=== PATIENT | female | born 1945 | race Caucasian/White ===

== ENCOUNTER 2020-06-29 10:06 | Outpatient (REF) | payer MEDICARE, SELFPAY ==
--- NOTE | 2020-06-29 | PFT_ITS ---
FLOWS: FEV1 25% of predicted at 0.53 L. FVC 46% of predicted at 1.28 L. FEV1 to FVC ratio of 0.49. No bronchodilator response. LUNG VOLUMES: Total lung capacity 90% of predicted at 4.55 L. Residual volume 128% of predicted at 2.96 L. Slow vital capacity 58% of predicted at 1.59 L. Expiratory reserve volume 21% of predicted at 0.13 L. Diffusion capacity is severely decreased, diffusion capacity adjusts to being moderately decreased after correction for alveolar ventilation. IMPRESSION: Very severe obstructive ventilatory defect with no bronchodilator response. Increased residual volume suggests air trapping. Decreased diffusion capacity suggests emphysema. MD AKOSUA Durbin/MODL / [id number] MTDD
== END 2020-06-29 10:07 | disposition home or self-care (01) ==
LOC: HO.RESP 10:06
PROVIDERS: Visit Provider Hospitalist
DX: J43.2 Centrilobular emphysema (principal)
CPT/HCPCS: 94060; 94727; 94729

== ENCOUNTER 2020-07-12 12:27 | Emergency (ER) | payer MEDICARE, SELFPAY ==
--- NOTE | 2020-07-12 12:59 | ED_ITS ---
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 but they recommended she get a COVID swab, increased sputum production on 10mg prednisone daily, on azithromycin MWF, no increased in O2 use MD elicited complaint: fever and cough Pertinent past history: COPD Onset (ago): day(s) (2) Consistency: constant Severity: moderate Description of mucous: clear Able to tolerate fluids by mouth: Yes Exacerbating factors: nothing Relieving factors: nothing Associated symptoms: fever, chills, rhinorrhea and cough Related Data Previous Rx's Medication Instructions Recorded albuterol sulfate 2.5 mg INHALATION Q6H 30 Days #360 06/30/20 ml doxycycline hyclate 100 mg PO BID 7 Days #14 cap 07/12/20 prednisone 20 mg PO DAILY 4 Days #4 tab 07/12/20 Allergies Allergy/AdvReac Type Severity Reaction Status Date / Time No Known Allergies Allergy Verified 07/12/20 13:00 Review of Systems Review of Systems: Constitutional : no Fever, positive Chills, positive fatigue, positive Malaise ENT/Mouth : no sore throat, positive runny nose Eyes: No Discharge Cardiovascular : No Chest Pain, No SOB Respiratory : pos Cough, pos Sputum Gastrointestinal : No Nausea, No Vomiting, No Diarrhea Genitourinary : No Dysuria, No Urinary Frequency Musculoskeletal : positive Myalgia Skin : No rash Neuro : No Headache PMFSH Past Medical History Medical History (Updated 07/12/20 @ 14:29 by Ana Pandey DO) Centrilobular emphysema Surgical History (Updated 07/12/20 @ 13:11 by Christoph Huddleston) H/O: hysterectomy History of cholecystectomy Social History Social History (Updated 07/12/20 @ 13:08 by Ana Pandey DO) Alcohol intake: unknown Smoking Status: Former smoker Use of substances other than those prescribed or required for medical reasons: No Advance Directives: No Advance Directives Information Provided: No Physical Exam Vital Signs: Vital Signs: Vital Signs Temp Pulse Resp BP Pulse Ox 07/12/20 14:24 98.9 F 78 20 114/36 L 97 07/12/20 13:57 75 16 99/50 L 100 07/12/20 13:07 98.7 F 82 16 106/36 L 98 Body Mass Index 24.0 Appearance: Alert. Oriented X3. No acute distress. Eyes: Pupils equal, round and reactive to light. ENT: Pharynx normal. Neck: Normal inspection. Neck supple. CVS: Normal heart rate and rhythm. Pulses normal. Respiratory: No respiratory distress. Breath sounds very decreased, no wheezes Abdomen: Soft and nontender. Skin: Skin warm and dry. Normal skin color. Normal skin turgor. Extremities: No lower extremity edema. No calf ttp Neuro: Oriented X 3. No motor deficit. No sensory deficit. Course Course Course Narrative: no increased O2 demand, CXR negative at this time given fevers will start on antibiotics, lactic acid negative, no change from chronic WBC count, doxy and increase steroids MDM - URI/Sore Throat MDM Narrative Medical decision making narrative: 75 yo female with emphysema O2/steroid/azithromycin chronic treatment here with fevers up to 102 at home, increased sputum, wants COVID test at this time will obtain labs, CXR, COVID swab, neb treatment, dispo per results and findings. Lab Data Result diagrams: 07/12/20 13:25 07/12/20 13:25 Labs: Lab Results 07/12/20 07/12/20 07/12/20 Range/Units 13:25 13:25 13:25 WBC 13.3 H (4.8-10.8) X10*3/uL RBC 3.29 L (4.20-5.50) X10*6/uL Hgb 10.2 L (12.0-16.0) g/dl Hct 32.5 L (37-47) % MCV 98.8 H (80-98) fL MCH 31.0 (27.0-33.0) pg MCHC 31.4 (31.0-35.0) g/dl RDW 13.1 (11.0-16.0) % Plt Count 164 (160-400) X10*3/uL MPV Not Reportable Immature Gran % (Auto) 0.5 H (0.0-0.4) % Neut % (Auto) 89.2 H (45-73) % Lymph % (Auto) 2.0 L (20-40) % [place] % (Auto) 8.1 (2-11) % Eos % (Auto) 0.0 (0-4) % Baso % (Auto) 0.2 (0-2) % Lymph # (Auto) 0.3 L (1.2-4.9) X10*3/uL [place] # (Auto) 1.1 (0.1-1.2) X10*3/uL Eos # (Auto) 0.0 (0.0-0.4) X10*3/uL Baso # (Auto) 0.0 (0.0-0.2) X10*3/uL Abs Immat Gran (auto) 0.06 H (0.00-0.03) X10*3/uL Absolute Neuts (auto) 11.9 H (2.0-8.3) X10*3/uL Absolute Nucleated RBC 0.000 (0.0-0.012) X10*3/uL Nucleated RBC % (auto) 0.0 (0.0-0.2) /100WBC Smear Tech's Comments VERIFIED Hold Blue Top SEE NOTE Sodium 136 (135-145) mmol/L Potassium 3.9 (3.3-5.1) mmol/l Chloride 100 (96-108) mmol/L Carbon Dioxide 27 (22-29) mmol/L Anion Gap 13 (12-20) BUN 16 (9-16) mg/dL Creatinine 0.84 (0.5-1.4) mg/dL Estim Creat Clear Calc 49.1 Estimated GFR > 60 Random Glucose 121 H (60-115) mg/dL Lactic Acid (0.5-2.0) mmol/L Calcium 8.5 (8.4-10.2) mg/dL Magnesium 2.1 (1.6-2.6) mg/dL Total Bilirubin 0.4 (0.0-1.0) mg/dL Direct Bilirubin < 0.2 (0.0-0.5) mg/dL AST 26 (5-31) U/L ALT 20 (0-31) U/L Alkaline Phosphatase 75 (39-117) U/L B-Natriuretic Peptide (<100) pg/mL Total Protein 6.2 L (6.5-8.0) g/dL Albumin 4.0 (3.5-5.0) g/dL 07/12/20 07/12/20 Range/Units 13:25 13:25 WBC (4.8-10.8) X10*3/uL RBC (4.20-5.50) X10*6/uL Hgb (12.0-16.0) g/dl Hct (37-47) % MCV (80-98) fL MCH (27.0-33.0) pg MCHC (31.0-35.0) g/dl RDW (11.0-16.0) % Plt Count (160-400) X10*3/uL MPV Immature Gran % (Auto) (0.0-0.4) % Neut % (Auto) (45-73) % Lymph % (Auto) (20-40) % [place] % (Auto) (2-11) % Eos % (Auto) (0-4) % Baso % (Auto) (0-2) % Lymph # (Auto) (1.2-4.9) X10*3/uL [place] # (Auto) (0.1-1.2) X10*3/uL Eos # (Auto) (0.0-0.4) X10*3/uL Baso # (Auto) (0.0-0.2) X10*3/uL Abs Immat Gran (auto) (0.00-0.03) X10*3/uL Absolute Neuts (auto) (2.0-8.3) X10*3/uL Absolute Nucleated RBC (0.0-0.012) X10*3/uL Nucleated RBC % (auto) (0.0-0.2) /100WBC Smear Tech's Comments Hold Blue Top Sodium (135-145) mmol/L Potassium (3.3-5.1) mmol/l Chloride (96-108) mmol/L Carbon Dioxide (22-29) mmol/L Anion Gap (12-20) BUN (9-16) mg/dL Creatinine (0.5-1.4) mg/dL Estim Creat Clear Calc Estimated GFR Random Glucose (60-115) mg/dL Lactic Acid 1.1 (0.5-2.0) mmol/L Calcium (8.4-10.2) mg/dL Magnesium (1.6-2.6) mg/dL Total Bilirubin (0.0-1.0) mg/dL Direct Bilirubin (0.0-0.5) mg/dL AST (5-31) U/L ALT (0-31) U/L Alkaline Phosphatase (39-117) U/L B-Natriuretic Peptide 18 (<100) pg/mL Total Protein (6.5-8.0) g/dL Albumin (3.5-5.0) g/dL Discharge Plan Discharge Clinical Impression: COPD (chronic obstructive pulmonary disease) Qualifiers: COPD type: emphysema Emphysema type: other Qualified Code(s): J43.8 - Other emphysema Fever Qualifiers: Fever type: unspecified Qualified Code(s): R50.9 - Fever, unspecified Patient Disposition: Home, Self-Care Instructions: Emphysema (ED), COVID-19 (Coronavirus Disease 2019) (ED) Additional Instructions: INCREASE PREDNISONE TO 20MG DAILY FOR THE NEXT 4 DAYS you were tested for COVID we will call you with results in 2 to 4 days, wear a mask, socially distance Prescriptions: New doxycycline hyclate 100 mg capsule 100 mg PO BID 7 Days Qty: 14 RF: 0 prednisone 20 mg tablet 20 mg PO DAILY 4 Days Qty: 4 RF: 0 No Action albuterol sulfate 2.5 mg /3 mL (0.083 %) solution for nebulization 2.5 mg inhalation Q6H 30 Days Qty: 360 RF: 3 Referrals: Radha Cortés MD [Primary Care Provider] - 2 days (if not better)
--- NOTE | 2020-07-12 13:00 | XR_ITS ---
EXAMINATION: XR CHEST CLINICAL INFORMATION: Cough, fever COMPARISON: Chest radiographs 09/19/2019, CTA chest 06/01/2020 TECHNIQUE: Portable upright AP view of the chest was obtained. FINDINGS: There is linear scarring inferior lingula are again seen similar to prior studies. The remainder of the lungs appear clear without airspace consolidation or definite groundglass opacity. The heart is normal in size. The vascularity is normal. The costophrenic sulci are clear. There are 2 clip markers overlying the right breast soft tissues. The hilar and mediastinal contours are normal. No visible acute bony abnormality. XR/XR chest 1V IMPRESSION: 1. No acute intrathoracic disease. 2. Linear scar inferior lingula similar to prior studies.
[2020-07-12 13:07] VITALS: BP 106/36; PULSE 82; RESP 16; TEMP 37.1; O2SAT 98; BMI 24.0
[2020-07-12 13:37] LABS: Basophils Percent Auto 0.2 % (0-2); Hematocrit 32.5 % (37-47); Hemoglobin 10.2 g/dl (12.0-16.0); Imm Gran Abs Auto 0.06 X10*3/uL (0.00-0.03); Imm Gran Pct Auto 0.5 % (0.0-0.4); Lymphocytes Absolute Auto 0.3 X10*3/uL (1.2-4.9); MANUAL DIFF FLAG SCAN; Mean Corpuscular HGB Conc 31.4 g/dl (31.0-35.0); Mean Corpuscular Volume 98.8 fL (80-98); Monocytes Absolute Auto 1.1 X10*3/uL (0.1-1.2); Monocytes Percent Auto 8.1 % (2-11); Neutrophils Absolute Auto 11.9 X10*3/uL (2.0-8.3); Neutrophils Percent Auto 89.2 % (45-73); PLT CLUMP 1; Red Blood Count 3.29 X10*6/uL (4.20-5.50); Red Cell Distribution Width 13.1 % (11.0-16.0); SCAN SMEAR FLAG 1
[2020-07-12 13:57] VITALS: BP 99/50; PULSE 75; RESP 16; O2SAT 100
[2020-07-12 14:05] LABS: Platelet Count 164 X10*3/uL (160-400); White Blood Count 13.3 X10*3/uL (4.8-10.8)
[2020-07-12 14:06] LABS: SLIDE REVIEW VERIFIED
[2020-07-12 14:14] LABS: Lactic Acid 1.1 mmol/L (0.5-2.0)
[2020-07-12 14:19] LABS: Alanine Aminotransferase 20 U/L (0-31); Alkaline Phosphatase 75 U/L (39-117); Anion Gap 13 (12-20); Aspartate Amino Transferase 26 U/L (5-31); Bilirubin Direct < 0.2 mg/dL (0.0-0.5); Bilirubin Total 0.4 mg/dL (0.0-1.0); Blood Urea Nitrogen 16 mg/dL (9-16); Calcium 8.5 mg/dL (8.4-10.2); Carbon Dioxide 27 mmol/L (22-29); Chloride 100 mmol/L (96-108); Creatinine Clr Calc Pharmacy 49.1; Estimated Glomerular Filt Rate > 60; Glucose Random 121 mg/dL (60-115); Magnesium 2.1 mg/dL (1.6-2.6); Potassium 3.9 mmol/l (3.3-5.1); Sodium 136 mmol/L (135-145); Total Protein 6.2 g/dL (6.5-8.0)
[2020-07-12 14:23] LABS: B Type Natriuretic Peptide 18 pg/mL (<100)
[2020-07-12 14:24] VITALS: BP 114/36; PULSE 78; RESP 20; TEMP 37.2; O2SAT 97
== END 2020-07-12 14:46 | disposition home or self-care (01) ==
PROVIDERS: Emergency Provider Emergency Medicine; PCP Internal Medicine
DX: J43.8 Other emphysema (principal); R50.9 Fever, unspecified; Z20.828 Contact with and (suspected) exposure to other viral communicable diseases; Z79.899 Other long term (current) drug therapy; Z87.891 Personal history of nicotine dependence
CPT/HCPCS: 36415; 71045; 80048; 80076; 83605; 83735; 83880; 85025; 87040; 87635; 99284

== ENCOUNTER 2020-07-15 15:01 | Inpatient (IN) | payer MEDICARE, SELFPAY ==
[2020-07-15 15:22] VITALS: BP 133/60; PULSE 87; RESP 22; TEMP 37.7; O2SAT 96; BMI 24.0
--- NOTE | 2020-07-15 16:33 | ED_ITS ---
HPI - SOB/Dyspnea General Chief Complaint: Dyspnea Stated Complaint: sob, weak, +covid Time Seen by Provider: 07/15/20 15:42 Source: patient Mode of arrival: ambulatory Limitations: no limitations History of Present Illness HPI Narrative: patient withhistory of severe COPD on home oxygen 3 LPM was seen here 2 days ago for increased shortness of breath at that time COVID testing was done which came positive for last 3 days patient has been feeling increased shortness of breath pulse ox dropping to 88 on mild exertion patient was sent by her business support for further evaluation and admission on arrival patient is saturating 95% on 3 L MD elicited complaint: shortness of breath Pertinent past history: COPD Onset (ago): day(s) (3) Context: recent illness Timing: intermittent Severity: moderate Exacerbating factors: exertion Relieving factors: oxygen Known history of: COPD Associated symptoms: cough Treatment prior to arrival: oxygen Related Data Home oxygen amount: 3 liters Home Medications Medication Instructions Recorded Confirmed Calcium 500 1 tab PO DAILY 07/15/20 07/15/20 albuterol sulfate [ProAir HFA] 2 puff PO Q6H PRN 07/15/20 07/15/20 aspirin 81 mg PO DAILY 07/15/20 07/15/20 famotidine 20 mg PO BID 07/15/20 07/15/20 ferrous sulfate 1 tab PO DAILY 07/15/20 07/15/20 [id number] 2 INHALATION PRN 07/15/20 [Trelegy Ellipta] levothyroxine 1 tab PO DAILY 07/15/20 07/15/20 multivitamin 1 tab PO DAILY 07/15/20 07/15/20 prednisone 10 mg PO DAILY 07/15/20 07/15/20 simvastatin 1 tab PO BEDTIME 07/15/20 07/15/20 Previous Rx's Medication Instructions Recorded albuterol sulfate 2.5 mg INHALATION Q6H 30 Days #360 06/30/20 ml Allergies Allergy/AdvReac Type Severity Reaction Status Date / Time No Known Allergies Allergy Verified 07/12/20 13:00 Review of Systems Review of Systems: REVIEW OF SYSTEMS: Pertinent positives and negatives are s tated above in the history. GEN: subjective fevers, chills, fatigue++ HEENT: no nasal congestion, sore throat, ear pain NEURO: no headache, dizziness, focal weakness PULM: per HPI CV: no chest pain, palpitations, LE edema ABD: no abdominal pain, nausea, vomiting, diarrhea : no dysuria, urgency, frequency SKIN: no rash ROS otherwise negative x 10 PMFSH Past Medical History Medical History (Updated 07/15/20 @ 20:43 by LEV Lombardo) Centrilobular emphysema Chronic respiratory failure Dyslipidemia Hypothyroidism Surgical History H/O: hysterectomy History of cholecystectomy Family History Family History (Updated 07/15/20 @ 21:02 by LEV Lombardo) Mother No problems noted. Daughter Diabetes Social History Social History (Updated 07/15/20 @ 20:44 by LEV Lombardo) Alcohol intake: unknown Smoking Status: Former smoker Tobacco Type: Cigarette Smoked in Last 30 Days: No Smoking Quit Date: 20 years ago Use of substances other than those prescribed or required for medical reasons: No Advance Directives: No Advance Directives Information Provided: Yes Physical Exam Vital Signs: Vital Signs: Vital Signs Temp Pulse Resp BP Pulse Ox 07/15/20 19:22 99.3 F 77 14 149/51 H 98 07/15/20 16:58 99.3 F 82 20 139/52 L 97 07/15/20 15:22 99.8 F 87 22 H 133/60 96 Body Mass Index 24.0 VITAL SIGNS: Reviewed. GENERAL: Well developed, well nourished, in no acute distress. HEAD: Normocephalic/atraumatic, EYES: PERRLA No pallor/icterus noted EARS: Ext canals without abnormality NOSE: Nares patent bilateral OROPHARYNX: Oral mucosa moist no oral lesions NECK: Supple, no adenopathy LUNGS: decreased air entry bilateral prolonged expiration wheezing present bilaterally no rales CARDIOVASCULAR: Regular rate and rhythm without noted murmurs, no JVD or lower extremity edema. ABDOMEN: Soft, non-tender, non-distended with bowel sounds. No rigidity. No guarding. No palpable masses or hernias noted MUSCULOSKELETAL: No tenderness, deformities, EXTREMITIES: No cyanosis or edema. SKIN: no rashes, ulcerations, jaundice, pallor, or petechiae NEUROLOGIC: Alert and oriented x 3. Strength and sensation to light touch were grossly intact Course Reevaluation(s) Reevaluation #1: patient with COPD exacerbation with COVID positive with subjective weakness and shortness of breath CTA negative for PE or any pneumonia will give her IV Rocephin and Zithromax for both COPD exacerbation COVID infection admit business support to follow MDM - SOB/Dyspnea MDM Narrative Medical decision making narrative: patient with COVID-19 infection with COPD with shortness of breath no infiltrate or PE will admit patient for symptomatic treatment per patient business support Differential Diagnosis Differential diagnosis: Likely acute exacerbation of chronic obstructive airways disease, congestive heart failure and pulmonary embolism Lab Data Result diagrams: 07/15/20 17:10 07/15/20 17:10 Labs: Lab Results 07/15/20 07/15/20 07/15/20 Range/Units 17:10 17:10 17:10 WBC 9.7 (4.8-10.8) X10*3/uL RBC 3.42 L (4.20-5.50) X10*6/uL Hgb 10.3 L (12.0-16.0) g/dl Hct 33.1 L (37-47) % MCV 96.8 (80-98) fL MCH 30.1 (27.0-33.0) pg MCHC 31.1 (31.0-35.0) g/dl RDW 12.5 (11.0-16.0) % Plt Count 216 D (160-400) X10*3/uL MPV 9.4 (9.4-12.3) fL Immature Gran % (Auto) 0.2 (0.0-0.4) % Neut % (Auto) 93.2 H (45-73) % Lymph % (Auto) 2.6 L (20-40) % [place] % (Auto) 3.9 (2-11) % Eos % (Auto) 0.0 (0-4) % Baso % (Auto) 0.1 (0-2) % Lymph # (Auto) 0.3 L (1.2-4.9) X10*3/uL [place] # (Auto) 0.4 (0.1-1.2) X10*3/uL Eos # (Auto) 0.0 (0.0-0.4) X10*3/uL Baso # (Auto) 0.0 (0.0-0.2) X10*3/uL Abs Immat Gran (auto) 0.02 (0.00-0.03) X10*3/uL Absolute Neuts (auto) 9.0 H (2.0-8.3) X10*3/uL Absolute Nucleated RBC 0.000 (0.0-0.012) X10*3/uL Nucleated RBC % (auto) 0.0 (0.0-0.2) /100WBC Smear Tech's Comments VERIFIED D-Dimer NG/ML Sodium 137 (135-145) mmol/L Potassium 4.5 (3.3-5.1) mmol/l Chloride 100 (96-108) mmol/L Carbon Dioxide 28 (22-29) mmol/L Anion Gap 14 (12-20) BUN 17 H (9-16) mg/dL Creatinine 0.71 (0.5-1.4) mg/dL Estim Creat Clear Calc 58.1 Estimated GFR > 60 Random Glucose 125 H (60-115) mg/dL Lactic Acid (0.5-2.0) mmol/L Calcium 8.4 (8.4-10.2) mg/dL Phosphorus (2.7-4.5) mg/dL Magnesium (1.6-2.6) mg/dL Lactate Dehydrogenase (122-220) U/L Total Creatine Kinase (26-140) U/L Troponin I High Sens 5.7 (<3.5-17.0) ng/L C-Reactive Protein (< or = 0.50) mg/dL B-Natriuretic Peptide 23 (<100) pg/mL Procalcitonin ng/mL 07/15/20 07/15/20 07/15/20 Range/Units 17:10 17:10 17:10 WBC (4.8-10.8) X10*3/uL RBC (4.20-5.50) X10*6/uL Hgb (12.0-16.0) g/dl Hct (37-47) % MCV (80-98) fL MCH (27.0-33.0) pg MCHC (31.0-35.0) g/dl RDW (11.0-16.0) % Plt Count (160-400) X10*3/uL MPV (9.4-12.3) fL Immature Gran % (Auto) (0.0-0.4) % Neut % (Auto) (45-73) % Lymph % (Auto) (20-40) % [place] % (Auto) (2-11) % Eos % (Auto) (0-4) % Baso % (Auto) (0-2) % Lymph # (Auto) (1.2-4.9) X10*3/uL [place] # (Auto) (0.1-1.2) X10*3/uL Eos # (Auto) (0.0-0.4) X10*3/uL Baso # (Auto) (0.0-0.2) X10*3/uL Abs Immat Gran (auto) (0.00-0.03) X10*3/uL Absolute Neuts (auto) (2.0-8.3) X10*3/uL Absolute Nucleated RBC (0.0-0.012) X10*3/uL Nucleated RBC % (auto) (0.0-0.2) /100WBC Smear Tech's Comments D-Dimer 243 NG/ML Sodium (135-145) mmol/L Potassium (3.3-5.1) mmol/l Chloride (96-108) mmol/L Carbon Dioxide (22-29) mmol/L Anion Gap (12-20) BUN (9-16) mg/dL Creatinine (0.5-1.4) mg/dL Estim Creat Clear Calc Estimated GFR Random Glucose (60-115) mg/dL Lactic Acid (0.5-2.0) mmol/L Calcium (8.4-10.2) mg/dL Phosphorus 3.6 (2.7-4.5) mg/dL Magnesium 2.0 (1.6-2.6) mg/dL Lactate Dehydrogenase 242 H (122-220) U/L Total Creatine Kinase 63 (26-140) U/L Troponin I High Sens (<3.5-17.0) ng/L C-Reactive Protein 7.37 H (< or = 0.50) mg/dL B-Natriuretic Peptide (<100) pg/mL Procalcitonin 0.05 ng/mL 07/15/20 Range/Units 17:22 WBC (4.8-10.8) X10*3/uL RBC (4.20-5.50) X10*6/uL Hgb (12.0-16.0) g/dl Hct (37-47) % MCV (80-98) fL MCH (27.0-33.0) pg MCHC (31.0-35.0) g/dl RDW (11.0-16.0) % Plt Count (160-400) X10*3/uL MPV (9.4-12.3) fL Immature Gran % (Auto) (0.0-0.4) % Neut % (Auto) (45-73) % Lymph % (Auto) (20-40) % [place] % (Auto) (2-11) % Eos % (Auto) (0-4) % Baso % (Auto) (0-2) % Lymph # (Auto) (1.2-4.9) X10*3/uL [place] # (Auto) (0.1-1.2) X10*3/uL Eos # (Auto) (0.0-0.4) X10*3/uL Baso # (Auto) (0.0-0.2) X10*3/uL Abs Immat Gran (auto) (0.00-0.03) X10*3/uL Absolute Neuts (auto) (2.0-8.3) X10*3/uL Absolute Nucleated RBC (0.0-0.012) X10*3/uL Nucleated RBC % (auto) (0.0-0.2) /100WBC Smear Tech's Comments D-Dimer NG/ML Sodium (135-145) mmol/L Potassium (3.3-5.1) mmol/l Chloride (96-108) mmol/L Carbon Dioxide (22-29) mmol/L Anion Gap (12-20) BUN (9-16) mg/dL Creatinine (0.5-1.4) mg/dL Estim Creat Clear Calc Estimated GFR Random Glucose (60-115) mg/dL Lactic Acid 0.8 (0.5-2.0) mmol/L Calcium (8.4-10.2) mg/dL Phosphorus (2.7-4.5) mg/dL Magnesium (1.6-2.6) mg/dL Lactate Dehydrogenase (122-220) U/L Total Creatine Kinase (26-140) U/L Troponin I High Sens (<3.5-17.0) ng/L C-Reactive Protein (< or = 0.50) mg/dL B-Natriuretic Peptide (<100) pg/mL Procalcitonin ng/mL Discharge Plan Discharge Clinical Impression: Acute exacerbation of chronic obstructive airways disease, COVID-19 Patient Disposition: Admitted As Inpatient
--- NOTE | 2020-07-15 16:33 | CT_ITS ---
EXAMINATION: CT ANGIOGRAM OF THE CHEST WITH AND WITHOUT CONTRAST (CT PULMONARY ANGIOGRAM FOR PE) CLINICAL INFORMATION: Reason for Exam sob covid positive COMPARISON: CTA chest for PE 06/01/2020 TECHNIQUE: Prior to contrast administration, noncontrast localization images were obtained. Subsequently, multidetector volumetric imaging was performed from the thoracic inlet to below the diaphragms following the administration of 80 mLOmnipaque 350 intravenous contrast. No contrast reaction reported Sagittal, coronal, and MIP oblique sagittal reformatted images were obtained on the CT workstation, uploaded to PACS, and reviewed. This CT examination was performed using dose optimization techniques as appropriate, variously including the following: *Automated exposure control *Adjustment of mA and/or kV according to patient size (this includes techniques or standardized protocols for targeted exams where dose is matched to indication/reason for exam; i.e. extremities or head) *Use of iterative reconstruction technique Total exam dose-length product 273 mGy-cm FINDINGS: QUALITY OF STUDY/CONTRAST BOLUS: Excellent PULMONARY ARTERIES: No central or segmental pulmonary emboli. THORACIC AORTA: Atherosclerotic changes are present with calcified plaque. No aneurysm or dissection. A 4 vessel arch is present with a separate origin to the left vertebral artery which has an extremely tight stenosis, if not occlusion, at its origin where calcified plaque fills nearly the entire lumen. LUNG: Emphysematous changes are present in the lungs. At the lung bases peripherally there is some reticulation and honeycombing present most prominent at the right lung base. PLEURA: No pleural effusion or pneumothorax. MEDIASTINUM: Normal heart size. No pericardial effusion. No hilar or mediastinal lymphadenopathy. No evidence of septal bowing or right heart strain. CHEST WALL/AXILLA: No axillary or internal mammary lymphadenopathy. OSSEOUS STRUCTURES: No acute or suspicious osseous abnormality. UPPER ABDOMEN: Status post cholecystectomy. No reflux of contrast into the hepatic veins to suggest elevated right heart pressures. CT/CT angio chest PE protocol IMPRESSION: 1. No evidence of pulmonary emboli 2. Emphysematous changes 3. 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 VTE: negative
[2020-07-15 16:58] VITALS: BP 139/52; PULSE 82; PULSE 90; RESP 20; TEMP 37.4; O2SAT 97
[2020-07-15 17:28] LABS: Basophils Percent Auto 0.1 % (0-2); Hematocrit 33.1 % (37-47); Hemoglobin 10.3 g/dl (12.0-16.0); Imm Gran Abs Auto 0.02 X10*3/uL (0.00-0.03); Imm Gran Pct Auto 0.2 % (0.0-0.4); Lymphocytes Absolute Auto 0.3 X10*3/uL (1.2-4.9); Lymphocytes Percent Auto 2.6 % (20-40); MANUAL DIFF FLAG SCAN; Mean Corpuscular HGB Conc 31.1 g/dl (31.0-35.0); Mean Corpuscular Hemoglobin 30.1 pg (27.0-33.0); Mean Corpuscular Volume 96.8 fL (80-98); Mean Platelet Volume 9.4 fL (9.4-12.3); Monocytes Absolute Auto 0.4 X10*3/uL (0.1-1.2); Monocytes Percent Auto 3.9 % (2-11); Neutrophils Percent Auto 93.2 % (45-73); Platelet Count 216 X10*3/uL (160-400); Red Blood Count 3.42 X10*6/uL (4.20-5.50); Red Cell Distribution Width 12.5 % (11.0-16.0); SCAN SMEAR FLAG 1; White Blood Count 9.7 X10*3/uL (4.8-10.8)
[2020-07-15 17:47] LABS: Lactic Acid 0.8 mmol/L (0.5-2.0)
[2020-07-15 17:50] LABS: Anion Gap 14 (12-20); Blood Urea Nitrogen 17 mg/dL (9-16); Calcium 8.4 mg/dL (8.4-10.2); Carbon Dioxide 28 mmol/L (22-29); Chloride 100 mmol/L (96-108); Creatinine Clr Calc Pharmacy 58.1; Estimated Glomerular Filt Rate > 60; Glucose Random 125 mg/dL (60-115); Potassium 4.5 mmol/l (3.3-5.1); Sodium 137 mmol/L (135-145)
[2020-07-15 17:53] LABS: D Dimer 243 NG/ML
[2020-07-15 18:00] LABS: B Type Natriuretic Peptide 23 pg/mL (<100); Troponin-I High Sensitivity 5.7 ng/L (<3.5-17.0)
[2020-07-15 18:03] LABS: SLIDE REVIEW VERIFIED
[2020-07-15] MEDS: iohexoL 350 MG/ML 100 ML INFUS..BTL IV (18:58)
--- NOTE | 2020-07-15 19:01 | PC.NURSE ---
REPORT TAKEN FROM BRADY RN, FIRST CONTACT WITH PT. SITTING UP IN BED SKIN PWD RESPIRATIONS EVEN UNLABORED. REPORTS INCREASED SOB WITH MOVEMENT. PLAN TO ADMIT COVID+. AWAITING RT FOR INHALER. AWARE OF PLAN OF CARE.
[2020-07-15 19:22] VITALS: BP 149/51; PULSE 77; RESP 14; TEMP 37.4; O2SAT 98
--- NOTE | 2020-07-15 19:25 | PC.NURSE ---
PT UP TO BEDSIDE COMMODE, INCREASED SOB WITH MOVMENT. PRODUCTIVE COUGH NOTED.
[2020-07-15 19:29] LABS: C Reactive Protein 7.37 mg/dL (< or = 0.50); Lactate Dehydrogenase 242 U/L (122-220); Phosphorus 3.6 mg/dL (2.7-4.5)
[2020-07-15 19:53] LABS: Procalcitonin 0.05 ng/mL
[2020-07-15] MEDS: Albuterol Sulfate 90 MCG 8 GM INHALER 4 PUFF INHALE (20:10)
[2020-07-15] MEDS: cefTRIAXone sodium 1 GM in 0.9 % Sodium Chloride 50 ML IV (20:31)
--- NOTE | 2020-07-15 20:31 | P.HPIM_ITS ---
History of Present Illness Date of Service: 07/15/20 Chief Complaint: shortness of breath this is a 75-year-old female with a history of chronic respiratory failure on daily prednisone who presents to the emergency department today with shortness of breath. On Wednesday 07/11 she began feeling short of breath. Her cough was associated with cough, fever and headache. she tried to make an appointment with her director of collections but given her fever they recommended she come to the emergency department for evaluation. She was evaluated on 07/12 and swabbed for coronavirus. She was also started on a course of steroids and doxycycline. She was called today and told her coronavirus test was positive. Her director of collections recommended that she return to the emergency department given her history of underlying lung disease and symptoms of shortness of breath. she has had low- grade temperature of 99.3 degrees. Lab work was unremarkable. she underwent a CTA which showed no evidence of PE. She did not require any additional oxygen above her baseline 3 L. however she did become dyspneic with even minimal movement including walking to commode. Review of Systems Review of Systems: Yes all other systems are reviewed and are negative Cardiovascular: Cardiovascular: Denies chest pain, Denies leg edema and Reports dyspnea Respiratory: Respiratory: Reports cough and Reports dyspnea Gastrointestinal: Gastrointestinal: Reports diarrhea, Denies nausea and Denies vomiting [facility] Medical History (Updated 07/15/20 @ 20:43 by LEV Lombardo) Centrilobular emphysema Chronic respiratory failure Dyslipidemia Hypothyroidism Functional capacity: independent ambulation Family History (Updated 07/15/20 @ 21:02 by LEV Lombardo) Mother No problems noted. Daughter Diabetes Surgical History H/O: hysterectomy History of cholecystectomy Social History (Updated 07/15/20 @ 20:44 by LEV Lombardo) Household Members: None Housing: House Do you presently have visiting nurse or other home services: No Alcohol intake: unknown Smoking Status: Former smoker Tobacco Type: Cigarette Smoked in Last 30 Days: No Smoking Quit Date: 20 years ago Patient Interested in Nicotine Replacement: No Use of substances other than those prescribed or required for medical reasons: No Have you been hit, kicked, punched, or otherwise hurt by someone within the past year? If so, by whom?: No Do you feel safe in your current relationship?: No Is there a partner from a previous relationship who is making you feel unsafe now?: No Are you made to feel afraid or neglected: No Advance Directives: No Advance Directives Information Provided: Yes Do you have thoughts of harming others: None Do you have a plan to hurt others: No Plan Recently lost weight without trying: No service: No Current occupational status: retired Meds Allergies Allergy/AdvReac Type Severity Reaction Status Date / Time No Known Allergies Allergy Verified 07/12/20 13:00 Home Medications Medication Instructions Recorded Confirmed Type Calcium 500 1 tab PO DAILY 07/15/20 07/15/20 History albuterol sulfate [ProAir HFA] 2 puff PO Q6H PRN 07/15/20 07/15/20 History famotidine 20 mg PO BID 07/15/20 07/15/20 History ferrous sulfate 1 tab PO DAILY 07/15/20 07/15/20 History levothyroxine 1 tab PO DAILY 07/15/20 07/15/20 History multivitamin 1 tab PO DAILY 07/15/20 07/15/20 History prednisone 10 mg PO DAILY 07/15/20 07/15/20 History simvastatin 1 tab PO BEDTIME 07/15/20 07/15/20 History aspirin 81 mg PO DAILY 07/16/20 07/16/20 History Physical Exam Vital Signs and Narrative: Vital Signs: Last Vital Signs Temp 99.3 F 07/15/20 19:22 Pulse 77 07/15/20 19:22 Resp 14 07/15/20 19:22 BP 149/51 H 07/15/20 19:22 Pulse Ox 98 07/15/20 19:22 Body Mass Index 24.0 Const: Nutritional Appearance: well nourished Orientation/consciousness: patient oriented x3 HENMT: Head: Yes normocephalic and Yes atraumatic Eyes: Sclerae: sclerae normal Chest: Chest palpation & inspection: normal inspection of the chest Resp: Effort & Inspection: labored and tachypneic Cardio: Rate: regular rate Rhythm: regular rhythm GI: Palpation (GI): Soft to palpation and nontender Skin: General skin exam: no rashes or lesions noted Neuro: General: patient oriented x3 Cranial nerves: Yes CN's II-XII intact bilaterally and Yes Bilaterally intact EOM present Extrem: General: Yes normal to inspection Results Labs Labs: Laboratory Tests 07/15/20 07/15/20 07/15/20 17:10 17:10 17:10 WBC 9.7 RBC 3.42 L Hgb 10.3 L Hct 33.1 L MCV 96.8 MCH 30.1 MCHC 31.1 RDW 12.5 Plt Count 216 D MPV 9.4 Immature Gran % (Auto) 0.2 Neut % (Auto) 93.2 H Lymph % (Auto) 2.6 L [place] % (Auto) 3.9 Eos % (Auto) 0.0 Baso % (Auto) 0.1 Lymph # (Auto) 0.3 L [place] # (Auto) 0.4 Eos # (Auto) 0.0 Baso # (Auto) 0.0 Abs Immat Gran (auto) 0.02 Absolute Neuts (auto) 9.0 H Absolute Nucleated RBC 0.000 Nucleated RBC % (auto) 0.0 Smear Tech's Comments VERIFIED D-Dimer Sodium 137 Potassium 4.5 Chloride 100 Carbon Dioxide 28 Anion Gap 14 BUN 17 H Creatinine 0.71 Estim Creat Clear Calc 58.1 Estimated GFR > 60 Random Glucose 125 H Lactic Acid Calcium 8.4 Phosphorus Magnesium Lactate Dehydrogenase Total Creatine Kinase Troponin I High Sens 5.7 C-Reactive Protein B-Natriuretic Peptide 23 Procalcitonin 07/15/20 07/15/20 07/15/20 17:10 17:10 17:10 WBC RBC Hgb Hct MCV MCH MCHC RDW Plt Count MPV Immature Gran % (Auto) Neut % (Auto) Lymph % (Auto) [place] % (Auto) Eos % (Auto) Baso % (Auto) Lymph # (Auto) [place] # (Auto) Eos # (Auto) Baso # (Auto) Abs Immat Gran (auto) Absolute Neuts (auto) Absolute Nucleated RBC Nucleated RBC % (auto) Smear Tech's Comments D-Dimer 243 Sodium Potassium Chloride Carbon Dioxide Anion Gap BUN Creatinine Estim Creat Clear Calc Estimated GFR Random Glucose Lactic Acid Calcium Phosphorus 3.6 Magnesium 2.0 Lactate Dehydrogenase 242 H Total Creatine Kinase 63 Troponin I High Sens C-Reactive Protein 7.37 H B-Natriuretic Peptide Procalcitonin 0.05 07/15/20 17:22 WBC RBC Hgb Hct MCV MCH MCHC RDW Plt Count MPV Immature Gran % (Auto) Neut % (Auto) Lymph % (Auto) [place] % (Auto) Eos % (Auto) Baso % (Auto) Lymph # (Auto) [place] # (Auto) Eos # (Auto) Baso # (Auto) Abs Immat Gran (auto) Absolute Neuts (auto) Absolute Nucleated RBC Nucleated RBC % (auto) Smear Tech's Comments D-Dimer Sodium Potassium Chloride Carbon Dioxide Anion Gap BUN Creatinine Estim Creat Clear Calc Estimated GFR Random Glucose Lactic Acid 0.8 Calcium Phosphorus Magnesium Lactate Dehydrogenase Total Creatine Kinase Troponin I High Sens C-Reactive Protein B-Natriuretic Peptide Procalcitonin Assessment and Plan (1) COVID-19: Status: Acute this is a 75-year-old female with a history of chronic respiratory failure on 3 L of home oxygen, COPD, recently diagnosed with the COVID-19 who presents with shortness of breath COVID-19 no viral sepsis currently at baseline oxygen requirement - Pulmonary consult - continue home dose of chronic steroids dyslipidemia - continue statin hypothyroidism - continue Synthroid anemia chronic. H/H at baseline - follow CBC incidental finding of left vertebral artery stenosis -consult vascular DVT prophylaxis- Lovenox code status- full code this case was discussed with Dr. Rey
--- NOTE | 2020-07-15 20:34 | PC.NURSE ---
IVF HUNG AND INFUSING WITHOUT DIFFICULTY, PT SEEN BY HOSPITALIST, MEDICATIONS RECONCILED. AWAITING BED ASSIGNMENT AND ADDITIONAL ANTIBIOTICS, AWARE OF PLAN OF CARE. NO CHANGE IN PHYSICAL ASSESSMENT AT THIS TIME, SAO2 98% ON 3L. HOME 02 DEPENDENT.
[2020-07-15] MEDS: Azithromycin 500 MG in 0.9 % Sodium Chloride 250 ML 125 MG IV (21:07)
[2020-07-15 21:20] VITALS: BP 144/55; PULSE 81; RESP 20; TEMP 37.3; O2SAT 96
[2020-07-15 23:24] VITALS: BP 126/76; PULSE 88; RESP 20; TEMP 37.2; O2SAT 97
[2020-07-16] VITALS (8 sets, daily range): BP systolic 91–143; BP diastolic 46–76; PULSE 78–90; RESP 16–20; TEMP 36.7–38.3; O2SAT 93–97
[2020-07-16] MEDS: 0.9 % Sodium Chloride Flush 3 ML SYRINGE IVFLUSH ×3 (00:17→14:36)
[2020-07-16] MEDS: Enoxaparin Sodium 40 MG/0.4 ML SYRINGE SUBCUT (00:17)
[2020-07-16] MEDS: Levothyroxine Sodium 25 MCG TABLET PO (06:13)
[2020-07-16 06:17] LABS: MANUAL DIFF FLAG NO
[2020-07-16 06:42] LABS: Basophils Percent Auto 0.1 % (0-2); Hematocrit 30.8 % (37-47); Hemoglobin 9.8 g/dl (12.0-16.0); Imm Gran Abs Auto 0.03 X10*3/uL (0.00-0.03); Imm Gran Pct Auto 0.4 % (0.0-0.4); Lymphocytes Absolute Auto 0.9 X10*3/uL (1.2-4.9); Lymphocytes Percent Auto 12.9 % (20-40); Mean Corpuscular HGB Conc 31.8 g/dl (31.0-35.0); Mean Corpuscular Hemoglobin 30.6 pg (27.0-33.0); Mean Corpuscular Volume 96.3 fL (80-98); Mean Platelet Volume 9.6 fL (9.4-12.3); Monocytes Absolute Auto 0.7 X10*3/uL (0.1-1.2); Monocytes Percent Auto 9.9 % (2-11); Neutrophils Absolute Auto 5.2 X10*3/uL (2.0-8.3); Neutrophils Percent Auto 76.7 % (45-73); Platelet Count 209 X10*3/uL (160-400); Red Cell Distribution Width 12.4 % (11.0-16.0); White Blood Count 6.8 X10*3/uL (4.8-10.8)
[2020-07-16 06:51] LABS: Anion Gap 13 (12-20); Blood Urea Nitrogen 12 mg/dL (9-16); Calcium 8.1 mg/dL (8.4-10.2); Carbon Dioxide 30 mmol/L (22-29); Chloride 100 mmol/L (96-108); Estimated Glomerular Filt Rate > 60; Glucose Random 85 mg/dL (60-115); Potassium 4.3 mmol/l (3.3-5.1); Sodium 139 mmol/L (135-145)
[2020-07-16] MEDS: Aspirin 81 MG TAB.CHEW PO (08:01)
[2020-07-16] MEDS: predniSONE 10 MG TABLET PO (08:01)
[2020-07-16] MEDS: Famotidine 20 MG TABLET PO ×2 (08:01→20:56)
[2020-07-16] MEDS: Acetaminophen 325 MG TABLET 650 MG PO (08:04)
--- NOTE | 2020-07-16 09:43 | MHC.CM.PN ---
pt is covid 19 + and on the isolation unit, hence pt's daughter was called and message left re: info for cm assessment . more information will have to be gathered prior to formulating a dc plan. cm to cont. to follow.
--- NOTE | 2020-07-16 11:36 | PM.EVENT ---
Event Note Event Note: Incidental finding of vertebral artery stenosis. No intervention indicated. Will see patient on an as-needed basis. No follow-up with be required as well.
[2020-07-16 11:57] LABS: Glucose, Whole Blood 89 mg/dL (60-115)
--- NOTE | 2020-07-16 12:17 | CONS_ITS ---
DATE OF SERVICE: 07/16/2020 This 75-year-old very pleasant female has had acute respiratory symptoms including increased cough, shortness of breath, low-grade fever, headache. She was initially evaluated in the emergency room on July 11 and sent home on prednisone with a course of doxycycline and to continue her regular medications. The patient continued to have increased symptoms, so yesterday she was advised to come back to the emergency room. She is checked too with COVID test, which turns out to be positive and because she has underlying chronic obstructive pulmonary disease, she is hospitalized for further management. PAST MEDICAL HISTORY: This patient is being followed by Dr. Barrientos in our Pulmonary Department and she has long-standing history of chronic obstructive pulmonary disease which has remained fairly stable. She is on Trelegy 1 inhalation daily, uses ProAir 2 puffs q.4 hours p.r.n. She is on home oxygen at 3 L/minute. The patient also has past history of hypothyroidism and dyslipidemia. She is a nonsmoker, quit many years ago. PHYSICAL EXAMINATION: GENERAL: 75-year-old female of a thin build, is relatively comfortable and afebrile at this time. She is not noted to be in distress. She is on her usual oxygen 3 L/minute and oxygenating well. EAR, NOSE, THROAT: Examination shows no acute infection at this time. NECK: No JVD. Trachea midline. No lymphadenopathy. CHEST: Percussion note is resonant. Breath sounds are distant with prolonged expiratory phase. No wheezes or rhonchi heard. CARDIAC: Sounds are normal. No murmurs. ABDOMEN: Flat, soft, and nontender. EXTREMITIES: No edema or varicosities. Peripheral pulses are normal. DIAGNOSTIC DATA: Chest x-ray of 07/12 shows linear scarring in the lingular area as seen before and no acute intrathoracic disease noted. The CTA of the chest is performed on 07/15 and it shows no evidence of pulmonary embolism, chronic emphysema. No infiltrates are noted. CLINICAL IMPRESSION: 1. Chronic obstructive pulmonary disease, relatively stable. 2. Acute COVID infection. 3. No evidence of any pneumonitis at this time. 4. Chronic hypoxemia is well controlled. RECOMMENDATIONS: 1. Trelegy Ellipta 1 inhalation daily and if it is not available in the hospital, she may be allowed to use her own or replace with Breo Ellipta 200 one inhalation daily. 2. Use albuterol inhaler 2 puffs q.4 hours p.r.n. 3. Oxygen 3 L/minute and adjust as needed. 4. I do not think she needs her Remdesivir at this time, but she should be on dexamethasone 6 mg daily. 5. Continue famotidine 20 mg b.i.d. 6. I will be glad to follow her along. MD DALILA Savage/ZABRINA / [id number]
--- NOTE | 2020-07-16 16:45 | W.PM.IDCN ---
History of Present Illness Data of Consult Service Date: 07/16/20 Primary Care Provider: Radha Cortés MD HPI Reason for consult: LUIS She has exposure to granddaughter 10 d ago from [place] She caught LUIS at a wedding She has cough and fatigue for 10 d Review of Systems Review of Systems: Yes all other systems are reviewed and are negative PMFSH Past Medical History Medical History Centrilobular emphysema Chronic respiratory failure Dyslipidemia Hypothyroidism Functional capacity: independent ambulation Family History Family History Mother No problems noted. Daughter Diabetes Surgical History Surgical History H/O: hysterectomy History of cholecystectomy Social History Social History (Updated 07/15/20 @ 20:44 by LEV Lombardo) Household Members: None Housing: House Do you presently have visiting nurse or other home services: No Alcohol intake: unknown Smoking Status: Former smoker Tobacco Type: Cigarette Smoked in Last 30 Days: No Smoking Quit Date: 20 years ago Patient Interested in Nicotine Replacement: No Use of substances other than those prescribed or required for medical reasons: No Currently Displaying Signs/Symptoms of Drug Intoxication Withdrawal: No Have you been hit, kicked, punched, or otherwise hurt by someone within the past year? If so, by whom?: No Do you feel safe in your current relationship?: No Is there a partner from a previous relationship who is making you feel unsafe now?: No Are you made to feel afraid or neglected: No Advance Directives: No Advance Directives Information Provided: Yes Do you have thoughts of harming others: None Do you have a plan to hurt others: No Plan Recently lost weight without trying: No service: No Current occupational status: retired Meds Allergies Allergy/AdvReac Type Severity Reaction Status Date / Time No Known Allergies Allergy Verified 07/12/20 13:00 Home Medications Medication Instructions Recorded Confirmed Type Calcium 500 1 tab PO DAILY 07/15/20 07/15/20 History albuterol sulfate [ProAir HFA] 2 puff PO Q6H PRN 07/15/20 07/15/20 History famotidine 20 mg PO BID 07/15/20 07/15/20 History ferrous sulfate 1 tab PO DAILY 07/15/20 07/15/20 History levothyroxine 1 tab PO DAILY 07/15/20 07/15/20 History multivitamin 1 tab PO DAILY 07/15/20 07/15/20 History prednisone 10 mg PO DAILY 07/15/20 07/15/20 History simvastatin 1 tab PO BEDTIME 07/15/20 07/15/20 History aspirin 81 mg PO DAILY 07/16/20 07/16/20 History Physical Exam Vital Signs: Vital Signs: Vital Signs Temp Pulse Resp BP Pulse Ox 07/16/20 16:00 98.0 F 78 18 91/46 L 96 07/16/20 12:00 99.2 F 81 20 115/54 L 94 07/16/20 10:02 99.5 F 07/16/20 08:00 101.0 F H 90 20 143/55 H 93 07/16/20 03:36 99.8 F 90 20 140/53 H 97 07/16/20 00:00 98.9 F 88 126/76 97 07/15/20 23:24 98.9 F 88 20 126/76 97 07/15/20 21:20 99.2 F 81 20 144/55 H 96 07/15/20 19:22 99.3 F 77 14 149/51 H 98 07/15/20 16:58 99.3 F 82 20 139/52 L 97 Body Mass Index 24.0 Const: General: cooperative and comfortable HENMT: Head: Yes normal to inspection Resp: Effort & Inspection: able to speak in complete sentences Cardio: Rate: regular rate Rhythm: regular rhythm GI: Inspection: Yes normal to inspection Skin: General skin exam: no rashes or lesions noted Assessment and Plan (1) COVID-19: Problem details: CONT. DEXAMETHASONE 6 MG PO DAILY. NO NEED OF REDEVIR , FAMOTIDINE 20 MG POBID . Status: Acute Continue Dexamethasone Convalescent plasma if worsens and Remdesivir (2) Acute exacerbation of chronic obstructive airways disease: Status: Acute (3) Centrilobular emphysema: Status: Acute Results Labs CBC & Chem 7: 07/16/20 05:47 07/16/20 05:47 Labs: Short CBC 07/15/20 07/16/20 Range/Units 17:10 05:47 WBC 9.7 6.8 (4.8-10.8) X10*3/uL Hgb 10.3 L 9.8 L (12.0-16.0) g/dl Hct 33.1 L 30.8 L (37-47) % Plt Count 216 D 209 (160-400) X10*3/uL BMP 07/15/20 07/16/20 17:10 05:47 Sodium 137 139 Potassium 4.5 4.3 Chloride 100 100 Carbon Dioxide 28 30 H BUN 17 H 12 Creatinine 0.71 0.70 Calcium 8.4 8.1 L Cardiac Enzymes 07/15/20 Range/Units 17:10 Total Creatine Kinase 63 (26-140) U/L
[2020-07-16] MEDS: Atorvastatin Calcium 10 MG TABLET PO (20:56)
[2020-07-17] VITALS (7 sets, daily range): BP systolic 101–153; BP diastolic 46–65; PULSE 55–82; RESP 18; TEMP 36.6–36.8; O2SAT 92–96
[2020-07-17] MEDS: 0.9 % Sodium Chloride Flush 3 ML SYRINGE IVFLUSH ×3 (00:07→15:52)
[2020-07-17] MEDS: Enoxaparin Sodium 40 MG/0.4 ML SYRINGE SUBCUT (00:07)
[2020-07-17] MEDS: Levothyroxine Sodium 25 MCG TABLET PO (05:44)
[2020-07-17] MEDS: Famotidine 20 MG TABLET PO ×2 (08:05→20:34)
[2020-07-17] MEDS: dexAMETHasone 6 MG TABLET PO (08:05)
[2020-07-17] MEDS: Aspirin 81 MG TAB.CHEW PO (08:05)
[2020-07-17] MEDS: Acetaminophen 325 MG TABLET 650 MG PO (09:21)
--- NOTE | 2020-07-17 11:03 | PM.PNPUL ---
Subjective Subjective Principal diagnosis: COVID INFECTION.COPD. Interval history: PATIENT IS SHORT OF BREATH USUAL BUT OVERALL STAYING STABLE. SHE IS AFEBRILE, HAS NO EXPECTORATION, NO CHEST PAIN OR WHEEZING. SHE IS WEAK AND TIRED EXPECTED. COMPLAINS OF GETTING SHORT OF BREATH AND WEAK ON WALKING. Objective Data Labs CBC & Chem 7: 07/16/20 05:47 07/16/20 05:47 Labs: Laboratory Results - last 24 hr 07/16/20 11:51 POC Glucose 89 Microbiology Microbiology Results: Microbiology 07/15/20 17:22 Blood - Venous Blood Culture - Preliminary No growth after 24 hours. 07/15/20 17:10 Blood - Venous Blood Culture - Preliminary No growth after 24 hours. Review of Systems Constitutional: Reports body ache(s), Denies chills, Reports fatigue, Denies fever(s) and Denies headache(s) Eyes: Denies blurry vision, Denies irritation, Denies itchy eyes and Denies loss of vision Denies dysphagia, Denies vertigo, Denies headache(s), Denies epistaxis, Denies nasal congestion, Denies nasal discharge, Denies nasal obstruction and Denies sinus pain Cardiovascular: Denies chest pain, Denies rapid heart rate, Denies irregular heart rhythm, Reports dyspnea on exertion and Denies slow heart rate Respiratory: Reports as per HPI and Reports dyspnea on exertion Gastrointestinal: Denies bloating, Denies change in bowel habits, Denies change in stool character, Denies dysphagia, Denies heartburn, Denies nausea, Denies vomiting and Reports other (POOR APETITE) Genitourinary: Reports difficulty voiding and Reports urinary incontinence Musculoskeletal: Denies abnormal gait, Denies back pain, Denies myalgias, Denies arthralgias, Denies muscle weakness and Denies stiffness Denies Abnormal speech present, Denies abnormal gait, Denies vertigo, Denies headache(s), Denies focal weakness, Denies loss of vision, Denies memory loss, Denies restless legs and Denies tremor(s) Psychiatric: Denies anxiety, Denies depression, Denies difficulty concentrating, Denies irritability, Denies memory loss and Denies mood swings Endocrine: Reports no additional endocrine complaints and Reports fatigue Hematologic/Lymphatic: Reports no additional hematologic/lymphatic complaints Allergic/Immunologic: Reports no additional allergic/immunologic complaints and Denies itchy eyes Physical Exam Vital Signs: Vital Signs: Vital Signs Temp Pulse Resp BP Pulse Ox 07/17/20 08:00 98.1 F 74 18 110/55 L 94 07/17/20 03:38 98.1 F 73 18 116/53 L 94 07/17/20 00:00 97.8 F 55 18 101/48 L 92 07/16/20 20:02 98.8 F 82 16 137/61 94 07/16/20 17:09 115/55 L 07/16/20 16:00 98.0 F 78 18 91/46 L 96 07/16/20 12:00 99.2 F 81 20 115/54 L 94 Body Mass Index 24.0 Const: General: comfortable, no acute distress (BUT SOB USUAL .), alert and awake Orientation/consciousness: patient oriented x3 HENMT: Head: Yes normal to inspection General nose exam: No nasal polyps present and No nasal discharge present Face and sinus: Yes sinuses nontender Mouth: oropharynx normal Throat: Yes posterior oropharynx normal Eyes: General: appearance normal, both eyes and all related structures Neck: Neck: Yes normal visual inspection, Yes no lymphadenopathy, Yes trachea midline and Yes no JVD Thyroid: Thyroid normal Chest: Chest palpation & inspection: normal inspection of the chest Resp: Other: PERCUSSION NOTE RESONANT,BREATH SOUNDS ARE DISTANT ON BOTH SIDES, ONLY A FEW EXPIRATORY WHEEZES IN THE UPPER CHEST. Cardio: Palpation: normal PMI Rate: regular rate Rhythm: regular rhythm Heart sounds: Gallop heart sound present and Murmur heart sound present Peripheral pulses: Peripheral pulses 2+ throughout GI: Palpation (GI): Soft to palpation, nontender, No hepatosplenomegaly present and no masses Auscultation: normal bowel sounds Back/Spine/Pelvis: Thoracic/Lumbar Spine: thoracic and lumbar spine normal to inspection Skin: General skin exam: no rashes or lesions noted Neuro: General: patient oriented x3 and no focal motor deficits Cranial nerves: Yes CN's II-XII intact bilaterally Speech: No Abnormal speech present Extrem: General: Yes normal to inspection, Yes no clubbing, cyanosis or edema, Yes no calf tenderness and Yes venous stasis dermatitis Psych: Speech and movement: Normal speech and movement present Assessment and Plan Assessment and plan (1) COVID-19: Problem details: CONT. DEXAMETHASONE 6 MG PO DAILY. NO NEED OF REDEVIR , FAMOTIDINE 20 MG POBID . Status: Acute (2) Acute exacerbation of chronic obstructive airways disease: Status: Acute Assessment and Plan: CONT. O2 3L/MT . BREO-200 MG DAILY , MAY USE COMBIVENT RESP. ONE INH Q 6 HRS PRN Time Spent With Patient Time: Total time spent is greater than 50% in coordination of care (as documented) at patient's floor/unit and/or counseling patient: Time with patient: 15 - 24 minutes
--- NOTE | 2020-07-17 13:46 | P.PNIM_ITS ---
Subjective Subjective Date of Service: 07/17/20 Interval History: covid inf Review of Systems Patient still feels short of breath seems similar yesterday Physical Exam Vital Signs: Vital Signs: Vital Signs Temp Pulse Resp BP Pulse Ox 07/17/20 11:24 97.9 F 69 18 112/46 L 96 07/17/20 08:00 98.1 F 74 18 110/55 L 94 07/17/20 03:38 98.1 F 73 18 116/53 L 94 07/17/20 00:00 97.8 F 55 18 101/48 L 92 07/16/20 20:02 98.8 F 82 16 137/61 94 07/16/20 17:09 115/55 L 07/16/20 16:00 98.0 F 78 18 91/46 L 96 Body Mass Index 24.0 Physical exam: Cvs: rrr, [id number] , no murmur res: Breath sounds are diminished, still has wheezing. abd: no rebound or guarding ,nt, bs present. ext pulses present , no cyanosis neuro: axo3 , nonfocal. Objective Data Current Medications Generic Name Dose Route Start Last Admin Trade Name Freq PRN Reason Stop Dose Admin Acetaminophen 650 mg 07/15/20 23:53 07/17/20 09:21 Acetaminophen 325 Mg Tablet PO 650 mg Q6H PRN Administration Pain, Mild (Pain Scale 1-3) Albuterol Sulfate 2 puff 07/15/20 23:53 Albuterol Sulfate 90 Mcg 8 Gm Inhaler INHALE Q4H PRN Shortness of Breath/Wheezing Albuterol Sulfate 2 puff 07/17/20 10:32 Albuterol Sulfate 90 Mcg 8 Gm Inhaler INHALE RQ4H PRN copd Aspirin 81 mg 07/16/20 09:00 07/17/20 08:05 Aspirin 81 Mg Tab.Chew PO 81 mg DAILY SYLVIA Administration Atorvastatin Calcium 10 mg 07/16/20 21:00 07/16/20 20:56 Atorvastatin Calcium 10 Mg Tablet PO 10 mg BEDTIME SYLVIA Administration Dexamethasone 6 mg 07/17/20 09:00 07/17/20 08:05 Dexamethasone 6 Mg Tablet PO 6 mg DAILY SYLVIA Administration Enoxaparin Sodium 40 mg 07/16/20 00:00 07/17/20 00:07 Enoxaparin Sodium 40 Mg/0.4 Ml Syringe SUBCUT 40 mg Q24H SYLVIA Administration Famotidine 20 mg 07/15/20 23:53 07/17/20 08:05 Famotidine 20 Mg Tablet PO 20 mg BID SYLVIA Administration Fluticasone/Vilanterol 1 puff 07/18/20 08:00 Fluticasone/Vilanterol 200/25 Blst.W.Dev INHALE RDAILY [facility] Levothyroxine Sodium 25 mcg 07/16/20 06:30 07/17/20 05:44 Levothyroxine Sodium 25 Mcg Tablet PO 25 mcg 0630 SYLVIA Administration Ondansetron HCl 4 mg 07/15/20 23:53 Ondansetron Hcl 4 Mg/2 Ml Vial IVPUSH Q8H PRN Nausea and Vomiting Sodium Chloride 3 ml 07/16/20 00:00 07/17/20 08:06 0.9 % Sodium Chloride Flush 3 Ml Syringe IVFLUSH 3 ml QSHIFT SYLVIA Administration Labs CBC & Chem 7: 07/16/20 05:47 07/16/20 05:47 Microbiology Microbiology Results: Microbiology 07/15/20 17:22 Blood - Venous Blood Culture - Preliminary No growth after 24 hours. 07/15/20 17:10 Blood - Venous Blood Culture - Preliminary No growth after 24 hours. Assessment and Plan (1) Acute exacerbation of chronic obstructive airways disease: Status: Acute (2) COVID-19: Problem details: CONT. DEXAMETHASONE 6 MG PO DAILY. NO NEED OF REDEVIR , FAMOTIDINE 20 MG POBID . Status: Acute Assessment and Plan: 75-year-old female with a history of chronic respiratory failure on 3 L of home oxygen, COPD, recently diagnosed with the COVID-19 who presents with shortness of breath 1. COVID-19 no viral sepsis currently at baseline oxygen requirement Pulmonary consult noted -will continue dexamethasone, albuterol, Breo and supportive oxygen for now 2. dyslipidemia continue statin 3.hypothyroidism continue Synthroid 4.anemia chronic. H/H at baseline incidental finding of left vertebral artery stenosis vascular- no new recommendation for now, outpatient follow-up.
[2020-07-17] MEDS: Atorvastatin Calcium 10 MG TABLET PO (20:34)
[2020-07-18] MEDS: Enoxaparin Sodium 40 MG/0.4 ML SYRINGE SUBCUT ×2 (00:10→20:55)
[2020-07-18] MEDS: 0.9 % Sodium Chloride Flush 3 ML SYRINGE IVFLUSH ×4 (00:10→20:39)
[2020-07-18 04:00] VITALS: BP 136/63; PULSE 68; RESP 17; TEMP 35.9; O2SAT 96
[2020-07-18] MEDS: Levothyroxine Sodium 25 MCG TABLET PO (06:00)
[2020-07-18 08:00] VITALS: BP 131/61; PULSE 90; TEMP 36.8; O2SAT 93
[2020-07-18] MEDS: Aspirin 81 MG TAB.CHEW PO (08:53)
[2020-07-18] MEDS: dexAMETHasone 6 MG TABLET PO (08:53)
[2020-07-18] MEDS: Famotidine 20 MG TABLET PO ×2 (08:53→20:39)
[2020-07-18] MEDS: Fluticasone/Vilanterol 200/25 BLST.W.DEV 1 PUFF INHALE (10:07)
[2020-07-18 11:39] VITALS: BP 146/67; PULSE 73; RESP 18; TEMP 36.6; O2SAT 94
--- NOTE | 2020-07-18 13:00 | HO.PM.IMPN ---
Subjective Subjective Date of Service: 07/18/20 Interval History: copd , covif inf Review of Systems still feels sob and tired. Physical Exam Vital Signs: Vital Signs: Vital Signs Temp Pulse Resp BP Pulse Ox 07/18/20 11:39 97.8 F 73 18 146/67 H 94 07/18/20 08:00 98.2 F 90 131/61 93 07/18/20 04:00 96.6 F L 68 17 136/63 96 07/17/20 23:43 98.2 F 82 18 126/62 96 07/17/20 19:33 98.1 F 80 18 153/65 H 93 07/17/20 15:30 98.1 F 72 18 127/51 L 95 Body Mass Index 24.0 Physical exam: Constitutional, sitting at the edge of the bed seems short of breath. Cvs: [id number], [id number] , no murmur res: Diminished breath sounds at bases, has wheezing abd: no rebound or guarding ,nt, bs present. ext pulses present , no cyanosis neuro: axo3 , nonfocal. Objective Data Current Medications Generic Name Dose Route Start Last Admin Trade Name Freq PRN Reason Stop Dose Admin Acetaminophen 650 mg 07/15/20 23:53 07/17/20 09:21 Acetaminophen 325 Mg Tablet PO 650 mg Q6H PRN Administration Pain, Mild (Pain Scale 1-3) Albuterol Sulfate 2 puff 07/15/20 23:53 Albuterol Sulfate 90 Mcg 8 Gm Inhaler INHALE Q4H PRN Shortness of Breath/Wheezing Albuterol Sulfate 2 puff 07/17/20 10:32 Albuterol Sulfate 90 Mcg 8 Gm Inhaler INHALE RQ4H PRN copd Aspirin 81 mg 07/16/20 09:00 07/18/20 08:53 Aspirin 81 Mg Tab.Chew PO 81 mg DAILY SYLVIA Administration Atorvastatin Calcium 10 mg 07/16/20 21:00 07/17/20 20:34 Atorvastatin Calcium 10 Mg Tablet PO 10 mg BEDTIME SYLVIA Administration Dexamethasone 6 mg 07/17/20 09:00 07/18/20 08:53 Dexamethasone 6 Mg Tablet PO 6 mg DAILY SYLVIA Administration Enoxaparin Sodium 40 mg 07/16/20 00:00 07/18/20 00:10 Enoxaparin Sodium 40 Mg/0.4 Ml Syringe SUBCUT 40 mg Q24H SYLVIA Administration Famotidine 20 mg 07/15/20 23:53 07/18/20 08:53 Famotidine 20 Mg Tablet PO 20 mg BID SYLVIA Administration Fluticasone/Vilanterol 1 puff 07/18/20 08:00 07/18/20 10:07 Fluticasone/Vilanterol 200/25 Blst.W.Dev INHALE 1 puff RDAILY SYLVIA Administration Levothyroxine Sodium 25 mcg 07/16/20 06:30 07/18/20 06:00 Levothyroxine Sodium 25 Mcg Tablet PO 25 mcg 0630 SYLVIA Administration Ondansetron HCl 4 mg 07/15/20 23:53 Ondansetron Hcl 4 Mg/2 Ml Vial IVPUSH Q8H PRN Nausea and Vomiting Sodium Chloride 3 ml 07/16/20 00:00 07/18/20 08:53 0.9 % Sodium Chloride Flush 3 Ml Syringe IVFLUSH 3 ml QSHIFT SYLVIA Administration Labs CBC & Chem 7: 07/16/20 05:47 07/16/20 05:47 Microbiology Microbiology Results: Microbiology 07/15/20 17:22 Blood - Venous Blood Culture - Preliminary No growth after 48 hours. 07/15/20 17:10 Blood - Venous Blood Culture - Preliminary No growth after 48 hours. Assessment and Plan (1) Acute exacerbation of chronic obstructive airways disease: Status: Acute (2) COVID-19: Problem details: CONT. DEXAMETHASONE 6 MG PO DAILY. NO NEED OF REDEVIR , FAMOTIDINE 20 MG POBID . Status: Acute Assessment and Plan: 75-year-old female with a history of chronic respiratory failure on 3 L of home oxygen, COPD, recently diagnosed with the COVID-19 who presents with shortness of breath 1. COVID-19 no viral sepsis currently at baseline oxygen requirement Pulmonary consult noted -will continue dexamethasone, albuterol, Breo and supportive oxygen for now 2. dyslipidemia continue statin 3.hypothyroidism continue Synthroid 4.anemia chronic. H/H at baseline incidental finding of left vertebral artery stenosis vascular- no new recommendation for now, outpatient follow-up. (3) Centrilobular emphysema: Status: Acute
[2020-07-18 15:51] VITALS: BP 132/61; PULSE 81; RESP 18; TEMP 36.4; O2SAT 94
[2020-07-18 19:35] VITALS: BP 153/67; PULSE 80; RESP 18; TEMP 37; O2SAT 93
[2020-07-18] MEDS: Atorvastatin Calcium 10 MG TABLET PO (20:39)
[2020-07-18 23:40] VITALS: BP 145/64; PULSE 73; RESP 20; TEMP 37; O2SAT 94
[2020-07-19 03:30] VITALS: BP 114/62; PULSE 73; RESP 18; TEMP 37.1; O2SAT 94
[2020-07-19] MEDS: Levothyroxine Sodium 25 MCG TABLET PO (05:17)
[2020-07-19] MEDS: Fluticasone/Vilanterol 200/25 BLST.W.DEV 1 PUFF INHALE (07:37)
[2020-07-19 08:00] VITALS: BP 136/61; PULSE 83; RESP 19; TEMP 36.9; O2SAT 90
[2020-07-19] MEDS: Famotidine 20 MG TABLET PO (08:14)
[2020-07-19] MEDS: dexAMETHasone 6 MG TABLET PO (08:14)
[2020-07-19] MEDS: Aspirin 81 MG TAB.CHEW PO (08:14)
[2020-07-19] MEDS: 0.9 % Sodium Chloride Flush 3 ML SYRINGE IVFLUSH (08:14)
--- NOTE | 2020-07-19 09:07 | MHC.CM.PN ---
i have spoken c pt's aneudy purcellna, via phone. pt lives alone but her daughter provide most of her support. pt also has a son who is a nurse at [employer] – [place], [place] on [employer]. pt does not use any AD c ambulation, however she does have home o2 via concentrator at home and portable tank in the community, she has a portable tank here at the hospital. considerations for dc include the fact that patient daughter and her are also covid positive and symptomatic trying to recover in their home. pt's son cannot risk getting the virus. that said, pt's daughter said she supports patient going home alone if patient is comfortable c it. pt's daughter will provide transport home and would like a ref. made to [facility]na - which has been done. dc plan is home c [facility]. cm to cont to follow.
--- NOTE | 2020-07-19 09:58 | PM.DS ---
DS: Providers Provider Date of admission: 07/16/20 12:06 Primary care physician: Radha Cortés MD Consults: 07/15/20 23:53 Consult to Pulmonology Routine Consulting Provider: Mateo Barrientos Reason for consultation: covid+ shortness of breath Has provider been notified: No 07/16/20 09:58 Consult to Vascular Surgery Routine Consulting Provider: John Stauffer Reason for consultation: vertebral artery stenosis Has provider been notified: No 07/16/20 13:46 Consult to Infectious Diseases Routine Consulting Provider: Bailey Smart Reason for consultation: ? COVID INFECTION Has provider been notified: No DS: Diagnosis Discharge Diagnosis (1) Acute exacerbation of chronic obstructive airways disease: Status: Acute (2) COVID-19: Status: Acute Problem details: CONT. DEXAMETHASONE 6 MG PO DAILY. NO NEED OF REDEVIR , FAMOTIDINE 20 MG POBID . (3) Centrilobular emphysema: DS: Summary Hospital Course Hospital Course: 75-year-old female with a history of chronic respiratory failure on daily prednisone who presents to the emergency department today with shortness of breath. On Wednesday 07/11 she began feeling short of breath. Her cough was associated with cough, fever and headache. she tried to make an appointment with her power regulator but given her fever they recommended she come to the emergency department for evaluation. She was evaluated on 07/12 and swabbed for coronavirus. She was also started on a course of steroids and doxycycline. She was called today and told her coronavirus test was positive. Her power regulator recommended that she return to the emergency department given her history of underlying lung disease and symptoms of shortness of breath. she has had low-grade temperature of 99.3 degrees. Lab work was unremarkable. she underwent a CTA which showed no evidence of PE. She did not require any additional oxygen above her baseline 3 L. however she did become dyspneic with even minimal movement including walking to commode. Hospital Course problem akers section: 75-year-old female with a history of chronic respiratory failure on 3 L of home oxygen, COPD, recently diagnosed with the COVID-19 who presents with shortness of breath 1. COVID-19: Patient initially was sent for the Pulmonary Clinic short of breath. ED workup akers she was COVID but yet is not show any pneumonia. Patient was started on supportive care including dexamethasone,albuterol, Breo and supportive oxygen . Patient was seen by Pulmonary: Patient seems to be improved shortness of breath akers and now at baseline oxygen, going home with p.o. dexamethasone and her baseline COPD medications. Patient was advised to be self isolation. Follow-up with pulmonary clinic out patiently. Time Spent with Patient Time attestation: Total time spent providing and/or coordinating discharge services: Physical Exam Vital Signs: Vital Signs: Vital Signs Temp Pulse Resp BP Pulse Ox 07/19/20 08:00 98.5 F 83 19 136/61 90 L 07/19/20 03:30 98.7 F 73 18 114/62 94 07/18/20 23:40 98.6 F 73 20 145/64 H 94 07/18/20 19:35 98.6 F 80 18 153/67 H 93 07/18/20 15:51 97.6 F 81 18 132/61 94 07/18/20 11:39 97.8 F 73 18 146/67 H 94 Body Mass Index 24.0 Physical exam: Cvs: rrr, [id number] , no murmur res: clear to auscultation ,no rhonchii or wheezing abd: no rebound or guarding ,nt, bs present. ext pulses present , no cyanosis neuro: axo3 , nonfocal. DS: Data Data Completed and Pending Labs on day of discharge: Preliminary micro results at discharge 07/15/20 17:22 Blood Culture - Preliminary Blood - Venous No growth after 48 hours. 07/15/20 17:10 Blood Culture - Preliminary Blood - Venous No growth after 48 hours. Discharge Plan Discharge Patient Disposition: Home Health Service Referrals: Iraida Phelps [Outside] Radha Cortés MD [Primary Care Provider] - Discharge Medications: New dexamethasone 6 mg tablet 6 mg PO DAILY Qty: 7 RF: 0 Continued albuterol sulfate 2.5 mg /3 mL (0.083 %) solution for nebulization 2.5 mg inhalation Q6H 30 Days Qty: 360 RF: 3 ferrous sulfate 325 mg (65 mg iron) tablet,delayed release (DR/EC) 1 tab PO DAILY RF: 0 levothyroxine 25 mcg tablet 1 tab PO DAILY RF: 0 famotidine 20 mg Tablet 20 mg PO BID RF: 0 simvastatin 20 mg tablet 1 tab PO BEDTIME RF: 0 albuterol sulfate [ProAir HFA] 90 mcg/actuation HFA aerosol inhaler 2 puff PO Q6H PRN (Reason: wheezing) RF: 0 Calcium 500 1 tab PO DAILY RF: 0 multivitamin 1 tab PO DAILY RF: 0 aspirin 81 mg Tablet,Chewable 81 mg PO DAILY RF: 0 Held prednisone 20 mg tablet 10 mg PO DAILY RF: 0 Hold Instructions: Resume on 07/27/20. No Action [id number] [Trelegy Ellipta] 100-62.5-25 mcg blister with device 1 ea inhalation DAILY Qty: 60 RF: 3 Discharge Orders: Discharge Order (Routine); Ordered 07/19/20 Ordered By: Noah Mata Diet: advance to usual diet Activity on Discharge: As tolerated Discharge Date/Time: 07/19/20 14:22 Visit Report Forms: Patient Portal Discharge page Care Plan Goals: Patient probably had mild COPD exacerbation, COVID test positive, patient was started on dexamethasone: Patient shortness of breath improved significantly with Breo, albuterol, dexamethasone seems to be improving and going home, patient was advised to self isolation. Hold her prednisone until she is taking dexamethasone and then start prednisone once dexamethasone course completed. Mild anemia H&H is around 10 range: Patient is to repeat CBC in 1 week with PCP and further management outpatient as per PCP. Health Concerns: As above. Plan of Treatment: As above.
--- NOTE | 2020-07-19 11:09 | W.MHC.F2F ---
Service Date Service Date: 07/19/20 Encounter Date of encounter: 07/19/20 Encounter: copd excerebation, covid positive Reasons for Services overseeing care: Noah Mata MD Homebound: Leaving the home is medically contraindicated at this time without the asist of a device and/or another person due th the listed conditions above and below. Homebound supporting statement: Patient is generalized weak , and is help to go to appointments. Certification: Based on the above findings, I certify that this patient is confined to the home and needs intermittent care home care, physical therapy and/or speech therapy, or continues to need occupational therapy. The patient is under my care, and I have initiated the establishment of the plan of care. The patient will be followed by a physician who will periodically review the plan of care.
--- NOTE | 2020-07-19 11:13 | P.F2F_ITS ---
Service Date Service Date: 07/19/20 Encounter Date of encounter: 07/19/20 Encounter: COPD exacerbation, COVID positive. Reasons for Services Signs and symptoms assessed: Seems generally tired and weak. overseeing care: Noah Mata MD Homebound: Leaving the home is medically contraindicated at this time without the asist of a device and/or another person due th the listed conditions above and below. Homebound supporting statement: Patient is generalized weak and need help to go to appointments. Certification: Based on the above findings, I certify that this patient is confined to the home and needs intermittent [facility] care, physical therapy and/or speech therapy, or continues to need occupational therapy. The patient is under my care, and I have initiated the establishment of the plan of care. The patient will be followed by a physician who will periodically review the plan of care.
[2020-07-19 11:40] VITALS: BP 134/61; PULSE 76; RESP 18; O2SAT 93
== END 2020-07-19 14:22 | disposition home health service (06) | DRG 179 ==
LOC: HO.ED 19:41 → HO.IMC 21:20
PROVIDERS: Physician Assistant Medical; Admitting Provider Internal Medicine; Emergency Provider Internal Medicine; PCP Internal Medicine; Visit Provider Internal Medicine
DX: U07.1 COVID-19 (principal); I65.02 Occlusion and stenosis of left vertebral artery; J43.2 Centrilobular emphysema; E03.9 Hypothyroidism, unspecified; D64.9 Anemia, unspecified; E78.5 Hyperlipidemia, unspecified; Z99.81 Dependence on supplemental oxygen; Z87.891 Personal history of nicotine dependence; Z79.82 Long term (current) use of aspirin; Z79.51 Long term (current) use of inhaled steroids; Z79.52 Long term (current) use of systemic steroids; Z79.890 Hormone replacement therapy; Z79.899 Other long term (current) drug therapy
CPT/HCPCS: 11104; 36415; 71275; 80048; 82550; 82947; 83605; 83615; 83735; 83880; 84100; 84145; 84484; 85025; 85379; 86140; 87040; 96365; 96366; 96367; 99219; 99225; 99285; J0456; J0696; J1650; J8540; Q9967

== ENCOUNTER 2020-09-28 13:37 | Outpatient (REF) | payer MEDICARE, SELFPAY ==
[2020-09-28 15:43] LABS: MANUAL DIFF FLAG NO
[2020-09-28 15:46] LABS: Basophils Absolute Auto 0.1 X10*3/uL (0.0-0.2); Basophils Percent Auto 0.6 % (0-2); Eosinophils Absolute Auto 0.4 X10*3/uL (0.0-0.4); Eosinophils Percent Auto 4.7 % (0-4); Hematocrit 33.2 % (37-47); Hemoglobin 10.2 g/dl (12.0-16.0); Imm Gran Abs Auto 0.03 X10*3/uL (0.00-0.03); Imm Gran Pct Auto 0.3 % (0.0-0.4); Lymphocytes Absolute Auto 1.9 X10*3/uL (1.2-4.9); Lymphocytes Percent Auto 20.2 % (20-40); Mean Corpuscular HGB Conc 30.7 g/dl (31.0-35.0); Mean Corpuscular Hemoglobin 30.3 pg (27.0-33.0); Mean Corpuscular Volume 98.5 fL (80-98); Monocytes Percent Auto 10.9 % (2-11); Neutrophils Absolute Auto 5.9 X10*3/uL (2.0-8.3); Neutrophils Percent Auto 63.3 % (45-73); Platelet Count 284 X10*3/uL (160-400); Red Blood Count 3.37 X10*6/uL (4.20-5.50); Red Cell Distribution Width 12.9 % (11.0-16.0); White Blood Count 9.3 X10*3/uL (4.8-10.8)
[2020-09-28 16:06] LABS: D Dimer < 200 NG/ML
[2020-09-28 16:08] LABS: Alanine Aminotransferase 15 U/L (0-31); Albumin Level 4.3 g/dL (3.5-5.0); Alkaline Phosphatase 81 U/L (39-117); Anion Gap 10 (12-20); Aspartate Amino Transferase 22 U/L (5-31); Bilirubin Direct < 0.2 mg/dL (0.0-0.5); Bilirubin Total 0.2 mg/dL (0.0-1.0); Blood Urea Nitrogen 16 mg/dL (9-16); Calcium 9.7 mg/dL (8.4-10.2); Carbon Dioxide 36 mmol/L (22-29); Chloride 104 mmol/L (96-108); Estimated Glomerular Filt Rate > 60; Glucose Random 98 mg/dL (60-115); Potassium 4.4 mmol/l (3.3-5.1); Sodium 146 mmol/L (135-145); Total Protein 6.7 g/dL (6.5-8.0)
[2020-09-28 16:36] LABS: Erythrocyte Sedimentation Rate 25 MM/HR (0-20)
[2020-09-29 07:31] LABS: SARS COV2 IgG Positive (Negative)
== END 2020-09-28 13:38 | disposition home or self-care (01) ==
LOC: HO.LAB 13:37
PROVIDERS: PCP Internal Medicine; Visit Provider Hospitalist
DX: Z13.89 Encounter for screening for other disorder (principal)
CPT/HCPCS: 36415; 80048; 80076; 85025; 85379; 85652; 86769

== ENCOUNTER 2020-09-28 13:50 | Outpatient (REF) | payer MEDICARE, SELFPAY | END 2020-09-28 13:51 | disposition home or self-care (01) | LOC: HO.LNP 13:50 | PROVIDERS: Visit Provider Hospitalist | DX: J43.2 Centrilobular emphysema (principal); J96.10 Chronic respiratory failure, unspecified whether with hypoxia or hypercapnia; Z86.19 Personal history of other infectious and parasitic diseases; Z79.52 Long term (current) use of systemic steroids; Z99.81 Dependence on supplemental oxygen; Z01.84 Encounter for antibody response examination | CPT/HCPCS: 36415; 80048; 80076; 85025; 85379; 85652; 86769; 87070; 87205; 99212 ==

== ENCOUNTER → 2020-11-09 11:08 | Outpatient (BNVA) | payer MEDICARE, SELFPAY | PROVIDERS: PCP Internal Medicine; Visit Provider Hospitalist | DX: J43.2 Centrilobular emphysema (principal); J44.1 Chronic obstructive pulmonary disease with (acute) exacerbation | CPT/HCPCS: 99212 ==

== ENCOUNTER → 2021-03-08 11:10 | Outpatient (BNVA) | payer MEDICARE, SELFPAY | PROVIDERS: PCP Internal Medicine; Visit Provider Hospitalist | DX: J43.2 Centrilobular emphysema (principal); J96.11 Chronic respiratory failure with hypoxia | CPT/HCPCS: 99212 ==

== ENCOUNTER → 2021-05-24 14:35 | Outpatient (BNVA) | payer MEDICARE, SELFPAY | PROVIDERS: PCP Internal Medicine; Visit Provider Hospitalist | DX: Z01.811 Encounter for preprocedural respiratory examination (principal); R06.00 Dyspnea, unspecified; J43.2 Centrilobular emphysema; J96.11 Chronic respiratory failure with hypoxia | CPT/HCPCS: 99212 ==

== ENCOUNTER → 2021-08-24 10:08 | Outpatient (BNVA) | payer MEDICARE, SELFPAY | PROVIDERS: PCP Internal Medicine; Visit Provider Hospitalist | DX: Z01.811 Encounter for preprocedural respiratory examination (principal); J96.11 Chronic respiratory failure with hypoxia; J43.2 Centrilobular emphysema; D64.9 Anemia, unspecified | CPT/HCPCS: 99212 ==

== ENCOUNTER → 2021-11-22 10:39 | Outpatient (BNVA) | payer MEDICARE, SELFPAY | PROVIDERS: PCP Internal Medicine; Visit Provider Hospitalist | DX: J43.2 Centrilobular emphysema (principal); J96.11 Chronic respiratory failure with hypoxia; D64.9 Anemia, unspecified; Z95.2 Presence of prosthetic heart valve; Z79.02 Long term (current) use of antithrombotics/antiplatelets; Z79.52 Long term (current) use of systemic steroids; Z79.899 Other long term (current) drug therapy; Z99.81 Dependence on supplemental oxygen | CPT/HCPCS: 99212 ==

== ENCOUNTER → 2022-03-02 14:24 | Outpatient (BNVA) | payer MEDICARE, SELFPAY | PROVIDERS: PCP Internal Medicine; Visit Provider Hospitalist | DX: J43.2 Centrilobular emphysema (principal); J96.11 Chronic respiratory failure with hypoxia; D64.9 Anemia, unspecified; Z79.52 Long term (current) use of systemic steroids; Z79.899 Other long term (current) drug therapy; Z87.891 Personal history of nicotine dependence; Z99.81 Dependence on supplemental oxygen | CPT/HCPCS: 99212 ==

== ENCOUNTER → 2022-05-30 10:20 | Outpatient (BNVA) | payer MEDICARE, SELFPAY | PROVIDERS: PCP Internal Medicine; Visit Provider Hospitalist | DX: J43.2 Centrilobular emphysema (principal); J96.11 Chronic respiratory failure with hypoxia; D64.9 Anemia, unspecified; Z79.52 Long term (current) use of systemic steroids; Z79.899 Other long term (current) drug therapy; Z99.81 Dependence on supplemental oxygen | CPT/HCPCS: 99212 ==

== ENCOUNTER 2022-08-29 11:11 | Outpatient (REF) | payer MEDICARE, SELFPAY ==
[2022-08-29 11:24] LABS: MANUAL DIFF FLAG NO
[2022-08-29 11:26] LABS: Venous Blood Gas Refer to POC result
[2022-08-29 11:46] LABS: VBG Base Excess 9.9 mmol/L; VBG HCO3 36 mmol/L (22-26); VBG pCO2 55 mmHg; VBG pH 7.41 (7.32-7.43); VBG pO2 37 mmHg
[2022-08-29 12:17] LABS: Basophils Absolute Auto 0.1 X10*3/uL (0.0-0.2); Basophils Percent Auto 0.5 % (0-2); Eosinophils Absolute Auto 0.2 X10*3/uL (0.0-0.4); Eosinophils Percent Auto 1.9 % (0-4); Hematocrit 31.5 % (37.0-47.0); Hemoglobin 9.7 g/dl (12.0-16.0); Imm Gran Abs Auto 0.04 X10*3/uL (0.00-0.03); Imm Gran Pct Auto 0.4 % (0.0-0.4); Lymphocytes Absolute Auto 1.5 X10*3/uL (1.2-4.9); Lymphocytes Percent Auto 13.2 % (20-40); Mean Corpuscular HGB Conc 30.8 g/dl (31.0-35.0); Mean Corpuscular Hemoglobin 28.6 pg (27.0-33.0); Mean Corpuscular Volume 92.9 fL (80.0-98.0); Mean Platelet Volume 9.6 fL (9.4-12.3); Monocytes Absolute Auto 1.3 X10*3/uL (0.1-1.2); Monocytes Percent Auto 11.7 % (2-11); Neutrophils Absolute Auto 8.1 x10*3/uL (2.0-8.3); Neutrophils Percent Auto 72.3 % (45-73); Platelet Count 278 X10*3/uL (160-400); Red Blood Count 3.39 X10*6/uL (4.20-5.50); Red Cell Distribution Width 12.8 % (11.0-16.0); White Blood Count 11.1 X10*3/uL (4.8-10.8)
[2022-08-29 13:09] LABS: Anion Gap 12 (12-20); Blood Urea Nitrogen 18 mg/dL (9-16); Carbon Dioxide 33 mmol/L (22-29); Chloride 105 mmol/L (96-108); Estimated Glomerular Filt Rate > 60; Glucose Random 99 mg/dL (60-115); Potassium 4.5 mmol/L (3.3-5.1); Sodium 145 mmol/L (135-145)
[2022-08-29 13:17] LABS: Erythrocyte Sedimentation Rate 23 MM/HR (0-20)
[2022-08-29 13:30] LABS: Folate 19.5 ng/mL (> or = 4.0); Vitamin B12 899 pg/mL (200-900)
== END 2022-08-29 11:12 | disposition home or self-care (01) ==
LOC: HO.LAB 11:11
PROVIDERS: PCP Internal Medicine; Visit Provider Hospitalist
DX: J43.2 Centrilobular emphysema (principal); J96.11 Chronic respiratory failure with hypoxia; J96.12 Chronic respiratory failure with hypercapnia; D64.9 Anemia, unspecified; R00.0 Tachycardia, unspecified
CPT/HCPCS: 36415; 80048; 82607; 82746; 82803; 85025; 85652; 94618; 99212

== ENCOUNTER 2022-10-18 09:08 | Outpatient (REF) | payer MEDICARE, SELFPAY ==
[2022-10-18 10:06] LABS: MANUAL DIFF FLAG NO
[2022-10-18 10:14] LABS: Venous Blood Gas Refer to POC result
[2022-10-18 10:15] LABS: VBG HCO3 36 mmol/L (22-26); VBG pCO2 65 mmHg; VBG pH 7.34 (7.32-7.43); VBG pO2 32 mmHg
[2022-10-18 10:42] LABS: Basophils Absolute Auto 0.1 X10*3/uL (0.0-0.2); Basophils Percent Auto 0.8 % (0-2); Eosinophils Absolute Auto 0.2 X10*3/uL (0.0-0.4); Eosinophils Percent Auto 2.5 % (0-4); Hematocrit 28.7 % (37.0-47.0); Hemoglobin 8.7 g/dl (12.0-16.0); Imm Gran Abs Auto 0.04 X10*3/uL (0.00-0.03); Imm Gran Pct Auto 0.4 % (0.0-0.4); Lymphocytes Absolute Auto 1.3 X10*3/uL (1.2-4.9); Lymphocytes Percent Auto 13.3 % (20-40); Mean Corpuscular HGB Conc 30.3 g/dl (31.0-35.0); Mean Corpuscular Hemoglobin 28.2 pg (27.0-33.0); Mean Corpuscular Volume 92.9 fL (80.0-98.0); Mean Platelet Volume 9.4 fL (9.4-12.3); Monocytes Absolute Auto 1.1 X10*3/uL (0.1-1.2); Monocytes Percent Auto 11.7 % (2-11); Neutrophils Absolute Auto 6.7 x10*3/uL (2.0-8.3); Neutrophils Percent Auto 71.3 % (45-73); Platelet Count 308 X10*3/uL (160-400); Red Blood Count 3.09 X10*6/uL (4.20-5.50); Red Cell Distribution Width 13.8 % (11.0-16.0); White Blood Count 9.4 X10*3/uL (4.8-10.8)
[2022-10-18 10:47] LABS: D Dimer High Sensitivity 193 NG/ML
[2022-10-18 11:13] LABS: Alanine Aminotransferase 12 U/L (0-31); Albumin Level 4.1 g/dL (3.5-5.0); Alkaline Phosphatase 98 U/L (39-117); Anion Gap 12 (12-20); Aspartate Amino Transferase 22 U/L (5-31); Bilirubin Direct < 0.2 mg/dL (0.0-0.5); Bilirubin Total 0.2 mg/dL (0.0-1.0); Blood Urea Nitrogen 16 mg/dL (9-16); Calcium 9.2 mg/dL (8.4-10.2); Carbon Dioxide 29 mmol/L (22-29); Chloride 105 mmol/L (96-108); Estimated Glomerular Filt Rate > 60; Glucose Random 97 mg/dL (60-115); Iron 31 mcg/dL (30-160); Percent Iron Saturation 9 % (15-50); Potassium 4.4 mmol/L (3.3-5.1); Sodium 142 mmol/L (135-145); Total Iron Binding Capacity 347 mcg/dL (228-428); Total Protein 6.3 g/dL (6.5-8.0); Unsaturated Iron Binding 316 ug/dL
[2022-10-18 11:22] LABS: Ferritin 8 ng/mL (10-250)
[2022-10-18 11:29] LABS: Erythrocyte Sedimentation Rate 25 MM/HR (0-20)
== END 2022-10-18 09:09 | disposition home or self-care (01) ==
LOC: HO.LAB 09:08
PROVIDERS: PCP Internal Medicine; Visit Provider Hospitalist
DX: J43.2 Centrilobular emphysema (principal); J96.11 Chronic respiratory failure with hypoxia; J96.12 Chronic respiratory failure with hypercapnia; D64.9 Anemia, unspecified; R00.0 Tachycardia, unspecified; Z99.81 Dependence on supplemental oxygen; Z79.52 Long term (current) use of systemic steroids
CPT/HCPCS: 36415; 80048; 80076; 82728; 82803; 83540; 85025; 85379; 85652; 99212

== ENCOUNTER → 2022-11-14 09:55 | Outpatient (BNVA) | payer MEDICARE, SELFPAY | PROVIDERS: PCP Internal Medicine; Visit Provider Hospitalist | DX: R06.00 Dyspnea, unspecified (principal); R00.0 Tachycardia, unspecified; D64.9 Anemia, unspecified; J43.2 Centrilobular emphysema; J96.11 Chronic respiratory failure with hypoxia; J96.12 Chronic respiratory failure with hypercapnia | CPT/HCPCS: 99212 ==

== ENCOUNTER → 2023-01-23 13:02 | Outpatient (BNVA) | payer MEDICARE, SELFPAY | PROVIDERS: PCP Internal Medicine; Visit Provider Hospitalist | DX: J96.11 Chronic respiratory failure with hypoxia (principal); J96.12 Chronic respiratory failure with hypercapnia; J43.2 Centrilobular emphysema; R00.0 Tachycardia, unspecified; R06.00 Dyspnea, unspecified; D64.9 Anemia, unspecified; Z79.52 Long term (current) use of systemic steroids | CPT/HCPCS: 99212 ==

== ENCOUNTER 2023-02-21 10:52 | Outpatient (REF) | payer MEDICARE, SELFPAY ==
--- NOTE | 2023-02-21 12:06 | PFT_ITS ---
FLOWS: 1. FEV1 26% of predicted at 0.50 L. 2. FVC 56% of predicted at 1.45 L. 3. FEV1 to FVC ratio of 0.35. 4. No bronchodilator response. LUNG VOLUMES: 1. Total lung capacity 89% of predicated at 4.3 L. 2. Residual volume 125% of predicted at 2.91 L. 3. Diffusion capacity is severely decreased, diffusion capacity adjusted, being moderately decreased after correction for alveolar ventilation. In comparison to pulmonary function test, June of 2020, there have been no significant changes in flows, volumes, or diffusion capacity. IMPRESSION: Very severe obstructive ventilatory defect with no bronchodilator response. Increased residual volume suggests airtrapping. Decreased diffusion capacity suggests emphysema. MD AKOSUA Durbin/MODL / [id number] MTDD
== END 2023-02-21 10:53 | disposition home or self-care (01) ==
LOC: HO.RESP 10:52
PROVIDERS: PCP Internal Medicine; Visit Provider Hospitalist
DX: J43.2 Centrilobular emphysema (principal)
CPT/HCPCS: 94060; 94727; 94729

== ENCOUNTER → 2023-03-08 10:04 | Outpatient (BNVA) | payer MEDICARE, SELFPAY | PROVIDERS: PCP Internal Medicine; Visit Provider Hospitalist | DX: J43.2 Centrilobular emphysema (principal); J96.11 Chronic respiratory failure with hypoxia; J96.12 Chronic respiratory failure with hypercapnia; D64.9 Anemia, unspecified; Z79.52 Long term (current) use of systemic steroids; Z99.81 Dependence on supplemental oxygen | CPT/HCPCS: 99212 ==

== ENCOUNTER 2023-06-11 13:07 | Outpatient (REF) | payer MEDICARE, SELFPAY ==
--- NOTE | ~2023-06-11 | XR_ITS ---
EXAMINATION: XR CHEST CLINICAL INFORMATION: COPD. COMPARISON: 07/12/2020. TECHNIQUE: 2 views of the chest were obtained. FINDINGS: The cardiac mediastinal silhouette is stable. An apparent aortic stent is noted. The lungs are hyperinflated with flattening of the diaphragms. There is no focal lung consolidation or evidence for significant pleural effusion. The bony structures and soft tissues are unremarkable XR/XR chest 2V IMPRESSION: Hyperinflation suggests COPD. No focal lung consolidation or pleural effusion.
[2023-06-11 14:01] LABS: MANUAL DIFF FLAG NO
[2023-06-11 14:08] LABS: Venous Blood Gas Refer to POC result
[2023-06-11 14:08] LABS: VBG pCO2 58 mmHg; VBG pH 7.39 (7.32-7.43)
[2023-06-11 14:09] LABS: VBG Base Excess 9.1 mmol/L; VBG HCO3 35 mmol/L (22-26); VBG pO2 38 mmHg
[2023-06-11 14:17] LABS: Basophils Absolute Auto 0.1 X10*3/uL (0.0-0.2); Basophils Percent Auto 0.6 % (0-2); Eosinophils Absolute Auto 0.1 X10*3/uL (0.0-0.4); Hematocrit 30.6 % (37.0-47.0); Hemoglobin 9.2 g/dl (12.0-16.0); Imm Gran Abs Auto 0.06 X10*3/uL (0.00-0.03); Imm Gran Pct Auto 0.5 % (0.0-0.4); Lymphocytes Absolute Auto 0.9 X10*3/uL (1.2-4.9); Lymphocytes Percent Auto 7.5 % (20-40); Mean Corpuscular HGB Conc 30.1 g/dl (31.0-35.0); Mean Corpuscular Hemoglobin 28.9 pg (27.0-33.0); Mean Corpuscular Volume 96.2 fL (80.0-98.0); Mean Platelet Volume 9.3 fL (9.4-12.3); Monocytes Percent Auto 8.2 % (2-11); Neutrophils Absolute Auto 9.9 x10*3/uL (2.0-8.3); Neutrophils Percent Auto 82.2 % (45-73); Platelet Count 294 X10*3/uL (160-400); Red Blood Count 3.18 X10*6/uL (4.20-5.50); Red Cell Distribution Width 13.4 % (11.0-16.0); White Blood Count 12.1 X10*3/uL (4.8-10.8)
[2023-06-11 15:06] LABS: Alanine Aminotransferase 17 U/L (0-31); Albumin Level 4.2 g/dL (3.5-5.0); Alkaline Phosphatase 79 U/L (39-117); Anion Gap 11 (12-20); Aspartate Amino Transferase 24 U/L (5-31); Bilirubin Direct < 0.2 mg/dL (0.0-0.5); Bilirubin Total 0.2 mg/dL (0.0-1.0); Blood Urea Nitrogen 12 mg/dL (9-16); Carbon Dioxide 30 mmol/L (22-29); Chloride 103 mmol/L (96-108); Estimated Glomerular Filt Rate > 60; Glucose Random 112 mg/dL (60-115); Iron 134 mcg/dL (30-160); Percent Iron Saturation 41 % (15-50); Potassium 3.8 mmol/L (3.3-5.1); Sodium 140 mmol/L (135-145); Total Iron Binding Capacity 326 mcg/dL (228-428); Total Protein 6.8 g/dL (6.5-8.0); Unsaturated Iron Binding 192 ug/dL
[2023-06-11 15:09] LABS: Ferritin 15 ng/mL (10-250)
[2023-06-11 15:39] LABS: Erythrocyte Sedimentation Rate 16 MM/HR (0-20)
== END 2023-06-11 13:08 | disposition home or self-care (01) ==
LOC: HO.LAB 13:07
PROVIDERS: PCP Internal Medicine; Visit Provider Hospitalist
DX: R06.00 Dyspnea, unspecified (principal); J43.2 Centrilobular emphysema; D64.9 Anemia, unspecified
CPT/HCPCS: 36415; 71046; 80048; 80076; 82728; 82803; 83540; 85025; 85652; 99212

== ENCOUNTER 2023-06-11 13:07 | Outpatient (AMB) | payer MEDICARE, SELFPAY ==
[2023-06-11 13:15] VITALS: PULSE 70; O2SAT 94; BMI 23.9
--- NOTE | 2023-06-11 13:15 | MHC.OFFVIS ---
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 She also has pulmonary nodules over following. She is scheduled for CT scan in a month at [facility]. Therefore, will follow up after that. She has times and dyspnea on exertion. She does need her oxygen. She is looking to getting a portable oxygen concentrator. However she is questioning if she can use the POC at nighttime. I am concerned that if she does not activate the pulse while sleeping and it would not be helpful for her. However if she does decide to buy it we can always retest to see if is effective for her while she is sleeping. She continues to pulmonary rehabilitation. That is going well. She continues uses trelegy. She is using the azithromycin. She has been around people that have been sick and she has been able to stay healthy. Will continue the for next 3-4 months and will see about weaning it off to give her a break from medications. This antibiotic but will use it more for the anti-inflammatory properties. Did review her last CT scan of the chest that she had recently demonstrating small pulmonary nodules are stable in size. She has a RADS 2 and therefore needs a repeat CT scan in a year's time. We did do a chest x-ray today which appears to have resolution of the left-sided process. No evidence of any acute lower respiratory infection. Therefore, she is responding well to the current respiratory regimen and antibiotics. She will complete the antibiotic course and then taper down the prednisone to 10 mg daily. She has been now multiple courses of antibiotics and prednisone is still having hard time with her breathing. She has been having hard time expectorating. She is getting very frustrated upset. She also complains of increasing shortness of breath and increasing heart rate. She denies any chest pains. On examination she does have some rhonchi on exam which appeared to be right worse than left. Her pneumonia was on her left and side initially. That ultimately cleared up on the x-ray. The patient has a hard time expectorating. Therefore, we'll try the stronger antibiotics along with another course of prednisone. At this point will plan to this pulmonary function study with ABG. The patient should stay on a small dose of prednisone of 10 mg every other day and should also restart the azithromycin Sunday and Sunday. Will monitor closely her IgG levels at this time, no need for augmentation therapy. She did have a 6 minutes walk test and during that study her oxygen quickly decreased after 50 ft on room air to 86%. After that heart rate did increase to the 130s. The patient rested he then was placed on 3 L pulse and ambulating her she was able to maintain a pulse ox above 90%. However, heart rate still was elevated than 130s. The patient states that she did have an echocardiogram at [facility] and I do not have the results right now. She does not have a lock expert. It is reasonable to have her follow up with Cardiology as we wait for the results or pulmonary function studies and arterial blood gas. While we wait for those results the patient is to hold off on pulmonary rehabilitationSh. e did have worsening respiratory symptoms and malaise and she was taken to [facility] which she was found to have a hemoglobin of 5.9. Here in the office we checked back in September she was up to 10 which is significant drop. In the meantime she was given 2 units of blood and she did undergo an upper and lower endoscopy without any significant findings. She is given iron which is taking with multivitamins. While she was there she did have a blood gas demonstrating a pH does 7.36 with a pCO2 of 39 mm of mercury which is within normal limits suggesting that she has no evidence of chronic hypercarbic respiratory failure. 11/22/2021 the patient is here for a pulmonary follow-up visit. The patient is status post aortic valve replacement a month ago at [facility]. She did well although she became anemic again. The patient still continues to have shortness of breath and weakness. She still working on recovering from her surgery. She continues on the current respiratory regimen in addition to her baseline prednisone dose. Recently started on Plavix. At this point will continue with current plan. Will have her return in 3 months will repeat her pulmonary function studies and 6 minute walk test to see if there is any improvement after her surgery. 03/02/2022 the patient is here for a pulmonary follow-up visit. Since we last spoke the patient has been to [facility] no about 3 times with recurrent anemia. She has required multiple transfusions. She has had a GI workup including capsule endoscopy colonoscopy in the last year so and also an upper endoscopy. No evidence of active bleeding although her stool was positive for occult blood. She was also given IV iron. she was discharged from [facility] on 02/24/2022 in hemoglobin was around 9. She did have blood work just this morning and hemoglobin already was down to 8.6. Therefore I am concerned that she is going to continue dropping in require readmission. Therefore I did call and spoke to her site reliability engineer taking over the case to see if there is a chance that she can be seen at an earlier time case she needs additional blood products and also for further evaluation. She does have significant respiratory failure in the anemia only resulting worsening symptoms. In addition to that she has been on prednisone 7.5 mg every other day. Will plan to decrease her prednisone down to 5 mg daily with hopes that we can continue weaning her down and then stopping altogether if possible. 05/30/2022 the patient is here for a pulmonary follow-up visit. She is doing a lot better. Her anemia seems to be better controlled. She is also reassured that her bone marrow test was reassuring. Although is still not clear 100% when she was bleeding from. She had been on Plavix at the time and likely that was contributing to her bleeding. Now she is off the Plavix and seems to be holding her hemoglobin better. She is also going to go off her iron and she is going to be monitoring for any blood in her stools. In meantime she is down to 5 mg of prednisone every other day which is a minimal dose. She is concerned about dropping it altogether. She is also using the azithromycin 3 times a week. The patient now is feeling a little stronger. She is however on a wheelchair today. She needs to regain strength and exercise. I did give her information about online pulmonary rehabilitation that she should start. Once the patient becomes stronger we can reassess her medications. I am hopeful that she can come off the prednisone. Subsequently after that we can try to get her off the azithromycin if we can safely. She continues use respiratory medicine with good effect. 08/29/2022 the patient is here for a pulmonary follow-up visit. She continues to feel unwell with significant shortness of breath. Hemoglobin states that he around 9.7. She continues to have significant tachycardia with minimal activity. She does follow closely with cardiology specially after her valve surgery. She continues use the oxygen at 3 L with activity. Sometimes she goes up to 4 L pulse. Even with that she continues of being winded and tired. She does continue with all her respiratory therapy with good compliance. During the office visit we did take her off the oxygen did a 6 minute walk test. It was adamant that the patient was very tachycardic up to 122 beats per minute with minimal activity and resulting significant dyspnea while she only required 2 L pulse to maintain a pulse ox above 92%. therefore, there may be a cardiac component or cor pulmonale. I do not have her recent echo readily available. In the meantime the patient did have a blood gas done and her pCO2 was elevated at 56 mmHg. Therefore, the patient does have chronic hypercarbic respiratory failure secondary to the COPD. Indeed the patient does carry a poor prognosis and high risk for rehospitalization is. Therefore, a noninvasive ventilator will provide a improvement in the prognosis improvement in gas exchange and decrease hospitalizations. I did offer her a noninvasive ventilator. 10/18/2022 the patient is here for a pulmonary follow-up visit. She still complaining of worsening dyspnea on exertion. She is having hard time getting around. She does use the oxygen at 3-4 L pulse to try to give her some relief. Although we repeated her walking oximetry in the patient really only needs 3 L pulse with activity and does already keeping her pulse ox around 96%. She really does not even need the oxygen at rest although she feels very short of breath. The patient does have significant emphysema in addition to that has the issue with the anemia that is likely contributing to a great degree with her symptoms of dyspnea. Because even though hemoglobin is only slightly decreased in view of her respiratory failure and no pulmonary reserve this is resulting in significant symptoms. Patient also has a valvular disease. She did get the noninvasive ventilator. Her CO2 had been elevated. Her bicarb was initially elevated in the last time she checked the with primary care was better. Will go ahead and repeat the blood work at this time. The patient did have some issues tolerating the noninvasive ventilator but she is doing better with it now. She is I did have a repeat the blood work. Hemoglobin 8.7. My concerns are ferritin is only 8 suggesting no iron storage. I did call the patient told her that she needs talk to her site reliability engineer regarding this issue and may be potentially considering IV are infusions. In addition to that I did check a D-dimer which was negative ruling out the possibility of any thromboembolic disease. She continues with respiratory therapy her lungs actually sound good so I do not believe that her symptoms are related to an exacerbation. She had been on prednisone taking 7.5 mg every other day. This point will go ahead and increase her to 10 mg daily just to make sure that she is getting adequate therapy specially if she has any evidence of any adrenal insufficiency. 11/14/2022 the patient is here for a pulmonary follow-up visit. Since we last spoke she did follow-up with Hematology and she received 5 infusions of iron. Hemoglobin is better up to 10. Clinically she is feeling better. In the meantime she did get the noninvasive ventilator. Is very difficult for her to tolerated. The mask seems to leak the air. She also has a hard time tolerating the amount of pressure. Therefore, I did review her settings. Will go ahead and decrease her tidal volume down to 350 mL. In addition to this will go ahead and decrease her respiratory rate. Seems like the CO2 already came down based on the bicarb went from 30/6 now 30. So clinically she is responding to the therapy. In the meantime the patient continues with respiratory therapy as prescribed. She has been on the 10 mg daily of prednisone. Will go ahead and drop that down to every other day in view of her improvement. There is still question of adrenal insufficiency so will continue to monitor that closely. Also, the patient is now found to have a pancreatic lesion. Now needs an MRI 01/23/2023 the patient is here for pulmonary follow-up visit. She feels like her energy levels have decreased. She has no PAP. This causes her to have worsening breathing symptoms. She had been doing well when her prednisone was higher 10 mg daily. Then she titrated down to 7.5 mg every other day and she started having worsening symptoms. Is likely at this point that she has secondary adrenal insufficiency and therefore taking a small dose of prednisone daily may be important for her. She does have some chest congestion. She continues on the azithromycin 3 times a week. At this point if she phlegm is not changing color or consistency. Initial monitor at this point. I do not believe she needs a change in antibiotic. She continues use respiratory therapy. In addition to that she is using her noninvasive ventilator. She is having hard time tolerating it. I will request a download and also will adjust her noninvasive ventilator accordingly for her to be able to tolerated better. She understands her CO2 has been steadily climbing. Will also plan to do pulmonary function studies with the hope of her perform any pulmonary rehabilitation. She is going to start online pulmonary rehab at this time.. 03/08/2023 the patient here for a pulmonary follow-up visit. The patient overall has been doing a lot better. She feels that the higher dose prednisone is working well for her. She may have a component of adrenal insufficiency it may be important for her to be on a small dose. Although will try to find the lowest effective dose. She did undergo a density test and she is noted to have osteopenia. So therefore she understands we trying decrease the risk of her developing osteoporosis. She will be following up with Endocrine as well. In the meantime respiratory status is stable. She did have pulmonary function studies which were compared to her PFTs from 2019. In the last 2 years there is no significant change in her lung capacity which is reassuring although her baseline PFTs are significantly abnormal with very severe obstruction in very severe diffusion impairment. She is doing well with her oxygen. She is also using the noninvasive ventilator at nighttime. This is also obstructing beneficial. She can use continue using it every night. 06/11/2023 the patient is here for a pulmonary follow-up visit. The patient does not feel any better. She feels tired and short of breath. She feels like she has more gasping for air. She has been using the noninvasive ventilator but she has not seen any significant improvement. The patient does feel like she is gets restful sleep when she does use it though. The last ABG or venous gas that she had her pCO2 was up to 65 mmHg. Will have her have a repeat be nice gas today. In addition to that she has had anemia issues throughout. The last time she hemoglobin was checked 2 months ago was okay closer to her baseline. Will go ahead and repeat her blood work looking for other etiologies for just her chronic fatigue symptoms and shortness of breath. The patient also may have a component of adrenal insufficiency secondary to chronic prednisone. Woman trying to cut down the prednisone due to her new diagnosis of osteoporosis. Although has been difficult for her. When she went down to 5 mg she had much worsening breathing and she had to increase it to 12.5 mg for appeared time. Now she is alternating 7.5 in 5 mg. I did recommend the other option is to decrease the tapering down to 1 mg at a time. Will reassess after her blood work. The patient also has been having some weight loss. Denies any night sweats. Will go ahead and request a chest x-ray at this time. Her respiratory exam is reassuring. She is moving good air diminished but without any significant wheezing or prolonged expiratory phase. She is responding well to the Trelegy and will continue for now. [facility] Medical History (Updated 06/11/23 @ 21:13 by Mateo Barrientos MD) Dyspnea Tachycardia Anemia Anemia Pre-op chest exam Vertebral artery stenosis Dyspnea Chronic respiratory failure Dyslipidemia Hypothyroidism Centrilobular emphysema Surgical History History of cholecystectomy H/O: hysterectomy Family History Mother No problems noted. Daughter Diabetes Social History (Updated 03/08/21 @ 11:20 by Makenzie Leroy Tomy) Household Members: None Housing: House Do you presently have visiting nurse or other home services: No Alcohol intake: unknown Patient Tobacco Use Status: Former Tobacco user Tobacco use type: Cigarette Years Smoked: 40+ years service: No Current occupational status: retired Review of Systems Const Reports fatigue, Denies night sweats and Reports weight loss ENT Denies change in voice, Denies lip swelling, Denies mouth pain, Reports nasal congestion, Reports nasal discharge and Denies tongue swelling Card Denies chest pain, Reports dyspnea and Reports dyspnea on exertion Resp Reports cough, Reports dyspnea and Reports dyspnea on exertion GI Denies abdominal pain, Denies melena and Denies hematochezia Musc Denies no additional complaints Neuro Denies Neuro-related abnormal movements Psych Reports depression Endo Reports fatigue Fredi/Lymph Denies easy bleeding and Denies lymphadenopathy Aller/Immun Denies lip swelling and Denies tongue swelling Physical Exam Vital Signs: Last Vital Signs Pulse 70 06/11/23 13:15 Pulse Ox 94 06/11/23 13:15 Oxygen Delivery Method Room Air 06/11/23 13:15 BMI result Body Mass Index 23.9 Const General: alert and tired appearing Eyes Conjunctivae: conjunctival abnormal bilateral pallor Pupils: Equal, round and reactive pupils present Neck Neck: Yes normal visual inspection, Yes full ROM and Yes no lymphadenopathy Chest Chest palpation & inspection: normal inspection of the chest Resp Auscultation: no rhonchi, no wheezes and diminished lung sounds Cardio Rate: regular rate Rhythm: regular rhythm Heart sounds: S1 normal heart sound present and S2 normal heart sound present GI Palpation (GI): Soft to palpation and nontender Auscultation: normal bowel sounds Skin General skin exam: rashes and/or lesions noted Neuro Cranial nerves: Yes Equal, round and reactive pupils present Assessment & Plan Assessment & Plan (1) Dyspnea: Code(s): R06.00 - Dyspnea, unspecified Qualifiers: Dyspnea type: dyspnea on exertion Qualified Code(s): R06.00 - Dyspnea, unspecified (2) Centrilobular emphysema: Code(s): J43.2 - Centrilobular emphysema (3) Chronic respiratory failure: Comment: With evidence of chronic hypercarbic respiratory failure Code(s): J96.10 - Chronic respiratory failure, unspecified whether with hypoxia or hypercapnia Qualifiers: Respiratory failure complication: hypoxia and hypercapnia Qualified Code(s): J96.11 - Chronic respiratory failure with hypoxia; J96.12 - Chronic respiratory failure with hypercapnia; J96.12 - Chronic respiratory failure with hypercapnia (4) Anemia: Code(s): D64.9 - Anemia, unspecified Qualifiers: Anemia type: iron deficiency Iron deficiency anemia type: unspecified iron deficiency Qualified Code(s): D50.9 - Iron deficiency anemia, unspecified (5) Tachycardia: Comment: Likely multifactorial. She continues to be anemic. May also have a component of cor pulmonale. Should also F/U with cardiology to address Code(s): R00.0 - Tachycardia, unspecified (6) COPD (chronic obstructive pulmonary disease): Code(s): J44.9 - Chronic obstructive pulmonary disease, unspecified Qualifiers: COPD type: emphysema Emphysema type: centrilobular Qualified Code(s): J43.2 - Centrilobular emphysema Plan Prednisone 7.5mg daily and slow decrease to 5mg daily due to osteopenia(Likely has secondary addrenal insufficiency and may not be able to completely stop) continue Azithromycin MWF continue Trelegy 200 CXR Continue oxygen supplementation 3 L pulse with activity and also should also uses to sleep. she no longer requires the oxygen at rest which is reassuring continue NIV, AVAPS, PCO2 better at 65->58mmHg on venous blood gas, volume 350 ml and rate 12. follow-up in 8-12 weeks Orders: Orders Venous Blood Gas Today J43.2 - Centrilobular emphysema, R06.00 - Dyspnea, unspecified Basic Metabolic Panel Today J43.2 - Centrilobular emphysema, R06.00 - Dyspnea, unspecified Liver Panel Today J43.2 - Centrilobular emphysema, R06.00 - Dyspnea, unspecified XR chest 2V Today J44.9 - Chronic obstructive pulmonary disease, unspecified Complete Blood Count Auto Diff Today J43.2 - Centrilobular emphysema, R06.00 - Dyspnea, unspecified Ferritin Today J43.2 - Centrilobular emphysema, R06.00 - Dyspnea, unspecified IRON PROFILE Today J43.2 - Centrilobular emphysema, R06.00 - Dyspnea, unspecified Erythrocyte Sedimentation Rate Today J43.2 - Centrilobular emphysema, R06.00 - Dyspnea, unspecified Coding Level of Care Code Est Pt Level 4 (08279) Diagnoses Dyspnea on exertion R06.00 Dyspnea type: dyspnea on exertion Centrilobular emphysema J43.2 Chronic respiratory failure with hypoxia and hypercapnia J96.11; J96.12; J96.12 Respiratory failure complication: hypoxia and hypercapnia Iron deficiency anemia, unspecified iron deficiency anemia type D50.9 Anemia type: iron deficiency Iron deficiency anemia type: unspecified iron deficiency Tachycardia R00.0 Centrilobular emphysema J43.2 COPD type: emphysema Emphysema type: centrilobular Time Spent (min) 18
== END 2023-06-11 13:42 | disposition home or self-care (01) ==
PROVIDERS: PCP Internal Medicine; Visit Provider Hospitalist
DX: J43.2 Centrilobular emphysema (principal); J96.11 Chronic respiratory failure with hypoxia; J96.12 Chronic respiratory failure with hypercapnia; R00.0 Tachycardia, unspecified; D50.9 Iron deficiency anemia, unspecified
CPT/HCPCS: 99214

== ENCOUNTER 2023-08-14 13:54 | Outpatient (AMB) | payer MEDICARE, SELFPAY ==
--- NOTE | 2023-08-14 13:55 | MHC.OFFVIS ---
Intake Vital Signs 08/14/23 13:56 Height 5 ft 3 in Weight 138 lb 14.259 oz BMI 24.6 BP 112/64 Blood Pressure Location Lt brachial Position Sitting Respiration 12 Pulse 88 Pulse Source Pulse Oximeter Pulse Oximetry (%) 92 Oxygen Delivery Method Nasal Cannula Oxygen Flow Rate 3 Intake Visit Reasons: COPD Allergies No Known Allergies Allergy (Verified 08/14/23 13:57) HPI HPI Comments History of Present Illness Details The patient is a 78 y/o woman with a history of COPD also with the O2 dependence on chronic Prednisone. She also has pulmonary nodules over following. She is scheduled for CT scan in a month at [facility]. Therefore, will follow up after that. She has times and dyspnea on exertion. She does need her oxygen. She is looking to getting a portable oxygen concentrator. However she is questioning if she can use the POC at nighttime. I am concerned that if she does not activate the pulse while sleeping and it would not be helpful for her. However if she does decide to buy it we can always retest to see if is effective for her while she is sleeping. She continues to pulmonary rehabilitation. That is going well. She continues uses trelegy. She is using the azithromycin. She has been around people that have been sick and she has been able to stay healthy. Will continue the for next 3-4 months and will see about weaning it off to give her a break from medications. This antibiotic but will use it more for the anti-inflammatory properties. Did review her last CT scan of the chest that she had recently demonstrating small pulmonary nodules are stable in size. She has a RADS 2 and therefore needs a repeat CT scan in a year's time. We did do a chest x-ray today which appears to have resolution of the left-sided process. No evidence of any acute lower respiratory infection. Therefore, she is responding well to the current respiratory regimen and antibiotics. She will complete the antibiotic course and then taper down the prednisone to 10 mg daily. She has been now multiple courses of antibiotics and prednisone is still having hard time with her breathing. She has been having hard time expectorating. She is getting very frustrated upset. She also complains of increasing shortness of breath and increasing heart rate. She denies any chest pains. On examination she does have some rhonchi on exam which appeared to be right worse than left. Her pneumonia was on her left and side initially. That ultimately cleared up on the x-ray. The patient has a hard time expectorating. Therefore, we'll try the stronger antibiotics along with another course of prednisone. At this point will plan to this pulmonary function study with ABG. The patient should stay on a small dose of prednisone of 10 mg every other day and should also restart the azithromycin Sunday and Sunday. Will monitor closely her IgG levels at this time, no need for augmentation therapy. She did have a 6 minutes walk test and during that study her oxygen quickly decreased after 50 ft on room air to 86%. After that heart rate did increase to the 130s. The patient rested he then was placed on 3 L pulse and ambulating her she was able to maintain a pulse ox above 90%. However, heart rate still was elevated than 130s. The patient states that she did have an echocardiogram at [facility] and I do not have the results right now. 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 It is reasonable to have her follow up with Cardiology as we wait for the results or pulmonary function studies and arterial blood gas. While we wait for those results the patient is to hold off on pulmonary rehabilitation. e did have worsening respiratory symptoms and malaise and she was taken to [facility] which she was found to have a hemoglobin of 5.9. Here in the office we checked back in September she was up to 10 which is significant drop. In the meantime she was given 2 units of blood and she did undergo an upper and lower endoscopy without any significant findings. She is given iron which is taking with multivitamins. While she was there she did have a blood gas demonstrating a pH does 7.36 with a pCO2 of 39 mm of mercury which is within normal limits suggesting that she has no evidence of chronic hypercarbic respiratory failure. 05/30/2022 the patient is here for a pulmonary follow-up visit. She is doing a lot better. Her anemia seems to be better controlled. She is also reassured that her bone marrow test was reassuring. Although is still not clear 100% when she was bleeding from. She had been on Plavix at the time and likely that was contributing to her bleeding. Now she is off the Plavix and seems to be holding her hemoglobin better. She is also going to go off her iron and she is going to be monitoring for any blood in her stools. In meantime she is down to 5 mg of prednisone every other day which is a minimal dose. She is concerned about dropping it altogether. She is also using the azithromycin 3 times a week. The patient now is feeling a little stronger. She is however on a wheelchair today. She needs to regain strength and exercise. I did give her information about online pulmonary rehabilitation that she should start. Once the patient becomes stronger we can reassess her medications. I am hopeful that she can come off the prednisone. Subsequently after that we can try to get her off the azithromycin if we can safely. She continues use respiratory medicine with good effect. 08/29/2022 the patient is here for a pulmonary follow-up visit. She continues to feel unwell with significant shortness of breath. Hemoglobin states that he around 9.7. She continues to have significant tachycardia with minimal activity. She does follow closely with cardiology specially after her valve surgery. She continues use the oxygen at 3 L with activity. Sometimes she goes up to 4 L pulse. Even with that she continues of being winded and tired. She does continue with all her respiratory therapy with good compliance. During the office visit we did take her off the oxygen did a 6 minute walk test. It was adamant that the patient was very tachycardic up to 122 beats per minute with minimal activity and resulting significant dyspnea while she only required 2 L pulse to maintain a pulse ox above 92%. therefore, there may be a cardiac component or cor pulmonale. I do not have her recent echo readily available. In the meantime the patient did have a blood gas done and her pCO2 was elevated at 56 mmHg. Therefore, the patient does have chronic hypercarbic respiratory failure secondary to the COPD. Indeed the patient does carry a poor prognosis and high risk for rehospitalization is. Therefore, a noninvasive ventilator will provide a improvement in the prognosis improvement in gas exchange and decrease hospitalizations. I did offer her a noninvasive ventilator. 10/18/2022 the patient is here for a pulmonary follow-up visit. She still complaining of worsening dyspnea on exertion. She is having hard time getting around. She does use the oxygen at 3-4 L pulse to try to give her some relief. Although we repeated her walking oximetry in the patient really only needs 3 L pulse with activity and does already keeping her pulse ox around 96%. She really does not even need the oxygen at rest although she feels very short of breath. The patient does have significant emphysema in addition to that has the issue with the anemia that is likely contributing to a great degree with her symptoms of dyspnea. Because even though hemoglobin is only slightly decreased in view of her respiratory failure and no pulmonary reserve this is resulting in significant symptoms. Patient also has a valvular disease. She did get the noninvasive ventilator. Her CO2 had been elevated. Her bicarb was initially elevated in the last time she checked the with primary care was better. Will go ahead and repeat the blood work at this time. The patient did have some issues tolerating the noninvasive ventilator but she is doing better with it now. She is I did have a repeat the blood work. Hemoglobin 8.7. My concerns are ferritin is only 8 suggesting no iron storage. I did call the patient told her that she needs talk to her group activities aide regarding this issue and may be potentially considering IV are infusions. In addition to that I did check a D-dimer which was negative ruling out the possibility of any thromboembolic disease. She continues with respiratory therapy her lungs actually sound good so I do not believe that her symptoms are related to an exacerbation. She had been on prednisone taking 7.5 mg every other day. This point will go ahead and increase her to 10 mg daily just to make sure that she is getting adequate therapy specially if she has any evidence of any adrenal insufficiency. 11/14/2022 the patient is here for a pulmonary follow-up visit. Since we last spoke she did follow-up with Hematology and she received 5 infusions of iron. Hemoglobin is better up to 10. Clinically she is feeling better. In the meantime she did get the noninvasive ventilator. Is very difficult for her to tolerated. The mask seems to leak the air. She also has a hard time tolerating the amount of pressure. Therefore, I did review her settings. Will go ahead and decrease her tidal volume down to 350 mL. In addition to this will go ahead and decrease her respiratory rate. Seems like the CO2 already came down based on the bicarb went from 30/6 now 30. So clinically she is responding to the therapy. In the meantime the patient continues with respiratory therapy as prescribed. She has been on the 10 mg daily of prednisone. Will go ahead and drop that down to every other day in view of her improvement. There is still question of adrenal insufficiency so will continue to monitor that closely. Also, the patient is now found to have a pancreatic lesion. Now needs an MRI 01/23/2023 the patient is here for pulmonary follow-up visit. She feels like her energy levels have decreased. She has no PAP. This causes her to have worsening breathing symptoms. She had been doing well when her prednisone was higher 10 mg daily. Then she titrated down to 7.5 mg every other day and she started having worsening symptoms. Is likely at this point that she has secondary adrenal insufficiency and therefore taking a small dose of prednisone daily may be important for her. She does have some chest congestion. She continues on the azithromycin 3 times a week. At this point if she phlegm is not changing color or consistency. Initial monitor at this point. I do not believe she needs a change in antibiotic. She continues use respiratory therapy. In addition to that she is using her noninvasive ventilator. She is having hard time tolerating it. I will request a download and also will adjust her noninvasive ventilator accordingly for her to be able to tolerated better. She understands her CO2 has been steadily climbing. Will also plan to do pulmonary function studies with the hope of her perform any pulmonary rehabilitation. She is going to start online pulmonary rehab at this time.. 03/08/2023 the patient here for a pulmonary follow-up visit. The patient overall has been doing a lot better. She feels that the higher dose prednisone is working well for her. She may have a component of adrenal insufficiency it may be important for her to be on a small dose. Although will try to find the lowest effective dose. She did undergo a density test and she is noted to have osteopenia. So therefore she understands we trying decrease the risk of her developing osteoporosis. She will be following up with Endocrine as well. In the meantime respiratory status is stable. She did have pulmonary function studies which were compared to her PFTs from 2019. In the last 2 years there is no significant change in her lung capacity which is reassuring although her baseline PFTs are significantly abnormal with very severe obstruction in very severe diffusion impairment. She is doing well with her oxygen. She is also using the noninvasive ventilator at nighttime. This is also obstructing beneficial. She can use continue using it every night. 06/11/2023 the patient is here for a pulmonary follow-up visit. The patient does not feel any better. She feels tired and short of breath. She feels like she has more gasping for air. She has been using the noninvasive ventilator but she has not seen any significant improvement. The patient does feel like she is gets restful sleep when she does use it though. The last ABG or venous gas that she had her pCO2 was up to 65 mmHg. Will have her have a repeat be nice gas today. In addition to that she has had anemia issues throughout. The last time she hemoglobin was checked 2 months ago was okay closer to her baseline. Will go ahead and repeat her blood work looking for other etiologies for just her chronic fatigue symptoms and shortness of breath. The patient also may have a component of adrenal insufficiency secondary to chronic prednisone. Woman trying to cut down the prednisone due to her new diagnosis of osteoporosis. Although has been difficult for her. When she went down to 5 mg she had much worsening breathing and she had to increase it to 12.5 mg for appeared time. Now she is alternating 7.5 in 5 mg. I did recommend the other option is to decrease the tapering down to 1 mg at a time. Will reassess after her blood work. The patient also has been having some weight loss. Denies any night sweats. Will go ahead and request a chest x-ray at this time. Her respiratory exam is reassuring. She is moving good air diminished but without any significant wheezing or prolonged expiratory phase. She is responding well to the Trelegy and will continue for now. 08/14/2023 the patient is here for pulmonary follow-up visit. She continues to feel weak and very short of breath. She has been using her oxygen with good effect. She was evaluated by hematology hemoglobin dropped to 8.4 and also her ferritin and iron levels dropped significantly as well. Therefore she is starting IV infusions of iron. He is going to do total 5. Explained to her that in view of her severe COPD emphysema the fact that she is anemic even mildly causes worsening dramatic dyspnea symptoms. In addition the patient had been on the Trelegy inhaler which is a very good inhaler but is been difficult for her to inhale it because she has gotten weaker as well. Therefore, will switch over to nebulized therapy to see if this is more effective in opening up her airways and provided better ventilation. Once the patient gets additional iron infusions hopefully she can start some degree of pulmonary rehabilitation even if he can be done sitting down as she is getting more deconditioning we can and ultimately resulting worsening respiratory symptoms. The patient also has been on the prednisone. She can cut down to 5 mg so therefore she continues on 7.5 mg daily which she will stay for now. [facility] Medical History (Updated 08/14/23 @ 21:16 by Mateo Barrientos MD) Dyspnea (~08/14/23) Tachycardia Anemia Anemia Pre-op chest exam Vertebral artery stenosis Dyspnea Chronic respiratory failure Dyslipidemia Hypothyroidism Centrilobular emphysema Surgical History History of cholecystectomy H/O: hysterectomy Family History Mother No problems noted. Daughter Diabetes Social History (Updated 03/08/21 @ 11:20 by Makenzie Leroy Tomy) Household Members: None Housing: House Do you presently have visiting nurse or other home services: No Alcohol intake: unknown Patient Tobacco Use Status: Former Tobacco user Tobacco use type: Cigarette Years Smoked: 40+ years service: No Current occupational status: retired Review of Systems Const Reports fatigue, Denies night sweats and Reports weight loss ENT Denies change in voice, Denies lip swelling, Denies mouth pain, Reports nasal congestion, Reports nasal discharge and Denies tongue swelling Card Denies chest pain, Reports dyspnea and Reports dyspnea on exertion Resp Reports cough, Reports dyspnea and Reports dyspnea on exertion GI Denies abdominal pain, Denies melena and Denies hematochezia Musc Denies no additional complaints Neuro Denies Neuro-related abnormal movements Psych Reports depression Endo Reports fatigue Fredi/Lymph Denies easy bleeding and Denies lymphadenopathy Aller/Immun Denies lip swelling and Denies tongue swelling Physical Exam Vital Signs: Last Vital Signs Pulse 88 08/14/23 13:56 Resp 12 08/14/23 13:56 BP 112/64 08/14/23 13:56 Pulse Ox 92 08/14/23 13:56 Oxygen Delivery Method Nasal Cannula 08/14/23 13:56 Oxygen Flow Rate 3 08/14/23 13:56 BMI result Body Mass Index 24.6 Const General: alert and tired appearing Eyes Conjunctivae: conjunctival abnormal bilateral pallor Pupils: Equal, round and reactive pupils present Neck Neck: Yes normal visual inspection, Yes full ROM and Yes no lymphadenopathy Chest Chest palpation & inspection: normal inspection of the chest Resp Effort & Inspection: prolonged expiratory phase Auscultation: no rhonchi, no wheezes and diminished lung sounds Cardio Rate: regular rate Rhythm: regular rhythm Heart sounds: S1 normal heart sound present and S2 normal heart sound present GI Palpation (GI): Soft to palpation and nontender Auscultation: normal bowel sounds Skin Trauma: abrasion (RLE) Neuro Cranial nerves: Yes Equal, round and reactive pupils present Assessment & Plan Assessment & Plan (1) Dyspnea: Code(s): R06.00 - Dyspnea, unspecified Qualifiers: Dyspnea type: dyspnea on exertion Qualified Code(s): R06.00 - Dyspnea, unspecified (2) Centrilobular emphysema: Comment: Very severe COPD with FEV1 26% predicted Code(s): J43.2 - Centrilobular emphysema (3) Chronic respiratory failure: Comment: With evidence of chronic hypercarbic respiratory failure, DLCO very severe Code(s): J96.10 - Chronic respiratory failure, unspecified whether with hypoxia or hypercapnia Qualifiers: Respiratory failure complication: hypoxia and hypercapnia Qualified Code(s): J96.11 - Chronic respiratory failure with hypoxia; J96.12 - Chronic respiratory failure with hypercapnia; J96.12 - Chronic respiratory failure with hypercapnia (4) Anemia: Code(s): D64.9 - Anemia, unspecified Qualifiers: Anemia type: iron deficiency Iron deficiency anemia type: unspecified iron deficiency Qualified Code(s): D50.9 - Iron deficiency anemia, unspecified (5) Tachycardia: Comment: Likely multifactorial. She continues to be anemic. May also have a component of cor pulmonale. Code(s): R00.0 - Tachycardia, unspecified (6) COPD (chronic obstructive pulmonary disease): Comment: very severe, end stage Code(s): J44.9 - Chronic obstructive pulmonary disease, unspecified Qualifiers: COPD type: emphysema Emphysema type: centrilobular Qualified Code(s): J43.2 - Centrilobular emphysema Plan Prednisone 7.5mg daily continue Azithromycin MWF Holding Trelegy start Duoneb start Budesonide Continue oxygen supplementation 3 L pulse with activity and also should also uses to sleep. she no longer requires the oxygen at rest which is reassuring continue NIV, AVAPS, PCO2 better at 65->58mmHg on venous blood gas, volume 350 ml and rate 12. wound care eval for a non healing injury follow-up in 3-4 months Orders: Referrals Wound Care Referral [id number] - Unspecified injury of right lower leg, initial encounter Medications: New budesonide 0.5 mg (2 mL) inhalation BID 30 days 120 mL 11RF J44.9 - Chronic obstructive pulmonary disease, unspecified ipratropium-albuterol 0.5 mg-3 mg(2.5 mg base)/3 mL 3 mL inhalation BID 30 days 180 mL 11RF J44.9 - Chronic obstructive pulmonary disease, unspecified Coding Level of Care Code Est Pt Level 4 (19874) Diagnoses Dyspnea on exertion R06.00 Dyspnea type: dyspnea on exertion Centrilobular emphysema J43.2 Chronic respiratory failure with hypoxia and hypercapnia J96.11; J96.12; J96.12 Respiratory failure complication: hypoxia and hypercapnia Iron deficiency anemia, unspecified iron deficiency anemia type D50.9 Anemia type: iron deficiency Iron deficiency anemia type: unspecified iron deficiency Tachycardia R00.0 Centrilobular emphysema J43.2 COPD type: emphysema Emphysema type: centrilobular Time Spent (min) 18
[2023-08-14 13:56] VITALS: BP 112/64; PULSE 88; RESP 12; O2SAT 92; BMI 24.6
== END 2023-08-14 14:23 | disposition home or self-care (01) ==
PROVIDERS: PCP Internal Medicine; Visit Provider Hospitalist
DX: J96.11 Chronic respiratory failure with hypoxia (principal); J43.2 Centrilobular emphysema; J96.12 Chronic respiratory failure with hypercapnia; D50.9 Iron deficiency anemia, unspecified; R00.0 Tachycardia, unspecified
CPT/HCPCS: 99214

== ENCOUNTER → 2023-08-14 13:54 | Outpatient (BNVA) | payer MEDICARE, SELFPAY | PROVIDERS: PCP Internal Medicine; Visit Provider Hospitalist | DX: R06.00 Dyspnea, unspecified (principal); J43.2 Centrilobular emphysema; J96.11 Chronic respiratory failure with hypoxia; J96.12 Chronic respiratory failure with hypercapnia; D50.9 Iron deficiency anemia, unspecified; R00.0 Tachycardia, unspecified | CPT/HCPCS: 99212 ==

== ENCOUNTER 2023-09-03 14:01 | Outpatient (RCR) | payer MEDICARE, SELFPAY | END 2023-09-03 17:00 | disposition home or self-care (01) | LOC: HO.WCC 14:01 | PROVIDERS: PCP Internal Medicine; Visit Provider Physician Assistant | DX: Z09 Encounter for follow-up examination after completed treatment for conditions other than malignant neoplasm (principal); J96.11 Chronic respiratory failure with hypoxia; D50.9 Iron deficiency anemia, unspecified; J44.9 Chronic obstructive pulmonary disease, unspecified; G62.9 Polyneuropathy, unspecified; Z95.2 Presence of prosthetic heart valve; Z99.81 Dependence on supplemental oxygen; Z79.52 Long term (current) use of systemic steroids; Z87.891 Personal history of nicotine dependence; Z87.2 Personal history of diseases of the skin and subcutaneous tissue | CPT/HCPCS: 99213 ==

== ENCOUNTER 2023-11-15 14:23 | Outpatient (AMB) | payer MEDICARE, SELFPAY ==
[2023-11-15 14:33] VITALS: PULSE 75; O2SAT 92; BMI 24.6
--- NOTE | 2023-11-15 14:33 | MHC.OFFVIS ---
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 She also has pulmonary nodules over following. She is scheduled for CT scan in a month at [facility]. Therefore, will follow up after that. She has times and dyspnea on exertion. She does need her oxygen. She is looking to getting a portable oxygen concentrator. However she is questioning if she can use the POC at nighttime. I am concerned that if she does not activate the pulse while sleeping and it would not be helpful for her. However if she does decide to buy it we can always retest to see if is effective for her while she is sleeping. She continues to pulmonary rehabilitation. That is going well. She continues uses trelegy. She is using the azithromycin. She has been around people that have been sick and she has been able to stay healthy. Will continue the for next 3-4 months and will see about weaning it off to give her a break from medications. This antibiotic but will use it more for the anti-inflammatory properties. Did review her last CT scan of the chest that she had recently demonstrating small pulmonary nodules are stable in size. She has a RADS 2 and therefore needs a repeat CT scan in a year's time. We did do a chest x-ray today which appears to have resolution of the left-sided process. No evidence of any acute lower respiratory infection. Therefore, she is responding well to the current respiratory regimen and antibiotics. She will complete the antibiotic course and then taper down the prednisone to 10 mg daily. She has been now multiple courses of antibiotics and prednisone is still having hard time with her breathing. She has been having hard time expectorating. She is getting very frustrated upset. She also complains of increasing shortness of breath and increasing heart rate. She denies any chest pains. On examination she does have some rhonchi on exam which appeared to be right worse than left. Her pneumonia was on her left and side initially. That ultimately cleared up on the x-ray. The patient has a hard time expectorating. Therefore, we'll try the stronger antibiotics along with another course of prednisone. At this point will plan to this pulmonary function study with ABG. The patient should stay on a small dose of prednisone of 10 mg every other day and should also restart the azithromycin Sunday and Sunday. Will monitor closely her IgG levels at this time, no need for augmentation therapy. She did have a 6 minutes walk test and during that study her oxygen quickly decreased after 50 ft on room air to 86%. After that heart rate did increase to the 130s. The patient rested he then was placed on 3 L pulse and ambulating her she was able to maintain a pulse ox above 90%. However, heart rate still was elevated than 130s. The patient states that she did have an echocardiogram at [facility] and I do not have the results right now. 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 It is reasonable to have her follow up with Cardiology as we wait for the results or pulmonary function studies and arterial blood gas. While we wait for those results the patient is to hold off on pulmonary rehabilitation. e did have worsening respiratory symptoms and malaise and she was taken to [facility] which she was found to have a hemoglobin of 5.9. Here in the office we checked back in September she was up to 10 which is significant drop. In the meantime she was given 2 units of blood and she did undergo an upper and lower endoscopy without any significant findings. She is given iron which is taking with multivitamins. While she was there she did have a blood gas demonstrating a pH does 7.36 with a pCO2 of 39 mm of mercury which is within normal limits suggesting that she has no evidence of chronic hypercarbic respiratory failure. 05/30/2022 the patient is here for a pulmonary follow-up visit. She is doing a lot better. Her anemia seems to be better controlled. She is also reassured that her bone marrow test was reassuring. Although is still not clear 100% when she was bleeding from. She had been on Plavix at the time and likely that was contributing to her bleeding. Now she is off the Plavix and seems to be holding her hemoglobin better. She is also going to go off her iron and she is going to be monitoring for any blood in her stools. In meantime she is down to 5 mg of prednisone every other day which is a minimal dose. She is concerned about dropping it altogether. She is also using the azithromycin 3 times a week. The patient now is feeling a little stronger. She is however on a wheelchair today. She needs to regain strength and exercise. I did give her information about online pulmonary rehabilitation that she should start. Once the patient becomes stronger we can reassess her medications. I am hopeful that she can come off the prednisone. Subsequently after that we can try to get her off the azithromycin if we can safely. She continues use respiratory medicine with good effect. 08/29/2022 the patient is here for a pulmonary follow-up visit. She continues to feel unwell with significant shortness of breath. Hemoglobin states that he around 9.7. She continues to have significant tachycardia with minimal activity. She does follow closely with cardiology specially after her valve surgery. She continues use the oxygen at 3 L with activity. Sometimes she goes up to 4 L pulse. Even with that she continues of being winded and tired. She does continue with all her respiratory therapy with good compliance. During the office visit we did take her off the oxygen did a 6 minute walk test. It was adamant that the patient was very tachycardic up to 122 beats per minute with minimal activity and resulting significant dyspnea while she only required 2 L pulse to maintain a pulse ox above 92%. therefore, there may be a cardiac component or cor pulmonale. I do not have her recent echo readily available. In the meantime the patient did have a blood gas done and her pCO2 was elevated at 56 mmHg. Therefore, the patient does have chronic hypercarbic respiratory failure secondary to the COPD. Indeed the patient does carry a poor prognosis and high risk for rehospitalization is. Therefore, a noninvasive ventilator will provide a improvement in the prognosis improvement in gas exchange and decrease hospitalizations. I did offer her a noninvasive ventilator. 10/18/2022 the patient is here for a pulmonary follow-up visit. She still complaining of worsening dyspnea on exertion. She is having hard time getting around. She does use the oxygen at 3-4 L pulse to try to give her some relief. Although we repeated her walking oximetry in the patient really only needs 3 L pulse with activity and does already keeping her pulse ox around 96%. She really does not even need the oxygen at rest although she feels very short of breath. The patient does have significant emphysema in addition to that has the issue with the anemia that is likely contributing to a great degree with her symptoms of dyspnea. Because even though hemoglobin is only slightly decreased in view of her respiratory failure and no pulmonary reserve this is resulting in significant symptoms. Patient also has a valvular disease. She did get the noninvasive ventilator. Her CO2 had been elevated. Her bicarb was initially elevated in the last time she checked the with primary care was better. Will go ahead and repeat the blood work at this time. The patient did have some issues tolerating the noninvasive ventilator but she is doing better with it now. She is I did have a repeat the blood work. Hemoglobin 8.7. My concerns are ferritin is only 8 suggesting no iron storage. I did call the patient told her that she needs talk to her career consultant regarding this issue and may be potentially considering IV are infusions. In addition to that I did check a D-dimer which was negative ruling out the possibility of any thromboembolic disease. She continues with respiratory therapy her lungs actually sound good so I do not believe that her symptoms are related to an exacerbation. She had been on prednisone taking 7.5 mg every other day. This point will go ahead and increase her to 10 mg daily just to make sure that she is getting adequate therapy specially if she has any evidence of any adrenal insufficiency. 11/14/2022 the patient is here for a pulmonary follow-up visit. Since we last spoke she did follow-up with Hematology and she received 5 infusions of iron. Hemoglobin is better up to 10. Clinically she is feeling better. In the meantime she did get the noninvasive ventilator. Is very difficult for her to tolerated. The mask seems to leak the air. She also has a hard time tolerating the amount of pressure. Therefore, I did review her settings. Will go ahead and decrease her tidal volume down to 350 mL. In addition to this will go ahead and decrease her respiratory rate. Seems like the CO2 already came down based on the bicarb went from 30/6 now 30. So clinically she is responding to the therapy. In the meantime the patient continues with respiratory therapy as prescribed. She has been on the 10 mg daily of prednisone. Will go ahead and drop that down to every other day in view of her improvement. There is still question of adrenal insufficiency so will continue to monitor that closely. Also, the patient is now found to have a pancreatic lesion. Now needs an MRI 01/23/2023 the patient is here for pulmonary follow-up visit. She feels like her energy levels have decreased. She has no PAP. This causes her to have worsening breathing symptoms. She had been doing well when her prednisone was higher 10 mg daily. Then she titrated down to 7.5 mg every other day and she started having worsening symptoms. Is likely at this point that she has secondary adrenal insufficiency and therefore taking a small dose of prednisone daily may be important for her. She does have some chest congestion. She continues on the azithromycin 3 times a week. At this point if she phlegm is not changing color or consistency. Initial monitor at this point. I do not believe she needs a change in antibiotic. She continues use respiratory therapy. In addition to that she is using her noninvasive ventilator. She is having hard time tolerating it. I will request a download and also will adjust her noninvasive ventilator accordingly for her to be able to tolerated better. She understands her CO2 has been steadily climbing. Will also plan to do pulmonary function studies with the hope of her perform any pulmonary rehabilitation. She is going to start online pulmonary rehab at this time.. 03/08/2023 the patient here for a pulmonary follow-up visit. The patient overall has been doing a lot better. She feels that the higher dose prednisone is working well for her. She may have a component of adrenal insufficiency it may be important for her to be on a small dose. Although will try to find the lowest effective dose. She did undergo a density test and she is noted to have osteopenia. So therefore she understands we trying decrease the risk of her developing osteoporosis. She will be following up with Endocrine as well. In the meantime respiratory status is stable. She did have pulmonary function studies which were compared to her PFTs from 2019. In the last 2 years there is no significant change in her lung capacity which is reassuring although her baseline PFTs are significantly abnormal with very severe obstruction in very severe diffusion impairment. She is doing well with her oxygen. She is also using the noninvasive ventilator at nighttime. This is also obstructing beneficial. She can use continue using it every night. 06/11/2023 the patient is here for a pulmonary follow-up visit. The patient does not feel any better. She feels tired and short of breath. She feels like she has more gasping for air. She has been using the noninvasive ventilator but she has not seen any significant improvement. The patient does feel like she is gets restful sleep when she does use it though. The last ABG or venous gas that she had her pCO2 was up to 65 mmHg. Will have her have a repeat be nice gas today. In addition to that she has had anemia issues throughout. The last time she hemoglobin was checked 2 months ago was okay closer to her baseline. Will go ahead and repeat her blood work looking for other etiologies for just her chronic fatigue symptoms and shortness of breath. The patient also may have a component of adrenal insufficiency secondary to chronic prednisone. Woman trying to cut down the prednisone due to her new diagnosis of osteoporosis. Although has been difficult for her. When she went down to 5 mg she had much worsening breathing and she had to increase it to 12.5 mg for appeared time. Now she is alternating 7.5 in 5 mg. I did recommend the other option is to decrease the tapering down to 1 mg at a time. Will reassess after her blood work. The patient also has been having some weight loss. Denies any night sweats. Will go ahead and request a chest x-ray at this time. Her respiratory exam is reassuring. She is moving good air diminished but without any significant wheezing or prolonged expiratory phase. She is responding well to the Trelegy and will continue for now. 08/14/2023 the patient is here for pulmonary follow-up visit. She continues to feel weak and very short of breath. She has been using her oxygen with good effect. She was evaluated by hematology hemoglobin dropped to 8.4 and also her ferritin and iron levels dropped significantly as well. Therefore she is starting IV infusions of iron. He is going to do total 5. Explained to her that in view of her severe COPD emphysema the fact that she is anemic even mildly causes worsening dramatic dyspnea symptoms. In addition the patient had been on the Trelegy inhaler which is a very good inhaler but is been difficult for her to inhale it because she has gotten weaker as well. Therefore, will switch over to nebulized therapy to see if this is more effective in opening up her airways and provided better ventilation. Once the patient gets additional iron infusions hopefully she can start some degree of pulmonary rehabilitation even if he can be done sitting down as she is getting more deconditioning we can and ultimately resulting worsening respiratory symptoms. The patient also has been on the prednisone. She can cut down to 5 mg so therefore she continues on 7.5 mg daily which she will stay for now. 11/15/2023 the patient is here for a pulmonary follow-up visit. She continues to have dyspnea on exertion with minimal activity. She understands that she has very severe COPD. She is also oxygen dependent has significant anemia. She is status post iron infusions. She will be following closely we hematology. In the meantime she has not been very active. We did talk about the importance of conditioning and pulmonary rehabilitation. She had been doing the online pulmonary rehab but did not find it very helpful. We did talk about considering going back to in-person pulmonary rehab. She also also using her noninvasive ventilator. Sometimes difficult for her to tolerate. Already has been demonstrating improvement in the CO2. The therapy has been affecting beneficial. At this point we talked about ways to improve her energy level during daytime. She is going to try increasing the prednisone from 7.5-10 mg. the other options to consider stimulant such as modafinil. [facility] Medical History (Updated 08/14/23 @ 21:16 by Mateo Barrientos MD) Dyspnea (~08/14/23) Tachycardia Anemia Anemia Pre-op chest exam Vertebral artery stenosis Dyspnea Chronic respiratory failure Dyslipidemia Hypothyroidism Centrilobular emphysema Surgical History History of cholecystectomy H/O: hysterectomy Family History Mother No problems noted. Daughter Diabetes Social History (Updated 03/08/21 @ 11:20 by Makenzie Leroy Tomy) Household Members: None Housing: House Do you presently have visiting nurse or other home services: No Alcohol intake: unknown Patient Tobacco Use Status: Former Tobacco user Tobacco use type: Cigarette Years Smoked: 40+ years service: No Current occupational status: retired Review of Systems Const Reports fatigue, Denies night sweats and Reports weight loss ENT Denies change in voice, Denies lip swelling, Denies mouth pain, Reports nasal congestion, Reports nasal discharge and Denies tongue swelling Card Denies chest pain, Reports dyspnea and Reports dyspnea on exertion Resp Reports cough, Reports dyspnea and Reports dyspnea on exertion GI Denies abdominal pain, Denies melena and Denies hematochezia Musc Denies no additional complaints Neuro Denies Neuro-related abnormal movements Psych Reports depression Endo Reports fatigue Fredi/Lymph Denies easy bleeding and Denies lymphadenopathy Aller/Immun Denies lip swelling and Denies tongue swelling Physical Exam Vital Signs: Last Vital Signs Pulse 75 11/15/23 14:33 Pulse Ox 92 11/15/23 14:33 Oxygen Delivery Method Room Air 11/15/23 14:33 BMI result Body Mass Index 24.6 Const General: alert and tired appearing Eyes Conjunctivae: conjunctival abnormal bilateral pallor Pupils: Equal, round and reactive pupils present Neck Neck: Yes normal visual inspection, Yes full ROM and Yes no lymphadenopathy Chest Chest palpation & inspection: normal inspection of the chest Resp Effort & Inspection: prolonged expiratory phase Auscultation: no rhonchi, no wheezes and diminished lung sounds Cardio Rate: regular rate Rhythm: regular rhythm Heart sounds: S1 normal heart sound present and S2 normal heart sound present GI Palpation (GI): Soft to palpation and nontender Auscultation: normal bowel sounds Skin Trauma: abrasion (RLE) Neuro Cranial nerves: Yes Equal, round and reactive pupils present Assessment & Plan Assessment & Plan (1) Dyspnea: Code(s): R06.00 - Dyspnea, unspecified Qualifiers: Dyspnea type: dyspnea on exertion Qualified Code(s): R06.00 - Dyspnea, unspecified (2) Centrilobular emphysema: Comment: Very severe COPD with FEV1 26% predicted Code(s): J43.2 - Centrilobular emphysema (3) Chronic respiratory failure: Comment: With evidence of chronic hypercarbic respiratory failure, DLCO very severe Code(s): J96.10 - Chronic respiratory failure, unspecified whether with hypoxia or hypercapnia Qualifiers: Respiratory failure complication: hypoxia and hypercapnia Qualified Code(s): J96.11 - Chronic respiratory failure with hypoxia; J96.12 - Chronic respiratory failure with hypercapnia; J96.12 - Chronic respiratory failure with hypercapnia (4) Anemia: Code(s): D64.9 - Anemia, unspecified Qualifiers: Anemia type: iron deficiency Iron deficiency anemia type: unspecified iron deficiency Qualified Code(s): D50.9 - Iron deficiency anemia, unspecified (5) Tachycardia: Comment: Likely multifactorial. She continues to be anemic. May also have a component of cor pulmonale. Code(s): R00.0 - Tachycardia, unspecified (6) COPD (chronic obstructive pulmonary disease): Comment: very severe, end stage Code(s): J44.9 - Chronic obstructive pulmonary disease, unspecified Qualifiers: COPD type: emphysema Emphysema type: centrilobular Qualified Code(s): J43.2 - Centrilobular emphysema Plan Increase Prednisone 7.5mg daily to 10mg daily consider Modafinil continue Azithromycin MWF continued Trelegy continue Duoneb stopped Budesonide Continue oxygen supplementation 3 L pulse with activity and also should also uses to sleep. she no longer requires the oxygen at rest which is reassuring continue NIV, AVAPS, PCO2 better at 65->58mmHg on venous blood gas, volume 350 ml and rate 12. CXR follow-up in 3-4 months Orders: Orders XR chest 2V Today R00.0 - Tachycardia, unspecified, R06.00 - Dyspnea, unspecified Medications: New prednisone 10 mg PO DAILY 30 days 30 tabs 7RF Coding Level of Care Code Est Pt Level 4 (45557) Diagnoses Dyspnea on exertion R06.00 Dyspnea type: dyspnea on exertion Centrilobular emphysema J43.2 Chronic respiratory failure with hypoxia and hypercapnia J96.11; J96.12; J96.12 Respiratory failure complication: hypoxia and hypercapnia Iron deficiency anemia, unspecified iron deficiency anemia type D50.9 Anemia type: iron deficiency Iron deficiency anemia type: unspecified iron deficiency Tachycardia R00.0 Centrilobular emphysema J43.2 COPD type: emphysema Emphysema type: centrilobular Time Spent (min) 18
== END 2023-11-15 15:03 | disposition home or self-care (01) ==
PROVIDERS: PCP Internal Medicine; Visit Provider Hospitalist
DX: J43.2 Centrilobular emphysema (principal); J96.11 Chronic respiratory failure with hypoxia; J96.12 Chronic respiratory failure with hypercapnia; D50.9 Iron deficiency anemia, unspecified; R00.0 Tachycardia, unspecified
CPT/HCPCS: 99214

== ENCOUNTER 2023-11-15 14:23 | Outpatient (REF) | payer MEDICARE, SELFPAY ==
--- NOTE | ~2023-11-15 | XR_ITS ---
EXAMINATION: XR CHEST CLINICAL INFORMATION: Tachypnea, unspecified. COMPARISON: 06/11/2023 and 07/12/2020 chest radiographs. TECHNIQUE: 3 views of the chest were obtained. FINDINGS: The lungs are well inflated. There is no gross pneumothorax. Heart size within normal limits. Redemonstration of a vascular stent in the region of the aorta. Lungs remain hyperinflated with flattening of the diaphragm. Redemonstration of 2 radiopaque clip markers overlying the soft tissues of the right breast. Degenerative changes in the thoracic spine. Atherosclerotic aortic calcifications. No gross pleural effusion. No new focal consolidation to suggest pneumonia. XR/XR chest 2V IMPRESSION: Hyperinflated lungs. No new focal consolidation to suggest pneumonia.
== END 2023-11-15 14:24 | disposition home or self-care (01) ==
LOC: HO.XRAY 14:23
PROVIDERS: PCP Internal Medicine; Visit Provider Hospitalist
DX: R06.00 Dyspnea, unspecified (principal); J43.2 Centrilobular emphysema; J44.9 Chronic obstructive pulmonary disease, unspecified; R00.0 Tachycardia, unspecified
CPT/HCPCS: 71046; 99212

== ENCOUNTER 2024-02-01 11:41 | Outpatient (REF) | payer MEDICARE, SELFPAY ==
--- NOTE | ~2024-02-01 | XR_ITS ---
EXAMINATION: XR CHEST 2 VIEW CLINICAL INFORMATION: Dyspnea COMPARISON: 11/15/2023 TECHNIQUE: PA and lateral views of the chest obtained. FINDINGS: The lungs are hyperinflated with lucency in the upper lung zones and flattened diaphragms indicative of COPD. There are no pleural effusions. The cardiomediastinal silhouette is stable. Changes of TAVR are noted as are clips in the right breast. XR/XR chest 2V IMPRESSION: COPD. No acute disease or significant interval change.
[2024-02-01 12:08] LABS: MANUAL DIFF FLAG NO
[2024-02-01 12:13] LABS: Venous Blood Gas Refer to POC result
[2024-02-01 12:14] LABS: VBG Base Excess 9.6 mmol/L; VBG HCO3 35 mmol/L (22-26); VBG pCO2 56 mmHg; VBG pH 7.41 (7.32-7.43); VBG pO2 26 mmHg
[2024-02-01 12:54] LABS: Basophils Percent Auto 0.3 % (0-2); Eosinophils Absolute Auto 0.1 X10*3/uL (0.0-0.4); Eosinophils Percent Auto 0.8 % (0-4); Hemoglobin 9.4 g/dl (12.0-16.0); Imm Gran Abs Auto 0.13 X10*3/uL (0.00-0.03); Lymphocytes Absolute Auto 0.7 X10*3/uL (1.2-4.9); Lymphocytes Percent Auto 5.4 % (20-40); Mean Corpuscular HGB Conc 31.3 g/dl (31.0-35.0); Mean Corpuscular Hemoglobin 30.6 pg (27.0-33.0); Mean Corpuscular Volume 97.7 fL (80.0-98.0); Mean Platelet Volume 9.5 fL (9.4-12.3); Monocytes Absolute Auto 0.8 X10*3/uL (0.1-1.2); Monocytes Percent Auto 6.3 % (2-11); Neutrophils Absolute Auto 11.5 x10*3/uL (2.0-8.3); Neutrophils Percent Auto 86.2 % (45-73); Platelet Count 271 X10*3/uL (160-400); Red Blood Count 3.07 X10*6/uL (4.20-5.50); Red Cell Distribution Width 14.3 % (11.0-16.0); White Blood Count 13.3 X10*3/uL (4.8-10.8)
[2024-02-01 13:24] LABS: Anion Gap 12 (12-20); Blood Urea Nitrogen 16 mg/dL (9-16); Calcium 9.9 mg/dL (8.4-10.2); Carbon Dioxide 32 mmol/L (22-29); Chloride 102 mmol/L (96-108); Estimated Glomerular Filt Rate > 60; Glucose Random 104 mg/dL (60-115); Sodium 142 mmol/L (135-145)
[2024-02-01 13:33] LABS: Erythrocyte Sedimentation Rate 14 MM/HR (0-20)
== END 2024-02-01 11:42 | disposition home or self-care (01) ==
LOC: HO.XRAY 11:41
PROVIDERS: PCP Internal Medicine; Visit Provider Hospitalist
DX: R06.00 Dyspnea, unspecified (principal); D64.9 Anemia, unspecified
CPT/HCPCS: 36415; 71046; 80048; 82803; 85025; 85652

== ENCOUNTER 2024-02-06 09:57 | Outpatient (AMB) | payer MEDICARE, SELFPAY ==
--- NOTE | 2024-02-06 10:08 | MHC.OFFVIS ---
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 She also has pulmonary nodules over following. She is scheduled for CT scan in a month at [facility]. Therefore, will follow up after that. She has times and dyspnea on exertion. She does need her oxygen. She is looking to getting a portable oxygen concentrator. However she is questioning if she can use the POC at nighttime. I am concerned that if she does not activate the pulse while sleeping and it would not be helpful for her. However if she does decide to buy it we can always retest to see if is effective for her while she is sleeping. She continues to pulmonary rehabilitation. That is going well. She continues uses trelegy. She is using the azithromycin. She has been around people that have been sick and she has been able to stay healthy. Will continue the for next 3-4 months and will see about weaning it off to give her a break from medications. This antibiotic but will use it more for the anti-inflammatory properties. Did review her last CT scan of the chest that she had recently demonstrating small pulmonary nodules are stable in size. She has a RADS 2 and therefore needs a repeat CT scan in a year's time. We did do a chest x-ray today which appears to have resolution of the left-sided process. No evidence of any acute lower respiratory infection. Therefore, she is responding well to the current respiratory regimen and antibiotics. She will complete the antibiotic course and then taper down the prednisone to 10 mg daily. She has been now multiple courses of antibiotics and prednisone is still having hard time with her breathing. She has been having hard time expectorating. She is getting very frustrated upset. She also complains of increasing shortness of breath and increasing heart rate. She denies any chest pains. On examination she does have some rhonchi on exam which appeared to be right worse than left. Her pneumonia was on her left and side initially. That ultimately cleared up on the x-ray. The patient has a hard time expectorating. Therefore, we'll try the stronger antibiotics along with another course of prednisone. At this point will plan to this pulmonary function study with ABG. The patient should stay on a small dose of prednisone of 10 mg every other day and should also restart the azithromycin Sunday and Sunday. Will monitor closely her IgG levels at this time, no need for augmentation therapy. She did have a 6 minutes walk test and during that study her oxygen quickly decreased after 50 ft on room air to 86%. After that heart rate did increase to the 130s. The patient rested he then was placed on 3 L pulse and ambulating her she was able to maintain a pulse ox above 90%. However, heart rate still was elevated than 130s. The patient states that she did have an echocardiogram at [facility] and I do not have the results right now. She does not have a upper doubler. It is reasonable to have her follow up with Cardiology as we wait for the results or pulmonary function studies and arterial blood gas. While we wait for those results the patient is to hold off on pulmonary rehabilitation. e did have worsening respiratory symptoms and malaise and she was taken to [facility] which she was found to have a hemoglobin of 5.9. Here in the office we checked back in September she was up to 10 which is significant drop. In the meantime she was given 2 units of blood and she did undergo an upper and lower endoscopy without any significant findings. She is given iron which is taking with multivitamins. While she was there she did have a blood gas demonstrating a pH does 7.36 with a pCO2 of 39 mm of mercury which is within normal limits suggesting that she has no evidence of chronic hypercarbic respiratory failure. 05/30/2022 the patient is here for a pulmonary follow-up visit. She is doing a lot better. Her anemia seems to be better controlled. She is also reassured that her bone marrow test was reassuring. Although is still not clear 100% when she was bleeding from. She had been on Plavix at the time and likely that was contributing to her bleeding. Now she is off the Plavix and seems to be holding her hemoglobin better. She is also going to go off her iron and she is going to be monitoring for any blood in her stools. In meantime she is down to 5 mg of prednisone every other day which is a minimal dose. She is concerned about dropping it altogether. She is also using the azithromycin 3 times a week. The patient now is feeling a little stronger. She is however on a wheelchair today. She needs to regain strength and exercise. I did give her information about online pulmonary rehabilitation that she should start. Once the patient becomes stronger we can reassess her medications. I am hopeful that she can come off the prednisone. Subsequently after that we can try to get her off the azithromycin if we can safely. She continues use respiratory medicine with good effect. 08/29/2022 the patient is here for a pulmonary follow-up visit. She continues to feel unwell with significant shortness of breath. Hemoglobin states that he around 9.7. She continues to have significant tachycardia with minimal activity. She does follow closely with cardiology specially after her valve surgery. She continues use the oxygen at 3 L with activity. Sometimes she goes up to 4 L pulse. Even with that she continues of being winded and tired. She does continue with all her respiratory therapy with good compliance. During the office visit we did take her off the oxygen did a 6 minute walk test. It was adamant that the patient was very tachycardic up to 122 beats per minute with minimal activity and resulting significant dyspnea while she only required 2 L pulse to maintain a pulse ox above 92%. therefore, there may be a cardiac component or cor pulmonale. I do not have her recent echo readily available. In the meantime the patient did have a blood gas done and her pCO2 was elevated at 56 mmHg. Therefore, the patient does have chronic hypercarbic respiratory failure secondary to the COPD. Indeed the patient does carry a poor prognosis and high risk for rehospitalization is. Therefore, a noninvasive ventilator will provide a improvement in the prognosis improvement in gas exchange and decrease hospitalizations. I did offer her a noninvasive ventilator. 10/18/2022 the patient is here for a pulmonary follow-up visit. She still complaining of worsening dyspnea on exertion. She is having hard time getting around. She does use the oxygen at 3-4 L pulse to try to give her some relief. Although we repeated her walking oximetry in the patient really only needs 3 L pulse with activity and does already keeping her pulse ox around 96%. She really does not even need the oxygen at rest although she feels very short of breath. The patient does have significant emphysema in addition to that has the issue with the anemia that is likely contributing to a great degree with her symptoms of dyspnea. Because even though hemoglobin is only slightly decreased in view of her respiratory failure and no pulmonary reserve this is resulting in significant symptoms. Patient also has a valvular disease. She did get the noninvasive ventilator. Her CO2 had been elevated. Her bicarb was initially elevated in the last time she checked the with primary care was better. Will go ahead and repeat the blood work at this time. The patient did have some issues tolerating the noninvasive ventilator but she is doing better with it now. She is I did have a repeat the blood work. Hemoglobin 8.7. My concerns are ferritin is only 8 suggesting no iron storage. I did call the patient told her that she needs talk to her skein straightener regarding this issue and may be potentially considering IV are infusions. In addition to that I did check a D-dimer which was negative ruling out the possibility of any thromboembolic disease. She continues with respiratory therapy her lungs actually sound good so I do not believe that her symptoms are related to an exacerbation. She had been on prednisone taking 7.5 mg every other day. This point will go ahead and increase her to 10 mg daily just to make sure that she is getting adequate therapy specially if she has any evidence of any adrenal insufficiency. 11/14/2022 the patient is here for a pulmonary follow-up visit. Since we last spoke she did follow-up with Hematology and she received 5 infusions of iron. Hemoglobin is better up to 10. Clinically she is feeling better. In the meantime she did get the noninvasive ventilator. Is very difficult for her to tolerated. The mask seems to leak the air. She also has a hard time tolerating the amount of pressure. Therefore, I did review her settings. Will go ahead and decrease her tidal volume down to 350 mL. In addition to this will go ahead and decrease her respiratory rate. Seems like the CO2 already came down based on the bicarb went from 30/6 now 30. So clinically she is responding to the therapy. In the meantime the patient continues with respiratory therapy as prescribed. She has been on the 10 mg daily of prednisone. Will go ahead and drop that down to every other day in view of her improvement. There is still question of adrenal insufficiency so will continue to monitor that closely. Also, the patient is now found to have a pancreatic lesion. Now needs an MRI 01/23/2023 the patient is here for pulmonary follow-up visit. She feels like her energy levels have decreased. She has no PAP. This causes her to have worsening breathing symptoms. She had been doing well when her prednisone was higher 10 mg daily. Then she titrated down to 7.5 mg every other day and she started having worsening symptoms. Is likely at this point that she has secondary adrenal insufficiency and therefore taking a small dose of prednisone daily may be important for her. She does have some chest congestion. She continues on the azithromycin 3 times a week. At this point if she phlegm is not changing color or consistency. Initial monitor at this point. I do not believe she needs a change in antibiotic. She continues use respiratory therapy. In addition to that she is using her noninvasive ventilator. She is having hard time tolerating it. I will request a download and also will adjust her noninvasive ventilator accordingly for her to be able to tolerated better. She understands her CO2 has been steadily climbing. Will also plan to do pulmonary function studies with the hope of her perform any pulmonary rehabilitation. She is going to start online pulmonary rehab at this time.. 03/08/2023 the patient here for a pulmonary follow-up visit. The patient overall has been doing a lot better. She feels that the higher dose prednisone is working well for her. She may have a component of adrenal insufficiency it may be important for her to be on a small dose. Although will try to find the lowest effective dose. She did undergo a density test and she is noted to have osteopenia. So therefore she understands we trying decrease the risk of her developing osteoporosis. She will be following up with Endocrine as well. In the meantime respiratory status is stable. She did have pulmonary function studies which were compared to her PFTs from 2019. In the last 2 years there is no significant change in her lung capacity which is reassuring although her baseline PFTs are significantly abnormal with very severe obstruction in very severe diffusion impairment. She is doing well with her oxygen. She is also using the noninvasive ventilator at nighttime. This is also obstructing beneficial. She can use continue using it every night. 06/11/2023 the patient is here for a pulmonary follow-up visit. The patient does not feel any better. She feels tired and short of breath. She feels like she has more gasping for air. She has been using the noninvasive ventilator but she has not seen any significant improvement. The patient does feel like she is gets restful sleep when she does use it though. The last ABG or venous gas that she had her pCO2 was up to 65 mmHg. Will have her have a repeat be nice gas today. In addition to that she has had anemia issues throughout. The last time she hemoglobin was checked 2 months ago was okay closer to her baseline. Will go ahead and repeat her blood work looking for other etiologies for just her chronic fatigue symptoms and shortness of breath. The patient also may have a component of adrenal insufficiency secondary to chronic prednisone. Woman trying to cut down the prednisone due to her new diagnosis of osteoporosis. Although has been difficult for her. When she went down to 5 mg she had much worsening breathing and she had to increase it to 12.5 mg for appeared time. Now she is alternating 7.5 in 5 mg. I did recommend the other option is to decrease the tapering down to 1 mg at a time. Will reassess after her blood work. The patient also has been having some weight loss. Denies any night sweats. Will go ahead and request a chest x-ray at this time. Her respiratory exam is reassuring. She is moving good air diminished but without any significant wheezing or prolonged expiratory phase. She is responding well to the Trelegy and will continue for now. 08/14/2023 the patient is here for pulmonary follow-up visit. She continues to feel weak and very short of breath. She has been using her oxygen with good effect. She was evaluated by hematology hemoglobin dropped to 8.4 and also her ferritin and iron levels dropped significantly as well. Therefore she is starting IV infusions of iron. He is going to do total 5. Explained to her that in view of her severe COPD emphysema the fact that she is anemic even mildly causes worsening dramatic dyspnea symptoms. In addition the patient had been on the Trelegy inhaler which is a very good inhaler but is been difficult for her to inhale it because she has gotten weaker as well. Therefore, will switch over to nebulized therapy to see if this is more effective in opening up her airways and provided better ventilation. Once the patient gets additional iron infusions hopefully she can start some degree of pulmonary rehabilitation even if he can be done sitting down as she is getting more deconditioning we can and ultimately resulting worsening respiratory symptoms. The patient also has been on the prednisone. She can cut down to 5 mg so therefore she continues on 7.5 mg daily which she will stay for now. 11/15/2023 the patient is here for a pulmonary follow-up visit. She continues to have dyspnea on exertion with minimal activity. She understands that she has very severe COPD. She is also oxygen dependent has significant anemia. She is status post iron infusions. She will be following closely we hematology. In the meantime she has not been very active. We did talk about the importance of conditioning and pulmonary rehabilitation. She had been doing the online pulmonary rehab but did not find it very helpful. We did talk about considering going back to in-person pulmonary rehab. She also also using her noninvasive ventilator. Sometimes difficult for her to tolerate. Already has been demonstrating improvement in the CO2. The therapy has been affecting beneficial. At this point we talked about ways to improve her energy level during daytime. She is going to try increasing the prednisone from 7.5-10 mg. the other options to consider stimulant such as modafinil. 02/06/2024 the patient is here for a pulmonary follow-up visit. She is still struggling with breathing. Develops significant dyspnea with minimal activity. Moderate to severe. She does use the oxygen all the time. The patient did get 2 units of blood transfusion and she was hoping to feel better but she did not. The patient also underwent blood work including a blood gas demonstrating chronic stable hypercarbic respiratory failure and also had her hemoglobin checked which was 9.7 which is still significantly low but better for her. Kidney function was also stable. She did have a chest x-ray demonstrating hyperinflated lungs consistent with her advanced COPD. We talked about her underlying condition as far as her medications she is currently medically optimize with the noninvasive ventilator in the inhaler therapy. She should be increasing the oxygen with activity to avoid the desaturations. In addition to that will try some diuretics to see if we can help with volume status. Explained to her that she may have a component of cor pulmonale. If her symptoms persist we can also request an echocardiogram. At this point the patient understands that she has very severe COPD and at this point she is maximized on her respiratory therapy. Will continue to provide as much support as possible understand the limitations. [facility] Medical History (Updated 02/06/24 @ 10:48 by Mateo Barrientos MD) Dyspnea (~08/14/23) Tachycardia Anemia Anemia Pre-op chest exam Vertebral artery stenosis Dyspnea Chronic respiratory failure Dyslipidemia Hypothyroidism Centrilobular emphysema Surgical History History of cholecystectomy H/O: hysterectomy Family History Mother No problems noted. Daughter Diabetes Social History (Updated 03/08/21 @ 11:20 by Makenzie Leroy Tomy) Household Members: None Housing: House Do you presently have visiting nurse or other home services: No Alcohol intake: unknown Patient Tobacco Use Status: Former Tobacco user Tobacco use type: Cigarette Years Smoked: 40+ years service: No Current occupational status: retired Review of Systems Const Reports fatigue, Denies night sweats and Reports weight loss ENT Denies change in voice, Denies lip swelling, Denies mouth pain, Reports nasal congestion, Reports nasal discharge and Denies tongue swelling Card Denies chest pain, Reports dyspnea and Reports dyspnea on exertion Resp Reports cough, Reports dyspnea and Reports dyspnea on exertion GI Denies abdominal pain, Denies melena and Denies hematochezia Musc Denies no additional complaints Neuro Denies Neuro-related abnormal movements Psych Reports depression Endo Reports fatigue Fredi/Lymph Denies easy bleeding and Denies lymphadenopathy Aller/Immun Denies lip swelling and Denies tongue swelling Physical Exam Vital Signs: Last Vital Signs Pulse 82 02/06/24 10:10 Pulse Ox 93 02/06/24 10:10 Oxygen Delivery Method Room Air 02/06/24 10:10 BMI result Body Mass Index 24.6 Const General: alert and tired appearing Eyes Conjunctivae: conjunctival abnormal bilateral pallor Pupils: Equal, round and reactive pupils present Neck Neck: Yes normal visual inspection, Yes full ROM and Yes no lymphadenopathy Chest Chest palpation & inspection: normal inspection of the chest Resp Effort & Inspection: normal respiratory effort and prolonged expiratory phase Auscultation: no rhonchi, no wheezes and diminished lung sounds Cardio Rate: regular rate Rhythm: regular rhythm Heart sounds: S1 normal heart sound present and S2 normal heart sound present GI Palpation (GI): Soft to palpation and nontender Auscultation: normal bowel sounds Skin Trauma: abrasion (RLE) Neuro Cranial nerves: Yes Equal, round and reactive pupils present Office Procedures 6 Minute Walk Time:: 10:30 SPO2 % at rest: 92 Pulse at rest: 79 SPO2 % during excercise: 84 Pulse during excercise: 101 SPO2 % after excercise: 93 Pulse after excercise: 99 Distance in yards walked: 120 Inna Score: 4 Performance Observations:: Marlee walked on level ground with the assistance of a walker. She walked on room air for 25 yards before her SPO2 decreased to 84%, O2 started at 3 pulsed then raised to 4 pulsed, She did not recover her O2 on pulsed O2 and was started on 2 lpm continuous O2 her SPO2 recovered to 91% then dropped to 88%, O2 increased to 3 lpm, SPO2 stable at 93%. 23231 - 6 Minute Walk Results Reviewed Results Reviewed: personally reviewed CXR with hyperinflation Assessment & Plan Assessment & Plan (1) Dyspnea: Code(s): R06.00 - Dyspnea, unspecified Category: Medical Qualifiers: Dyspnea type: dyspnea on exertion Qualified Code(s): R06.00 - Dyspnea, unspecified (2) Centrilobular emphysema: Comment: Very severe COPD with FEV1 26% predicted Code(s): J43.2 - Centrilobular emphysema Category: Medical (3) Chronic respiratory failure: Comment: With evidence of chronic hypercarbic respiratory failure, DLCO very severe Code(s): J96.10 - Chronic respiratory failure, unspecified whether with hypoxia or hypercapnia Category: Medical Qualifiers: Respiratory failure complication: hypoxia and hypercapnia Qualified Code(s): J96.11 - Chronic respiratory failure with hypoxia; J96.12 - Chronic respiratory failure with hypercapnia; J96.12 - Chronic respiratory failure with hypercapnia (4) Anemia: Code(s): D64.9 - Anemia, unspecified Category: Medical Qualifiers: Anemia type: iron deficiency Iron deficiency anemia type: unspecified iron deficiency Qualified Code(s): D50.9 - Iron deficiency anemia, unspecified (5) Tachycardia: Comment: Likely multifactorial. She continues to be anemic. May also have a component of cor pulmonale. Code(s): R00.0 - Tachycardia, unspecified Category: Medical (6) COPD (chronic obstructive pulmonary disease): Comment: very severe, end stage Code(s): J44.9 - Chronic obstructive pulmonary disease, unspecified Category: Medical Qualifiers: COPD type: emphysema Emphysema type: centrilobular Qualified Code(s): J43.2 - Centrilobular emphysema Plan continue Prednisone 10mg daily Start lasix x 5 days, then daily weight with PRN Lasix continue Azithromycin MWF continued Trelegy continue Duoneb stopped Budesonide Increase oxygen supplementation 4 L pulse with activity and also should also uses to sleep. continue NIV, AVAPS, PCO2 better at 65->58mmHg on venous blood gas, volume 350 ml and rate 12. follow-up in 3-4 weeks Orders: Orders AMB 6 minute walk Today J43.2 - Centrilobular emphysema Medications: New furosemide (Lasix) 20 mg PO DAILY 14 tabs 0RF 14 days Coding Level of Care Code Est Pt Level 5 (95261) Diagnoses Dyspnea on exertion R06.00 Dyspnea type: dyspnea on exertion Centrilobular emphysema J43.2 Chronic respiratory failure with hypoxia and hypercapnia J96.11; J96.12; J96.12 Respiratory failure complication: hypoxia and hypercapnia Iron deficiency anemia, unspecified iron deficiency anemia type D50.9 Anemia type: iron deficiency Iron deficiency anemia type: unspecified iron deficiency Tachycardia R00.0 Centrilobular emphysema J43.2 COPD type: emphysema Emphysema type: centrilobular CPT Codes Coding ([id number]) Time Spent (min) 40
[2024-02-06 10:10] VITALS: PULSE 82; O2SAT 93; BMI 24.6
[2024-02-06 13:25] VITALS: PULSE 79; O2SAT 92
== END 2024-02-06 10:57 | disposition home or self-care (01) ==
PROVIDERS: PCP Internal Medicine; Visit Provider Hospitalist
DX: J43.2 Centrilobular emphysema (principal); J96.11 Chronic respiratory failure with hypoxia; J96.12 Chronic respiratory failure with hypercapnia
CPT/HCPCS: 94618; 99215

== ENCOUNTER → 2024-02-06 09:57 | Outpatient (BNVA) | payer MEDICARE, SELFPAY | PROVIDERS: PCP Internal Medicine; Visit Provider Hospitalist | DX: J43.2 Centrilobular emphysema (principal); J96.11 Chronic respiratory failure with hypoxia; J96.12 Chronic respiratory failure with hypercapnia; J96.92 Respiratory failure, unspecified with hypercapnia; R00.0 Tachycardia, unspecified; D50.9 Iron deficiency anemia, unspecified; Z87.891 Personal history of nicotine dependence; Z79.52 Long term (current) use of systemic steroids; Z99.81 Dependence on supplemental oxygen | CPT/HCPCS: 94618; 99212 ==

== ENCOUNTER 2024-03-06 09:20 | Outpatient (AMB) | payer MEDICARE, SELFPAY ==
--- NOTE | 2024-03-06 09:27 | MHC.OFFVIS ---
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 She also has pulmonary nodules over following. She is scheduled for CT scan in a month at [facility]. Therefore, will follow up after that. She has times and dyspnea on exertion. She does need her oxygen. She is looking to getting a portable oxygen concentrator. However she is questioning if she can use the POC at nighttime. I am concerned that if she does not activate the pulse while sleeping and it would not be helpful for her. However if she does decide to buy it we can always retest to see if is effective for her while she is sleeping. She continues to pulmonary rehabilitation. That is going well. She continues uses trelegy. She is using the azithromycin. She has been around people that have been sick and she has been able to stay healthy. Will continue the for next 3-4 months and will see about weaning it off to give her a break from medications. This antibiotic but will use it more for the anti-inflammatory properties. Did review her last CT scan of the chest that she had recently demonstrating small pulmonary nodules are stable in size. She has a RADS 2 and therefore needs a repeat CT scan in a year's time. We did do a chest x-ray today which appears to have resolution of the left-sided process. No evidence of any acute lower respiratory infection. Therefore, she is responding well to the current respiratory regimen and antibiotics. She will complete the antibiotic course and then taper down the prednisone to 10 mg daily. She has been now multiple courses of antibiotics and prednisone is still having hard time with her breathing. She has been having hard time expectorating. She is getting very frustrated upset. She also complains of increasing shortness of breath and increasing heart rate. She denies any chest pains. On examination she does have some rhonchi on exam which appeared to be right worse than left. Her pneumonia was on her left and side initially. That ultimately cleared up on the x-ray. The patient has a hard time expectorating. Therefore, we'll try the stronger antibiotics along with another course of prednisone. At this point will plan to this pulmonary function study with ABG. The patient should stay on a small dose of prednisone of 10 mg every other day and should also restart the azithromycin Sunday and Sunday. Will monitor closely her IgG levels at this time, no need for augmentation therapy. She did have a 6 minutes walk test and during that study her oxygen quickly decreased after 50 ft on room air to 86%. After that heart rate did increase to the 130s. The patient rested he then was placed on 3 L pulse and ambulating her she was able to maintain a pulse ox above 90%. However, heart rate still was elevated than 130s. The patient states that she did have an echocardiogram at [facility] and I do not have the results right now. She does not have a dynamo tender. It is reasonable to have her follow up with Cardiology as we wait for the results or pulmonary function studies and arterial blood gas. While we wait for those results the patient is to hold off on pulmonary rehabilitation. e did have worsening respiratory symptoms and malaise and she was taken to [facility] which she was found to have a hemoglobin of 5.9. Here in the office we checked back in September she was up to 10 which is significant drop. In the meantime she was given 2 units of blood and she did undergo an upper and lower endoscopy without any significant findings. She is given iron which is taking with multivitamins. While she was there she did have a blood gas demonstrating a pH does 7.36 with a pCO2 of 39 mm of mercury which is within normal limits suggesting that she has no evidence of chronic hypercarbic respiratory failure. 05/30/2022 the patient is here for a pulmonary follow-up visit. She is doing a lot better. Her anemia seems to be better controlled. She is also reassured that her bone marrow test was reassuring. Although is still not clear 100% when she was bleeding from. She had been on Plavix at the time and likely that was contributing to her bleeding. Now she is off the Plavix and seems to be holding her hemoglobin better. She is also going to go off her iron and she is going to be monitoring for any blood in her stools. In meantime she is down to 5 mg of prednisone every other day which is a minimal dose. She is concerned about dropping it altogether. She is also using the azithromycin 3 times a week. The patient now is feeling a little stronger. She is however on a wheelchair today. She needs to regain strength and exercise. I did give her information about online pulmonary rehabilitation that she should start. Once the patient becomes stronger we can reassess her medications. I am hopeful that she can come off the prednisone. Subsequently after that we can try to get her off the azithromycin if we can safely. She continues use respiratory medicine with good effect. 08/29/2022 the patient is here for a pulmonary follow-up visit. She continues to feel unwell with significant shortness of breath. Hemoglobin states that he around 9.7. She continues to have significant tachycardia with minimal activity. She does follow closely with cardiology specially after her valve surgery. She continues use the oxygen at 3 L with activity. Sometimes she goes up to 4 L pulse. Even with that she continues of being winded and tired. She does continue with all her respiratory therapy with good compliance. During the office visit we did take her off the oxygen did a 6 minute walk test. It was adamant that the patient was very tachycardic up to 122 beats per minute with minimal activity and resulting significant dyspnea while she only required 2 L pulse to maintain a pulse ox above 92%. therefore, there may be a cardiac component or cor pulmonale. I do not have her recent echo readily available. In the meantime the patient did have a blood gas done and her pCO2 was elevated at 56 mmHg. Therefore, the patient does have chronic hypercarbic respiratory failure secondary to the COPD. Indeed the patient does carry a poor prognosis and high risk for rehospitalization is. Therefore, a noninvasive ventilator will provide a improvement in the prognosis improvement in gas exchange and decrease hospitalizations. I did offer her a noninvasive ventilator. 10/18/2022 the patient is here for a pulmonary follow-up visit. She still complaining of worsening dyspnea on exertion. She is having hard time getting around. She does use the oxygen at 3-4 L pulse to try to give her some relief. Although we repeated her walking oximetry in the patient really only needs 3 L pulse with activity and does already keeping her pulse ox around 96%. She really does not even need the oxygen at rest although she feels very short of breath. The patient does have significant emphysema in addition to that has the issue with the anemia that is likely contributing to a great degree with her symptoms of dyspnea. Because even though hemoglobin is only slightly decreased in view of her respiratory failure and no pulmonary reserve this is resulting in significant symptoms. Patient also has a valvular disease. She did get the noninvasive ventilator. Her CO2 had been elevated. Her bicarb was initially elevated in the last time she checked the with primary care was better. Will go ahead and repeat the blood work at this time. The patient did have some issues tolerating the noninvasive ventilator but she is doing better with it now. She is I did have a repeat the blood work. Hemoglobin 8.7. My concerns are ferritin is only 8 suggesting no iron storage. I did call the patient told her that she needs talk to her plugman regarding this issue and may be potentially considering IV are infusions. In addition to that I did check a D-dimer which was negative ruling out the possibility of any thromboembolic disease. She continues with respiratory therapy her lungs actually sound good so I do not believe that her symptoms are related to an exacerbation. She had been on prednisone taking 7.5 mg every other day. This point will go ahead and increase her to 10 mg daily just to make sure that she is getting adequate therapy specially if she has any evidence of any adrenal insufficiency. 11/14/2022 the patient is here for a pulmonary follow-up visit. Since we last spoke she did follow-up with Hematology and she received 5 infusions of iron. Hemoglobin is better up to 10. Clinically she is feeling better. In the meantime she did get the noninvasive ventilator. Is very difficult for her to tolerated. The mask seems to leak the air. She also has a hard time tolerating the amount of pressure. Therefore, I did review her settings. Will go ahead and decrease her tidal volume down to 350 mL. In addition to this will go ahead and decrease her respiratory rate. Seems like the CO2 already came down based on the bicarb went from 30/6 now 30. So clinically she is responding to the therapy. In the meantime the patient continues with respiratory therapy as prescribed. She has been on the 10 mg daily of prednisone. Will go ahead and drop that down to every other day in view of her improvement. There is still question of adrenal insufficiency so will continue to monitor that closely. Also, the patient is now found to have a pancreatic lesion. Now needs an MRI 01/23/2023 the patient is here for pulmonary follow-up visit. She feels like her energy levels have decreased. She has no PAP. This causes her to have worsening breathing symptoms. She had been doing well when her prednisone was higher 10 mg daily. Then she titrated down to 7.5 mg every other day and she started having worsening symptoms. Is likely at this point that she has secondary adrenal insufficiency and therefore taking a small dose of prednisone daily may be important for her. She does have some chest congestion. She continues on the azithromycin 3 times a week. At this point if she phlegm is not changing color or consistency. Initial monitor at this point. I do not believe she needs a change in antibiotic. She continues use respiratory therapy. In addition to that she is using her noninvasive ventilator. She is having hard time tolerating it. I will request a download and also will adjust her noninvasive ventilator accordingly for her to be able to tolerated better. She understands her CO2 has been steadily climbing. Will also plan to do pulmonary function studies with the hope of her perform any pulmonary rehabilitation. She is going to start online pulmonary rehab at this time.. 03/08/2023 the patient here for a pulmonary follow-up visit. The patient overall has been doing a lot better. She feels that the higher dose prednisone is working well for her. She may have a component of adrenal insufficiency it may be important for her to be on a small dose. Although will try to find the lowest effective dose. She did undergo a density test and she is noted to have osteopenia. So therefore she understands we trying decrease the risk of her developing osteoporosis. She will be following up with Endocrine as well. In the meantime respiratory status is stable. She did have pulmonary function studies which were compared to her PFTs from 2019. In the last 2 years there is no significant change in her lung capacity which is reassuring although her baseline PFTs are significantly abnormal with very severe obstruction in very severe diffusion impairment. She is doing well with her oxygen. She is also using the noninvasive ventilator at nighttime. This is also obstructing beneficial. She can use continue using it every night. 06/11/2023 the patient is here for a pulmonary follow-up visit. The patient does not feel any better. She feels tired and short of breath. She feels like she has more gasping for air. She has been using the noninvasive ventilator but she has not seen any significant improvement. The patient does feel like she is gets restful sleep when she does use it though. The last ABG or venous gas that she had her pCO2 was up to 65 mmHg. Will have her have a repeat be nice gas today. In addition to that she has had anemia issues throughout. The last time she hemoglobin was checked 2 months ago was okay closer to her baseline. Will go ahead and repeat her blood work looking for other etiologies for just her chronic fatigue symptoms and shortness of breath. The patient also may have a component of adrenal insufficiency secondary to chronic prednisone. Woman trying to cut down the prednisone due to her new diagnosis of osteoporosis. Although has been difficult for her. When she went down to 5 mg she had much worsening breathing and she had to increase it to 12.5 mg for appeared time. Now she is alternating 7.5 in 5 mg. I did recommend the other option is to decrease the tapering down to 1 mg at a time. Will reassess after her blood work. The patient also has been having some weight loss. Denies any night sweats. Will go ahead and request a chest x-ray at this time. Her respiratory exam is reassuring. She is moving good air diminished but without any significant wheezing or prolonged expiratory phase. She is responding well to the Trelegy and will continue for now. 08/14/2023 the patient is here for pulmonary follow-up visit. She continues to feel weak and very short of breath. She has been using her oxygen with good effect. She was evaluated by hematology hemoglobin dropped to 8.4 and also her ferritin and iron levels dropped significantly as well. Therefore she is starting IV infusions of iron. He is going to do total 5. Explained to her that in view of her severe COPD emphysema the fact that she is anemic even mildly causes worsening dramatic dyspnea symptoms. In addition the patient had been on the Trelegy inhaler which is a very good inhaler but is been difficult for her to inhale it because she has gotten weaker as well. Therefore, will switch over to nebulized therapy to see if this is more effective in opening up her airways and provided better ventilation. Once the patient gets additional iron infusions hopefully she can start some degree of pulmonary rehabilitation even if he can be done sitting down as she is getting more deconditioning we can and ultimately resulting worsening respiratory symptoms. The patient also has been on the prednisone. She can cut down to 5 mg so therefore she continues on 7.5 mg daily which she will stay for now. 11/15/2023 the patient is here for a pulmonary follow-up visit. She continues to have dyspnea on exertion with minimal activity. She understands that she has very severe COPD. She is also oxygen dependent has significant anemia. She is status post iron infusions. She will be following closely we hematology. In the meantime she has not been very active. We did talk about the importance of conditioning and pulmonary rehabilitation. She had been doing the online pulmonary rehab but did not find it very helpful. We did talk about considering going back to in-person pulmonary rehab. She also also using her noninvasive ventilator. Sometimes difficult for her to tolerate. Already has been demonstrating improvement in the CO2. The therapy has been affecting beneficial. At this point we talked about ways to improve her energy level during daytime. She is going to try increasing the prednisone from 7.5-10 mg. the other options to consider stimulant such as modafinil. 02/06/2024 the patient is here for a pulmonary follow-up visit. She is still struggling with breathing. Develops significant dyspnea with minimal activity. Moderate to severe. She does use the oxygen all the time. The patient did get 2 units of blood transfusion and she was hoping to feel better but she did not. The patient also underwent blood work including a blood gas demonstrating chronic stable hypercarbic respiratory failure and also had her hemoglobin checked which was 9.7 which is still significantly low but better for her. Kidney function was also stable. She did have a chest x-ray demonstrating hyperinflated lungs consistent with her advanced COPD. We talked about her underlying condition as far as her medications she is currently medically optimize with the noninvasive ventilator in the inhaler therapy. She should be increasing the oxygen with activity to avoid the desaturations. In addition to that will try some diuretics to see if we can help with volume status. Explained to her that she may have a component of cor pulmonale. If her symptoms persist we can also request an echocardiogram. At this point the patient understands that she has very severe COPD and at this point she is maximized on her respiratory therapy. Will continue to provide as much support as possible understand the limitations. 03/06/2024 the patient is here for sick visit. She has been struggling. She has had increased respiratory complaints. Hard time breathing. She went to her primary care doctor felt to have a bout of bronchitis she was given doxycycline. Ultimately she has not been getting better so she went to Oncology to see if she needed blood. However, the busy and could not accommodate so she ended up going to the ER. There she did receive 1 unit of blood. She did have a CT of the chest demonstrating significant emphysema but no blood clots. No airspace disease. No clear explanation for the patient's symptoms. She was discharged and she currently is completing a prednisone taper. The patient was able to do a breathing treatment in the office and we were able to help her expectorate some phlegm. It is very tenacious greenish in color. Maybe some tension blood in it very hard for her to expectorate. I did talk to her daughter some concerned that she looks weaker. The patient already has evidence of hypercarbic respiratory failure and now with the mucus burden unable to her secretions is concerned that she could potentially get worse. We did talk about the importance of using the noninvasive ventilator to give her assistance with breathing. And she will use that. We were able to get a sputum culture and send to the lab. It looks like Pseudomonas. Therefore send Levaquin. She already has diarrhea. 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 She knows to stop the medication if she develops any tendonitis. She also be off the azithromycin by while she PFSH Medical History (Updated 03/09/24 @ 20:01 by Mateo Barrientos MD) Dyspnea (~08/14/23) Tachycardia Anemia Anemia Pre-op chest exam Vertebral artery stenosis Dyspnea Chronic respiratory failure Dyslipidemia Hypothyroidism Centrilobular emphysema Surgical History History of cholecystectomy H/O: hysterectomy Family History Mother No problems noted. Daughter Diabetes Social History (Updated 03/08/21 @ 11:20 by NAN Larson) Household Members: None Housing: House Do you presently have visiting nurse or other home services: No Alcohol intake: unknown Patient Tobacco Use Status: Former Tobacco user Tobacco use type: Cigarette Years Smoked: 40+ years service: No Current occupational status: retired Review of Systems Const Reports fatigue, Denies night sweats and Reports weight loss ENT Denies change in voice, Denies lip swelling, Denies mouth pain, Reports nasal congestion, Reports nasal discharge and Denies tongue swelling Card Denies chest pain, Reports dyspnea and Reports dyspnea on exertion Resp Reports change in phlegm color, Reports chest congestion, Reports cough, Reports dyspnea and Reports dyspnea on exertion GI Denies abdominal pain, Denies melena and Denies hematochezia Musc Denies no additional complaints Neuro Denies Neuro-related abnormal movements Psych Reports depression Endo Reports fatigue Fredi/Lymph Denies easy bleeding and Denies lymphadenopathy Aller/Immun Denies lip swelling and Denies tongue swelling Physical Exam Vital Signs: Last Vital Signs Pulse 89 03/06/24 09:28 Pulse Ox 96 03/06/24 09:28 Oxygen Delivery Method Room Air 03/06/24 09:28 BMI result Body Mass Index 24.6 Const General: alert and tired appearing Eyes Conjunctivae: conjunctival abnormal bilateral pallor Pupils: Equal, round and reactive pupils present Neck Neck: Yes normal visual inspection, Yes full ROM and Yes no lymphadenopathy Chest Chest palpation & inspection: normal inspection of the chest Resp Effort & Inspection: normal respiratory effort and prolonged expiratory phase Auscultation: no rhonchi, wheezes and diminished lung sounds Cardio Rate: regular rate Rhythm: regular rhythm Heart sounds: S1 normal heart sound present and S2 normal heart sound present GI Palpation (GI): Soft to palpation and nontender Auscultation: normal bowel sounds Skin Trauma: abrasion (RLE) Neuro Cranial nerves: Yes Equal, round and reactive pupils present Office Procedures Nebulizer Treatment Nebulizer Treatment [id number] RX initial, or Nebulizer Subsequent Treatment Office Meds albuterol sulfate 2.5 mg/3 mL (0.083 %) solution for nebulization Performing Provider: Mateo Barrientos MD Performing Location[place] [facility] Administered by: Nikki Lyman LPN on 03/06/24 10:09 Dose Route Admin Location Dispensed Lot Number Expiration Date NDC Supervisor Lead Burning 2.5 mg inhalation 3 mL [id number] 12/15/24 [id number] MYLAN Assessment & Plan Assessment & Plan (1) Dyspnea: Code(s): R06.00 - Dyspnea, unspecified Category: Medical Qualifiers: Dyspnea type: dyspnea on exertion Qualified Code(s): R06.00 - Dyspnea, unspecified (2) Centrilobular emphysema: Comment: Very severe COPD with FEV1 26% predicted Code(s): J43.2 - Centrilobular emphysema Category: Medical (3) Chronic respiratory failure: Comment: With evidence of chronic hypercarbic respiratory failure, DLCO very severe Code(s): J96.10 - Chronic respiratory failure, unspecified whether with hypoxia or hypercapnia Category: Medical Qualifiers: Respiratory failure complication: hypoxia and hypercapnia Qualified Code(s): J96.11 - Chronic respiratory failure with hypoxia; J96.12 - Chronic respiratory failure with hypercapnia; J96.12 - Chronic respiratory failure with hypercapnia (4) Anemia: Code(s): D64.9 - Anemia, unspecified Category: Medical Qualifiers: Anemia type: iron deficiency Iron deficiency anemia type: unspecified iron deficiency Qualified Code(s): D50.9 - Iron deficiency anemia, unspecified (5) Tachycardia: Comment: Likely multifactorial. She continues to be anemic. May also have a component of cor pulmonale. Code(s): R00.0 - Tachycardia, unspecified Category: Medical (6) COPD (chronic obstructive pulmonary disease): Comment: very severe, end stage Code(s): J44.9 - Chronic obstructive pulmonary disease, unspecified Category: Medical Qualifiers: COPD type: COPD with acute lower respiratory infection Qualified Code(s): J44.0 - Chronic obstructive pulmonary disease with (acute) lower respiratory infection Plan continue Prednisone 10mg daily stop Azithromycin MWF start Levaquin, monitor for tendonitis sputum culture continued Trelegy continue Duoneb stopped Budesonide oxygen supplementation 4 L pulse with activity and also should also uses to sleep. continue NIV, AVAPS, PCO2 better at 65->58mmHg on venous blood gas, volume 350 ml and rate 12. The patient is weaker and I did talk to her daughter about my concerns of her worsening condition. The family did speak to the patient about goals of care and she does at least wants to be full code. follow-up in 3-4 weeks Orders: Orders AMB Nebulizer Treatment 03/06/24 J43.2 - Centrilobular emphysema Sputum Cult + Gram stain 03/06/24 J43.2 - Centrilobular emphysema Medications: New ipratropium bromide administer into each nostril 2 sprays intranasal TID PRN 15 mL 6RF allergy symptoms levofloxacin 500 mg PO DAILY 14 tabs 0RF 14 days Coding Level of Care Code Est Pt Level 5 (30454) Diagnoses Dyspnea on exertion R06.00 Dyspnea type: dyspnea on exertion Centrilobular emphysema J43.2 Chronic respiratory failure with hypoxia and hypercapnia J96.11; J96.12; J96.12 Respiratory failure complication: hypoxia and hypercapnia Iron deficiency anemia, unspecified iron deficiency anemia type D50.9 Anemia type: iron deficiency Iron deficiency anemia type: unspecified iron deficiency Tachycardia R00.0 Chronic obstructive pulmonary disease with acute lower respiratory infection J44.0 COPD type: COPD with acute lower respiratory infection CPT Codes Nebulizer Treatment - Nebulizer Treatment, initial or subsequent: [id number]/MDI RX initial, or Nebulizer Subsequent Treatment ([id number]) Time Spent (min) 50
[2024-03-06 09:28] VITALS: PULSE 89; O2SAT 96; BMI 24.6
== END 2024-03-06 10:17 | disposition home or self-care (01) ==
PROVIDERS: PCP Internal Medicine; Visit Provider Hospitalist
DX: J43.2 Centrilobular emphysema (principal); J96.11 Chronic respiratory failure with hypoxia; J96.12 Chronic respiratory failure with hypercapnia; D50.9 Iron deficiency anemia, unspecified; R00.0 Tachycardia, unspecified
CPT/HCPCS: 99215

== ENCOUNTER 2024-03-06 10:26 | Outpatient (REF) | payer MEDICARE, SELFPAY | END 2024-03-06 10:27 | disposition home or self-care (01) | LOC: HO.LNP 10:26 | PROVIDERS: Visit Provider Hospitalist | DX: J43.2 Centrilobular emphysema (principal); J44.0 Chronic obstructive pulmonary disease with (acute) lower respiratory infection; J96.11 Chronic respiratory failure with hypoxia; J96.12 Chronic respiratory failure with hypercapnia; Z99.81 Dependence on supplemental oxygen | CPT/HCPCS: 87070; 87205; 94640; 99212 ==

== ENCOUNTER 2024-03-24 14:57 | Outpatient (AMB) | payer MEDICARE, SELFPAY ==
--- NOTE | 2024-03-24 15:02 | A.OFFVIS_ITS ---
Vital Signs 03/24/24 15:03 Height 5 ft 3 in Weight 138 lb 14.259 oz BMI 24.6 Pulse 92 Pulse Source Pulse Oximeter Pulse Oximetry (%) 94 Oxygen Delivery Method Room Air Comment 2.5 Liters Oxygen([facility]) Intake Visit Reasons: COPD follow-up Soap Maker Required: No Allergies No Known Allergies Allergy (Verified 03/24/24 15:04) HPI Comments Details: The patient is a 78 y/o woman with a history of COPD also with the O2 dependence on chronic Prednisone. She also has pulmonary nodules over following. She is scheduled for CT scan in a month at [facility]. Therefore, will follow up after that. She has times and dyspnea on exertion. She does need her oxygen. She is looking to getting a portable oxygen concentrator. However she is questioning if she can use the POC at nighttime. I am concerned that if she does not activate the pulse while sleeping and it would not be helpful for her. However if she does decide to buy it we can always retest to see if is effective for her while she is sleeping. She continues to pulmonary rehabilitation. That is going well. She continues uses trelegy. She is using the azithromycin. She has been around people that have been sick and she has been able to stay healthy. Will continue the for next 3-4 months and will see about weaning it off to give her a break from medications. This antibiotic but will use it more for the anti-inflammatory properties. Did review her last CT scan of the chest that she had recently demonstrating small pulmonary nodules are stable in size. She has a RADS 2 and therefore needs a repeat CT scan in a year's time. We did do a chest x-ray today which appears to have resolution of the left-sided process. No evidence of any acute lower respiratory infection. Therefore, she is responding well to the current respiratory regimen and antibiotics. She will complete the antibiotic course and then taper down the prednisone to 10 mg daily. She has been now multiple courses of antibiotics and prednisone is still having hard time with her breathing. She has been having hard time expectorating. She is getting very frustrated upset. She also complains of increasing shortness of breath and increasing heart rate. She denies any chest pains. On examination she does have some rhonchi on exam which appeared to be right worse than left. Her pneumonia was on her left and side initially. That ultimately cleared up on the x-ray. The patient has a hard time expectorating. Therefore, we'll try the stronger antibiotics along with another course of prednisone. At this point will plan to this pulmonary function study with ABG. The patient should stay on a small dose of prednisone of 10 mg every other day and should also restart the azithromycin Sunday and Sunday. Will monitor closely her IgG levels at this time, no need for augmentation therapy. She did have a 6 minutes walk test and during that study her oxygen quickly decreased after 50 ft on room air to 86%. After that heart rate did increase to the 130s. The patient rested he then was placed on 3 L pulse and ambulating her she was able to maintain a pulse ox above 90%. However, heart rate still was elevated than 130s. The patient states that she did have an echocardiogram at [facility] and I do not have the results right now. She does not have a data report analyst. It is reasonable to have her follow up with Cardiology as we wait for the results or pulmonary function studies and arterial blood gas. While we wait for those results the patient is to hold off on pulmonary rehabilitation. e did have worsening respiratory symptoms and malaise and she was taken to [facility] which she was found to have a hemoglobin of 5.9. Here in the office we checked back in September she was up to 10 which is significant drop. In the meantime she was given 2 units of blood and she did undergo an upper and lower endoscopy without any significant findings. She is given iron which is taking with mu ltivitamins. While she was there she did have a blood gas demonstrating a pH does 7.36 with a pCO2 of 39 mm of mercury which is within normal limits suggesting that she has no evidence of chronic hypercarbic respiratory failure. 05/30/2022 the patient is here for a pulmonary follow-up visit. She is doing a lot better. Her anemia seems to be better controlled. She is also reassured that her bone marrow test was reassuring. Although is still not clear 100% when she was bleeding from. She had been on Plavix at the time and likely that was contributing to her bleeding. Now she is off the Plavix and seems to be holding her hemoglobin better. She is also going to go off her iron and she is going to be monitoring for any blood in her stools. In meantime she is down to 5 mg of prednisone every other day which is a minimal dose. She is concerned about dropping it altogether. She is also using the azithromycin 3 times a week. The patient now is feeling a little stronger. She is however on a wheelchair today. She needs to regain strength and exercise. I did give her information about online pulmonary rehabilitation that she should start. Once the patient becomes stronger we can reassess her medications. I am hopeful that she can come off the prednisone. Subsequently after that we can try to get her off the azithromycin if we can safely. She continues use respiratory medicine with good effect. 08/29/2022 the patient is here for a pulmonary follow-up visit. She continues to feel unwell with significant shortness of breath. Hemoglobin states that he around 9.7. She continues to have significant tachycardia with minimal activity. She does follow closely with cardiology specially after her valve surgery. She continues use the oxygen at 3 L with activity. Sometimes she goes up to 4 L pulse. Even with that she continues of being winded and tired. She does continue with all her respiratory therapy with good compliance. During the office visit we did take her off the oxygen did a 6 minute walk test. It was adamant that the patient was very tachycardic up to 122 beats per minute with minimal activity and resulting significant dyspnea while she only required 2 L pulse to maintain a pulse ox above 92%. therefore, there may be a cardiac component or cor pulmonale. I do not have her recent echo readily available. In the meantime the patient did have a blood gas done and her pCO2 was elevated at 56 mmHg. Therefore, the patient does have chronic hypercarbic respiratory failure secondary to the COPD. Indeed the patient does carry a poor prognosis and high risk for rehospitalization is. Therefore, a noninvasive ventilator will provide a improvement in the prognosis improvement in gas exchange and decrease hospitalizations. I did offer her a noninvasive ventilator. 10/18/2022 the patient is here for a pulmonary follow-up visit. She still complaining of worsening dyspnea on exertion. She is having hard time getting around. She does use the oxygen at 3-4 L pulse to try to give her some relief. Although we repeated her walking oximetry in the patient really only needs 3 L pulse with activity and does already keeping her pulse ox around 96%. She really does not even need the oxygen at rest although she feels very short of breath. The patient does have significant emphysema in addition to that has the issue with the anemia that is likely contributing to a great degree with her symptoms of dyspnea. Because even though hemoglobin is only slightly decreased in view of her respiratory failure and no pulmonary reserve this is resulting in significant symptoms. Patient also has a valvular disease. She did get the noninvasive ventilator. Her CO2 had been elevated. Her bicarb was initially elevated in the last time she checked the with primary care was better. Will go ahead and repeat the blood work at this time. The patient did have some issues tolerating the noninvasive ventilator but she is doing better with it now. She is I did have a repeat the blood work. Hemoglobin 8.7. My concerns are ferritin is only 8 suggesting no iron storage. I did call the patient told her that she needs talk to her paid search marketing strategist regarding this issue and may be potentially considering IV are infusions. In addition to that I did check a D- dimer which was negative ruling out the possibility of any thromboembolic disease. She continues with respiratory therapy her lungs actually sound good so I do not believe that her symptoms are related to an exacerbation. She had been on prednisone taking 7.5 mg every other day. This point will go ahead and increase her to 10 mg daily just to make sure that she is getting adequate therapy specially if she has any evidence of any adrenal insufficiency. 11/14/2022 the patient is here for a pulmonary follow-up visit. Since we last spoke she did follow-up with Hematology and she received 5 infusions of iron. Hemoglobin is better up to 10. Clinically she is feeling better. In the meantime she did get the noninvasive ventilator. Is very difficult for her to tolerated. The mask seems to leak the air. She also has a hard time tolerating the amount of pressure. Therefore, I did review her settings. Will go ahead and decrease her tidal volume down to 350 mL. In addition to this will go ahead and decrease her respiratory rate. Seems like the CO2 already came down based on the bicarb went from 30/6 now 30. So clinically she is responding to the therapy. In the meantime the patient continues with respiratory therapy as prescribed. She has been on the 10 mg daily of prednisone. Will go ahead and drop that down to every other day in view of her improvement. There is still question of adrenal insufficiency so will continue to monitor that closely. Also, the patient is now found to have a pancreatic lesion. Now needs an MRI 01/23/2023 the patient is here for pulmonary follow-up visit. She feels like her energy levels have decreased. She has no PAP. This causes her to have worsening breathing symptoms. She had been doing well when her prednisone was higher 10 mg daily. Then she titrated down to 7.5 mg every other day and she started having worsening symptoms. Is likely at this point that she has secondary adrenal insufficiency and therefore taking a small dose of prednisone daily may be important for her. She does have some chest congestion. She continues on the azithromycin 3 times a week. At this point if she phlegm is not changing color or consistency. Initial monitor at this point. I do not believe she needs a change in antibiotic. She continues use respiratory therapy. In addition to that she is using her noninvasive ventilator. She is having hard time tolerating it. I will request a download and also will adjust her noninvasive ventilator accordingly for her to be able to tolerated better. She understands her CO2 has been steadily climbing. Will also plan to do pulmonary function studies with the hope of her perform any pulmonary rehabilitation. She is going to start online pulmonary rehab at this time.. 03/08/2023 the patient here for a pulmonary follow-up visit. The patient rand pemberton has been doing a lot better. She feels that the higher dose prednisone is working well for her. She may have a component of adrenal insufficiency it may be important for her to be on a small dose. Although will try to find the lowest effective dose. She did undergo a density test and she is noted to have osteopenia. So therefore she understands we trying decrease the risk of her developing osteoporosis. She will be following up with Endocrine as well. In the meantime respiratory status is stable. She did have pulmonary function studies which were compared to her PFTs from 2019. In the last 2 years there is no significant change in her lung capacity which is reassuring although her baseline PFTs are significantly abnormal with very severe obstruction in very severe diffusion impairment. She is doing well with her oxygen. She is also using the noninvasive ventilator at nighttime. This is also obstructing beneficial. She can use continue using it every night. 06/11/2023 the patient is here for a pulmonary follow-up visit. The patient does not feel any better. She feels tired and short of breath. She feels like she has more gasping for air. She has been using the noninvasive ventilator but she has not seen any significant improvement. The patient does feel like she is gets restful sleep when she does use it though. The last ABG or venous gas that she had her pCO2 was up to 65 mmHg. Will have her have a repeat be nice gas today. In addition to that she has had anemia issues throughout. The last time she hemoglobin was checked 2 months ago was okay closer to her baseline. Will go ahead and repeat her blood work looking for other etiologies for just her chronic fatigue symptoms and shortness of breath. The patient also may have a component of adrenal insufficiency secondary to chronic prednisone. Woman trying to cut down the prednisone due to her new diagnosis of osteoporosis. Although has been difficult for her. When she went down to 5 mg she had much worsening breathing and she had to increase it to 12.5 mg for appeared time. Now she is alternating 7.5 in 5 mg. I did recommend the other option is to decrease the tapering down to 1 mg at a time. Will reassess after her blood work. The patient also has been having some weight loss. Denies any night sweats. Will go ahead and request a chest x-ray at this time. Her respiratory exam is reassuring. She is moving good air diminished but without any significant wheezing or prolonged expiratory phase. She is responding well to the Trelegy and will continue for now. 08/14/2023 the patient is here for pulmonary follow-up visit. She continues to feel weak and very short of breath. She has been using her oxygen with good effect. She was evaluated by hematology hemoglobin dropped to 8.4 and also her ferritin and iron levels dropped significantly as well. Therefore she is starting IV infusions of iron. He is going to do total 5. Explained to her that in view of her severe COPD emphysema the fact that she is anemic even mildly causes worsening dramatic dyspnea symptoms. In addition the patient had been on the Trelegy inhaler which is a very good inhaler but is been difficult for her to inhale it because she has gotten weaker as well. Therefore, will switch over to nebulized therapy to see if this is more effective in opening up her airways and provided better ventilation. Once the patient gets additional iron infusions hopefully she can start some degree of pulmonary rehabilitation even if he can be done sitting down as she is getting more deconditioning we can and ultimately resulting worsening respiratory symptoms. The patient also has been on the prednisone. She can cut down to 5 mg so therefore she continues on 7.5 mg daily which she will stay for now. 11/15/2023 the patient is here for a pulmonary follow-up visit. She continues to have dyspnea on exertion with minimal activity. She understands that she has very severe COPD. She is also oxygen dependent has significant anemia. She is status post iron infusions. She will be following closely we hematology. In the meantime she has not been very active. We did talk about the importance of conditioning and pulmonary rehabilitation. She had been doing the online pulmonary rehab but did not find it very helpful. We did talk about considering going back to in-person pulmonary rehab. She also also using her noninvasive ventilator. Sometimes difficult for her to tolerate. Already has been demonstrating improvement in the CO2. The therapy has been affecting b eneficial. At this point we talked about ways to improve her energy level during daytime. She is going to try increasing the prednisone from 7.5-10 mg. the other options to consider stimulant such as modafinil. 02/06/2024 the patient is here for a pulmonary follow-up visit. She is still struggling with breathing. Develops significant dyspnea with minimal activity. Moderate to severe. She does use the oxygen all the time. The patient did get 2 units of blood transfusion and she was hoping to feel better but she did not. The patient also underwent blood work including a blood gas d emonstrating chronic stable hypercarbic respiratory failure and also had her hemoglobin checked which was 9.7 which is still significantly low but better for her. Kidney function was also stable. She did have a chest x-ray demonstrating hyperinflated lungs consistent with her advanced COPD. We talked about her underlying condition as far as her medications she is currently medically optimize with the noninvasive ventilator in the inhaler therapy. She should be increasing the oxygen with activity to avoid the desaturations. In addition to that will try some diuretics to see if we can help with volume status. Explained to her that she may have a component of cor pulmonale. If her symptoms persist we can also request an echocardiogram. At this point the patient understands that she has very severe COPD and at this point she is maximized on her respiratory therapy. Will continue to provide as much support as possible understand the limitations. 03/06/2024 the patient is here for sick visit. She has been struggling. She has had increased respiratory complaints. Hard time breathing. She went to her primary care doctor felt to have a bout of bronchitis she was given doxyc ycline. Ultimately she has not been getting better so she went to Oncology to see if she needed blood. However, the busy and could not accommodate so she ended up going to the ER. There she did receive 1 unit of blood. She did have a CT of the chest demonstrating significant emphysema but no blood clots. No airspace disease. No clear explanation for the patient's symptoms. She was discharged and she currently is completing a prednisone taper. The patient was able to do a breathing treatment in the office and we were able to help her expectorate some phlegm. It is very tenacious greenish in color. Maybe some tension blood in it very hard for her to expectorate. I did talk to her daughter some concerned that she looks weaker. The patient already has evidence of hypercarbic respiratory failure and now with the mucus burden unable to her secretions is concerned that she could potentially get worse. We did talk about the importance of using the noninvasive ventilator to give her assistance with breathing. And she will use that. We were able to get a sputum culture and send to the lab. It looks like Pseudomonas. Therefore send Levaquin. She already has diarrhea. She needs to cone picker probiotics. She knows to stop the medication if she develops any tendonitis. She also be off the azithromycin by while she 03/24/2024 the patient is here for a pulmonary sick visit. She is still struggling with breathing. Initially she responded very well to the Levaquin. She did not complain of any tendinitis or any diarrhea. She did take some probiotics at some periods. She is now back in azithromycin. Her breathing became significantly better apparently. Now much worse again. Starting to get congestion. Difficult to expectorate. Her sputum culture was not helpful as it was only positive for respiratory naty. I do believe that bronchoscopy will be helpful for therapeutic cleaning in addition to lower respiratory cultures to assess any enteric organisms that will require therapy. Will see about scheduling a bronchoscopy. We can do it under moderate sedation and provide her with a lidocaine nebulizer treatment to minimize on the anesthesia effects in vi ew of her respiratory failure. Patient also will undergo blood work specially because he is more tachycardic today. Wonder if she is potentially more anemic is also likely contributing to her symptoms. [facility] Medical History (Updated 03/09/24 @ 20:01 by Mateo Barrientos MD) Dyspnea (~08/14/23) Tachycardia Anemia Anemia Pre-op chest exam Vertebral artery stenosis Dyspnea Chronic respiratory failure Dyslipidemia Hypothyroidism Centrilobular emphysema Surgical History History of cholecystectomy H/O: hysterectomy Family History Mother No problems noted. Daughter Diabetes Social History (Updated 03/08/21 @ 11:20 by Makenzie Leroy Tomy) Household Members: None Housing: House Do you presently have visiting nurse or other home services: No Alcohol intake: unknown Patient Tobacco Use Status: Former Tobacco user Tobacco use type: Cigarette Years Smoked: 40+ years service: No Current occupational status: retired Review of Systems Const Reports fatigue, Denies night sweats and Reports weight loss ENT Denies change in voice, Denies lip swelling, Denies mouth pain, Reports nasal congestion, Reports nasal discharge and Denies tongue swelling Card Denies chest pain, Reports dyspnea and Reports dyspnea on exertion Resp Reports change in phlegm color, Reports chest congestion, Reports cough, Reports dyspnea and Reports dyspnea on exertion GI Denies abdominal pain, Denies melena and Denies hematochezia Musc Denies no additional complaints Neuro Denies Neuro-related abnormal movements Psych Reports depression Endo Reports fatigue Fredi/Lymph Denies easy bleeding and Denies lymphadenopathy Aller/Immun Denies lip swelling and Denies tongue swelling Physical Exam Vital Signs: Last Vital Signs Pulse 92 03/24/24 15:03 Pulse Ox 94 03/24/24 15:03 Oxygen Delivery Method Room Air 03/24/24 15:03 BMI result Body Mass Index 24.6 Const General: alert and tired appearing Eyes Conjunctivae: conjunctival abnormal bilateral pallor Pupils: Equal, round and reactive pupils present Neck Neck: Yes normal visual inspection, Yes full ROM and Yes no lymphadenopathy Chest Chest palpation & inspection: normal inspection of the chest Resp Effort & Inspection: normal respiratory effort and prolonged expiratory phase Auscultation: rhonchi, no wheezes and diminished lung sounds Cardio Rate: tachycardic Rhythm: regular rhythm Heart sounds: S1 normal heart sound present and S2 normal heart sound present GI Palpation (GI): Soft to palpation and nontender Auscultation: normal bowel sounds Skin Trauma: abrasion (RLE) Neuro Cranial nerves: Yes Equal, round and reactive pupils present Results Reviewed Results Reviewed: CT chest PE protocol 03/04/2024 with exensive emphysema and atelactasis/scarring Assessment & Plan Assessment & Plan (1) Dyspnea: Code(s): R06.00 - Dyspnea, unspecified Category: Medical Qualifiers: Dyspnea type: dyspnea on exertion Qualified Code(s): R06.00 - Dyspnea, unspecified (2) Centrilobular emphysema: Comment: Very severe COPD with FEV1 26% predicted Code(s): J43.2 - Centrilobular emphysema Category: Medical (3) Chronic respiratory failure: Comment: With evidence of chronic hypercarbic respiratory failure, DLCO very severe Code(s): J96.10 - Chronic respiratory failure, unspecified whether with hypoxia or hypercapnia Category: Medical Qualifiers: Respiratory failure complication: hypoxia and hypercapnia Qualified Code(s): J96.11 - Chronic respiratory failure with hypoxia; J96.12 - Chronic respiratory failure with hypercapnia; J96.12 - Chronic respiratory failure with hypercapnia (4) Anemia: Code(s): D64.9 - Anemia, unspecified Category: Medical Qualifiers: Anemia type: iron deficiency Iron deficiency anemia type: unspecified iron deficiency Qualified Code(s): D50.9 - Iron deficiency anemia, unspecified (5) Tachycardia: Comment: Likely multifactorial. She continues to be anemic. May also have a component of cor pulmonale. Code(s): R00.0 - Tachycardia, unspecified Category: Medical (6) COPD (chronic obstructive pulmonary disease): Comment: very severe, end stage Code(s): J44.9 - Chronic obstructive pulmonary disease, unspecified Category: Medical Qualifiers: COPD type: COPD with acute lower respiratory infection Qualified Code(s): J44.0 - Chronic obstructive pulmonary disease with (acute) lower respiratory infection Plan continue Prednisone 10mg daily Azithromycin MWF completed Levaquin, monitor for tendonitis plan for bronchoscopy for thrapeutic cleaning, deep cultures continued Trelegy continue Duoneb oxygen supplementation 4 L pulse with activity and also should also uses to sleep. bloodwork today continue NIV, AVAPS, PCO2 better at 65->58mmHg on venous blood gas, volume 350 ml and rate 12. The patient is weaker and I did talk to her daughter about my concerns of her worsening condition. The family did speak to the patient about goals of care and she does at least wants to be full code. follow-up in 3-4 weeks Orders: Orders Ferritin Today D64.9 - Anemia, unspecified Complete Blood Count Auto Diff Today D64.9 - Anemia, unspecified Basic Metabolic Panel Today D64.9 - Anemia, unspecified Coding Level of Care Code Est Pt Level 5 (08610) Diagnoses Dyspnea on exertion R06.00 Dyspnea type: dyspnea on exertion Centrilobular emphysema J43.2 Chronic respiratory failure with hypoxia and hypercapnia J96.11; J96.12; J96.12 Respiratory failure complication: hypoxia and hypercapnia Iron deficiency anemia, unspecified iron deficiency anemia type D50.9 Anemia type: iron deficiency Iron deficiency anemia type: unspecified iron deficiency Tachycardia R00.0 Chronic obstructive pulmonary disease with acute lower respiratory infection J44.0 COPD type: COPD with acute lower respiratory infection Time Spent (min) 40
[2024-03-24 15:03] VITALS: PULSE 92; O2SAT 94; BMI 24.6
== END 2024-03-24 15:41 | disposition home or self-care (01) ==
PROVIDERS: PCP Internal Medicine; Visit Provider Hospitalist
DX: J43.2 Centrilobular emphysema (principal); J96.11 Chronic respiratory failure with hypoxia; J96.12 Chronic respiratory failure with hypercapnia; D50.9 Iron deficiency anemia, unspecified; R00.0 Tachycardia, unspecified
CPT/HCPCS: 99215

== ENCOUNTER 2024-03-24 14:57 | Outpatient (REF) | payer MEDICARE, SELFPAY ==
[2024-03-24 17:31] LABS: Basophils Percent Auto 0.2 % (0-2); Eosinophils Percent Auto 0.1 % (0-4); Hematocrit 23.3 % (37.0-47.0); Hemoglobin 7.1 g/dl (12.0-16.0); Imm Gran Abs Auto 0.11 X10*3/uL (0.00-0.03); Imm Gran Pct Auto 0.8 % (0.0-0.4); Lymphocytes Absolute Auto 0.3 X10*3/uL (1.2-4.9); Lymphocytes Percent Auto 1.8 % (20-40); MANUAL DIFF FLAG SCAN; Mean Corpuscular HGB Conc 30.5 g/dl (31.0-35.0); Mean Corpuscular Volume 98.3 fL (80.0-98.0); Monocytes Absolute Auto 0.4 X10*3/uL (0.1-1.2); Monocytes Percent Auto 2.4 % (2-11); Neutrophils Absolute Auto 13.8 x10*3/uL (2.0-8.3); Neutrophils Percent Auto 94.7 % (45-73); Platelet Count 372 X10*3/uL (160-400); Red Blood Count 2.37 X10*6/uL (4.20-5.50); SCAN SMEAR FLAG 1; White Blood Count 14.6 X10*3/uL (4.8-10.8)
[2024-03-24 18:05] LABS: Anion Gap 14 (12-20); Blood Urea Nitrogen 17 mg/dL (9-16); Calcium 9.3 mg/dL (8.4-10.2); Carbon Dioxide 30 mmol/L (22-29); Chloride 100 mmol/L (96-108); Estimated Glomerular Filt Rate > 60; Glucose Random 174 mg/dL (60-115); Potassium 4.4 mmol/L (3.3-5.1); Sodium 140 mmol/L (135-145)
[2024-03-24 18:11] LABS: Ferritin 12 ng/mL (10-250)
[2024-03-24 18:12] LABS: SLIDE REVIEW VERIFIED
== END 2024-03-24 14:58 | disposition home or self-care (01) ==
LOC: HO.LAB 14:57
PROVIDERS: PCP Internal Medicine; Visit Provider Hospitalist
DX: J44.0 Chronic obstructive pulmonary disease with (acute) lower respiratory infection (principal); J43.2 Centrilobular emphysema; J96.11 Chronic respiratory failure with hypoxia; J96.12 Chronic respiratory failure with hypercapnia; D64.9 Anemia, unspecified; R00.0 Tachycardia, unspecified; Z99.81 Dependence on supplemental oxygen; Z79.52 Long term (current) use of systemic steroids
CPT/HCPCS: 36415; 80048; 82728; 85025; 99212

== ENCOUNTER 2024-04-08 08:58 | Outpatient (AMB) | payer MEDICARE, SELFPAY ==
[2024-04-08 09:02] VITALS: PULSE 98; O2SAT 92; BMI 24.6
--- NOTE | 2024-04-08 09:02 | A.OFFVIS_ITS ---
Vital Signs 04/08/24 09:02 Height 5 ft 3 in Weight 138 lb 14.259 oz BMI 24.6 Pulse 98 Pulse Source Pulse Oximeter Pulse Oximetry (%) 92 Oxygen Delivery Method Room Air Comment 4 Liters Oxygen([facility]) Intake Visit Reasons: Discuss Diagnosis Allergies No Known Allergies Allergy (Verified 03/24/24 15:04) HPI Comments Details: The patient is a 78 y/o woman with a history of COPD also with the O2 dependence on chronic Prednisone. She also has pulmonary nodules over following. She is scheduled for CT scan in a month at [facility]. Therefore, will follow up after that. She has times and dyspnea on exertion. She does need her oxygen. She is looking to getting a portable oxygen concentrator. However she is questioning if she can use the POC at nighttime. I am concerned that if she does not activate the pulse while sleeping and it would not be helpful for her. However if she does decide to buy it we can always retest to see if is effective for her while she is sleeping. She continues to pulmonary rehabilitation. That is going well. She continues uses trelegy. She is using the azithromycin. She has been around people that have been sick and she has been able to stay healthy. Will continue the for next 3-4 months and will see about weaning it off to give her a break from medications. This antibiotic but will use it more for the anti-inflammatory properties. Did review her last CT scan of the chest that she had recently demonstrating small pulmonary nodules are stable in size. She has a RADS 2 and therefore needs a repeat CT scan in a year's time. We did do a chest x-ray today which appears to have resolution of the left-sided process. No evidence of any acute lower respiratory infection. Therefore, she is responding well to the current respiratory regimen and antibiotics. She will complete the antibiotic course and then taper down the prednisone to 10 mg daily. She has been now multiple courses of antibiotics and prednisone is still having hard time with her breathing. She has been having hard time expectorating. She is getting very frustrated upset. She also complains of increasing shortness of breath and increasing heart rate. She denies any chest pains. On examination she does have some rhonchi on exam which appeared to be right worse than left. Her pneumonia was on her left and side initially. That ultimately cleared up on the x-ray. The patient has a hard time expectorating. Therefore, we'll try the stronger antibiotics along with another course of prednisone. At this point will plan to this pulmonary function study with ABG. The patient should stay on a small dose of prednisone of 10 mg every other day and should also restart the azithromycin Sunday and Sunday. Will monitor closely her IgG levels at this time, no need for augmentation therapy. She did have a 6 minutes walk test and during that study her oxygen quickly decreased after 50 ft on room air to 86%. After that heart rate did increase to the 130s. The patient rested he then was placed on 3 L pulse and ambulating her she was able to maintain a pulse ox above 90%. However, heart rate still was elevated than 130s. The patient states that she did have an echocardiogram at [facility] and I do not have the results right now. She does not have a cornetist. It is reasonable to have her follow up with Cardiology as we wait for the results or pulmonary function studies and arterial blood gas. While we wait for those results the patient is to hold off on pulmonary rehabilitation. e did have worsening respiratory symptoms and malaise and she was taken to [facility] which she was found to have a hemoglobin of 5.9. Here in the office we checked back in September she was up to 10 which is significant drop. In the meantime she was given 2 units of blood and she did undergo an upper and lower endoscopy without any significant findings. She is given iron which is taking with multivitamins. While she was there she did have a blood gas demonstrating a pH does 7.36 with a pCO2 of 39 mm of mercury which is within normal limits suggesting that she has no evidence of chronic hypercarbic respiratory failure. 05/30/2022 the patient is here for a pulmonary follow-up visit. She is doing a lot better. Her anemia seems to be better controlled. She is also reassured that her bone marrow test was reassuring. Although is still not clear 100% when she was bleeding from. She had been on Plavix at the time and likely that was contributing to her bleeding. Now she is off the Plavix and seems to be holding her hemoglobin better. She is also going to go off her iron and she is going to be monitoring for any blood in her stools. In meantime she is down to 5 mg of prednisone every other day which is a minimal dose. She is concerned about dropping it altogether. She is also using the azithromycin 3 times a week. The patient now is feeling a little stronger. She is however on a wheelchair today. She needs to regain strength and exercise. I did give her information about online pulmonary rehabilitation that she should start. Once the patient becomes stronger we can reassess her medications. I am hopeful that she can come off the prednisone. Subsequently after that we can try to get her off the azithromycin if we can safely. She continues use respiratory medicine with good effect. 08/29/2022 the patient is here for a pulmonary follow-up visit. She continues to feel unwell with significant shortness of breath. Hemoglobin states that he around 9.7. She continues to have significant tachycardia with minimal activity. She does follow closely with cardiology specially after her valve surgery. She continues use the oxygen at 3 L with activity. Sometimes she goes up to 4 L pulse. Even with that she continues of being winded and tired. She does continue with all her respiratory therapy with good compliance. During the office visit we did take her off the oxygen did a 6 minute walk test. It was adamant that the patient was very tachycardic up to 122 beats per minute with minimal activity and resulting significant dyspnea while she only required 2 L pulse to maintain a pulse ox above 92%. therefore, there may be a cardiac component or cor pulmonale. I do not have her recent echo readily available. In the meantime the patient did have a blood gas done and her pCO2 was elevated at 56 mmHg. Therefore, the patient does have chronic hypercarbic respiratory failure secondary to the COPD. Indeed the patient does carry a poor prognosis and high risk for rehospitalization is. Therefore, a noninvasive ventilator will provide a improvement in the prognosis improvement in gas exchange and decrease hospitalizations. I did offer her a noninvasive ventilator. 10/18/2022 the patient is here for a pulmonary follow-up visit. She still complaining of worsening dyspnea on exertion. She is having hard time getting around. She does use the oxygen at 3-4 L pulse to try to give her some relief. Although we repeated her walking oximetry in the patient really only needs 3 L pulse with activity and does already keeping her pulse ox around 96%. She really does not even need the oxygen at rest although she feels very short of breath. The patient does have significant emphysema in addition to that has the issue with the anemia that is likely contributing to a great degree with her symptoms of dyspnea. Because even though hemoglobin is only slightly decreased in view of her respiratory failure and no pulmonary reserve this is resulting in significant symptoms. Patient also has a valvular disease. She did get the noninvasive ventilator. Her CO2 had been elevated. Her bicarb was initially elevated in the last time she checked the with primary care was better. Will go ahead and repeat the blood work at this time. The patient did have some issues tolerating the noninvasive ventilator but she is doing better with it now. She is I did have a repeat the blood work. Hemoglobin 8.7. My concerns are ferritin is only 8 suggesting no iron storage. I did call the patient told her that she needs talk to her breakdown man regarding this issue and may be potentially considering IV are infusions. In addition to that I did check a D- dimer which was negative ruling out the possibility of any thromboembolic disease. She continues with respiratory therapy her lungs actually sound good so I do not believe that her symptoms are related to an exacerbation. She had been on prednisone taking 7.5 mg every other day. This point will go ahead and increase her to 10 mg daily just to make sure that she is getting adequate therapy specially if she has any evidence of any adrenal insufficiency. 11/14/2022 the patient is here for a pulmonary follow-up visit. Since we last spoke she did follow-up with Hematology and she received 5 infusions of iron. Hemoglobin is better up to 10. Clinically she is feeling better. In the meantime she did get the noninvasive ventilator. Is very difficult for her to tolerated. The mask seems to leak the air. She also has a hard time tolerating the amount of pressure. Therefore, I did review her settings. Will go ahead and decrease her tidal volume down to 350 mL. In addition to this will go ahead and decrease her respiratory rate. Seems like the CO2 already came down based on the bicarb went from 30/6 now 30. So clinically she is responding to the therapy. In the meantime the patient continues with respiratory therapy as prescribed. She has been on the 10 mg daily of prednisone. Will go ahead and drop that down to every other day in view of her improvement. There is still question of adrenal insufficiency so will continue to monitor that closely. Also, the patient is now found to have a pancreatic lesion. Now needs an MRI 01/23/2023 the patient is here for pulmonary follow-up visit. She feels like her energy levels have decreased. She has no PAP. This causes her to have worsening breathing symptoms. She had been doing well when her prednisone was higher 10 mg daily. Then she titrated down to 7.5 mg every other day and she started having worsening symptoms. Is likely at this point that she has secondary adrenal insufficiency and therefore taking a small dose of prednisone daily may be important for her. She does have some chest congestion. She continues on the azithromycin 3 times a week. At this point if she phlegm is not changing color or consistency. Initial monitor at this point. I do not believe she needs a change in antibiotic. She continues use respiratory therapy. In addition to that she is using her noninvasive ventilator. She is having hard time tolerating it. I will request a download and also will adjust her noninvasive ventilator accordingly for her to be able to tolerated better. She understands her CO2 has been steadily climbing. Will also plan to do pulmonary function studies with the hope of her perform any pulmonary rehab ilitation. She is going to start online pulmonary rehab at this time.. 03/08/2023 the patient here for a pulmonary follow-up visit. The patient overall has been doing a lot better. She feels that the higher dose prednisone is working well for her. She may have a component of adrenal insufficiency it may be important for her to be on a small dose. Although will try to find the lowest effective dose. She did undergo a density test and she is noted to have osteopenia. So therefore she understands we trying decrease the risk of her developing osteoporosis. She will be following up with Endocrine as well. In the meantime respiratory status is stable. She did have pulmonary function studies which were compared to her PFTs from 2019. In the last 2 years there is no significant change in her lung capacity which is reassuring although her baseline PFTs are significantly abnormal with very severe obstruction in very severe diffusion impairment. She is doing well with her oxygen. She is also using the noninvasive ventilator at nighttime. This is also obstructing beneficial. She can use continue using it every night. 06/11/2023 the patient is here for a pulmonary follow-up visit. The patient does not feel any better. She feels tired and short of breath. She feels like she has more gasping for air. She has been using the noninvasive ventilator but she has not seen any significant improvement. The patient does feel like she is gets restful sleep when she does use it though. The last ABG or venous gas that she had her pCO2 was up to 65 mmHg. Will have her have a repeat be nice gas today. In addition to that she has had anemia issues throughout. The last time she hemoglobin was checked 2 months ago was okay closer to her baseline. Will go ahead and repeat her blood work looking for other etiologies for just her chronic fatigue symptoms and shortness of breath. The patient also may have a component of adrenal insufficiency secondary to chronic prednisone. Woman trying to cut down the prednisone due to her new diagnosis of osteoporosis. Although has been difficult for her. When she went down to 5 mg she had much worsening breathing and she had to increase it to 12.5 mg for appeared time. Now she is alternating 7.5 in 5 mg. I did recommend the other option is to decrease the tapering down to 1 mg at a time. Will reassess after her blood work. The patient also has been having some weight loss. Denies any night sweats. Will go ahead and request a chest x-ray at this time. Her respiratory exam is reassuring. She is moving good air diminished but without any significant wheezing or prolonged expiratory phase. She is responding well to the Trelegy and will continue for now. 08/14/2023 the patient is here for pulmonary follow-up visit. She continues to feel weak and very short of breath. She has been using her oxygen with good effect. She was evaluated by hematology hemoglobin dropped to 8.4 and also her ferritin and iron levels dropped significantly as well. Therefore she is starting IV infusions of iron. He is going to do total 5. Explained to her that in view of her severe COPD emphysema the fact that she is anemic even mildly causes worsening dramatic dyspnea symptoms. In addition the patient had been on the Trelegy inhaler which is a very good inhaler but is been difficult for her to inhale it because she has gotten weaker as well. Therefore, will switch over to nebulized therapy to see if this is more effective in opening up her airways and provided better ventilation. Once the patient gets additional iron infusions hopefully she can start some degree of pulmonary rehabilitation even if he can be done sitting down as she is getting more deconditioning we can and ultimately resulting worsening respiratory symptoms. The patient also has been on the prednisone. She can cut down to 5 mg so therefore she continues on 7.5 mg daily which she will stay for now. 11/15/2023 the patient is here for a pulmonary follow-up visit. She continues to have dyspnea on exertion with minimal activity. She understands that she has very severe COPD. She is also oxygen dependent has significant anemia. She is status post iron infusions. She will be following closely we hematology. In the meantime she has not been very active. We did talk about the importance of conditioning and pulmonary rehabilitation. She had been doing the online pulmonary rehab but did not find it very helpful. We did talk about considering going back to in-person pulmonary rehab. She also also using her noninvasive ventilator. Sometimes difficult for her to tolerate. Already has been demonstrating improvement in the CO2. The therapy has been affecting beneficial. At this point we talked about ways to improve her energy level during daytime. She is going to try increasing the prednisone from 7.5-10 mg. the other options to consider stimulant such as modafinil. 02/06/2024 the patient is here for a pulmonary follow-up visit. She is still struggling with breathing. Develops significant dyspnea with minimal activity. Moderate to severe. She does use the oxygen all the time. The patient did get 2 units of blood transfusion and she was hoping to feel better but she did not. The patient also underwent blood work including a blood gas demonstrating chronic stable hypercarbic respiratory failure and also had her hemoglobin checked which was 9.7 which is still significantly low but better for her. Kidney function was also stable. She did have a chest x-ray demonstrating hyperinflated lungs consistent with her advanced COPD. We talked about her underlying condition as far as her medications she is currently medically optimize with the noninvasive ventilator in the inhaler therapy. She should be increasing the oxygen with activity to avoid the desaturations. In addition to that will try some diuretics to see if we can help with volume status. Explained to her that she may have a component of cor pulmonale. If her symptoms persist we can also request an echocardiogram. At this point the patient understands that she has very severe COPD and at this point she is maxi mized on her respiratory therapy. Will continue to provide as much support as possible understand the limitations. 03/06/2024 the patient is here for sick visit. She has been struggling. She has had increased respiratory complaints. Hard time breathing. She went to her primary care doctor felt to have a bout of bronchitis she was given doxycycline. Ultimately she has not been getting better so she went to Oncology to see if she needed blood. However, the busy and could not accommodate so she ended up going to the ER. There she did receive 1 unit of blood. She did have a CT of the chest demonstrating significant emphysema but no blood clots. No airspace disease. No clear explanation for the patient's symptoms. She was discharged and she currently is completing a prednisone taper. The patient was able to do a breathing treatment in the office and we were able to help her expectorate some phlegm. It is very tenacious greenish in color. Maybe some tension blood in it very hard for her to expectorate. I did talk to her daughter some concerned that she looks weaker. The patient already has evidence of hypercarbic respiratory failure and now with the mucus burden unable to her secretions is concerned that she could potentially get worse. We did talk about the importance of using the noninvasive ventilator to give her assistance with breathing. And she will use that. We were able to get a sputum culture and send to the lab. It looks like Pseudomonas. Therefore send Levaquin. She already has diarrhea. She needs to black pickler probiotics. She knows to stop the medication if she develops any tendonitis. She also be off the azithromycin by while she 03/24/2024 the patient is here for a pulmonary sick visit. She is still struggling with breathing. Initially she responded very well to the Levaquin. She did not complain of any tendinitis or any diarrhea. She did take some probiotics at some periods. She is now back in azithromycin. Her breathing b ecame significantly better apparently. Now much worse again. Starting to get congestion. Difficult to expectorate. Her sputum culture was not helpful as it was only positive for respiratory naty. I do believe that bronchoscopy will be helpful for therapeutic cleaning in addition to lower respiratory cultures to assess any enteric organisms that will require therapy. Will see about scheduling a bronchoscopy. We can do it under moderate sedation and provide her with a lidocaine nebulizer treatment to minimize on the anesthesia effects in view of her respiratory failure. Patient also will undergo blood work specially because he is more tachycardic today. Wonder if she is potentially more anemic is also likely contributing to her symptoms. 04/08/2024 the patient is here for a follow-up visit after hospitalization. She had been admitted to [facility] with worsening respiratory symptoms. At that point she was already on Levaquin for the persistent chest congestion. She required a couple units of blood. It was found that she had blood in her stools. She does have an evaluation from a GI standpoint. Although they do not want to do any procedures because she had some serious complications handling anesthesia in the past. The details are not available though. The patient has been using noninvasive ventilator. She is maxed that with her medications. She still has a significant cough difficult to clear secretions. The family is with her. We did talk about her severity of disease having very severe COPD on top of that significant anemia. I did provide her a letter in order for her to get a transfusion when her hemoglobin is 8 and not wait till the 7 due to her very severe COPD and minimal gas exchange. Hopefully that can provide her some support. In the meantime her condition is unlikely to improve unfortunately. She does have chronic severe progressive disease. Will continue supporting her as much as possible I did recommend that it looking for any other alternatives to treatments she can always going to [facility] for 2nd opinion although I do not believe they have much to offer her with her age in severe comorbidities. Will plan to do a bronchoscopy to try to provide airway clearance and deep cultures if there is anything else we can treat to allow her respiratory status to improve. Right now hemoglobin stable since she has got a blood transfusion and IV infusions of iron and will be a good opportunity to do so. [facility] Medical History (Updated 03/09/24 @ 20:01 by Mateo Barrientos MD) Dyspnea (~08/14/23) Tachycardia Anemia Anemia Pre-op chest exam Vertebral artery stenosis Dyspnea Chronic respiratory failure Dyslipidemia Hypothyroidism Centrilobular emphysema Surgical History History of cholecystectomy H/O: hysterectomy Family History Mother No problems noted. Daughter Diabetes Social History (Updated 03/08/21 @ 11:20 by Makenzie Leroy Tomy) Household Members: None Housing: House Do you presently have visiting nurse or other home services: No Alcohol intake: unknown Patient Tobacco Use Status: Former Tobacco user Tobacco use type: Cigarette Years Smoked: 40+ years service: No Current occupational status: retired Review of Systems Const Reports fatigue, Denies night sweats and Reports weight loss ENT Denies change in voice, Denies lip swelling, Denies mouth pain, Reports nasal congestion, Reports nasal discharge and Denies tongue swelling Card Denies chest pain, Reports dyspnea and Reports dyspnea on exertion Resp Reports change in phlegm color, Reports chest congestion, Reports cough, Denies hemoptysis, Reports dyspnea and Reports dyspnea on exertion GI Denies abdominal pain, Denies melena and Denies hematochezia Musc Denies no additional complaints Neuro Denies Neuro-related abnormal movements Psych Reports depression Endo Reports fatigue Fredi/Lymph Denies easy bleeding and Denies lymphadenopathy Aller/Immun Denies lip swelling and Denies tongue swelling Physical Exam Vital Signs: Last Vital Signs Pulse 98 04/08/24 09:02 Pulse Ox 92 04/08/24 09:02 Oxygen Delivery Method Room Air 04/08/24 09:02 BMI result Body Mass Index 24.6 Const General: alert and tired appearing Eyes Conjunctivae: conjunctival abnormal bilateral pallor Pupils: Equal, round and reactive pupils present Neck Neck: Yes normal visual inspection, Yes full ROM and Yes no lymphadenopathy Chest Chest palpation & inspection: normal inspection of the chest Resp Effort & Inspection: normal respiratory effort and prolonged expiratory phase Auscultation: rhonchi, no wheezes and diminished lung sounds Cardio Rate: tachycardic Rhythm: regular rhythm Heart sounds: S1 normal heart sound present and S2 normal heart sound present GI Palpation (GI): Soft to palpation and nontender Auscultation: normal bowel sounds Skin Trauma: abrasion (RLE) Neuro Cranial nerves: Yes Equal, round and reactive pupils present Assessment & Plan Assessment & Plan (1) Dyspnea: Code(s): R06.00 - Dyspnea, unspecified Category: Medical Qualifiers: Dyspnea type: dyspnea on exertion Qualified Code(s): R06.00 - Dyspnea, unspecified (2) Centrilobular emphysema: Comment: Very severe COPD with FEV1 26% predicted Code(s): J43.2 - Centrilobular emphysema Category: Medical (3) Chronic respiratory failure: Comment: With evidence of chronic hypercarbic respiratory failure, DLCO very severe Code(s): J96.10 - Chronic respiratory failure, unspecified whether with hypoxia or hypercapnia Category: Medical Qualifiers: Respiratory failure complication: hypoxia and hypercapnia Qualified Code(s): J96.11 - Chronic respiratory failure with hypoxia; J96.12 - Chronic respiratory failure with hypercapnia; J96.12 - Chronic respiratory failure with hypercapnia (4) Anemia: Code(s): D64.9 - Anemia, unspecified Category: Medical Qualifiers: Anemia type: iron deficiency Iron deficiency anemia type: unspecified iron deficiency Qualified Code(s): D50.9 - Iron deficiency anemia, unspecified (5) Tachycardia: Comment: Likely multifactorial. She continues to be anemic. May also have a component of cor pulmonale. Code(s): R00.0 - Tachycardia, unspecified Category: Medical (6) COPD (chronic obstructive pulmonary disease): Comment: very severe, end stage Code(s): J44.9 - Chronic obstructive pulmonary disease, unspecified Category: Medical Qualifiers: COPD type: COPD with acute lower respiratory infection Qualified Code(s): J44.0 - Chronic obstructive pulmonary disease with (acute) lower respiratory infection Plan continue Prednisone 10mg daily completed Levaquin, monitor for tendonitis plan for bronchoscopy for thrapeutic cleaning, deep cultures. Will talk to anethesia about using MAC or ketamine. Also provide a lidocaine nebulizer prior to the p bronchoscopy. continued Trelegy continue Duoneb oxygen supplementation 4 L pulse with activity and also should also uses to sleep. continue NIV, AVAPS, PCO2 better at 65->58mmHg on venous blood gas, volume 350 ml and rate 12. Full Code follow-up in 3-4 weeks Coding Level of Care Code Est Pt Level 5 (57290) Complex EM visit Add On G2211 Diagnoses Dyspnea on exertion R06.00 Dyspnea type: dyspnea on exertion Centrilobular emphysema J43.2 Chronic respiratory failure with hypoxia and hypercapnia J96.11; J96.12; J96.12 Respiratory failure complication: hypoxia and hypercapnia Iron deficiency anemia, unspecified iron deficiency anemia type D50.9 Anemia type: iron deficiency Iron deficiency anemia type: unspecified iron deficiency Tachycardia R00.0 Chronic obstructive pulmonary disease with acute lower respiratory infection J44.0 COPD type: COPD with acute lower respiratory infection Time Spent (min) 45
== END 2024-04-08 09:43 | disposition home or self-care (01) ==
PROVIDERS: PCP Internal Medicine; Visit Provider Hospitalist
DX: J43.2 Centrilobular emphysema (principal); J96.11 Chronic respiratory failure with hypoxia; J96.12 Chronic respiratory failure with hypercapnia; D50.9 Iron deficiency anemia, unspecified; R00.0 Tachycardia, unspecified
CPT/HCPCS: 99215; G2211

== ENCOUNTER → 2024-04-08 08:58 | Outpatient (BNVA) | payer MEDICARE, SELFPAY | PROVIDERS: PCP Internal Medicine; Visit Provider Hospitalist | DX: J44.0 Chronic obstructive pulmonary disease with (acute) lower respiratory infection (principal); J43.2 Centrilobular emphysema; J96.11 Chronic respiratory failure with hypoxia; J96.12 Chronic respiratory failure with hypercapnia; D50.9 Iron deficiency anemia, unspecified; R00.0 Tachycardia, unspecified; Z79.52 Long term (current) use of systemic steroids | CPT/HCPCS: 99212 ==

== ENCOUNTER 2024-04-10 11:32 | Day surgery (SDC) | payer MEDICARE, SELFPAY ==
[2024-04-10] VITALS (11 sets, daily range): BP systolic 95–129; BP diastolic 18–52; PULSE 86–120; RESP 18–24; TEMP 36.3–36.8; O2SAT 96–99; BMI 21.8
[2024-04-10] MEDS: Albuterol Sulfate (0.083%) 2.5 MG/3 ML VIAL.NEB INHALE (12:48)
[2024-04-10] MEDS: Lidocaine HCl 4 % MPF 5 ML AMPUL 3 ML INHALE (12:58)
[2024-04-10 13:00] LABS: Hematocrit 28.8 % (37.0-47.0); Hemoglobin 8.9 g/dl (12.0-16.0); Mean Corpuscular HGB Conc 30.9 g/dl (31.0-35.0); Mean Corpuscular Hemoglobin 30.2 pg (27.0-33.0); Mean Corpuscular Volume 97.6 fL (80.0-98.0); Mean Platelet Volume 9.3 fL (9.4-12.3); Platelet Count 257 X10*3/uL (160-400); Red Blood Count 2.95 X10*6/uL (4.20-5.50); Red Cell Distribution Width 14.8 % (11.0-16.0); White Blood Count 13.9 X10*3/uL (4.8-10.8)
--- NOTE | 2024-04-10 13:10 | MHC.SHP ---
Pre-Procedural Eval Section A - 24 Hr Update-Section A only Date of Service: 04/10/24 The patient is an INPATIENT: No Changes since office visit: No Cold of Flu in the past 2 weeks, No New Medical Problems, No Changes in Medication and No Patient answered all questions The patient has been examined within 24 hours of the surgical procedure. The History & Physical has been completed within 30 days and I have reviewed it.: Yes Section B - Complete if H&P > 30 days Chief Complaint: Pneumonia, unspecified organism Allergies: Allergies Allergy/AdvReac Type Severity Reaction Status Date / Time No Known Allergies Allergy Verified 04/10/24 12:53 Plan I have reviewed the history and physical and performed a pertinent physical examination on my patient. No changes have occurred unless specified. Time Spent With Patient Time: Total time managing care of this patient today ____ minutes.
--- NOTE | 2024-04-10 13:20 | P.CONAN_ITS ---
Documented by User: Yue Hurley NP 04/09/24 09:20 HPI - Anesthesia Eval Consult details Narrative: 78yo F for Bronchoscopy Fiberoptic [facility] 02/2024 with COPD exac, symptomatic anemia. IV steroids and 1 unit PRBC with d/c home PMFSH Active Problems Active Problems: All Active Problems Right leg injury (Acute) Dyspnea (Acute ~08/14/23) Tachycardia (Acute) Anemia (Acute) COPD (chronic obstructive pulmonary disease) (Acute) Anemia (Acute) Pre-op chest exam (Acute) Vertebral artery stenosis (Acute) Dyspnea (Acute) Chronic respiratory failure (Acute) Centrilobular emphysema (Acute) Acute exacerbation of chronic obstructive airways disease (Acute) COVID-19 (Acute) Past Medical History Medical History (Updated 03/09/24 @ 20:01 by Mateo Barrientos MD) Dyspnea (~08/14/23) Tachycardia Anemia Anemia Pre-op chest exam Vertebral artery stenosis Dyspnea Chronic respiratory failure Dyslipidemia Hypothyroidism Centrilobular emphysema Family History Family History Mother No problems noted. Daughter Diabetes Surgical History Surgical History (Updated 04/10/24 @ 12:47 by Barbara Armando RN) Hx of colonoscopy History of cholecystectomy H/O: hysterectomy Social History Social History (Updated 03/08/21 @ 11:20 by NAN Larson) Household Members: None Housing: House Do you presently have visiting nurse or other home services: No Alcohol intake: unknown Patient Tobacco Use Status: Former Tobacco user Tobacco use type: Cigarette Years Smoked: 40+ years Use of substances other than those prescribed or required for medical reasons: No Are you DNR?: No Advance Directives: No Advance Directives Information Provided: Yes service: No Current occupational status: retired Meds Allergies Allergy/AdvReac Type Severity Reaction Status Date / Time No Known Allergies Allergy Verified 04/10/24 12:53 Home Medications ?Medication ?Instructions ?Recorded ?Confirmed ?Last Taken ?Type Calcium 500 1 tab PO DAILY 07/15/20 04/10/24 07/15/20 History levothyroxine 25 mcg tablet 1 tab PO DAILY 07/15/20 04/10/24 04/10/24 History multivitamin 1 tab PO DAILY 07/15/20 04/10/24 07/15/20 History aspirin 81 mg chewable tablet 81 mg PO DAILY 07/16/20 04/10/24 07/15/20 History simvastatin 40 mg tablet 40 mg PO BID 08/24/21 04/10/24 Unknown History Oxygen Home Use 10/18/22 Unknown History nebulizers 10/18/22 Unknown History pantoprazole 40 mg tablet,delayed 40 mg PO DAILY 04/08/24 04/10/24 04/10/24 History release Exam Pertinent Lab Results Pertinent Lab Results: Laboratory Tests 03/24/24 15:43 Sodium 140 Potassium 4.4 Chloride 100 Carbon Dioxide 30 H BUN 17 H Creatinine 0.82 Narrative Narrative: Per [facility] ER note 02/2024 NSR @ 96 Assessment and Plan Assessment Anesthesia Assessment: Chart Reviewed Documented by User: Caroline Killian DO 04/10/24 13:27 HPI - Anesthesia Eval Consult details Narrative: 78yo F for Bronchoscopy Fiberoptic O2 dependent at home - [facility] ER 02/2024 with COPD exac, symptomatic anemia. IV steroids and 1 unit PRBC with d/c home. [facility] Past Medical History Medical History (Updated 03/09/24 @ 20:01 by Mateo Barrientos MD) Dyspnea (~08/14/23) Tachycardia Anemia Anemia Pre-op chest exam Vertebral artery stenosis Dyspnea Chronic respiratory failure Dyslipidemia Hypothyroidism Centrilobular emphysema Family History Family History Mother No problems noted. Daughter Diabetes Family history of problems with anesthesia: No Surgical History Surgical History (Updated 04/10/24 @ 12:47 by Barbara Armando RN) Hx of colonoscopy History of cholecystectomy H/O: hysterectomy History of Problems with Anesthesia: No Social History Social History (Updated 03/08/21 @ 11:20 by NAN Larson) Household Members: None Housing: House Do you presently have visiting nurse or other home services: No Alcohol intake: unknown Patient Tobacco Use Status: Former Tobacco user Tobacco use type: Cigarette Years Smoked: 40+ years Use of substances other than those prescribed or required for medical reasons: No Are you DNR?: No Advance Directives: No Advance Directives Information Provided: Yes service: No Current occupational status: retired [employer] Allergies Allergy/AdvReac Type Severity Reaction Status Date / Time No Known Allergies Allergy Verified 04/10/24 12:53 Home Medications ?Medication ?Instructions ?Recorded ?Confirmed ?Last Taken ?Type Calcium 500 1 tab PO DAILY 07/15/20 04/10/24 07/15/20 History levothyroxine 25 mcg tablet 1 tab PO DAILY 07/15/20 04/10/24 04/10/24 History multivitamin 1 tab PO DAILY 07/15/20 04/10/24 07/15/20 History aspirin 81 mg chewable tablet 81 mg PO DAILY 07/16/20 04/10/24 07/15/20 History simvastatin 40 mg tablet 40 mg PO BID 08/24/21 04/10/24 Unknown History Oxygen Home Use 10/18/22 Unknown History nebulizers 10/18/22 Unknown History pantoprazole 40 mg tablet,delayed 40 mg PO DAILY 04/08/24 04/10/24 04/10/24 History release Exam Exam Date and Time: April 10, 2025 1316 Height,Weight and Vital Signs: Height 5 ft 4 in Weight 57.606 kg Vital Signs Pulse Rate 86 04/10/24 12:39 Respiratory Rate 18 04/10/24 12:39 Temperature 98.3 F 04/10/24 13:00 Pulse Rate 101 H 04/10/24 13:00 Respiratory Rate 18 04/10/24 13:00 Blood Pressure 129/18 L 04/10/24 13:00 Pulse Oximetry 96 04/10/24 13:00 Oxygen Delivery Method Nasal Cannula 04/10/24 13:00 Airway Mallampati Class: I TM Dist: >3cm Neck ROM: Limited Denture: Upper and Lower Heart: S1S2 Lungs: Diminished bilaterally Assessment and Plan Assessment Anesthesia Assessment: Anesthesia Plan Discussed and Chart Reviewed Final Anesthetic Review Family History of Problems with Anesthesia: No History of Problems with Anesthesia: No NPO: Yes ASA Class: III Final Preanesthetic Review: No Changes in Pt Med Stat, Meds/Allgs Chart Reviewed, Consent Obtained/Reviewed and Anes Risks/Benef Reviewed Patient Risk: Intermediate Procedure Risk: Intermediate Anesthetic Plan Anesthetic Plan: MAC: and Agree w/ Assess. and Plan Disposition: Standard PACU
--- NOTE | 2024-04-14 08:27 | PM.OP ---
Brief Operative Note Date of Service: 04/10/24 Pre-op diagnosis: pneumonia Post-op diagnosis: other (severe tracheobronchomalecia, bronchitis) Procedure: Bronchoscopy with washings Implants: Surgeon: Mateo Barrientos MD Anesthesia: MAC Was an First Beater used for this Procedure?: No Estimated blood loss (mL): 0 Condition: stable Disposition: same day
--- NOTE | 2024-04-14 10:55 | OP_ITS ---
DATE OF SERVICE: 04/10/2024 SURGEON: Mateo Barrientos MD PREOPERATIVE DIAGNOSIS: Pneumonia. POSTOPERATIVE DIAGNOSIS: PROCEDURE PERFORMED: Bronchoscopy. ESTIMATED BLOOD LOSS: None. sent for microbiology and cytology. COMPLICATIONS: None. ANESTHESIA: MAC. ASSISTANTS: None. Consent was obtained from the patient. SPECIMENS: POSTOPERATIVE DIAGNOSES: Severe tracheobronchomalacia and bronchitis. ASA CLASSIFICATION: IV. DESCRIPTION OF PROCEDURE: After the patient was adequately sedated, the flexible digital bronchoscope was intended to be inserted via the right nostril after was prepped with lidocaine. Although could not fit at the posterior turbinate, it was too tight. Therefore, we placed in oral airway and the bronchoscope was inserted via the oral airway to the level of the larynx and vocal cords more symmetric into the midline without any lesions. The larynx appeared to be totally normal. After receiving lidocaine, the bronchoscope was navigated vocal cords to the level of the trachea. The patient did have some difficulty with breathing as she developed some stridor. the trachea consistent with near 100% obstruction with trachea in the proximal and also the mid area. The patient also had evidence of bronchomalacia. She did have some secretions primarily in the central airways, which appeared to be mucoid, but thick. Bronchial washings were collected. The patient was having hard time with the procedure, although her vital signs were stable. Her respiratory rate was elevated and therefore we opted on completing the procedure. The bronchoscope was then removed after collecting the bronchial washings. No endobronchial lesions appreciated at least at the central airway level. No bleeding noted. The bronchoscope was then removed. The total endoscopic time approximately 5 minutes. The patient tolerated procedure. MD OSCAR Cobb/ZABRINA / [id number]
== END 2024-04-10 16:00 | disposition home or self-care (01) ==
PROVIDERS: Nurse Practitioner; PCP Internal Medicine; Visit Provider Hospitalist
PROC: 0BJ08ZZ Inspection of Tracheobronchial Tree, Via Natural or Artificial Opening Endoscopic (ICD-10-PCS; CPT 31622; principal; 2024-04-10 13:20)
DX: J18.9 Pneumonia, unspecified organism (principal); J44.9 Chronic obstructive pulmonary disease, unspecified; J96.11 Chronic respiratory failure with hypoxia; J96.12 Chronic respiratory failure with hypercapnia; J43.2 Centrilobular emphysema; J98.09 Other diseases of bronchus, not elsewhere classified; R91.8 Other nonspecific abnormal finding of lung field; R00.0 Tachycardia, unspecified; D50.9 Iron deficiency anemia, unspecified; Z99.81 Dependence on supplemental oxygen; Z79.52 Long term (current) use of systemic steroids; Z79.51 Long term (current) use of inhaled steroids; Z79.2 Long term (current) use of antibiotics; Z87.891 Personal history of nicotine dependence; E78.5 Hyperlipidemia, unspecified; E03.9 Hypothyroidism, unspecified
CPT/HCPCS: 31622; 36415; 85027; 87070; 87077; 87205; 94640; J0171; J1596; J2250; J2371

== ENCOUNTER → 2024-04-10 11:32 | Outpatient (BNV) | payer MEDICARE, SELFPAY | PROVIDERS: PCP Internal Medicine; Visit Provider Hospitalist | DX: J18.9 Pneumonia, unspecified organism (principal); J39.8 Other specified diseases of upper respiratory tract; J20.9 Acute bronchitis, unspecified | CPT/HCPCS: 31622 ==

== ENCOUNTER 2024-05-08 10:00 | Outpatient (AMB) | payer MEDICARE, SELFPAY ==
--- NOTE | 2024-05-08 10:03 | MHC.OFFVIS ---
Vital Signs 05/08/24 10:04 Height 5 ft 4 in Weight 125 lb BMI 21.5 BP 122/60 Blood Pressure Location Lt brachial Position Sitting Pulse 85 Pulse Source Pulse Oximeter Pulse Oximetry (%) 94 Oxygen Delivery Method Room Air Comment 3 Liters Oxygen([facility]) Intake Visit Reasons: COPD Sulphate Tester Required: No Allergies No Known Allergies Allergy (Verified 05/08/24 10:04) HPI Comments Details: The patient is a 78 y/o woman with a history of COPD also with the O2 dependence on chronic Prednisone. She also has pulmonary nodules over following. She is scheduled for CT scan in a month at [facility]. Therefore, will follow up after that. She has times and dyspnea on exertion. She does need her oxygen. She is looking to getting a portable oxygen concentrator. However she is questioning if she can use the POC at nighttime. I am concerned that if she does not activate the pulse while sleeping and it would not be helpful for her. However if she does decide to buy it we can always retest to see if is effective for her while she is sleeping. She continues to pulmonary rehabilitation. That is going well. She continues uses trelegy. She is using the azithromycin. She has been around people that have been sick and she has been able to stay healthy. Will continue the for next 3-4 months and will see about weaning it off to give her a break from medications. This antibiotic but will use it more for the anti-inflammatory properties. Did review her last CT scan of the chest that she had recently demonstrating small pulmonary nodules are stable in size. She has a RADS 2 and therefore needs a repeat CT scan in a year's time. We did do a chest x-ray today which appears to have resolution of the left-sided process. No evidence of any acute lower respiratory infection. Therefore, she is responding well to the current respiratory regimen and antibiotics. She will complete the antibiotic course and then taper down the prednisone to 10 mg daily. She has been now multiple courses of antibiotics and prednisone is still having hard time with her breathing. She has been having hard time expectorating. She is getting very frustrated upset. She also complains of increasing shortness of breath and increasing heart rate. She denies any chest pains. On examination she does have some rhonchi on exam which appeared to be right worse than left. Her pneumonia was on her left and side initially. That ultimately cleared up on the x-ray. The patient has a hard time expectorating. Therefore, we'll try the stronger antibiotics along with another course of prednisone. At this point will plan to this pulmonary function study with ABG. The patient should stay on a small dose of prednisone of 10 mg every other day and should also restart the azithromycin Sunday and Sunday. Will monitor closely her IgG levels at this time, no need for augmentation therapy. She did have a 6 minutes walk test and during that study her oxygen quickly decreased after 50 ft on room air to 86%. After that heart rate did increase to the 130s. The patient rested he then was placed on 3 L pulse and ambulating her she was able to maintain a pulse ox above 90%. However, heart rate still was elevated than 130s. The patient states that she did have an echocardiogram at [facility] and I do not have the results right now. 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 It is reasonable to have her follow up with Cardiology as we wait for the results or pulmonary function studies and arterial blood gas. While we wait for those results the patient is to hold off on pulmonary rehabilitation. e did have worsening respiratory symptoms and malaise and she was taken to [facility] which she was found to have a hemoglobin of 5.9. Here in the office we checked back in September she was up to 10 which is significant drop. In the meantime she was given 2 units of blood and she did undergo an upper and lower endoscopy without any significant findings. She is given iron which is taking with multivitamins. While she was there she did have a blood gas demonstrating a pH does 7.36 with a pCO2 of 39 mm of mercury which is within normal limits suggesting that she has no evidence of chronic hypercarbic respiratory failure. 11/15/2023 the patient is here for a pulmonary follow-up visit. She continues to have dyspnea on exertion with minimal activity. She understands that she has very severe COPD. She is also oxygen dependent has significant anemia. She is status post iron infusions. She will be following closely we hematology. In the meantime she has not been very active. We did talk about the importance of conditioning and pulmonary rehabilitation. She had been doing the online pulmonary rehab but did not find it very helpful. We did talk about considering going back to in-person pulmonary rehab. She also also using her noninvasive ventilator. Sometimes difficult for her to tolerate. Already has been demonstrating improvement in the CO2. The therapy has been affecting beneficial. At this point we talked about ways to improve her energy level during daytime. She is going to try increasing the prednisone from 7.5-10 mg. the other options to consider stimulant such as modafinil. 02/06/2024 the patient is here for a pulmonary follow-up visit. She is still struggling with breathing. Develops significant dyspnea with minimal activity. Moderate to severe. She does use the oxygen all the time. The patient did get 2 units of blood transfusion and she was hoping to feel better but she did not. The patient also underwent blood work including a blood gas demonstrating chronic stable hypercarbic respiratory failure and also had her hemoglobin checked which was 9.7 which is still significantly low but better for her. Kidney function was also stable. She did have a chest x-ray demonstrating hyperinflated lungs consistent with her advanced COPD. We talked about her underlying condition as far as her medications she is currently medically optimize with the noninvasive ventilator in the inhaler therapy. She should be increasing the oxygen with activity to avoid the desaturations. In addition to that will try some diuretics to see if we can help with volume status. Explained to her that she may have a component of cor pulmonale. If her symptoms persist we can also request an echocardiogram. At this point the patient understands that she has very severe COPD and at this point she is maximized on her respiratory therapy. Will continue to provide as much support as possible understand the limitations. 03/06/2024 the patient is here for sick visit. She has been struggling. She has had increased respiratory complaints. Hard time breathing. She went to her primary care doctor felt to have a bout of bronchitis she was given doxycycline. Ultimately she has not been getting better so she went to Oncology to see if she needed blood. However, the busy and could not accommodate so she ended up going to the ER. There she did receive 1 unit of blood. She did have a CT of the chest demonstrating significant emphysema but no blood clots. No airspace disease. No clear explanation for the patient's symptoms. She was discharged and she currently is completing a prednisone taper. The patient was able to do a breathing treatment in the office and we were able to help her expectorate some phlegm. It is very tenacious greenish in color. Maybe some tension blood in it very hard for her to expectorate. I did talk to her daughter some concerned that she looks weaker. The patient already has evidence of hypercarbic respiratory failure and now with the mucus burden unable to her secretions is concerned that she could potentially get worse. We did talk about the importance of using the noninvasive ventilator to give her assistance with breathing. And she will use that. We were able to get a sputum culture and send to the lab. It looks like Pseudomonas. Therefore send Levaquin. She already has diarrhea. 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 She knows to stop the medication if she develops any tendonitis. She also be off the azithromycin by while she 03/24/2024 the patient is here for a pulmonary sick visit. She is still struggling with breathing. Initially she responded very well to the Levaquin. She did not complain of any tendinitis or any diarrhea. She did take some probiotics at some periods. She is now back in azithromycin. Her breathing became significantly better apparently. Now much worse again. Starting to get congestion. Difficult to expectorate. Her sputum culture was not helpful as it was only positive for respiratory naty. I do believe that bronchoscopy will be helpful for therapeutic cleaning in addition to lower respiratory cultures to assess any enteric organisms that will require therapy. Will see about scheduling a bronchoscopy. We can do it under moderate sedation and provide her with a lidocaine nebulizer treatment to minimize on the anesthesia effects in view of her respiratory failure. Patient also will undergo blood work specially because he is more tachycardic today. Wonder if she is potentially more anemic is also likely contributing to her symptoms. 04/08/2024 the patient is here for a follow-up visit after hospitalization. She had been admitted to [facility] with worsening respiratory symptoms. At that point she was already on Levaquin for the persistent chest congestion. She required a couple units of blood. It was found that she had blood in her stools. She does have an evaluation from a GI standpoint. Although they do not want to do any procedures because she had some serious complications handling anesthesia in the past. The details are not available though. The patient has been using noninvasive ventilator. She is maxed that with her medications. She still has a significant cough difficult to clear secretions. The family is with her. We did talk about her severity of disease having very severe COPD on top of that significant anemia. I did provide her a letter in order for her to get a transfusion when her hemoglobin is 8 and not wait till the 7 due to her very severe COPD and minimal gas exchange. Hopefully that can provide her some support. In the meantime her condition is unlikely to improve unfortunately. She does have chronic severe progressive disease. Will continue supporting her as much as possible I did recommend that it looking for any other alternatives to treatments she can always going to [place] for 2nd opinion although I do not believe they have much to offer her with her age in severe comorbidities. Will plan to do a bronchoscopy to try to provide airway clearance and deep cultures if there is anything else we can treat to allow her respiratory status to improve. Right now hemoglobin stable since she has got a blood transfusion and IV infusions of iron and will be a good opportunity to do so. 05/08/2024 the patient is here for a pulmonary follow-up visit. She is status post bronchoscopy. 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 She was initially treated with Levaquin and then with doxycycline. Her chest congestion is improved dramatically. Although she could not tolerate the doxycycline after more than 3 weeks because of nausea. Therefore the patient will stop the doxycycline. Would still waiting for sensitivities but we can also try Bactrim for now tried putting a prophylactic dose. She could stop the azithromycin. The patient also had a blood transfusion since we last spoke and hemoglobin has been better than has been a long time. She did move in with her daughter which is reassuring. She also signed papers for DNR. The patient will continue her current respiratory therapy. We did talk about different exercises she can do at home. She needs to continue with her pulmonary rehabilitation. She will continue using to use her oxygen and will follow-up in 6-8 weeks. She will continue the Bactrim until we talk then. Will have to make sure to treat the stenotrophomonas effectively so will have to wait for the sensitivities come back. [facility] Medical History (Updated 03/09/24 @ 20:01 by Mateo Barrientos MD) Dyspnea (~08/14/23) Tachycardia Anemia Anemia Pre-op chest exam Vertebral artery stenosis Dyspnea Chronic respiratory failure Dyslipidemia Hypothyroidism Centrilobular emphysema Surgical History (Updated 04/10/24 @ 12:47 by Barbara Armando RN) Hx of colonoscopy History of cholecystectomy H/O: hysterectomy Family History Mother No problems noted. Daughter Diabetes Social History (Updated 03/08/21 @ 11:20 by NAN Larson) Household Members: None Housing: House Do you presently have visiting nurse or other home services: No Alcohol intake: unknown Patient Tobacco Use Status: Former Tobacco user Tobacco use type: Cigarette Years Smoked: 40+ years service: No Current occupational status: retired Review of Systems Const Reports fatigue, Denies night sweats and Reports weight loss ENT Denies change in voice, Denies lip swelling, Denies mouth pain, Reports nasal congestion, Reports nasal discharge and Denies tongue swelling Card Denies chest pain, Reports dyspnea and Reports dyspnea on exertion Resp Reports change in phlegm color, Reports chest congestion, Reports cough, Denies hemoptysis, Reports dyspnea and Reports dyspnea on exertion GI Denies abdominal pain, Denies melena and Denies hematochezia Musc Denies no additional complaints Neuro Denies Neuro-related abnormal movements Psych Reports depression Endo Reports fatigue Fredi/Lymph Denies easy bleeding and Denies lymphadenopathy Aller/Immun Denies lip swelling and Denies tongue swelling Physical Exam Vital Signs: Last Vital Signs Pulse 85 05/08/24 10:04 BP 122/60 05/08/24 10:04 Pulse Ox 94 05/08/24 10:04 Oxygen Delivery Method Room Air 05/08/24 10:04 BMI result Body Mass Index 21.5 Const General: alert and tired appearing Eyes Conjunctivae: conjunctival abnormal bilateral pallor Pupils: Equal, round and reactive pupils present Neck Neck: Yes normal visual inspection, Yes full ROM and Yes no lymphadenopathy Chest Chest palpation & inspection: normal inspection of the chest Resp Effort & Inspection: normal respiratory effort and prolonged expiratory phase Auscultation: no rhonchi, no wheezes and diminished lung sounds Cardio Rate: tachycardic Rhythm: regular rhythm Heart sounds: S1 normal heart sound present and S2 normal heart sound present GI Palpation (GI): Soft to palpation and nontender Auscultation: normal bowel sounds Skin Trauma: abrasion (RLE) Neuro Cranial nerves: Yes Equal, round and reactive pupils present Assessment & Plan Assessment & Plan (1) Dyspnea: Code(s): R06.00 - Dyspnea, unspecified Category: Medical Qualifiers: Dyspnea type: dyspnea on exertion Qualified Code(s): R06.00 - Dyspnea, unspecified (2) Centrilobular emphysema: Comment: Very severe COPD with FEV1 26% predicted Code(s): J43.2 - Centrilobular emphysema Category: Medical (3) Chronic respiratory failure: Comment: With evidence of chronic hypercarbic respiratory failure, DLCO very severe Code(s): J96.10 - Chronic respiratory failure, unspecified whether with hypoxia or hypercapnia Category: Medical Qualifiers: Respiratory failure complication: hypoxia and hypercapnia Qualified Code(s): J96.11 - Chronic respiratory failure with hypoxia; J96.12 - Chronic respiratory failure with hypercapnia; J96.12 - Chronic respiratory failure with hypercapnia (4) Anemia: Code(s): D64.9 - Anemia, unspecified Category: Medical Qualifiers: Anemia type: iron deficiency Iron deficiency anemia type: unspecified iron deficiency Qualified Code(s): D50.9 - Iron deficiency anemia, unspecified (5) COPD (chronic obstructive pulmonary disease): Comment: very severe, end stage Code(s): J44.9 - Chronic obstructive pulmonary disease, unspecified Category: Medical Qualifiers: COPD type: COPD with acute lower respiratory infection Qualified Code(s): J44.0 - Chronic obstructive pulmonary disease with (acute) lower respiratory infection Plan continue Prednisone 10mg daily continued Trelegy continue Duoneb oxygen supplementation 4 L pulse with activity and also should also uses to sleep. continue NIV, AVAPS, PCO2 better at 65->58mmHg on venous blood gas, volume 350 ml and rate 12. DNR Stop Doxycycline start Bactrim, awaitnig the stenotrophomonas sensitivities stop azithromycin follow-up in 3-4 weeks Medications: New sulfamethoxazole-trimethoprim 800-160 mg (Bactrim DS) 1 tab PO BID 30 days 60 tabs 3RF sulfamethoxazole-trimethoprim 800-160 mg (Bactrim DS) 1 tab PO BID 30 days 60 tabs 3RF Discontinued azithromycin Discontinued Reason: Doctor's Order 250 mg PO 3XW 39 tabs 3RF Coding Level of Care Code Est Pt Level 5 (73826) Complex EM visit Add On G2211 Diagnoses Dyspnea on exertion R06.00 Dyspnea type: dyspnea on exertion Centrilobular emphysema J43.2 Chronic respiratory failure with hypoxia and hypercapnia J96.11; J96.12; J96.12 Respiratory failure complication: hypoxia and hypercapnia Iron deficiency anemia, unspecified iron deficiency anemia type D50.9 Anemia type: iron deficiency Iron deficiency anemia type: unspecified iron deficiency Chronic obstructive pulmonary disease with acute lower respiratory infection J44.0 COPD type: COPD with acute lower respiratory infection Time Spent (min) 35
[2024-05-08 10:04] VITALS: BP 122/60; PULSE 85; O2SAT 94; BMI 21.5
== END 2024-05-08 10:32 | disposition home or self-care (01) ==
PROVIDERS: PCP Internal Medicine; Visit Provider Hospitalist
DX: J43.2 Centrilobular emphysema (principal); J96.11 Chronic respiratory failure with hypoxia; J96.12 Chronic respiratory failure with hypercapnia; D50.9 Iron deficiency anemia, unspecified
CPT/HCPCS: 99215; G2211

== ENCOUNTER → 2024-05-08 10:00 | Outpatient (BNVA) | payer MEDICARE, SELFPAY | PROVIDERS: PCP Internal Medicine; Visit Provider Hospitalist | DX: Z13.89 Encounter for screening for other disorder (principal) | CPT/HCPCS: 99212 ==

== ENCOUNTER 2024-05-08 10:43 | Outpatient (REF) | payer MEDICARE, SELFPAY ==
[2024-05-08 12:42] LABS: Anion Gap 13 (12-20); Blood Urea Nitrogen 12 mg/dL (9-16); Carbon Dioxide 33 mmol/L (22-29); Chloride 103 mmol/L (96-108); Estimated Glomerular Filt Rate > 60; Glucose Fasting 104 mg/dL (60-99); Potassium 3.9 mmol/L (3.3-5.1); Sodium 145 mmol/L (135-145)
[2024-05-08 13:12] LABS: Folate 13.3 ng/mL (> or = 4.0); Vitamin B12 860 pg/mL (200-900)
[2024-05-12 21:28] LABS: Lyme Abs Screen <0.90 index
[2024-05-14 14:43] LABS: IgA 83 mg/dL (70-320); IgG 619 mg/dL (600-1540); IgM 77 mg/dL (50-300)
== END 2024-05-08 10:44 | disposition home or self-care (01) ==
LOC: HO.LAB 10:43
PROVIDERS: PCP Internal Medicine; Visit Provider Psychiatry & Neurology Neurology
DX: G62.9 Polyneuropathy, unspecified (principal); J43.2 Centrilobular emphysema; J96.11 Chronic respiratory failure with hypoxia; J96.12 Chronic respiratory failure with hypercapnia; D50.9 Iron deficiency anemia, unspecified
CPT/HCPCS: 36415; 80048; 82607; 82746; 82784; 86334; 86617; 86618; 99212

== ENCOUNTER 2024-07-10 15:31 | Outpatient (AMB) | payer MEDICARE, SELFPAY ==
--- NOTE | 2024-07-10 15:37 | A.OFFVIS_ITS ---
Vital Signs 07/10/24 15:41 Height 5 ft 4 in Weight 123 lb BMI 21.1 BP 128/60 Blood Pressure Location Rt brachial Position Sitting Pulse 89 Pulse Source Pulse Oximeter Pulse Oximetry (%) 93 Oxygen Delivery Method Room Air Intake Visit Reasons: COPD Account Clerk Required: No Allergies No Known Allergies Allergy (Verified 07/10/24 15:37) HPI Comments Details: The patient is a 79 y/o woman with a history of COPD also with the O2 dependence on chronic Prednisone. She also has pulmonary nodules over following. She is scheduled for CT scan in a month at [facility]. Therefore, will follow up after that. She has times and dyspnea on exertion. She does need her oxygen. She is looking to getting a portable oxygen concentrator. However she is questioning if she can use the POC at nighttime. I am concerned that if she does not activate the pulse while sleeping and it would not be helpful for her. However if she does decide to buy it we can always retest to see if is effective for her while she is sleeping. She continues to pulmonary rehabilitation. That is going well. She continues uses trelegy. She is using the azithromycin. She has been around people that have been sick and she has been able to stay healthy. Will continue the for next 3-4 months and will see about weaning it off to give her a break from medications. This antibiotic but will use it more for the anti-inflammatory properties. Did review her last CT scan of the chest that she had recently demonstrating small pulmonary nodules are stable in size. She has a RADS 2 and therefore needs a repeat CT scan in a year's time. We did do a chest x-ray today which appears to have resolution of the left-sided process. No evidence of any acute lower respiratory infection. Therefore, she is responding well to the current respiratory regimen and antibiotics. She will complete the antibiotic course and then taper down the prednisone to 10 mg daily. She has been now multiple courses of antibiotics and prednisone is still having hard time with her breathing. She has been having hard time expectorating. She is getting very frustrated upset. She also complains of increasing shortness of breath and increasing heart rate. She denies any chest pains. On examination she does have some rhonchi on exam which appeared to be right worse than left. Her pneumonia was on her left and side initially. That ultimately cleared up on the x-ray. The patient has a hard time expectorating. Therefore, we'll try the stronger antibiotics along with another course of prednisone. At this point will plan to this pulmonary function study with ABG. The patient should stay on a small dose of prednisone of 10 mg every other day and should also restart the azithromycin Sunday and Sunday. Will monitor closely her IgG levels at this time, no need for augmentation therapy. She did have a 6 minutes walk test and during that study her oxygen quickly decreased after 50 ft on room air to 86%. After that heart rate did increase to the 130s. The patient rested he then was placed on 3 L pulse and ambulating her she was able to maintain a pulse ox above 90%. However, heart rate still was elevated than 130s. The patient states that she did have an echocardiogram at [facility] and I do not have the results right now. 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 It is reasonable to have her follow up with Cardiology as we wait for the results or pulmonary function studies and arterial blood gas. While we wait for those results the patient is to hold off on pulmonary rehabilitation. e did have worsening respiratory symptoms and malaise and she was taken to [facility] which she was found to have a hemoglobin of 5.9. Here in the office we checked back in September she was up to 10 which is significant drop. In the meantime she was given 2 units of blood and she did undergo an upper and lower endoscopy without any significant findings. She is given iron which is taking with multivitamins. While she was there she did have a blood gas demonstrating a pH does 7.36 with a pCO2 of 39 mm of mercury which is within normal limits suggesting that she has no evidence of chronic hypercarbic respiratory failure. 11/15/2023 the patient is here for a pulmonary follow-up visit. She continues to have dyspnea on exertion with minimal activity. She understands that she has very severe COPD. She is also oxygen dependent has significant anemia. She is status post iron infusions. She will be following closely we hematology. In the meantime she has not been very active. We did talk about the importance of conditioning and pulmonary rehabilitation. She had been doing the online pulmonary rehab but did not find it very helpful. We did talk about considering going back to in-person pulmonary rehab. She also also using her noninvasive ventilator. Sometimes difficult for her to tolerate. Already has been demonstrating improvement in the CO2. The therapy has been affecting beneficial. At this point we talked about ways to improve her energy level during daytime. She is going to try increasing the prednisone from 7.5-10 mg. the other options to consider stimulant such as modafinil. 02/06/2024 the patient is here for a pulmonary follow-up visit. She is still struggling with breathing. Develops significant dyspnea with minimal activity. Moderate to severe. She does use the oxygen all the time. The patient did get 2 units of blood transfusion and she was hoping to feel better but she did not. The patient also underwent blood work including a blood gas demonstrating chronic stable hypercarbic respiratory failure and also had her hemoglobin checked which was 9.7 which is still significantly low but better for her. Kidney function was also stable. She did have a chest x-ray demonstrating hyperinflated lungs consistent with her advanced COPD. We talked about her underlying condition as far as her medications she is currently medically optimize with the noninvasive ventilator in the inhaler therapy. She should be increasing the oxygen with activity to avoid the desaturations. In addition to that will try some diuretics to see if we can help with volume status. Explained to her that she may have a component of cor pulmonale. If her symptoms persist we can also request an echocardiogram. At this point the patient understands that she has very severe COPD and at this point she is maximized on her respiratory therapy. Will continue to provide as much support as possible understand the limitations. 03/06/2024 the patient is here for sick visit. She has been struggling. She has had increased respiratory complaints. Hard time breathing. She went to her primary care doctor felt to have a bout of bronchitis she was given doxycycline. Ultimately she has not been getting better so she went to Oncology to see if she needed blood. However, the busy and could not accommodate so she ended up going to the ER. There she did receive 1 unit of blood. She did have a CT of the chest demonstrating significant emphysema but no blood clots. No airspace disease. No clear explanation for the patient's symptoms. She was discharged and she currently is completing a prednisone taper. The patient was able to do a breathing treatment in the office and we were able to help her expectorate some phlegm. It is very tenacious greenish in color. Maybe some tension blood in it very hard for her to expectorate. I did talk to her daughter some concerned that she looks weaker. The patient already has evidence of hypercarbic respiratory failure and now with the mucus burden unable to her secretions is concerned that she could potentially get worse. We did talk about the importance of using the noninvasive ventilator to give her assistance with breathing. And she will use that. We were able to get a sputum culture and send to the lab. It looks like Pseudomonas. Therefore send Levaquin. She already has diarrhea. 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 She knows to stop the medication if she develops any tendonitis. She also be off the azithromycin by while she 03/24/2024 the patient is here for a pulmonary sick visit. She is still struggling with breathing. Initially she responded very well to the Levaquin. She did not complain of any tendinitis or any diarrhea. She did take some probiotics at some periods. She is now back in azithromycin. Her breathing became significantly better apparently. Now much worse again. Starting to get congestion. Difficult to expectorate. Her sputum culture was not helpful as it was only positive for respiratory naty. I do believe that bronchoscopy will be helpful for therapeutic cleaning in addition to lower respiratory cultures to assess any enteric organisms that will require therapy. Will see about scheduling a bronchoscopy. We can do it under moderate sedation and provide her with a lidocaine nebulizer treatment to minimize on the anesthesia effects in view of her respiratory failure. Patient also will undergo blood work specially because he is more tachycardic today. Wonder if she is potentially more anemic is also likely contributing to her symptoms. 04/08/2024 the patient is here for a follow-up visit after hospitalization. She had been admitted to [facility] with worsening respiratory symptoms. At that point she was already on Levaquin for the persistent chest congestion. She required a couple units of blood. It was found that she had blood in her stools. She does have an evaluation from a GI standpoint. Although they do not want to do any procedures because she had some serious complications handling anesthesia in the past. The details are not available though. The patient has been using noninvasive ventilator. She is maxed that with her medications. She still has a significant cough difficult to clear secretions. The family is with her. We did talk about her severity of disease having very severe COPD on top of that significant anemia. I did provide her a letter in order for her to get a transfusion when her hemoglobin is 8 and not wait till the 7 due to her very severe COPD and minimal gas exchange. Hopefully that can provide her some support. In the meantime her condition is unlikely to improve unfortunately. S he does have chronic severe progressive disease. Will continue supporting her as much as possible I did recommend that it looking for any other alternatives to treatments she can always going to [facility] for 2nd opinion although I do not believe they have much to offer her with her age in severe comorbidities. Will plan to do a bronchoscopy to try to provide airway clearance and deep cultures if there is anything else we can treat to allow her respiratory status to improve. Right now hemoglobin stable since she has got a blood transfusion and IV infusions of iron and will be a good opportunity to do so. 05/08/2024 the patient is here for a pulmonary follow-up visit. She is status post bronchoscopy. 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 She was initially treated with Levaquin and then with doxycycline. Her chest congestion is improved dramatically. Although she could not tolerate the doxycycline after more than 3 weeks because of nausea. Therefore the patient will stop the doxycycline. Would still waiting for sensitivities but we can also try Bactrim for now tried putting a prophylactic dose. She could stop the azithromycin. The patient also had a blood transfusion since we last spoke and hemoglobin has been better than has been a long time. She did move in with her daughter which is reassuring. She also signed papers for DNR. The patient will continue her current respiratory therapy. We did talk about different exercises she can do at home. She needs to continue with her pulmonary rehabilitation. She will continue using to use her oxygen and will follow-up in 6-8 weeks. She will continue the Bactrim until we talk then. Will have to make sure to treat the stenotrophomonas effectively so will have to wait for the sensitivities come back. 07/10/2024 the patient is here for a pulmonary follow-up visit. The patient overall is doing well. She has been doing better from the hemoglobin standpoint. She is getting blood transfusions more regularly. She is avoiding the hemoglobin dropping to the 70s when she becomes very symptomatic. Her cough is overall better. She did grow stenotrophomonas and she was treated with multiple antibiotics. Which she was supposed to stay on Bactrim but she stopped. She is currently on azithromycin 3 times a week. Overall seems to be helping. But feel more comfortable she went back to the Bactrim at least to finish a longer course to minimize the return of the stenotrophomonas. She is using her oxygen good effect. She is also using her respiratory medicines with good effect. No recent imaging to review at this time. Will plan to follow-up the current therapy. She is going to go back on the Bactrim and monitor closely for any adverse symptoms. The patient will return 2 months. I which time at that point we can talk about going back on the azithromycin. She is having issu e also with a skin cancer close to her right eye. She can not use the noninvasive ventilator with a regular mask because it bother her right were that she has a surgical intervention. She did have an F30 mask that she is trying although she is still finds it uncomfortable. She is going to start trying to adjusted a little bit better. I did recommend that if she needs to have further surgical intervention for the skin cancer if she is going to have any anesthesia she should do it hospital setting. [facility] Medical History (Updated 03/09/24 @ 20:01 by Mateo Barrientos MD) Dyspnea (~08/14/23) Tachycardia Anemia Anemia Pre-op chest exam Vertebral artery stenosis Dyspnea Chronic respiratory failure Dyslipidemia Hypothyroidism Centrilobular emphysema Surgical History (Updated 04/10/24 @ 12:47 by Barbara Armando RN) Hx of colonoscopy History of cholecystectomy H/O: hysterectomy Family History Mother No problems noted. Daughter Diabetes Social History (Updated 03/08/21 @ 11:20 by NAN Larson) Household Members: None Housing: House Do you presently have visiting nurse or other home services: No Alcohol intake: unknown Patient Tobacco Use Status: Former Tobacco user Tobacco use type: Cigarette Years Smoked: 40+ years service: No Current occupational status: retired Review of Systems Const Reports fatigue, Denies night sweats and Reports weight loss ENT Denies change in voice, Denies lip swelling, Denies mouth pain, Reports nasal congestion, Reports nasal discharge and Denies tongue swelling Card Denies chest pain, Reports dyspnea and Reports dyspnea on exertion Resp Reports chest congestion, Reports cough, Denies hemoptysis, Reports dyspnea and Reports dyspnea on exertion GI Denies abdominal pain, Denies melena and Denies hematochezia Musc Denies no additional complaints Neuro Denies Neuro-related abnormal movements Psych Reports depression Endo Reports fatigue Fredi/Lymph Denies easy bleeding and Denies lymphadenopathy Aller/Immun Denies lip swelling and Denies tongue swelling Physical Exam Vital Signs: Last Vital Signs Pulse 89 07/10/24 15:41 BP 128/60 07/10/24 15:41 Pulse Ox 93 07/10/24 15:41 Oxygen Delivery Method Room Air 07/10/24 15:41 BMI result Body Mass Index 21.1 Const General: alert and tired appearing Eyes Conjunctivae: conjunctival abnormal bilateral pallor Pupils: Equal, round and reactive pupils present Neck Neck: Yes normal visual inspection, Yes full ROM and Yes no lymphadenopathy Chest Chest palpation & inspection: normal inspection of the chest Resp Effort & Inspection: normal respiratory effort and prolonged expiratory phase Auscultation: no rhonchi, no wheezes and diminished lung sounds Cardio Rate: tachycardic Rhythm: regular rhythm Heart sounds: S1 normal heart sound present and S2 normal heart sound present GI Palpation (GI): Soft to palpation and nontender Auscultation: normal bowel sounds Skin Trauma: abrasion (RLE) Neuro Cranial nerves: Yes Equal, round and reactive pupils present Assessment & Plan Assessment & Plan (1) Dyspnea: Code(s): R06.00 - Dyspnea, unspecified Category: Medical Qualifiers: Dyspnea type: dyspnea on exertion Qualified Code(s): R06.00 - Dyspnea, unspecified (2) Centrilobular emphysema: Comment: Very severe COPD with FEV1 26% predicted Code(s): J43.2 - Centrilobular emphysema Category: Medical (3) Chronic respiratory failure: Comment: With evidence of chronic hypercarbic respiratory failure, DLCO very severe Code(s): J96.10 - Chronic respiratory failure, unspecified whether with hypoxia or hypercapnia Category: Medical Qualifiers: Respiratory failure complication: hypoxia and hypercapnia Qualified Code(s): J96.11 - Chronic respiratory failure with hypoxia; J96.12 - Chronic respiratory failure with hypercapnia; J96.12 - Chronic respiratory failure with hypercapnia (4) Anemia: Code(s): D64.9 - Anemia, unspecified Category: Medical Qualifiers: Anemia type: iron deficiency Iron deficiency anemia type: unspecified iron deficiency Qualified Code(s): D50.9 - Iron deficiency anemia, unspecified (5) COPD (chronic obstructive pulmonary disease): Comment: very severe, end stage Code(s): J44.9 - Chronic obstructive pulmonary disease, unspecified Category: Medical Qualifiers: COPD type: COPD with acute lower respiratory infection Qualified Code(s): J44.0 - Chronic obstructive pulmonary disease with (acute) lower respiratory infection Plan continue Prednisone 10mg daily continued Trelegy continue Duoneb oxygen supplementation 4 L pulse with activity and also should also uses to sleep. continue NIV, AVAPS, PCO2 better at 65->58mmHg on venous blood gas, volume 350 ml and rate 12., use F30 mask start Bactrim daily stop azithromycin follow-up in 3-4 weeks Medications: New ondansetron 4 mg PO Q8H PRN 30 tabs 1RF nausea and vomiting 10 days Coding Level of Care Code Est Pt Level 4 (11872) Complex EM visit Add On G2211 Diagnoses Dyspnea on exertion R06.00 Dyspnea type: dyspnea on exertion Centrilobular emphysema J43.2 Chronic respiratory failure with hypoxia and hypercapnia J96.11; J96.12; J96.12 Respiratory failure complication: hypoxia and hypercapnia Iron deficiency anemia, unspecified iron deficiency anemia type D50.9 Anemia type: iron deficiency Iron deficiency anemia type: unspecified iron deficiency Chronic obstructive pulmonary disease with acute lower respiratory infection J44.0 COPD type: COPD with acute lower respiratory infection Time Spent (min) 20
[2024-07-10 15:41] VITALS: BP 128/60; PULSE 89; O2SAT 93; BMI 21.1
== END 2024-07-10 16:10 | disposition home or self-care (01) ==
PROVIDERS: PCP Internal Medicine; Visit Provider Hospitalist
DX: J43.2 Centrilobular emphysema (principal); J96.11 Chronic respiratory failure with hypoxia; J96.12 Chronic respiratory failure with hypercapnia; D50.9 Iron deficiency anemia, unspecified
CPT/HCPCS: 99214; G2211

== ENCOUNTER → 2024-07-10 15:31 | Outpatient (BNVA) | payer MEDICARE, SELFPAY | PROVIDERS: PCP Internal Medicine; Visit Provider Hospitalist | DX: J44.0 Chronic obstructive pulmonary disease with (acute) lower respiratory infection (principal); J43.2 Centrilobular emphysema; J96.11 Chronic respiratory failure with hypoxia; J96.12 Chronic respiratory failure with hypercapnia; D50.9 Iron deficiency anemia, unspecified; Z99.81 Dependence on supplemental oxygen; Z79.52 Long term (current) use of systemic steroids; Z87.891 Personal history of nicotine dependence | CPT/HCPCS: 99212 ==

== ENCOUNTER 2024-09-04 11:10 | Outpatient (AMB) | payer MEDICARE, SELFPAY ==
[2024-09-04 11:18] VITALS: BP 122/54; PULSE 69; O2SAT 94; BMI 22.7
--- NOTE | 2024-09-04 11:18 | MHC.OFFVIS ---
Vital Signs 09/04/24 11:18 Height 5 ft 4 in Weight 132 lb 4.438 oz BMI 22.7 BP 122/54 L Blood Pressure Location Lt brachial Position Sitting Pulse 69 Pulse Source Pulse Oximeter Pulse Oximetry (%) 94 Oxygen Delivery Method Nasal Cannula Oxygen Flow Rate 3 Intake Visit Reasons: COPD Allergies No Known Allergies Allergy (Verified 09/04/24 11:22) HPI Comments Details: The patient is a 79 y/o woman with a history of COPD also with the O2 dependence on chronic Prednisone. She also has pulmonary nodules over following. She is scheduled for CT scan in a month at [facility]. Therefore, will follow up after that. She has times and dyspnea on exertion. She does need her oxygen. She is looking to getting a portable oxygen concentrator. However she is questioning if she can use the POC at nighttime. I am concerned that if she does not activate the pulse while sleeping and it would not be helpful for her. However if she does decide to buy it we can always retest to see if is effective for her while she is sleeping. She continues to pulmonary rehabilitation. That is going well. She continues uses trelegy. She is using the azithromycin. She has been around people that have been sick and she has been able to stay healthy. Will continue the for next 3-4 months and will see about weaning it off to give her a break from medications. This antibiotic but will use it more for the anti-inflammatory properties. Did review her last CT scan of the chest that she had recently demonstrating small pulmonary nodules are stable in size. She has a RADS 2 and therefore needs a repeat CT scan in a year's time. We did do a chest x-ray today which appears to have resolution of the left-sided process. No evidence of any acute lower respiratory infection. Therefore, she is responding well to the current respiratory regimen and antibiotics. She will complete the antibiotic course and then taper down the prednisone to 10 mg daily. She has been now multiple courses of antibiotics and prednisone is still having hard time with her breathing. She has been having hard time expectorating. She is getting very frustrated upset. She also complains of increasing shortness of breath and increasing heart rate. She denies any chest pains. On examination she does have some rhonchi on exam which appeared to be right worse than left. Her pneumonia was on her left and side initially. That ultimately cleared up on the x-ray. The patient has a hard time expectorating. Therefore, we'll try the stronger antibiotics along with another course of prednisone. At this point will plan to this pulmonary function study with ABG. The patient should stay on a small dose of prednisone of 10 mg every other day and should also restart the azithromycin Sunday and Sunday. Will monitor closely her IgG levels at this time, no need for augmentation therapy. She did have a 6 minutes walk test and during that study her oxygen quickly decreased after 50 ft on room air to 86%. After that heart rate did increase to the 130s. The patient rested he then was placed on 3 L pulse and ambulating her she was able to maintain a pulse ox above 90%. However, heart rate still was elevated than 130s. The patient states that she did have an echocardiogram at [facility] and I do not have the results right now. 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 It is reasonable to have her follow up with Cardiology as we wait for the results or pulmonary function studies and arterial blood gas. While we wait for those results the patient is to hold off on pulmonary rehabilitation. e did have worsening respiratory symptoms and malaise and she was taken to [facility] which she was found to have a hemoglobin of 5.9. Here in the office we checked back in September she was up to 10 which is significant drop. In the meantime she was given 2 units of blood and she did undergo an upper and lower endoscopy without any significant findings. She is given iron which is taking with multivitamins. While she was there she did have a blood gas demonstrating a pH does 7.36 with a pCO2 of 39 mm of mercury which is within normal limits suggesting that she has no evidence of chronic hypercarbic respiratory failure. 11/15/2023 the patient is here for a pulmonary follow-up visit. She continues to have dyspnea on exertion with minimal activity. She understands that she has very severe COPD. She is also oxygen dependent has significant anemia. She is status post iron infusions. She will be following closely we hematology. In the meantime she has not been very active. We did talk about the importance of conditioning and pulmonary rehabilitation. She had been doing the online pulmonary rehab but did not find it very helpful. We did talk about considering going back to in-person pulmonary rehab. She also also using her noninvasive ventilator. Sometimes difficult for her to tolerate. Already has been demonstrating improvement in the CO2. The therapy has been affecting beneficial. At this point we talked about ways to improve her energy level during daytime. She is going to try increasing the prednisone from 7.5-10 mg. the other options to consider stimulant such as modafinil. 02/06/2024 the patient is here for a pulmonary follow-up visit. She is still struggling with breathing. Develops significant dyspnea with minimal activity. Moderate to severe. She does use the oxygen all the time. The patient did get 2 units of blood transfusion and she was hoping to feel better but she did not. The patient also underwent blood work including a blood gas demonstrating chronic stable hypercarbic respiratory failure and also had her hemoglobin checked which was 9.7 which is still significantly low but better for her. Kidney function was also stable. She did have a chest x-ray demonstrating hyperinflated lungs consistent with her advanced COPD. We talked about her underlying condition as far as her medications she is currently medically optimize with the noninvasive ventilator in the inhaler therapy. She should be increasing the oxygen with activity to avoid the desaturations. In addition to that will try some diuretics to see if we can help with volume status. Explained to her that she may have a component of cor pulmonale. If her symptoms persist we can also request an echocardiogram. At this point the patient understands that she has very severe COPD and at this point she is maximized on her respiratory therapy. Will continue to provide as much support as possible understand the limitations. 03/06/2024 the patient is here for sick visit. She has been struggling. She has had increased respiratory complaints. Hard time breathing. She went to her primary care doctor felt to have a bout of bronchitis she was given doxycycline. Ultimately she has not been getting better so she went to Oncology to see if she needed blood. However, the busy and could not accommodate so she ended up going to the ER. There she did receive 1 unit of blood. She did have a CT of the chest demonstrating significant emphysema but no blood clots. No airspace disease. No clear explanation for the patient's symptoms. She was discharged and she currently is completing a prednisone taper. The patient was able to do a breathing treatment in the office and we were able to help her expectorate some phlegm. It is very tenacious greenish in color. Maybe some tension blood in it very hard for her to expectorate. I did talk to her daughter some concerned that she looks weaker. The patient already has evidence of hypercarbic respiratory failure and now with the mucus burden unable to her secretions is concerned that she could potentially get worse. We did talk about the importance of using the noninvasive ventilator to give her assistance with breathing. And she will use that. We were able to get a sputum culture and send to the lab. It looks like Pseudomonas. Therefore send Levaquin. She already has diarrhea. 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 She knows to stop the medication if she develops any tendonitis. She also be off the azithromycin by while she 03/24/2024 the patient is here for a pulmonary sick visit. She is still struggling with breathing. Initially she responded very well to the Levaquin. She did not complain of any tendinitis or any diarrhea. She did take some probiotics at some periods. She is now back in azithromycin. Her breathing became significantly better apparently. Now much worse again. Starting to get congestion. Difficult to expectorate. Her sputum culture was not helpful as it was only positive for respiratory naty. I do believe that bronchoscopy will be helpful for therapeutic cleaning in addition to lower respiratory cultures to assess any enteric organisms that will require therapy. Will see about scheduling a bronchoscopy. We can do it under moderate sedation and provide her with a lidocaine nebulizer treatment to minimize on the anesthesia effects in view of her respiratory failure. Patient also will undergo blood work specially because he is more tachycardic today. Wonder if she is potentially more anemic is also likely contributing to her symptoms. 04/08/2024 the patient is here for a follow-up visit after hospitalization. She had been admitted to [facility] with worsening respiratory symptoms. At that point she was already on Levaquin for the persistent chest congestion. She required a couple units of blood. It was found that she had blood in her stools. She does have an evaluation from a GI standpoint. Although they do not want to do any procedures because she had some serious complications handling anesthesia in the past. The details are not available though. The patient has been using noninvasive ventilator. She is maxed that with her medications. She still has a significant cough difficult to clear secretions. The family is with her. We did talk about her severity of disease having very severe COPD on top of that significant anemia. I did provide her a letter in order for her to get a transfusion when her hemoglobin is 8 and not wait till the 7 due to her very severe COPD and minimal gas exchange. Hopefully that can provide her some support. In the meantime her condition is unlikely to improve unfortunately. She does have chronic severe progressive disease. Will continue supporting her as much as possible I did recommend that it looking for any other alternatives to treatments she can always going to [facility] for 2nd opinion although I do not believe they have much to offer her with her age in severe comorbidities. Will plan to do a bronchoscopy to try to provide airway clearance and deep cultures if there is anything else we can treat to allow her respiratory status to improve. Right now hemoglobin stable since she has got a blood transfusion and IV infusions of iron and will be a good opportunity to do so. 05/08/2024 the patient is here for a pulmonary follow-up visit. She is status post bronchoscopy. 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 She was initially treated with Levaquin and then with doxycycline. Her chest congestion is improved dramatically. Although she could not tolerate the doxycycline after more than 3 weeks because of nausea. Therefore the patient will stop the doxycycline. Would still waiting for sensitivities but we can also try Bactrim for now tried putting a prophylactic dose. She could stop the azithromycin. The patient also had a blood transfusion since we last spoke and hemoglobin has been better than has been a long time. She did move in with her daughter which is reassuring. She also signed papers for DNR. The patient will continue her current respiratory therapy. We did talk about different exercises she can do at home. She needs to continue with her pulmonary rehabilitation. She will continue using to use her oxygen and will follow-up in 6-8 weeks. She will continue the Bactrim until we talk then. Will have to make sure to treat the stenotrophomonas effectively so will have to wait for the sensitivities come back. 07/10/2024 the patient is here for a pulmonary follow-up visit. The patient overall is doing well. She has been doing better from the hemoglobin standpoint. She is getting blood transfusions more regularly. She is avoiding the hemoglobin dropping to the 70s when she becomes very symptomatic. Her cough is overall better. She did grow stenotrophomonas and she was treated with multiple antibiotics. Which she was supposed to stay on Bactrim but she stopped. She is currently on azithromycin 3 times a week. Overall seems to be helping. But feel more comfortable she went back to the Bactrim at least to finish a longer course to minimize the return of the stenotrophomonas. She is using her oxygen good effect. She is also using her respiratory medicines with good effect. No recent imaging to review at this time. Will plan to follow-up the current therapy. She is going to go back on the Bactrim and monitor closely for any adverse symptoms. The patient will return 2 months. I which time at that point we can talk about going back on the azithromycin. She is having issue also with a skin cancer close to her right eye. She can not use the noninvasive ventilator with a regular mask because it bother her right were that she has a surgical intervention. She did have an F30 mask that she is trying although she is still finds it uncomfortable. She is going to start trying to adjusted a little bit better. I did recommend that if she needs to have further surgical intervention for the skin cancer if she is going to have any anesthesia she should do it hospital setting. 09/04/2024 the patient is here for pulmonary follow-up visit. Overall the patient is doing about the same. She has been dealing with her anemia. No clear source of her anemia or any blood loss. She still requiring blood transfusions on a monthly basis. I did mention to her to talk to her doctors about a bleeding scan to consider checking her Epogen levels. In the meantime the patient also had skin cancer and had surgery. The patient is not able to use her noninvasive ventilator at this time since she had the surgery close to which the mask fits. Therefore she has to hold off on the noninvasive ventilator for now. Once she feels better she can go back on it. She continues with respiratory therapy with good effect. No need to make any changes at this time. She continues on the prednisone 10 mg daily which will continue. She has also been on the doxycycline daily for the stenotrophomonas. This has been now for several months so therefore will try to decrease it to every other day to see if she tolerates it and keeps her secretions are under control. [facility] Medical History (Updated 03/09/24 @ 20:01 by Mateo Barrientos MD) Dyspnea (~08/14/23) Tachycardia Anemia Anemia Pre-op chest exam Vertebral artery stenosis Dyspnea Chronic respiratory failure Dyslipidemia Hypothyroidism Centrilobular emphysema Surgical History (Updated 04/10/24 @ 12:47 by Barbara Armando RN) Hx of colonoscopy History of cholecystectomy H/O: hysterectomy Family History Mother No problems noted. Daughter Diabetes Social History Household Members: None Housing: House Do you presently have visiting nurse or other home services: No Alcohol intake: unknown Patient Tobacco Use Status: Former Tobacco user Tobacco use type: Cigarette Years Smoked: 40+ years service: No Current occupational status: retired Review of Systems Const Reports fatigue, Denies night sweats and Reports weight loss ENT Denies change in voice, Denies lip swelling, Denies mouth pain, Reports nasal congestion, Reports nasal discharge and Denies tongue swelling Card Denies chest pain, Reports dyspnea and Reports dyspnea on exertion Resp Reports chest congestion, Reports cough, Denies hemoptysis, Reports dyspnea and Reports dyspnea on exertion GI Denies abdominal pain, Denies melena and Denies hematochezia Musc Denies no additional complaints Skin/Breast Reports as per HPI Neuro Denies Neuro-related abnormal movements Psych Reports depression Endo Reports fatigue Fredi/Lymph Denies easy bleeding and Denies lymphadenopathy Aller/Immun Denies lip swelling and Denies tongue swelling Physical Exam Vital Signs: Last Vital Signs Pulse 69 09/04/24 11:18 BP 122/54 L 09/04/24 11:18 Pulse Ox 94 09/04/24 11:18 Oxygen Delivery Method Nasal Cannula 09/04/24 11:18 Oxygen Flow Rate 3 09/04/24 11:18 BMI result Body Mass Index 22.7 Const General: alert and tired appearing Eyes Conjunctivae: conjunctival abnormal bilateral pallor Pupils: Equal, round and reactive pupils present Neck Neck: Yes normal visual inspection, Yes full ROM and Yes no lymphadenopathy Chest Chest palpation & inspection: normal inspection of the chest Resp Effort & Inspection: normal respiratory effort and prolonged expiratory phase Auscultation: no rhonchi, no wheezes and diminished lung sounds Cardio Rate: tachycardic Rhythm: regular rhythm Heart sounds: S1 normal heart sound present and S2 normal heart sound present GI Palpation (GI): Soft to palpation and nontender Auscultation: normal bowel sounds Skin Trauma: abrasion (RLE) Neuro Cranial nerves: Yes Equal, round and reactive pupils present Assessment & Plan Assessment & Plan (1) Dyspnea: Code(s): R06.00 - Dyspnea, unspecified Category: Medical Qualifiers: Dyspnea type: dyspnea on exertion Qualified Code(s): R06.00 - Dyspnea, unspecified (2) Centrilobular emphysema: Comment: Very severe COPD with FEV1 26% predicted Code(s): J43.2 - Centrilobular emphysema Category: Medical (3) Chronic respiratory failure: Comment: With evidence of chronic hypercarbic respiratory failure, DLCO very severe Code(s): J96.10 - Chronic respiratory failure, unspecified whether with hypoxia or hypercapnia Category: Medical Qualifiers: Respiratory failure complication: hypoxia and hypercapnia Qualified Code(s): J96.11 - Chronic respiratory failure with hypoxia; J96.12 - Chronic respiratory failure with hypercapnia; J96.12 - Chronic respiratory failure with hypercapnia (4) Anemia: Code(s): D64.9 - Anemia, unspecified Category: Medical Qualifiers: Anemia type: iron deficiency Iron deficiency anemia type: unspecified iron deficiency Qualified Code(s): D50.9 - Iron deficiency anemia, unspecified (5) COPD (chronic obstructive pulmonary disease): Comment: very severe, end stage Code(s): J44.9 - Chronic obstructive pulmonary disease, unspecified Category: Medical Qualifiers: COPD type: COPD with acute lower respiratory infection Qualified Code(s): J44.0 - Chronic obstructive pulmonary disease with (acute) lower respiratory infection Plan continue Prednisone 10mg daily continued Trelegy continue Duoneb oxygen supplementation 4 L pulse with activity and also should also uses to sleep. continue NIV, AVAPS, PCO2 better at 65->58mmHg on venous blood gas, volume 350 ml and rate 12., use F30 mask decrease Bactrim DS QOD follow-up in 3 months Coding Level of Care Code Est Pt Level 4 (64619) Complex EM visit Add On G2211 Diagnoses Dyspnea on exertion R06.00 Dyspnea type: dyspnea on exertion Centrilobular emphysema J43.2 Chronic respiratory failure with hypoxia and hypercapnia J96.11; J96.12; J96.12 Respiratory failure complication: hypoxia and hypercapnia Iron deficiency anemia, unspecified iron deficiency anemia type D50.9 Anemia type: iron deficiency Iron deficiency anemia type: unspecified iron deficiency Chronic obstructive pulmonary disease with acute lower respiratory infection J44.0 COPD type: COPD with acute lower respiratory infection Time Spent (min) 18
== END 2024-09-04 11:53 | disposition home or self-care (01) ==
PROVIDERS: PCP Internal Medicine; Visit Provider Hospitalist
DX: J43.2 Centrilobular emphysema (principal); J96.11 Chronic respiratory failure with hypoxia; J96.12 Chronic respiratory failure with hypercapnia; D50.9 Iron deficiency anemia, unspecified
CPT/HCPCS: 99214; G2211

== ENCOUNTER → 2024-09-04 11:10 | Outpatient (BNVA) | payer MEDICARE, SELFPAY | PROVIDERS: PCP Internal Medicine; Visit Provider Hospitalist | DX: J44.0 Chronic obstructive pulmonary disease with (acute) lower respiratory infection (principal); J43.2 Centrilobular emphysema; J96.11 Chronic respiratory failure with hypoxia; J96.12 Chronic respiratory failure with hypercapnia; D50.9 Iron deficiency anemia, unspecified; Z99.81 Dependence on supplemental oxygen; Z79.52 Long term (current) use of systemic steroids | CPT/HCPCS: 99212 ==

== ENCOUNTER 2024-11-10 10:58 | Outpatient (AMB) | payer MEDICARE, SELFPAY ==
[2024-11-10 11:14] VITALS: BP 128/46; PULSE 81; O2SAT 90; BMI 23.5
--- NOTE | 2024-11-10 11:14 | A.OFFVIS_ITS ---
Vital Signs 11/10/24 11:14 Height 5 ft 4 in Weight 136 lb 10.986 oz BMI 23.5 BP 128/46 L Blood Pressure Location Rt brachial Position Sitting Pulse 81 Pulse Source Pulse Oximeter Pulse Oximetry (%) 90 L Oxygen Delivery Method Nasal Cannula Oxygen Flow Rate 3 Intake Visit Reasons: increased shortness of breath Allergies No Known Allergies Allergy (Verified 11/10/24 11:18) HPI Comments Details: The patient is a 79 y/o woman with a history of COPD also with the O2 dependence on chronic Prednisone. She also has pulmonary nodules over following. She is scheduled for CT scan in a month at [facility]. Therefore, will follow up after that. She has times and dyspnea on exertion. She does need her oxygen. She is looking to getting a portable oxygen concentrator. However she is questioning if she can use the POC at nighttime. I am concerned that if she does not activate the pulse while sleeping and it would not be helpful for her. However if she does decide to buy it we can always retest to see if is effective for her while she is sleeping. She continues to pulmonary rehabilitation. That is going well. She continues uses trelegy. She is using the azithromycin. She has been around people that have been sick and she has been able to stay healthy. Will continue the for next 3-4 months and will see about weaning it off to give her a break from medications. This antibiotic but will use it more for the anti-inflammatory properties. Did review her last CT scan of the chest that she had recently demonstrating small pulmonary nodules are stable in size. She has a RADS 2 and therefore needs a repeat CT scan in a year's time. We did do a chest x-ray today which appears to have resolution of the left-sided process. No evidence of any acute lower respiratory infection. Therefore, she is responding well to the current respiratory regimen and antibiotics. She will complete the antibiotic course and then taper down the prednisone to 10 mg daily. She has been now multiple courses of antibiotics and prednisone is still having hard time with her breathing. She has been having hard time expectorating. She is getting very frustrated upset. She also complains of increasing shortness of breath and increasing heart rate. She denies any chest pains. On examination she does have some rhonchi on exam which appeared to be right worse than left. Her pneumonia was on her left and side initially. That ultimately cleared up on the x-ray. The patient has a hard time expectorating. Therefore, we'll try the stronger antibiotics along with another course of prednisone. At this point will plan to this pulmonary function study with ABG. The patient should stay on a small dose of prednisone of 10 mg every other day and should also restart the azithromycin Sunday and Sunday. Will monitor closely her IgG levels at this time, no need for augmentation therapy. She did have a 6 minutes walk test and during that study her oxygen quickly decreased after 50 ft on room air to 86%. After that heart rate did increase to the 130s. The patient rested he then was placed on 3 L pulse and ambulating her she was able to maintain a pulse ox above 90%. However, heart rate still was elevated than 130s. The patient states that she did have an echocardiogram at [facility] and I do not have the results right now. 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 It is reasonable to have her follow up with Cardiology as we wait for the results or pulmonary function studies and arterial blood gas. While we wait for those results the patient is to hold off on pulmonary rehabilitation. e did have worsening respiratory symptoms and malaise and she was taken to [facility] which she was found to have a hemoglobin of 5.9. Here in the office we checked back in September she was up to 10 which is significant drop. In the meantime she was given 2 units of blood and she did undergo an upper and lower endoscopy without any significant findings. She is given iron which is taking with multivitamins. While she was there she did have a blood gas demonstrating a pH does 7.36 with a pCO2 of 39 mm of mercury which is within normal limits suggesting that she has no evidence of chronic hypercarbic respiratory failure. 11/15/2023 the patient is here for a pulmonary follow-up visit. She continues to have dyspnea on exertion with minimal activity. She understands that she has very severe COPD. She is also oxygen dependent has significant anemia. She is status post iron infusions. She will be following closely we hematology. In the meantime she has not been very active. We did talk about the importance of conditioning and pulmonary rehabilitation. She had been doing the online pulmonary rehab but did not find it very helpful. We did talk about considering going back to in-person pulmonary rehab. She also also using her noninvasive ventilator. Sometimes difficult for her to tolerate. Already has been demonstrating improvement in the CO2. The therapy has been affecting beneficial. At this point we talked about ways to improve her energy level during daytime. She is going to try increasing the prednisone from 7.5-10 mg. the other options to consider stimulant such as modafinil. 02/06/2024 the patient is here for a pulmonary follow-up visit. She is still struggling with breathing. Develops significant dyspnea with minimal activity. Moderate to severe. She does use the oxygen all the time. The patient did get 2 units of blood transfusion and she was hoping to feel better but she did not. The patient also underwent blood work including a blood gas demonstrating chronic stable hypercarbic respiratory failure and also had her hemoglobin checked which was 9.7 which is still significantly low but better for her. Kidney function was also stable. She did have a chest x-ray demonstrating hyperinflated lungs consistent with her advanced COPD. We talked about her underlying condition as far as her medications she is currently medically optimize with the noninvasive ventilator in the inhaler therapy. She should be increasing the oxygen with activity to avoid the desaturations. In addition to that will try some diuretics to see if we can help with volume status. Explained to her that she may have a component of cor pulmonale. If her symptoms persist we can also request an echocardiogram. At this point the patient understands that she has very severe COPD and at this point she is maximized on her respiratory therapy. Will continue to provide as much support as possible understand the limitations. 03/06/2024 the patient is here for sick visit. She has been struggling. She has had increased respiratory complaints. Hard time breathing. She went to her primary care doctor felt to have a bout of bronchitis she was given doxycycline. Ultimately she has not been getting better so she went to Oncology to see if she needed blood. However, the busy and could not accommodate so she ended up going to the ER. There she did receive 1 unit of blood. She did have a CT of the chest demonstrating significant emphysema but no blood clots. No airspace disease. No clear explanation for the patient's symptoms. She was discharged and she currently is completing a prednisone taper. The patient was able to do a breathing treatment in the office and we were able to help her expectorate some phlegm. It is very tenacious greenish in color. Maybe some tension blood in it very hard for her to expectorate. I did talk to her daughter some concerned that she looks weaker. The patient already has evidence of hypercarbic respiratory failure and now with the mucus burden unable to her secretions is concerned that she could potentially get worse. We did talk about the importance of using the noninvasive ventilator to give her assistance with breathing. And she will use that. We were able to get a sputum culture and send to the lab. It looks like Pseudomonas. Therefore send Levaquin. She already has diarrhea. 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 She knows to stop the medication if she develops any tendonitis. She also be off the azithromycin by while she 03/24/2024 the patient is here for a pulmonary sick visit. She is still struggling with breathing. Initially she responded very well to the Levaquin. She did not complain of any tendinitis or any diarrhea. She did take some probiotics at some periods. She is now back in azithromycin. Her breathing became significantly better apparently. Now much worse again. Starting to get congestion. Difficult to expectorate. Her sputum culture was not helpful as it was only positive for respiratory naty. I do believe that bronchoscopy will be helpful for therapeutic cleaning in addition to lower respiratory cultures to assess any enteric organisms that will require therapy. Will see about scheduling a bronchoscopy. We can do it under moderate sedation and provide her with a lidocaine nebulizer treatment to minimize on the anesthesia effects in view of her respiratory failure. Patient also will undergo blood work specially because he is more tachycardic today. Wonder if she is potentially more anemic is also likely contributing to her symptoms. 04/08/2024 the patient is here for a follow-up visit after hospitalization. She had been admitted to [facility] with worsening respiratory symptoms. At that point she was already on Levaquin for the persistent chest congestion. She required a couple units of blood. It was found that she had blood in her stools. She does have an evaluation from a GI standpoint. Although they do not want to do any procedures because she had some serious complications handling anesthesia in the past. The details are not available though. The patient has been using noninvasive ventilator. She is maxed that with her medications. She still has a significant cough difficult to clear secretions. The family is with her. We did talk about her severity of disease having very severe COPD on top of that significant anemia. I did provide her a letter in order for her to get a transfusion when her hemoglobin is 8 and not wait till the 7 due to her very severe COPD and minimal gas exchange. Hopefully that can provide her some support. In the meantime her condition is unlikely to improve unfortunately. She does have chronic severe progressive disease. Will continue supporting her as much as possible I did recommend that it looking for any other alternatives to treatments she can always going to [place] for 2nd opinion although I do not believe they have much to offer her with her age in severe comorbidities. Will plan to do a bronchoscopy to try to provide airway clearance and deep cultures if there is anything else we can treat to allow her respiratory status to improve. Right now hemoglobin stable since she has got a blood transfusion and IV infusions of iron and will be a good opportunity to do so. 05/08/2024 the patient is here for a pulmonary follow-up visit. She is status post bronchoscopy. 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 She was initially treated with Levaquin and then with doxycycline. Her chest congestion is improved dramatically. Although she could not tolerate the doxycycline after more than 3 weeks because of nausea. Therefore the patient will stop the doxycycline. Would still waiting for sensit ivities but we can also try Bactrim for now tried putting a prophylactic dose. She could stop the azithromycin. The patient also had a blood transfusion since we last spoke and hemoglobin has been better than has been a long time. She did move in with her daughter which is reassuring. She also signed papers for DNR. The patient will continue her current respiratory therapy. We did talk about different exercises she can do at home. She needs to continue with her pulmonary rehabilitation. She will continue using to use her oxygen and will follow-up in 6-8 weeks. She will continue the Bactrim until we talk then. Will have to make sure to treat the stenotrophomonas effectively so will have to wait for the sensitivities come back. 07/10/2024 the patient is here for a pulmonary follow-up visit. The patient overall is doing well. She has been doing better from the hemoglobin standpoint. She is getting blood transfusions more regularly. She is avoiding the hemoglobin dropping to the 70s when she becomes very symptomatic. Her cough is overall better. She did grow stenotrophomonas and she was treated with multiple antibiotics. Which she was supposed to stay on Bactrim but she stopped. She is currently on azithromycin 3 times a week. Overall seems to be helping. But feel more comfortable she went back to the Bactrim at least to finish a longer course to minimize the return of the stenotrophomonas. She is using her oxygen good effect. She is also using her respiratory medicines with good effect. No recent imaging to review at this time. Will plan to follow-up the current therapy. She is going to go back on the Bactrim and monitor closely for any adverse symptoms. The patient will return 2 months. I which time at that point we can talk about going back on the azithromycin. She is having issue also with a skin cancer close to her right eye. She can not use the noninvasive ventilator with a regular mask because it bother her right were that she has a surgical intervention. She did have an F30 mask that she is trying although she is still finds it uncomfortable. She is going to start trying to adjusted a little bit better. I did recommend that if she needs to have further surgical intervention for the skin cancer if she is going to have any anesthesia she should do it hospital setting. 09/04/2024 the patient is here for pulmonary follow-up visit. Overall the patient is doing about the same. She has been dealing with her anemia. No clear source of her anemia or any blood loss. She still requiring blood transfusions on a monthly basis. I did mention to her to talk to her doctors about a bleeding scan to consider checking her Epogen levels. In the meantime the patient also had skin cancer and had surgery. The patient is not able to use her noninvasive ventilator at this time since she had the surgery close to which the mask fits. Therefore she has to hold off on the noninvasive ventilator for now. Once she feels better she can go back on it. She continues with respiratory therapy with good effect. No need to make any changes at this time. She continues on the prednisone 10 mg daily which will continue. She has also been on the doxycycline daily for the stenotrophomonas. This has been now for several months so therefore will try to decrease it to every other day to see if she tolerates it and keeps her secretions are under control. 11/10/2024 the patient is here for sick visit. She did not feel good the last few days. Therefore they made the appointment. She has been having increasing shortness of breath dyspnea on exertion. Moderate severity. She has been recovering from her eye surgery. Since her eye surgery she could not use her noninvasive ventilator because it affected her eye in addition to that she was not able to take her antibiotics. She felt a little bit more chest D with more cough. [id number] severity. At times she will bring up some phlegm although not colored. She is back on the Bactrim and she is back on her noninvasive ventilator. She has been a little shaky so they were unsure about her CO2. Will get blood work including a blood gas. Her pCO2 is actually b emeka than it has ever been at 45 mmHg which is reassuring. Will also have her get a chest x-ray to better address the area. As far as her anemia she continues work closely with the Hematology and she has been getting regular transfusions and also has been getting IV iron infusions. At this point she is feeling a little bit better so will continue with the current respiratory therapy. Will have her get the blood work and chest x-ray. [facility] Medical History (Updated 03/09/24 @ 20:01 by Mtaeo Barrientos MD) Dyspnea (~08/14/23) Tachycardia Anemia Anemia Pre-op chest exam Vertebral artery stenosis Dyspnea Chronic respiratory failure Dyslipidemia Hypothyroidism Centrilobular emphysema Surgical History (Updated 04/10/24 @ 12:47 by Barbara Armando RN) Hx of colonoscopy History of cholecystectomy H/O: hysterectomy Family History Mother No problems noted. Daughter Diabetes Social History Household Members: None Housing: House Do you presently have visiting nurse or other home services: No Alcohol intake: unknown Patient Tobacco Use Status: Former Tobacco user Tobacco use type: Cigarette Years Smoked: 40+ years service: No Current occupational status: retired Review of Systems Const Reports fatigue, Denies night sweats and Reports weight loss ENT Denies change in voice, Denies lip swelling, Denies mouth pain, Reports nasal congestion, Reports nasal discharge and Denies tongue swelling Card Denies chest pain, Reports dyspnea and Reports dyspnea on exertion Resp Reports chest congestion, Reports cough, Denies hemoptysis, Reports dyspnea and Reports dyspnea on exertion GI Denies abdominal pain, Denies melena and Denies hematochezia Musc Denies no additional complaints Skin/Breast Reports as per HPI Neuro Denies Neuro-related abnormal movements Psych Reports depression Endo Reports fatigue Fredi/Lymph Denies easy bleeding and Denies lymphadenopathy Aller/Immun Denies lip swelling and Denies tongue swelling Physical Exam Vital Signs: Last Vital Signs Pulse 81 11/10/24 11:14 BP 128/46 L 11/10/24 11:14 Pulse Ox 90 L 11/10/24 11:14 Oxygen Delivery Method Nasal Cannula 11/10/24 11:14 Oxygen Flow Rate 3 11/10/24 11:14 BMI result Body Mass Index 23.5 Const General: alert and tired appearing Eyes Conjunctivae: conjunctival abnormal bilateral pallor Pupils: Equal, round and reactive pupils present Neck Neck: Yes normal visual inspection, Yes full ROM and Yes no lymphadenopathy Chest Chest palpation & inspection: normal inspection of the chest Resp Effort & Inspection: normal respiratory effort and prolonged expiratory phase Auscultation: no rhonchi, no wheezes and diminished lung sounds Cardio Rate: tachycardic Rhythm: regular rhythm Heart sounds: S1 normal heart sound present and S2 normal heart sound present GI Palpation (GI): Soft to palpation and nontender Auscultation: normal bowel sounds Skin Trauma: abrasion (RLE) Neuro Cranial nerves: Yes Equal, round and reactive pupils present Assessment & Plan Assessment & Plan (1) Dyspnea: Code(s): R06.00 - Dyspnea, unspecified Category: Medical Qualifiers: Dyspnea type: dyspnea on exertion Qualified Code(s): R06.00 - Dyspnea, unspecified (2) Centrilobular emphysema: Comment: Very severe COPD with FEV1 26% predicted Code(s): J43.2 - Centrilobular emphysema Category: Medical (3) Chronic respiratory failure: Comment: With evidence of chronic hypercarbic respiratory failure, DLCO very severe Code(s): J96.10 - Chronic respiratory failure, unspecified whether with hypoxia or hypercapnia Category: Medical Qualifiers: Respiratory failure complication: hypoxia and hypercapnia Qualified Code(s): J96.11 - Chronic respiratory failure with hypoxia; J96.12 - Chronic respiratory failure with hypercapnia; J96.12 - Chronic respiratory failure with hypercapnia (4) Anemia: Code(s): D64.9 - Anemia, unspecified Category: Medical Qualifiers: Anemia type: iron deficiency Iron deficiency anemia type: unspecified iron deficiency Qualified Code(s): D50.9 - Iron deficiency anemia, unspecified (5) COPD (chronic obstructive pulmonary disease): Comment: very severe, end stage Code(s): J44.9 - Chronic obstructive pulmonary disease, unspecified Category: Medical Qualifiers: COPD type: COPD with acute lower respiratory infection Qualified Code(s): J44.0 - Chronic obstructive pulmonary disease with (acute) lower respiratory infection Plan continue Prednisone 10mg daily continued Trelegy continue Duoneb oxygen supplementation 4 L pulse with activity and also should also uses to sleep. continue NIV, AVAPS, PCO2 better at 65->58mmHg on venous blood gas, volume 350 ml and rate 12., use F30 mask Bactrim DS QOD CXR-hyperinflation Bloodwork, Bloodgas with PCO 45mmHg F/U with Hematology follow-up in 3 months Orders: Orders XR chest 2V Today J44.0 - Chronic obstructive pulmonary disease with (acute) lower respiratory infection Venous Blood Gas Today J44.0 - Chronic obstructive pulmonary disease with (acute) lower respiratory infection Basic Metabolic Panel Today J44.0 - Chronic obstructive pulmonary disease with (acute) lower respiratory infection Erythrocyte Sedimentation Rate Today J44.0 - Chronic obstructive pulmonary disease with (acute) lower respiratory infection Coding Level of Care Code Est Pt Level 4 (16004) Complex EM visit Add On G2211 Diagnoses Dyspnea on exertion R06.00 Dyspnea type: dyspnea on exertion Centrilobular emphysema J43.2 Chronic respiratory failure with hypoxia and hypercapnia J96.11; J96.12; J96.12 Respiratory failure complication: hypoxia and hypercapnia Iron deficiency anemia, unspecified iron deficiency anemia type D50.9 Anemia type: iron deficiency Iron deficiency anemia type: unspecified iron deficiency Chronic obstructive pulmonary disease with acute lower respiratory infection J44.0 COPD type: COPD with acute lower respiratory infection Time Spent (min) 17
--- OUTSIDE RECORDS SUMMARY | 2024-11-10 12:36 | XMS_ITS | Clinical Summary ---
Author Organization [facility] Address [address] [place] [address] Care Team Providers Care Internet Assessor Name Role Phone Radha Cortés MD Primary Care Provider [phone] Allergies No known active allergies Medications Medication Sig Dispensed Refills Start Date End Date Status levothyroxine (SYNTHROID, LEVOXYL) tablet 25 mcg Take 1 tablet (25 mcg total) by mouth every morning on an empty stomach. 0 Active simvastatin (ZOCOR) tablet 20 mg Take 2 tablets (40 mg total) by mouth every night at bedtime. 0 Active predniSONE (DELTASONE) tablet 10 mg Take 7.5 mg by mouth every other day. 0 Active Fluticasone-Umeclid in-Vilant 200-62.5-25 MCG/ACT AEPB Inhale 1 puff into the lungs daily. 0 Active albuterol (PROVENTIL) (2.5 MG/3ML) 0.083% nebulizer solution Take 3 mL (2.5 mg total) by nebulization every 4 (four) hours as needed for wheezing. 0 Active aspirin EC 81 MG tablet Take 1 tablet (81 mg total) by mouth daily. 0 Active albuterol (PROVENTIL HFA;VENTOLIN HFA) 108 (90 Base) MCG/ACT inhaler Inhale 2 puffs into the lungs every 6 (six) hours as needed for wheezing. 0 Active calcium carbonate (OS-GINGER) 600 MG tablet Take 1 tablet (600 mg total) by mouth daily. 0 Active cetirizine (ZyrTEC) 10 MG tablet Take 1 tablet (10 mg total) by mouth daily. 0 Active docusate sodium (COLACE) 100 MG capsule Take 1 capsule (100 mg total) by mouth 2 (two) times a day. 0 Active omeprazole (PriLOSEC) 40 MG capsule Take 1 capsule (40 mg total) by mouth daily. 0 Active Multiple Vitamin (MULTIVITAMIN ADULT PO) Take 1 tablet by mouth daily. 0 Active furosemide (LASIX) 20 MG tablet Take 1 tablet (20 mg total) by mouth daily. 0 Active Fluticasone-Umeclid in-Vilant (Trelegy Ellipta) 200-62.5-25 MCG/ACT inhaler Inhale into the lungs. 0 10/19/2021 Active doxycycline (ADOXA) 100 MG tablet Take 1 tablet (100 mg total) by mouth 2 (two) times a day. 0 Active pantoprazole (PROTONIX) 40 MG tablet Take 1 tablet (40 mg total) by mouth every morning on an empty stomach. 0 Active azithromycin (ZITHROMAX) 250 MG tablet Take by mouth. 0 Active Active Problems Problem Noted Date Diagnosed Date Iron deficiency anemia due to chronic blood loss 10/24/2022 Social History Tobacco Use Types Packs/Day Years Used Date Smoking Tobacco: Former Smokeless Tobacco: Never Alcohol Use Standard Drinks/Week Comments Yes 0 (1 standard drink = 0.6 oz pur e alcohol) Sex and Gender Information Value Date Recorded Sex Assigned at Female 10/27/2022 3:47 PM EST Gender Identity Not on file Sexual Orientation Not on file Job Start Date Occupation Industry Not on file Not on file Not on file Last Filed Vital Signs Vital Sign Reading Time Taken Comments Blood Pressure 148/66 06/11/2024 4:35 PM EDT Pulse 76 06/11/2024 4:35 PM EDT Temperature 36.2 ??C (97.2 ??F) 06/11/2024 4:35 PM ED T Respiratory Rate 18 06/11/2024 4:35 PM EDT Oxygen Saturation 96% 06/11/2024 10:33 AM EDT Inhaled Oxygen Concentration - - Weight 57.3 kg (126 lb 6.4 oz) 04/28/2024 11:22 AM EDT Height 162.6 cm (5' 4 ) 09/09/2020 11:17 AM EST Body Mass Index 21.7 09/09/2020 11:17 AM EST Plan of Treatment Health Maintenance Due Date Last Done Comments Depression Screening 1956 Preventative Health Evaluation 1962 Fall Risk Assessment 2009 Osteoporosis Screening (DEXA Scan) 2009 RSV Adult > 60+ Yrs or (1 - 1-dose 75+ series) 2019 COVID-19 Vaccine ( season) 2024 06/20/2022, 03/29/2022, 07/03/2021, Additional history exists Influenza Vaccine (#1) 2024 3, 07/03/2022, 07/03/2022, Additional history exists DTap / Tdap / Td (2 - Td or Tdap) 10/03/2032 10/03/2022 Shingrix-Zoster Vaccine Completed 11/18/2018, 09/14 Pneumococcal Vaccine Completed 05/28/2020, 10/02/2018, 08/04/2015 Hepatitis B Vaccines Aged Out No long er eligible based on patient's age to complete this topic RSV Ped < 20 months Aged Out No longe r eligible based on patient's age to complete this topic Care Teams Internet Assessor Relationship Specialty Start Date End Date Radha Cortés MD PCP - General Internal Medicine 08/27/20
--- OUTSIDE RECORDS SUMMARY | 2024-11-10 12:37 | XMS_ITS | Encounter Summary ---
Author Organization [facility] Address [address] [place] [address] Care Team Providers Care Toy Department Manager Name Role Phone Radha Cortés MD Primary Care Provider [phone] Reason for Visit * Episode Based Medications (Routine) - Authorized Specialty Diagnoses / Procedures Referred By Rachael urbina Referred To Contact Diagnoses Anemia, unspecified type Mary Jane Terry MD [address] [place] [address] Phone: tel: fax: [address] [address] Phone: tel: fax: Referral ID Status Reason Start Date Expiration Date V isits Requested Visits Authorized [id number] Authorized 10/23/2024 10/23/2025 1 8 Encounter Details Date Type Department Care Team (Latest Contact Info) Description 11/03/2024 10:00 AM EST - 11/03/2024 11:59 PM EST Hospital Encounter [facility] [address] [place] [phone] Mary Jane Terry MD [address] [place] [address] Anemia, unspecified type (Primary Dx) Discharge Disposition: Home or Self Care Social History Tobacco Use Types Packs/Day Years Used Date Smoking Tobacco: Former Cigarettes Q uit: 09/17/1996 Smokeless Tobacco: Never Alcohol Use Standard Drinks/Week Comments Not Currently 0 (1 standard drink = 0.6 oz pur e alcohol) Comments Unknown Sex and Gender Information Value Date Recorded Sex Assigned at Female 08/20/2024 12:31 PM EST Legal Sex Female 11:05 PM EST Gender Identity Female 08/20/2024 12:31 PM EST Sexual Orientation Straight 08/26/2024 9: 20 AM EST documented as of this encounter Last Filed Vital Signs Vital Sign Reading Time Taken Comments Blood Pressure 126/52 11/03/2024 10:15 AM EST Pulse 84 11/03/2024 10:15 AM EST Temperature 36.4 ??C (97.6 ??F) 11/03/2024 10:[address] Respiratory Rate 18 11/03/2024 10:15 AM EST Oxygen Saturation 97% 11/03/2024 10:15 AM EST Inhaled Oxygen Concentration - - Weight - - Height - - Body Mass Index - - documented in this encounter Medications at Time of Discharge albuterol 2.5 mg /3 mL (0.083 %) nebulizer solution 3 mL (2.5 mg total) Every 4 hours as needed. Take 3 mL (2.5 mg total) by nebulization every 4 (four) hours as needed for wheezing. albuterol HFA (PROAIR HFA ; PROVENTIL HFA ; VENTOLIN HFA) 90 mcg/actuation inhaler Inhale 2 puffs by mouth every 6 hours as needed. aspirin 81 mg EC tablet Take 1 tablet (81 mg total) by mouth 1 (one) time each day. calcium carbonate 1,500 mg (600 mg elemental calcium) tablet Take 600 mg by mouth 1 (one) time each day. docusate sodium (COLACE) 100 mg capsule Take 1 capsule (100 mg total) by mouth 2 (two) times a day. fluticasone-umeclid inium-vilanterol (TRELEGY ELLIPTA) 200-62.5-25 mcg inhaler Inhale 1 puff (200 mcg total) by mouth 1 (one) time each day. furosemide (LASIX) 20 mg tablet Take 1 tablet (20 mg total) by mouth if needed. Takes for 5 days as needed with daily weight chekcs 4 gabapentin (NEURONTIN) 100 mg capsule Take 1 capsule (100 mg total) by mouth at bedtime. 90 capsule 5 levothyroxine (SYNTHROID, LEVOTHROID) 25 mcg tablet TAKE 1 TABLET BY MOUTH EVERY MORNING EXTRA TABLET ON SUNDAY 102 tablet 1 4 multivitamin (MULTIPLE VITAMINS ORAL) Take 1 tablet by mouth 1 (one) time each day. ondansetron ODT (ZOFRAN-ODT) 4 mg disintegrating tablet DISSOLVE ONE TABLET BY MOUTH EVERY 8 HOURS NEEDED 4 predniSONE (DELTASONE) 10 mg tablet Take 7.5 mg by mouth every other day. simvastatin (ZOCOR) 40 mg tablet Take 1 tablet (40 mg total) by mouth. at bedtime 4 sulfamethoxazole-tr imethoprim (BACTRIM DS,SEPTRA DS) 800-160 mg per tablet Take 1 tablet by mouth 2 (two) times a day. 4 traZODone (DESYREL) 50 mg tablet Take 1 tablet (50 mg total) by mouth at bedtime. 4 documented as of this encounter Discharge Disposition Disposition Code Departure Means Destination Home or Self Care documented in this encounter Progress Notes * Alvina Huddleston RN - 11/03/2024 10:00 AM EST 1010 Pt arrives in wheelchair with portable oxygen on with daughter. She reports she tolerated her 1st venofer well and only had a minimal headache that required no otc meds. She has no new acute health concerns at this time. 1020 Peripheral IV started in left forearm. NS running KVO. Daughter and pt comfortable chairside. 1100 Infusion of venofer began, pt comfortable chairside with daughter present. 1200 Pt ambulated to bathroom, feeling well no complaints 1305 Infusion and flush with 30 minute observation time complete. Pt feels well overall and has no complaints. Peripheral IV removed and dry dressing applied. Pt has appointment on Sunday for final dose of venofer. Pts daughter assisted her to her wheelchair and helped her to the bathroom prior to leaving. 1310 Pt and daughter left unit in stable condition. documented in this encounter Plan of Treatment Upcoming Encounters Date Type Department Care Team (Late st Contact Info) Description 11/12/2024 10:[address] [facility] [address] [facility] [address]nd [place] [phone] 11/20/2024 11:20 AM EST Office Visit Gastroenterology - [place] [address] [place] [phone] Dustin Ren DO [address] [facility] [address] [place] [address] 12/08/2024 3:00 PM EDT Office Visit [address] [place] [address] Reji Kraus MD [address] [place] [address] [address] [place] [address] 12/15/2024 11:15 AM EDT Office Visit Adult Medicine [facility] [address] [place] [address] Radha Cortés MD [address] [place] [address] 06/02/2025 10:45 AM EDT Ancillary Procedure [facility] [address] [phone] 06/03/2025 10:30 AM EDT Office Visit [facility] Hematology Oncology [address] [place] [phone] Mary Jane Terry MD [address] [place] [address] 06/05/2025 10:00 AM EDT Ancillary Procedure [facility] [address] [address] 06/18/2025 10:45 AM EDT Ancillary Procedure [facility] [address] [facility] [address] [place] [address] 08/06/2025 11:30 AM EST Office Visit Vascular Surgery - [place] [address] [facility] [address] [place] [address] Jennifer Carlson PA [address] [facility] [address] [place] [address] documented as of this encounter Visit Diagnoses Diagnosis Anemia, unspecified type- Primary documented in this encounter Administered Medications Inactive Administered Medications - up to 3 most recent administrations Medication Order MAR Action Action Date Dose Rate Site iron sucrose (VENOFER) 300 mg in sodium chloride 265 mL IVPB 300 mg, intravenous, at 176.7 mL/hr, Administer over 90 Minutes, Once, On Sun11/03/24 at 1045, For 1 doseIndications:Anemia, unspecified type New Bag 11/03/2024 10:54 AM EST 300 mg 176.7 mL/hr documented in this encounter Orders Medications Ordered That Mir ht Not Have Been Administered Count Last Ordered Date First Ordered Date sodium chloride 0.9 % infusion 1 11/03/2024 Nursing Count Last Ordered Date First Orde red Date ONC NURSING COMMUNICATION 2 11/03/2024 ONC NURSING COMMUNICATION 12 1 11/03/2024 ONC NURSING COMMUNICATION 5 1 11/03/2024 Appointment Requests Count Last Ordered Date Fi rst Ordered Date ONCBCN INFUSION APPOINTMENT REQUEST 03 documented in this encounter Care Teams Toy Department Manager Relationship Specialty Start Date End Date Radha Cortés MD [address] [place] [address] PCP - General Internal Medicine 05/13/19 documented as of this encounter
--- OUTSIDE RECORDS SUMMARY | 2024-11-10 12:37 | XMS_ITS | Clinical Summary ---
Author Organization Patient Business Ser [facility] Address [address] [place] [address] Care Team Providers Care Line Maintainer Name Role Phone María Cortés MD Primary Care Provider [phone] Allergies No known active allergies Medications albuterol HFA (PROAIR HFA ; PROVENTIL HFA ; VENTOLIN HFA) 90 mcg/actuation inhaler Inhale 2 puffs by mouth every 6 hours as needed. Active albuterol 2.5 mg /3 mL (0.083 %) nebulizer solution 3 mL (2.5 mg total) Every 4 hours as needed. Take 3 mL (2.5 mg total) by nebulization every 4 (four) hours as needed for wheezing. Active aspirin 81 mg EC tablet Take 1 tablet (81 mg total) by mouth 1 (one) time each day. Active calcium carbonate 1,500 mg (600 mg elemental calcium) tablet Take 600 mg by mouth 1 (one) time each day. Active docusate sodium (COLACE) 100 mg capsule Take 1 capsule (100 mg total) by mouth 2 (two) times a day. Active fluticasone-umecli dinium-vilanterol (TRELEGY ELLIPTA) 200-62.5-25 mcg inhaler Inhale 1 puff (200 mcg total) by mouth 1 (one) time each day. Active multivitamin (MULTIPLE VITAMINS ORAL) Take 1 tablet by mouth 1 (one) time each day. Active predniSONE (DELTASONE) 10 mg tablet Take 7.5 mg by mouth every other day. Active levothyroxine (SYNTHROID, LEVOTHROID) 25 mcg tablet TAKE 1 TABLET BY MOUTH EVERY MORNING EXTRA TABLET ON SUNDAY 102 tablet 1 08/25/20 24 Active furosemide (LASIX) 20 mg tablet Take 1 tablet (20 mg total) by mouth if needed. Takes for 5 days as needed with daily weight chekcs 06/30/20 24 Active ondansetron ODT (ZOFRAN-ODT) 4 mg disintegrating tablet DISSOLVE ONE TABLET BY MOUTH EVERY 8 HOURS NEEDED 09/09/20 24 Active gabapentin (NEURONTIN) 100 mg capsule Take 1 capsule (100 mg total) by mouth at bedtime. 90 capsule 10/07/19 25 Active simvastatin (ZOCOR) 40 mg tablet Take 1 tablet (40 mg total) by mouth. at bedtime 08/08/20 24 Active traZODone (DESYREL) 50 mg tablet Take 1 tablet (50 mg total) by mouth at bedtime. 05/27/20 24 Active sulfamethoxazole-t rimethoprim (BACTRIM DS,SEPTRA DS) 800-160 mg per tablet Take 1 tablet by mouth 2 (two) times a day. 08/28/20 24 Active Active Problems Problem Noted Date Diagnosed Date Anemia, unspecified type 08/20/2024 Carotid artery stenosis 08/20/2024 Overview (08/20/2024): 01/03, 03/06 left 50-69% Symptomatic anemia 07/19/2024 Neuropathy 06/24/2024 Overview (08/20/2024): Axonal sensory and peripheral motor neuropathy, legs Paresthesia of foot, bilateral 07/12/2023 Overview (08/20/2024): Chronic numbness, tingling, heaviness of feet x 3 to 4 years. Labs pending. Will consider neurology consult for formal nerve conduction studies versus additional work-up. Pancreas cyst 10/03/2022 Iatrogenic arteriovenous fistula 05/11/2022 Overview (08/20/2024): Last Assessment & Plan: Patient with history of iatrogenic right radial arteriovenous fistula. She saw vascular, , in June 2022 for routine follow-up. She continued to be asymptomatic. It was still felt there was no urgent intervention warranted. The plan was to have her follow-up in 1 year. 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 I ordered a right upper extremity arterial duplex to evaluate for pseudoaneurysm or other potential cause of this. We will want this as soon as possible and I was able to get her scheduled for 03/28/22 at 5 pm. Chronic respiratory failure with hypoxia 022 Benign essential HTN 01/30/2022 Overview (08/20/2024): Last Assessment & Plan: Patient with history of hypertension. Her blood pressure is well controlled today. S/p TAVR (transcatheter aort ic valve replacement), bioprosthetic 11/08/2021 Overview (08/20/2024): 11/08 TAVR Last Assessment & Plan: Patient is status post TAVR in October 2021. She continues on aspirin. She endorses that over the past month she has had a progressive increase in her dyspnea on exertion. She states the increased dyspnea on exertion started after the echocardiogram in early July. She does have history of severe COPD and wears chronic oxygen, between 3L-4L. I am repeating the echocardiogram given her increased dyspnea in the setting of COPD to evaluate for any development of right-sided heart failure. Will also be able to reevaluate her valve. She does appear euvolemic on examination at this time. CHF (congestive heart failure) 10/25/2021 Overview (08/20/2024): 11/08 felt secondary to severe Iron deficiency anemia 11/19/2019 Pulmonary nodules 03/26/2019 Osteopenia 09/24/2018 Overview (08/20/2024): 03/09 T score spine +1.9 hip -2-2 FRAX score 20% 10 year fracture risk Hypothyroid 07/17/2018 Cataract 03/06/2018 Supplemental oxygen dependent 10/17/2017 Overview (08/20/2024): 3L Psoriasis 07/14/2017 GERD (gastroesophageal reflux disease) 7 Colon polyps 07/14/2017 Overview (08/20/2024): Tubular adenoma times 2 11/06 Chronic obstructive pulmonary disease 06/14/2017 Resolved Problems Problem Noted Date Diagnosed Date Resolved Date Nontraumatic tear of skin 08/20/2024 Encounters Date Type Department Care Team Description 11/03/2024 10:00 AM EST - 11/03/2024 11:59 PM EST Hospital Encounter [address] [phone] Mary Jane Terry MD Anemia, unspecified type (Primary Dx) Discharge Disposition: Home or Self Care 10/28/2024 10:23 AM EST - 10/28/2024 11:59 PM EST Hospital Encounter [address] [address] Mary Jane Terry MD Anemia, unspecified type (Primary Dx) Discharge Disposition: Home or Self Care 10/23/2024 8:53 AM EST - 10/23/2024 11:59 PM EST Hospital Encounter [address] [phone] Mary Jane Terry MD Iron deficiency anemia due to chronic blood loss (Primary Dx); Symptomatic anemia Discharge Disposition: Home or Self Care 10/09/2024 8:03 AM EST - 10/09/2024 11:59 PM EST Hospital Encounter [address] [phone] Mary Jane Terry MD Symptomatic anemia (Primary Dx); Iron deficiency anemia due to chronic blood loss Discharge Disposition: Home or Self Care 10/03/2024 1:05 PM EST Lab Draw Station [address] [address] Symptomatic anemia 09/19/2024 8:59 AM EST - 09/19/2024 11:59 PM EST Hospital Encounter [facility] In[facility] [address] [phone] Anemia, unspecified type (Primary Dx) Discharge Disposition: Home or Self Care 09/02/2024 11:45 AM EST Office Visit [facility] Hematology Oncology [address] [place] [phone] Mary Jane Terry MD Anemia of chronic disease (Primary Dx); Chronic respiratory failure with hypoxia (CMS/HCC) 08/26/2024 2:00 PM EST Ancillary Procedure [facility] Cardiology [facility] [address] [place] [phone] Bilateral carotid artery stenosis 08/21/[address] [place] [phone] Reji Kraus MD medication hold 08/21/2024 Telephone Adult Medicine [facility] [address] [place] [phone] Mary Walker RN 08/20/2024 10:06 AM EST - 08/20/2024 9:33 PM EST Hospital Encounter [facility] Emergency [address] [place] [phone] Víctor Mora, Delroy Monroy MD Anemia, unspecified type (Primary Dx) Discharge Disposition: Left Against Medical Advice from Last 3 Months Immunizations Name Administration Dates Next Due Pfizer SARS-CoV-2 COVID-19, mRNA, LNP-S, preservative free 06/20/2022,03/29/2022,07/03/2021,2020,10/19/2020 Surgical History Surgery Date Site/Laterality Comments APPENDECTOMY PROCEDURE:APPENDECTOMY HYSTERECTOMY PROCEDURE:HYSTERECTOMY COLONOSCOPY PROCEDURE:COLONOSCOPY CHOLECYSTECTOMY PROCEDURE:CHOLECYSTECTOMY CATARACT EXTRACTION, BILATERAL PROCEDURE:CATARACT EXTRACTION, BILATERAL APPENDECTOMY PROCEDURE: [place] APPENDECTOMY HYSTERECTOMY PROCEDURE: HISTORICAL HYSTERECTOMY CATARACT EXTRACTION Bilateral PROCEDURE: HISTORICAL CATARACT REMOVAL OTHER SURGICAL HISTORY 06/2018 PROCEDURE: MAMMOGRAM COLONOSCOPY 10/2019 PROCEDURE: HISTORICAL COLONOSCOPY Medical History Medical History Date Comments Hypoxia DX:Hypoxia Psoriasis DX:Psoriasis COPD (chronic obstructive pu lmonary disease) ([facility]) DX:COPD (chronic obstructive pulmonary disease) ([facility]) Covid-19 DX:COVID-19 Pulmonary nodules DX:Pulmonary n odules Carotid artery stenosis DX:Carot id artery stenosis Hypothyroid DX:Hypothyroid History of pneumonia 07/14/2017 DX:History of pneumonia; COMMENT: Left lower lobe GERD (gastroesophageal reflux disease) 7 DX:GERD (gastroesophageal reflux disease) Colon polyps 07/14/2017 DX:Colon polyps Anxiety 07/14/2017 DX:Anxiety Psoriasis 07/14/2017 DX:Psoriasis Hyperlipidemia 07/14/2017 DX:Hyperlipidemi a Supplemental oxygen dependent 10/17/2017 DX :Supplemental oxygen dependent; COMMENT: HS Chronic obstructive pulmonar y disease ([facility]) 06/14/2017 DX:Chronic obstructive pulmo nary disease ([facility]) History of tobacco use 06/14/2017 DX:Histor y of tobacco use Cataract 03/06/2018 DX:Cataract Osteopenia 09/24/2018 DX:Osteopenia Aortic stenosis 05/14/2019 DX:Aortic stenos is; COMMENT: 05/05 mild Iron deficiency anemia 11/19/2019 DX:Iron d eficiency anemia Depressive disorder DX:Depressiv e disorder CHF (congestive heart failur e) ([facility]) 10/25/2021 DX:CHF (congestive heart andres lure) ([facility]); COMMENT: 11/08 felt secondary to severe S/P Avr 11/08/2021 DX:S/P AVR; COMM ENT: 11/08 TAVR Benign essential HTN 01/30/2022 DX:Benign e ssential HTN Pancreas cyst 10/03/2022 DX:Pancreas cyst Neuropathy 06/24/2024 DX:Neuropathy; C OMMENT: Axonal sensory and peripheral motor neuropathy, legs Family History Medical History Relation Name Comments CABG Brother dementia, valve replacement Diabetes Sister Colon cancer Uncle Relation Name Status Comments Brother Alive Father (Age 84) Mother (Age 99) Sister Alive Uncle Social History Tobacco Use Types Packs/Day Years [...] Orientation Straight 08/26/2024 9: 20 AM EST Obstetrics History Last Filed Vital Signs Vital Sign Reading Time Taken Comments Blood Pressure 126/52 11/03/2024 10:15 AM EST Pulse 84 11/03/2024 10:15 AM EST Temperature 36.4 ??C (97.6 ??F) 11/03/2024 10:[address] Respiratory Rate 18 11/03/2024 10:15 AM EST Oxygen Saturation 97% 11/03/2024 10:15 AM EST Inhaled Oxygen Concentration - - Weight 59.4 kg (131 lb) 09/02/2024 11:40 AM EST Height 162.6 cm (5' 4 ) 08/20/2024 10:13 AM EST Body Mass Index 22.49 08/20/2024 10:13 AM EST Plan of Treatment Upcoming Encounters Date Type Department Care Team (Late st Contact Info) Description 11/12/2024 10:[address] [facility] Infusion Center [address] [facility] [address] [place] [phone] 11/20/2024 11:20 AM EST Office Visit Gastroenterology - [place] [address] [place] [phone] Dustin Ren DO 175 [facility] [address] [place] [address] 12/08/2024 3:00 PM EDT Office Visit [facility] Cardiology [facility] [address] [place] [phone] Reji Kraus MD Medical [address] [place] [address] 12/15/2024 11:15 AM EDT Office Visit Adult Medicine [address] [phone] María Cortés MD [address] [place] [address] 06/02/2025 10:45 AM EDT Ancillary Procedure [facility] Cardiology [facility] [address] [phone] 06/03/2025 10:30 AM EDT Office Visit [facility] Hematology Oncology [address] [place] [address] Mary Jane Terry MD [address] [place] [address] 06/05/2025 10:00 AM EDT Ancillary Procedure [facility] [place] [address] [address] 06/18/2025 10:45 AM EDT Ancillary Procedure [facility] [address] [phone] 08/06/2025 11:30 AM EST Office Visit Vascular Surgery - [place] 300 [facility] 210 [place] [address] Jennifer Carlson PA 300 [facility] [address] [place] [address] Health Maintenance Due Date Last Done Comments RSV Immunization Patients 60+ Years Old (1 - 1-dose 75+ series) 2019 Cholesterol Screening (Lipid Panel) 08/20/2022 Depression Screening 08/20/2022 Medicare Annual Wellness Visit 08/20/2022 Social Influencers of Health Screening 08/20/2022 COVID-19 Vaccine ( season) 2024 06/20/2022, 03/29/2022, 07/03/2021, Additional history exists Hypertension/CHF/CAD Annual BMP Blood Test 08/20/2025 08/20/2024, 07/19/2024 Falls Risk Assessment 11/03/2025 11/03/2024 DTaP,Tdap,and Td Vaccines (2 - Td or Tdap) 10/03/2032 10/03/2022 Osteoporosis Screening (Bone Density Screening) 02/05/2033 02/05/2023, 02/01/2021, 08/05/2018 Zoster Vaccines Completed 11/18/2018, 08/18, 09/08/2013 Pneumococcal Vaccine: 50+ Years Completed 05/28/2020, 10/02/2018, 08/04/2015 Influenza Vaccine Completed 07/06/2024, , 07/03/2022, Additional history exists HIB Vaccines Aged Out No longer eligi ble based on patient's age to complete this topic HPV Vaccines Aged Out No longer eligi ble based on patient's age to complete this topic Hepatitis A Vaccines Aged Out No long er eligible based on patient's age to complete this topic Hepatitis B Vaccines Aged Out No long er eligible based on patient's age to complete this topic IPV Vaccines Aged Out No longer eligi ble based on patient's age to complete this topic MMR Vaccines Aged Out No longer eligi ble based on patient's age to complete this topic Meningococcal ACWY Vaccine Aged Out N o longer eligible based on patient's age to complete this topic Meningococcal B Vacine Aged Out No lo nger eligible based on patient's age to complete this topic RSV Immunization Patients Under 20 months Aged Out No longer eligible based on patient's age to complete this topic Varicella Vaccines Aged Out No longer eligible based on patient's age to complete this topic Procedures Procedure Name Priority Date/Time Associated Diagnosis Comments CBC WITH AUTO DIFFERENTIAL Routine 11/07/2024 2:13 PM EST Acute gastrointestinal hemorrhage CBC AND DIFFERENTIAL Routine 11/07/2024 2:13 PM EST Acute gastrointestinal hemorrhage CBC WITH AUTO DIFFERENTIAL Routine 10/29/2024 3:14 PM EST Symptomatic anemia CBC AND DIFFERENTIAL Routine 10/29/2024 3:14 PM EST Symptomatic anemia TRANSFUSE RED BLOOD CELLS Routine 10/23/2024 12:36 PM EST Iron deficiency anemia due to chronic blood loss Symptomatic anemia TRANSFUSE RED BLOOD CELLS Routine 10/23/2024 9:52 AM EST Iron deficiency anemia due to chronic blood loss Symptomatic anemia PREPARE RBC Routine 10/23/2024 8:17 AM EST Iron deficiency anemia due to chronic blood loss Symptomatic anemia COMPLETE BLOOD COUNT Routine 10/22/2024 12:03 PM EST Iron deficiency anemia secondary to blood loss (chronic) TYPE AND SCREEN Routine 10/22/2024 12:03 PM EST Iron deficiency anemia secondary to blood loss (chronic) CBC WITH AUTO DIFFERENTIAL Routine 10/20/2024 1:50 PM EST Symptomatic anemia CBC AND DIFFERENTIAL Routine 10/20/2024 1:50 PM EST Symptomatic anemia TRANSFUSE RED BLOOD CELLS Routine 10/09/2024 10:34 AM EST Symptomatic anemia Iron deficiency anemia due to chronic blood loss PREPARE RBC Routine 10/09/2024 9:10 AM EST Symptomatic anemia Iron deficiency anemia due to chronic blood loss TYPE AND SCREEN Routine 10/09/2024 8:15 AM EST Symptomatic anemia CBC WITH AUTO DIFFERENTIAL Routine 10/08/2024 12:15 PM EST Acute gastrointestinal hemorrhage CBC AND DIFFERENTIAL Routine 10/08/2024 12:15 PM EST Acute gastrointestinal hemorrhage CBC WITH AUTO DIFFERENTIAL Routine 10/03/2024 1:15 PM EST Symptomatic anemia CBC AND DIFFERENTIAL Routine 10/03/2024 1:15 PM EST Symptomatic anemia CBC WITH AUTO DIFFERENTIAL Routine 09/26/2024 12:24 PM EST Symptomatic anemia CBC AND DIFFERENTIAL Routine 09/26/2024 12:24 PM EST Symptomatic anemia PREPARE RBC Routine 09/19/2024 8:33 AM EST Anemia, unspecified type COMPLETE BLOOD COUNT Routine 09/18/2024 1:22 PM EST Iron deficiency anemia Symptomatic anemia TYPE AND SCREEN Routine 09/18/2024 1:22 PM EST Iron deficiency anemia Symptomatic anemia CBC WITH AUTO DIFFERENTIAL Routine 09/16/2024 10:52 AM EST Symptomatic anemia CBC AND DIFFERENTIAL Routine 09/16/2024 10:52 AM EST Symptomatic anemia CBC WITH AUTO DIFFERENTIAL Routine 09/05/2024 10:27 AM EST Anemia of chronic disease TYPE AND SCREEN Routine 09/05/2024 10:27 AM EST Chronic disease anemia CBC AND DIFFERENTIAL Routine 09/05/2024 10:27 AM EST Anemia of chronic disease IRON AND TIBC Routine 09/05/2024 10:27 AM EST Anemia of chronic disease FERRITIN Routine 09/05/2024 10:27 AM EST Anemia of chronic disease CBC WITH AUTO DIFFERENTIAL Routine 09/04/2024 12:28 PM EST Symptomatic anemia CBC AND DIFFERENTIAL Routine 09/04/2024 12:28 PM EST Symptomatic anemia ..MISCELLANEOUS REFERENCE LAB TEST 09/02/2024 ..MISCELLANEOUS REFERENCE LAB TEST 09/02/2024 ..MISCELLANEOUS REFERENCE LAB TEST 09/02/2024 CBC WITH AUTO DIFFERENTIAL Routine 09/01/2024 11:04 AM EST Acute gastrointestinal hemorrhage CBC AND DIFFERENTIAL Routine 09/01/2024 11:04 AM EST Acute gastrointestinal hemorrhage VAS US DUPLEX CAROTID BILATERAL Routine 08/26/2024 2:16 PM EST Bilateral carotid artery stenosis CBC WITH AUTO DIFFERENTIAL Routine 08/21/2024 2:23 PM EST Symptomatic anemia CBC AND DIFFERENTIAL Routine 08/21/2024 2:23 PM EST Symptomatic anemia RESPIRATORY VIRUS PANEL MOLECULAR STUDY Routine 08/20/2024 2:34 PM EST TRANSFUSE RED BLOOD CELLS Routine 08/20/2024 1:31 PM EST PREPARE RBC Routine 08/20/2024 12:53 PM EST ECG 12-LEAD STAT 08/20/2024 12:22 PM EST TYPE AND SCREEN STAT 08/20/2024 11:07 AM EST CBC WITH AUTO DIFFERENTIAL STAT 08/20/2024 11:07 AM EST MAGNESIUM STAT 08/20/2024 11:07 AM EST BASIC METABOLIC PANEL STAT 08/20/2024 11:07 AM EST CBC AND DIFFERENTIAL STAT 08/20/2024 11:07 AM EST ECG ANNOTATED 08/20/2024 CBC WITH AUTO DIFFERENTIAL Routine 08/19/2024 11:55 AM EST Acute gastrointestinal hemorrhage CBC AND DIFFERENTIAL Routine 08/19/2024 11:55 AM EST Acute gastrointestinal hemorrhage OMEGA DEXA AXIAL SKELETON Routine 02/05/2023 6:08 PM EDT Other specified disorders of bone density and structure, left thigh from Last 3 Months or Most Recently Relevant to Health Maintenance Results * (ABNORMAL) CBC auto differential (11/07/2024 2:13 PM EST) Only the most recent of13 resultswithin the time period is included. WBC 11.4(H) 4.8 - 10.8 K/mcL LAB HEMETOLOGY METHOD 11/07/2024 2:[address] [facility] RBC 3.30(L) 3.80 - 4.80 M/mcL LAB HEMETOLOGY METHOD 11/07/2024 2:50 PM [facility] Hemoglobin 9.8(L) 11.5 - 16.0 g/dL LAB HEMETOLOGY METHOD 11/07/2024 2:50 PM [facility] LAB Hematocrit 32.2(L) 35.0 - 47.0 % LAB HEMETOLOGY METHOD 11/07/2024 2:50 PM [facility] MCV 96.7 79.0 - 98.0 FL LAB HEMETOLOGY METHOD 11/07/2024 2:50 PM [facility] MCH 29.4 27.0 - 32.0 pcg LAB HEMETOLOGY METHOD 11/07/2024 2:50 PM [facility] MCHC 30.4(L) 32.0 - 37.0 g/dL LAB HEMETOLOGY METHOD 11/07/2024 2:50 PM [facility] RDW 14.0 11.0 - 15.0 % LAB HEMETOLOGY METHOD 11/07/2024 2:50 PM [facility] Platelets 286 130 - 400 K/mcL LAB HEMETOLOGY METHOD 11/07/2024 2:50 PM [facility] MPV 9.3 7.0 - 11.0 FL LAB HEMETOLOGY METHOD 11/07/2024 2:50 PM [facility] NRBC 0.0 <1.0 % LAB HEMETOLOGY METHOD 11/07/2024 2:50 PM [facility] NRBC Absolute 0.00 <0.10 K/mcL LAB HEMETOLOGY METHOD 11/07/2024 2:50 PM [facility] Neutrophils Relative 89.9 % LAB HEMETOLOGY METHOD 11/07/2024 2:50 PM [facility] Lymphocytes Relative 3.2 % LAB HEMETOLOGY METHOD 11/07/2024 2:50 PM [facility] Monocytes Relative 4.8 % LAB HEMETOLOGY METHOD 11/07/2024 2:[address] [facility] Eosinophils Relative 0.1 % LAB HEMETOLOGY METHOD 11/07/2024 2:[address] [facility] Basophils Relative 0.4 % LAB HEMETOLOGY METHOD 11/07/2024 2:50 PM [facility] Immature Granulocytes Relative 1.6 % LAB HEMETOLOGY METHOD 11/07/2024 2:[address] [facility] Neutrophils Absolute 10.23(H) 1.50 - 7.00 K/mcL LAB HEMETOLOGY METHOD 11/07/2024 2:[address] [facility] Lymphocytes Absolute 0.37(L) 1.00 - 5.00 K/mcL LAB HEMETOLOGY METHOD 11/07/2024 2:[address] [facility] Monocytes Absolute 0.55 0.20 - 1.00 K/mcL LAB HEMETOLOGY METHOD 11/07/2024 2:[address] [facility] Eosinophils Absolute 0.01 0.00 - 0.50 K/mcL LAB HEMETOLOGY METHOD 11/07/2024 2:[address] [facility] Basophils Absolute 0.05 0.00 - 0.20 K/mcL LAB HEMETOLOGY METHOD 11/07/2024 2:50 PM [facility] Immature Granulocytes Absolute 0.18(H) 0.00 - 0.03 K/mcL LAB HEMETOLOGY METHOD 11/07/2024 2:[address] [facility] Blood Venous blood specimen / Unknown Venipuncture / Unknown 11/07/2024 2:13 PM EST 11/07/2024 2:13 PM EST us María Cortés MD LAB BLOOD ORDERABLES Final Resul t [facility] [address] [place] [address], * Transfuse RBC (10/23/2024 4:07 PM EST) Only the most recent of6 resultswithin the time period is included. Mary Jane Terry MD BLOOD TRANSFUSION ORDERABLES Final Result * Prepare RBC: 2 Units (10/23/2024 8:17 AM EST) Only the most recent of4 resultswithin the time period is included. [facility] Signature Product Code [id number] 10/23/2024 9:55 AM [facility] Unit Number [id number] 10/23/19 9:55 AM [facility] Crossmatch Compatible 10/23/2024 8:25 AM [facility] Dispense Status Transfused 10/23/2024 9:55 AM [facility] Unit ABO Rh APOS 10/23/2024 9:55 AM [facility] Unit Expiration Date Time [id number] 10/23/2024 9:55 AM [facility] Unit Blood Type 6200 10/23/2024 9:55 AM [facility] Product Code [id number] 10/23/2024 12:38 PM [facility] Unit Number [id number] 10/23/19 12:38 PM [facility] Crossmatch Compatible 10/23/2024 8:25 AM [facility] Dispense Status Transfused 10/23/2024 12:38 PM [facility] Unit ABO Rh APOS 10/23/2024 12:38 PM [facility] Unit Expiration Date Time [id number] 10/23/2024 12:38 PM [facility] Unit Blood Type 6200 10/23/2024 12:38 PM [facility] Blood Venous blood specimen / Unknown 10/23/2024 8:17 AM EST 10/22/2024 12:03 PM EST us Mary Jane Terry MD BLOOD BANK PRODUCT ORDERABLE S Final Result [facility] [address] [place] [address], * (ABNORMAL) Complete blood count (10/22/2024 12:03 PM EST) Only the most recent of2 resultswithin the time period is included. WBC 9.9 4.8 - 10.8 K/mcL LAB HEMETOLOGY METHOD 10/22/2024 2:43 PM [facility] RBC 2.40(L) 3.80 - 4.80 M/mcL LAB HEMETOLOGY METHOD 10/22/2024 2:43 PM [facility] Hemoglobin 7.4(L) 11.5 - 16.0 g/dL LAB HEMETOLOGY METHOD 10/22/2024 2:43 PM [facility] Hematocrit 24.0(L) 35.0 - 47.0 % LAB HEMETOLOGY METHOD 10/22/2024 2:43 PM [facility] MCV 100.0(H) 79.0 - 98.0 FL LAB HEMETOLOGY METHOD 10/22/2024 2:43 PM [facility] MCH 30.8 27.0 - 32.0 pcg LAB HEMETOLOGY METHOD 10/22/2024 2:43 PM [facility] MCHC 30.8(L) 32.0 - 37.0 g/dL LAB HEMETOLOGY METHOD 10/22/2024 2:43 PM [facility] RDW 15.1(H) 11.0 - 15.0 % LAB HEMETOLOGY METHOD 10/22/2024 2:[address] [facility] Platelets 271 130 - 400 K/mcL LAB HEMETOLOGY METHOD 10/22/2024 2:[address] [facility] MPV 9.5 7.0 - 11.0 FL LAB HEMETOLOGY METHOD 10/22/2024 2:[address] [facility] NRBC 0.0 <1.0 % LAB HEMETOLOGY METHOD 10/22/2024 2:[address] [facility] NRBC Absolute 0.00 <0.10 K/mcL LAB HEMETOLOGY METHOD 10/22/2024 2:[address] [facility] Blood Venous blood specimen / Unknown Venipuncture / Unknown 10/22/2024 12:03 PM EST 10/22/2024 12:03 PM EST Mary Jane Terry MD LAB BLOOD ORDERABLES Final R esult Performing Organization Address City/[facility]/ZIP Co de Phone Number [facility] [address] [place] [address], * Type and screen (10/22/2024 12:03 PM EST) Only the most recent of5 resultswithin the time period is included. ABO Group A 10/23/2024 7:[address] [facility] Rh Type Positive 10/23/2024 7:57 AM [facility] Antibody Screen Negative 10/23/2024 7:[address] [facility] Blood Venous blood specimen / Unknown Venipuncture / Unknown 10/22/2024 12:03 PM EST 10/22/2024 12:03 PM EST us Mary Jane Terry MD LAB BLOOD BANK TEST ORDERABL ES Final Result [facility] [address] [place] [address], [place] [phone] * (ABNORMAL) Iron and TIBC (09/05/2024 10:27 AM EST) Iron 29(L) 40 - 150 mcg/dL LAB CHEMISTRY METHOD 09/05/2024 1:[address] [facility] TIBC 330 250 - 450 mcg/dL LAB CHEMISTRY METHOD 09/05/2024 1:[address] [facility] Iron Saturation 9(L) 15 - 50 % LAB CHEMISTRY METHOD 09/05/2024 1:[address] [facility] Blood Venous blood specimen / Unknown Venipuncture / Unknown 09/05/2024 10:27 AM EST 09/05/2024 12:31 PM EST us Mary Jane Terry MD LAB BLOOD ORDERABLES Final R esult Performing Organization Address City/[facility]/ZIP Co de Phone Number [facility] [address] [place] [address], [place] [phone] * Ferritin (09/05/2024 10:27 AM EST) [facility] Ferritin 11 8 - 252 ng/mL LAB CHEMISTRY METHOD 09/05/2024 1:[address] [facility] Blood Venous blood specimen / Unknown Venipuncture / Unknown 09/05/2024 10:27 AM EST 09/05/2024 12:31 PM EST us Mary Jane Terry MD LAB BLOOD ORDERABLES Final R esult [facility] [address] [place] [address], [place] [phone] * Miscellaneous reference lab test (09/02/2024) Only the most recent of3 resultswithin the time period is included. us Provider Onbase MD LAB BLOOD ORDERABLES Final Re sult * Vascular US duplex carotid bilateral (08/26/2024 2:16 PM EST) Left CCA dist sparks 17 cm/s [facility] Left CCA dist sys 119 cm/s [facility] LEFT COMMON CAROTID ARTERY MID D 18 cm/s [facility] LEFT COMMON CAROTID ARTERY MID S 115 cm/s [facility] Left CCA prox sparks 17 cm/s [facility] Left CCA prox sys 119 cm/s [facility] LEFT EXTERNAL CAROTID ARTERY D 6 cm/s [facility] Left ECA sys 167 cm/s [facility] Left ICA dist sparks 35 cm/s [facility] Left ICA dist sys 139 cm/s [facility] Left ICA mid sparks 25 cm/s [facility] Left ICA mid sys 176 cm/s [facility] Left ICA prox sparks 31 cm/s [facility] Left ICA prox sys 192 cm/s [facility] Left vertebral sys 49 cm/s [facility] Right CCA dist sparks 9 cm/s [facility] Right cca dist sys 92 cm/s [facility] RIGHT COMMON CAROTID ARTERY MID D 12 cm/s [facility] RIGHT COMMON CAROTID ARTERY MID S 95 cm/s [facility] Right CCA prox sparks 14 cm/s [facility] Right CCA prox sys 104 cm/s [facility] RIGHT EXTERNAL CAROTID ARTERY D 5 cm/s [facility] Right eca sys 101 cm/s [facility] Right ICA dist sparks 23 cm/s [facility] Right ICA dist sys 112 cm/s [facility] Right ICA mid sparks 19 cm/s [facility] Right ICA mid sys 93 cm/s [facility] Right ICA prox sparks 18 cm/s [facility] Right ICA prox sys 92 cm/s [facility] Right vertebral sys 46 cm/s [facility] Left Prox Subclavian PSV 220 cm/s [facility] Right Prox Subclavian PSV 231 cm/s [facility] Right ICA/CCA sys 1.00 [facility] Right arm BP 134 mmHg [facility] Left arm BP 124 mmHg [facility] Left ICA/CCA sys 1.60 [facility] Anatomical Region Laterality Modality Vascular, Abdomen Ultrasound Narrative 08/26/2024 3:33 PM EST ?Right proximal ICA: There is minimal plaque with less than 50% stenosis. ??Right subclavian artery flow velocities mildly elevated with no clear evidence of stenosis. ?Left proximal ICA: There is mild plaque with 50 to 69% stenosis. ??The left subclavian artery has elevated flow velocity with no clear evidence of stenosis. ?No significant change compared to the previous study of 06/03/2024. Right Carotid The CCA has moderate heterogeneous eccentric plaque. The proximal ICA has minimal plaque. The ECA has no significant plaque. Right BP= 134/41 Vertebral flow is antegrade. Left Carotid The mid CCA has minimal plaque. The proximal ICA has mild plaque with 50 to 69% stenosis. The ECA has no significant plaque. Left BP= 124/42 Vertebral flow is antegrade. 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 During the study longitudinal and transverse views were obtained. Pulsed wave doppler was performed. us Jennifer OHARA CV VASCULAR PROCEDURES Final Result * Respiratory virus panel molecular study (08/20/2024 2:34 PM EST) Pathologist [facility] Adenovirus Detection by PCR Not Detected Not Detected LAB MICROBIOLOGY METHOD 08/20/2024 3:57 PM [facility] Influenza A PCR Not Detected Not Detected LAB MICROBIOLOGY METHOD 08/20/2024 3:57 PM [facility] Influenza B PCR Not Detected Not Detected LAB MICROBIOLOGY METHOD 08/20/2024 3:57 PM [facility] Coronavirus 229E Not Detected Not Detected LAB MICROBIOLOGY METHOD 08/20/2024 3:57 PM [facility] Coronavirus HKU1 Not Detected Not Detected LAB MICROBIOLOGY METHOD 08/20/2024 3:57 PM [facility] Coronavirus OC43 Not Detected Not Detected LAB MICROBIOLOGY METHOD 08/20/2024 3:57 PM [facility] Coronavirus NL63 Not Detected Not Detected LAB MICROBIOLOGY METHOD 08/20/2024 3:57 PM [facility] Parainfluenza Virus 1 Not Detected Not Detected LAB MICROBIOLOGY METHOD 08/20/2024 3:57 PM [facility] Parainfluenza Virus 2 Not Detected Not Detected LAB MICROBIOLOGY METHOD 08/20/2024 3:57 PM [facility] Parainfluenza Virus 3 Not Detected Not Detected LAB MICROBIOLOGY METHOD 08/20/2024 3:57 PM [facility] Parainfluenza Virus 4 Not Detected Not Detected LAB MICROBIOLOGY METHOD 08/20/2024 3:57 PM [facility] RSV PCR Not Detected Not Detected LAB MICROBIOLOGY METHOD 08/20/2024 3:57 PM [facility] Human Metapneumovirus A and B Not Detected Not Detected LAB MICROBIOLOGY METHOD 08/20/2024 3:57 PM [facility] Rhinovirus/Entero virus Not Detected Not Detected LAB MICROBIOLOGY METHOD 08/20/2024 3:57 PM [facility] Bordetella pertussis Not Detected Not Detected LAB MICROBIOLOGY METHOD 08/20/2024 3:57 PM [facility] Bordetella parapertussis Not Detected Not Detected LAB MICROBIOLOGY METHOD 08/20/2024 3:57 PM [facility] Mycoplasma pneumo by PCR Not Detected Not Detected LAB MICROBIOLOGY METHOD 08/20/2024 3:57 PM [facility] Chlamydia pneumoniae Not Detected Not Detected LAB MICROBIOLOGY METHOD 08/20/2024 3:57 PM [facility] SARS COV-2 Not Detected Not Detected LAB MICROBIOLOGY METHOD 08/20/2024 3:57 PM [facility] Sputum Structure of right anterior naris / Unknown Non-blood Collection / Unknown 08/20/2024 2:34 PM EST 08/20/2024 2:40 PM EST [facility] - 08/20/2024 3:57 PM EST Testing was performed using the [employer] Respiratory Pathogen PCR Assay. All results must be correlated with the clinical findings. Results should not be used as the sole basis for diagnosis. False Negative results may occur from the presence of sequence variants in the region targeted by the assay or the presence of inhibitors. Results may be affected by concurrent antiviral/antimicrobial therapy or levels of organisms that are below the limit of detection. Delroy Benton MD LAB MICROBIOLOGY - GENERAL ORDER CATY Final Result Performing Organization Address City/[facility]/ZIP Co de Phone Number [facility] [address] [place] [address], * ECG 12 lead (08/20/2024 12:22 PM EST) Ventricular Rate ECG 70 BPM GEMUSE Atrial Rate 70 BPM GEMUSE P-R Interval 158 ms GEMUSE QRS Duration 76 ms GEMUSE Q-T Interval 398 ms GEMUSE QTc 429 ms GEMUSE P Wave [place] 87 degrees GEMUSE R [place] 9 degrees GEMUSE T [place] 67 degrees GEMUSE ECG Interpretation Normal sinus rhythm Normal ECG When compared with ECG of 19-JUL-2024 18:29, No significant change was found Confirmed by VÍCTOR REA ([id number]) on 08/20/2024 3:43:01 PM G[facility] 08/20/2024 12:2 2 PM EST 08/20/2024 3:43 PM EST us Americo Mei MD ECG ORDERABLES Final Result Performing Organization Address [facility]/ZIP Co de Phone Number GEMUSE * Magnesium (08/20/2024 11:07 AM EST) Pathologist [facility] Magnesium 2.2 1.9 - 2.6 mg/dL LAB CHEMISTRY METHOD 08/20/2024 12:[address] [facility] Blood Venous blood specimen / Unknown Venipuncture / Unknown 08/20/2024 11:07 AM EST 08/20/2024 11:35 AM EST us Americo Mei MD LAB BLOOD ORDERABLES Final Resu lt [facility] [address] [place] [address], * (ABNORMAL) Basic metabolic panel (08/20/2024 11:07 AM EST) Sodium 140 133 - 145 mmol/L LAB CHEMISTRY METHOD 08/20/2024 12:09 PM [facility] Potassium 4.1 3.5 - 5.5 mmol/L LAB CHEMISTRY METHOD 08/20/2024 12:09 PM [facility] Chloride 104 96 - 110 mmol/L LAB CHEMISTRY METHOD 08/20/2024 12:09 PM [facility] CO2 32 21 - 32 mmol/L LAB CHEMISTRY METHOD 08/20/2024 12:09 PM [facility] Anion Gap 4 3 - 11 LAB CHEMISTRY METHOD 08/20/2024 12:09 PM [facility] Glucose 79 70 - 100 mg/dL LAB CHEMISTRY METHOD 08/20/2024 12:09 PM [facility] BUN 15 5 - 25 mg/dL LAB CHEMISTRY METHOD 08/20/2024 12:09 PM [facility] Creatinine 1.12(H) 0.50 - 1.10 mg/dL LAB CHEMISTRY METHOD 08/20/2024 12:09 PM [facility] eGFR 50(L) >=60 mL/min/1. 73m2 LAB CHEMISTRY METHOD 08/20/2024 12:09 PM [facility] Comment:Calculation based on the??Chronic Kidney Disease Epidemiology Collaboration (CKD-EPI) equation refit??without adjustment for race. BUN/Creatinine Ratio 13.4 LAB CHEMISTRY METHOD 08/20/2024 12:09 PM [facility] Calcium 9.2 8.5 - 10.5 mg/dL LAB CHEMISTRY METHOD 08/20/2024 12:09 PM EST [facility] Blood Venous blood specimen / Unknown Venipuncture / Unknown 08/20/2024 11:07 AM EST 08/20/2024 11:35 AM EST us Americo Mei MD LAB BLOOD ORDERABLES Final Resu lt [facility]) [facility] [address] [place] [address], * ECG-Annotated (08/20/2024) Provider Onbase ECG ORDERABLES Final Result * OMEGA DEXA AXIAL SKELETON (02/05/2023 6:08 PM EDT) Anatomical Region Laterality Modality Mammography 02/05/2023 2:14 PM EDT Narrative 02/05/2023 6:08 PM EDT [facility] Diagnostic Imaging Department [address] [place] [address] Patient: ??MARLEE ROBERSON ?/Age/Sex: 1945 - 77 - F Unit#: ??[id number] ? Location/Status: ??SPDIMAM/REG CLI ? Mnemonic/Ordering Site: ??MAMDEXAAX/SPMAM Ordering Physician: ??MARÍA CORTÉS MD Omega Dexa Axial Skeleton - 02/05/231456 History: Low estrogen state due to menopause. Chronic glucocorticoid use. On omeprazole. Current smoker. Comparison: 02/01/21 Findings: Bone densitometry is performed utilizing dual energy x-ray absorptiometry (DXA) in the Click [employer] Grow unit. The lumbar spine and proximal femora are evaluated in the AP projection. The FRAX questionaire was completed. The results indicate low bone mass (osteopenia), with a left femoral neck T- score of -2.2. The Z score is 0.0, indicating bone mineral density within the range of normal for age. There has been no statistically significant change. ??The detailed DEXA report will be mailed to the referring physician's office. DualFemur FRAX: 10-year Probability of Fracture: Major Osteoporotic 20.0 percent ??Hip 6.0 percent. IMPRESSION: Osteopenia. [id number] Dictating Physician: ??LAURA MARIEE MD Electronically Signed by: ??LAURA MARIEE MD Dic Date/Time: ??02/05/231806 Sign date/Time: ??02/05/231807 Procedure Note Laura Mariee MD - 10/19/2023 [facility] Diagnostic Imaging Department [address] [place] [address] Patient: MARLEE ROBERSON Kalpesh /Age/Sex: 1945 - 77 - F Unit#: [id number] Location/Status: SPDIMA/REG CLI [facility] Ordering Physician: MARÍA CORTÉS MD Omega Dexa Axial Skeleton - 02/05/23 - 1456 History: Low estrogen state due to menopause. Chronic glucocorticoid use.On omeprazole. Current smoker. Comparison: 02/01/21 Findings: Bone densitometry is performed utilizing dual energy x-ray absorptiometry(DXA) in the Click [employer] Grow unit. The lumbar spine and proximal femora areevaluated in the AP projection. The FRAX questionaire was completed. The results indicate low bone mass (osteopenia), with a left femoral neckT- score of -2.2. The Z score is 0.0, indicating bone mineral density withinthe range of normal for age. There has been no statistically significant change. The detailed DEXAreport will be mailed to the referring physician's office. DualFemur FRAX: 10-year Probability of Fracture: Major Osteoporotic 20.0 percent Hip 6.0 percent. IMPRESSION: Osteopenia. [id number] Dictating Physician: LAURA MARIEE MD Electronically Signed by: LAURA MARIEE MD Dic Date/Time: 02/05/231806 Sign date/Time: 02/05/231807 María Cortés MD IMG BI PROCEDURES Final Result from Last 3 Months or Most Recently Relevant to Health Maintenance Insurance MEDICARE [facility] Advance Directives Documents on File Type Date Recorded Patient Axminster Weaver Expl anation Health Care Decision (hx) 05/13/2024 AD BENAVIDES DIRECTIVE Health Care Decision (hx) 05/11/2024 PO LST FORM Health Care Decision (hx) 05/11/2024 PO LST FORM Health Care Decision (hx) 05/11/2024 PO LST FORM Health Care Decision (hx) 05/11/2024 PO LST FORM Health Care Decision (hx) 05/11/2024 PO LST FORM Health Care Decision (hx) 05/11/2024 PO LST FORM * Full Code - Default (Latest Code Status on File) Date Activated Date Inactivated Comments 08/20/2024 2:31 PM 08/20/2024 11:35 PM This is ord er is used when code status has not been discussed with the patient, or code status is otherwise unknown/unconfirmed To update the patient's code status, place a code status order. Do not modify or discontinue any currently active code status orders. Care Teams Line Maintainer Relationship Specialty Start Date End Date María Cortés MD [address] [place] [id number] PCP - General Internal Medicine 05/13/19
--- OUTSIDE RECORDS SUMMARY | 2024-11-10 12:37 | XMS_ITS | Encounter Summary ---
Author Organization [facility] Address [address] [place] [address] Care Team Providers Care Transition Specialist Name Role Phone Radha Cortés MD Primary Care Provider [phone] Reason for Visit * Episode Based Medications (Routine) - Authorized Specialty Diagnoses / Procedures Referred By Rachael urbina Referred To Contact Diagnoses Anemia, unspecified type Mary Jane Terry MD [address] [place] [address] Phone: tel: fax: [address] [address] Phone: tel: fax: Referral ID Status Reason Start Date Expiration Date V isits Requested Visits Authorized [id number] Authorized 10/23/2024 10/23/2025 1 8 Encounter Details Date Type Department Care Team (Latest Contact Info) Description 10/28/2024 10:23 AM EST - 10/28/2024 11:59 PM EST Hospital Encounter [facility] [address] [place] [phone] Mary Jane Terry MD [address] [place] [address] Anemia, unspecified type (Primary Dx) Discharge Disposition: [...] Sign Reading Time Taken Comments Blood Pressure 133/45 10/28/2024 10:33 AM EST Pulse 68 10/28/2024 10:33 AM EST Temperature 36.4 ??C (97.6 ??F) 10/28/2024 10:[address] Respiratory Rate 16 10/28/2024 10:33 AM EST Oxygen Saturation 97% 10/28/2024 10:33 AM EST Inhaled Oxygen Concentration - - [...] Progress Notes * Alvina Huddleston RN - 10/28/2024 10:30 AM EST 1030 Pt arrives for 1st venofer infusion today in wheelchair with oxygen accompanied by her son. She reports feeling in her usual state of health. She denies any changes to her respiratory status and has had no chest pain or palpitation. She does report history of constipation for which she takes miralax and a stool softener with good results. Handout given to pt for venofer infusion, we verbally reviewed the handout. Questions asked and answered. We reviewed allergies and medications. 1045 Peripheral IV started and ns running at kvo. 1110 Venofer infusion started, pt reviewed signs of allergic reaction and use of call brown. Pt comfortable chairside with son. 1135 Pt comfortable chairside with son, pillow placed under left arm. Pt has no adverse reaction to venofer infusion. Continues to run without complications. 1215 Infusion continues with no adverse reaction noted. Comfortable chairside with son. 1245 Pt assisted with 1 to ambulate to the bathroom. 1255 Infusion complete and pt has no reaction symptoms. Flush infusion running for 30 minutes and pt is aware she will be watched for those 30 minutes prior to going home. 1325 30 minute observation time complete, pt feels in her usual state of health and has no signs of reaction noted. Peripheral IV removed and dry dressing applied. Pt has next appointment calendar. 1335 Pt wheeled off unit by son in stable condition. documented in this encounter Plan of Treatment Upcoming Encounters Date Type Department Care Team (Late st Contact Info) Description 11/12/2024 10:00 AM EST Appointment [facility] [address] [place] [phone] 11/20/2024 11:20 AM EST Office Visit Gastroenterology - [place] [address] [place] [phone] Dustin Ren DO [address] [place] [address] 12/08/2024 3:00 PM EDT Office Visit [facility] Cardiology [address] [place] [address] Reji Kraus MD [address] [place] [address] [address] [place] [address] 12/15/2024 11:15 AM EDT Office Visit Adult Medicine [facility] [address] [place] [address] Radha Cortés MD [address] [place] [address] 06/02/2025 10:45 AM EDT Ancillary Procedure [facility] Cardiology [facility] [address] [place] [phone] 06/03/2025 10:30 AM EDT Office Visit [facility] Oncology [address] [place] [address] Mary Jane Terry MD [address] [place] [address] 06/05/2025 10:00 AM EDT Ancillary Procedure [facility] Cardiology [facility] [address] [address] 06/18/2025 10:45 AM EDT Ancillary Procedure [facility] [address] [address] 08/06/2025 11:30 AM EST Office Visit Vascular Surgery - [place] [address] [facility] [address] [place] [address] Jennifer Carlson PA [address] [facility] [address] [place] [address] documented as of this encounter Visit Diagnoses Diagnosis Anemia, unspecified type- Primary documented in this encounter Administered Medications Inactive Administered Medications - up to 3 most recent administrations Medication Order MAR Action Action Date Dose Rate Site iron sucrose (VENOFER) 300 mg in sodium chloride 265 mL IVPB 300 mg, intravenous, at 176.7 mL/hr, Administer over 90 Minutes, Once, On Sun10/28/24 at 1115, For 1 doseIndications:Anemia, unspecified type New Bag 10/28/2024 11:10 AM EST 300 mg 176.7 mL/hr documented in this encounter Orders Medications Ordered That Mir ht Not Have Been Administered Count Last Ordered Date First Ordered Date sodium chloride 0.9 % infusion 1 10/28/2024 Nursing Count Last Ordered Date First Orde red Date ONC NURSING COMMUNICATION 2 10/28/2024 ONC NURSING COMMUNICATION 10 1 10/28/2024 ONC NURSING COMMUNICATION 5 1 10/28/2024 TREATMENT CONDITIONS 1 10/28/2024 Appointment Requests Count Last Ordered Date Fi rst Ordered Date ONCBCN INFUSION APPOINTMENT REQUEST 03 documented in this encounter Care Teams Transition Specialist Relationship Specialty Start Date End Date Radha Cortés MD [address] [place] [address] PCP - General Internal Medicine 05/13/19 documented as of this encounter
--- OUTSIDE RECORDS SUMMARY | 2024-11-10 12:37 | XMS_ITS | Encounter Summary ---
Author Organization [facility] Address [address] [place] [address] Care Team Providers Care Hotel Front Desk Clerk Name Role Phone Radha Cortés MD Primary Care Provider [phone] Reason for Visit * Episode Based Medications (Routine) - Authorized Specialty Diagnoses / Procedures Referred By Rachael t Referred To Contact Diagnoses Iron deficiency anemia due to chronic blood loss Symptomatic anemia Mary Jane Terry MD [address] [place] [address] Phone: tel: fax: [address] [address] Phone: tel: fax: Referral ID Status Reason Start Date Expiration Date V isits Requested Visits Authorized [id number] Authorized 08/20/2024 08/20/2025 1 1 Encounter Details Date Type Department Care Team (Latest Contact Info) Description 10/23/2024 8:53 AM EST - 10/23/2024 11:59 PM EST Hospital Encounter [facility] [address] [place] [phone] Mary Jane Terry MD [address] [place] [address] Iron deficiency anemia due to chronic blood loss (Primary Dx); Symptomatic anemia Discharge Disposition: Home or Self Care Social [...] Sign Reading Time Taken Comments Blood Pressure 150/50 10/23/2024 3:14 PM EST Pulse 67 10/23/2024 3:14 PM EST Temperature 36.9 ??C (98.4 ??F) 10/23/2024 3:14 PM ES T Respiratory Rate 18 10/23/2024 3:14 PM EST Oxygen Saturation 99% 10/23/2024 3:14 PM EST Inhaled Oxygen Concentration - - Weight [...] documented in this encounter Progress Notes * Anthony Menezes RN - 10/23/2024 9:00 AM EST Patient arrives via wheelchair and portable oxygen accompanied by son for 2 units of PRBC's. Stablepatient assessment. Patient reports her anemia typically effects her breathing the most. Patient uses chronic supplemental oxygen, oxygen saturation stable. PIV inserted without difficulty. Patient resting comfortably in chair with call brown in reach. Patient inquired about the results of her iron studies. Labs sent to Dr. Terry for review who advised patient could benefit from Venofer infusions. Patient agreeable to receiving iron infusions. Venofer authorized by patient's insurance and Dr. Terry entered plan. 0952-First unit PRBC's initiated per protocol. Patient ambulated to the bathroom with stand by assist. Patient ate well for lunch. 1234-Patient completed first unit PRBC's without incident. Patient's vitals remained stable throughout. 1258-Second unit PRBC's initiated per protocol. Patient ambulated to the bathroom with stand by assist. 1530-Patient completed second unit of PRBC's without incident. Vitals remained stable throughout. PIV removed-intact. Patient's appointment for Venofer scheduled for next week. Patient stable upon discharge. documented in this encounter Plan of Treatment Upcoming Encounters Date Type Department Care Team (Late st Contact Info) Description 11/12/2024 10:00 AM EST Appointment [facility] [address] [facility] 2nd [place] [phone] 11/20/2024 11:20 AM EST Office Visit [facility]ology [place] [address] [facility] [address] [place] [phone] Dustin Ren DO 175 [facility] 200 [place] [address] 12/08/2024 3:00 PM EDT Office Visit [facility] Cardiology [facility] - [address] [place] [address] Reji Kraus MD [address] [place] [address] [address] [place] [address] 12/15/2024 11:15 AM EDT Office Visit Adult Medicine [facility] [address] [place] [address] Radha Cortés MD [address] [place] [address] 06/02/2025 10:45 AM EDT Ancillary Procedure [facility] Cardiology [facility] - [address] [facility] [address] [place] [address] 06/03/2025 10:30 AM EDT Office Visit [facility] Hematology Oncology [address] [place] [address] Mary Jane Terry MD [address] [place] [address] 06/05/2025 10:00 AM EDT Ancillary Procedure [facility] - [facility] [address] [facility] 101 [place] [address] 06/18/2025 10:45 AM EDT Ancillary Procedure [facility] - [facility] [address] [facility] 101 [place] [address] 08/06/2025 11:30 AM EST Office Visit V[facility] Surgery - [place] [address] [facility] [address] [place] [address] Jennifer Carlson PA 300 [facility] 210 [place] [address] documented as of this encounter Procedures Procedure Name Priority Date/Time Associated Diagnosis Comments TRANSFUSE RED BLOOD CELLS Routine 10/23/2024 12:36 PM EST Iron deficiency anemia due to chronic blood loss Symptomatic anemia TRANSFUSE RED BLOOD CELLS Routine 10/23/2024 9:52 AM EST Iron deficiency anemia due to chronic blood loss Symptomatic anemia documented in this encounter Results * Transfuse RBC (10/23/2024 4:07 PM EST) Result Laura Terry MD BLOOD TRANSFUSION ORDERABLES Final Result * Transfuse RBC: 2 Units (10/23/2024 4:07 PM EST) Result Laura Terry MD BLOOD TRANSFUSION ORDERABLES Final Result * Transfuse RBC (10/23/2024 12:36 PM EST) Result Laura Terry MD BLOOD TRANSFUSION ORDERABLES Final Result documented in this encounter Visit Diagnoses Diagnosis Iron deficiency anemia due to chronic blood loss- Primary Iron deficiency anemia secondary to blood loss (chronic) Symptomatic anemia documented in this encounter Care Teams Hotel Front Desk Clerk Relationship Specialty Start Date End Date Radha Cortés MD [address] [place] [id number] PCP - General Internal Medicine 05/13/19 documented as of this encounter
== END 2024-11-10 11:41 | disposition home or self-care (01) ==
PROVIDERS: PCP Internal Medicine; Visit Provider Hospitalist
DX: J43.2 Centrilobular emphysema (principal); J96.11 Chronic respiratory failure with hypoxia; J96.12 Chronic respiratory failure with hypercapnia; D50.9 Iron deficiency anemia, unspecified
CPT/HCPCS: 99214; G2211

== ENCOUNTER 2024-11-10 10:58 | Outpatient (REF) | payer MEDICARE, SELFPAY ==
--- NOTE | ~2024-11-10 | XR_ITS ---
EXAMINATION: XR CHEST 2 VIEWS HISTORY: J44.0 - Chronic obstructive pulmonary disease with (acute) lower respiratory COMPARISON: Comparison is made with the prior examination dated 02/01/2024. FINDINGS: PA and lateral views of the chest are submitted. The lungs are mildly hyperinflated, but clear. There is no pleural effusion, pneumothorax, or pulmonary vascular congestion. The heart is normal in size. An aortic valve prosthesis is noted. There are surgical clips in the right breast. The bones are intact. XR/XR chest 2V IMPRESSION: COPD. No acute cardiopulmonary abnormality. Electronically signed by: Femi Pavon MD 11/10/2024 12:34 PM [facility]
[2024-11-10 12:19] LABS: Venous Blood Gas Refer to POC result
[2024-11-10 12:20] LABS: VBG Base Excess 8.5 mmol/L; VBG HCO3 32 mmol/L (22-26); VBG pCO2 45 mmHg; VBG pH 7.47 (7.32-7.43); VBG pO2 66 mmHg
[2024-11-10 13:04] LABS: Anion Gap 9 (12-20); Blood Urea Nitrogen 14 mg/dL (9-16); Calcium 9.1 mg/dL (8.4-10.2); Carbon Dioxide 29 mmol/L (22-29); Chloride 106 mmol/L (96-108); Estimated Glomerular Filt Rate 49; Glucose Random 120 mg/dL (60-115); Potassium 4.3 mmol/L (3.3-5.1); Sodium 140 mmol/L (135-145)
[2024-11-10 13:06] LABS: Erythrocyte Sedimentation Rate 10 MM/HR (0-20)
--- OUTSIDE RECORDS SUMMARY | 2024-11-10 13:41 | XMS_ITS | Encounter Summary ---
Author Organization [facility] Address [address] [place] [address] Care Team Providers Care Commercial Real Estate Agent Name Role Phone Radha Cortés MD Primary Care Provider [phone] Reason for Visit * Episode Based Medications (Routine) - Authorized Specialty Diagnoses / Procedures Referred By Rachael urbina Referred To Contact Diagnoses Anemia, unspecified type Mary Jane Terry MD [address] [place] [address] Phone: tel: fax: [address] [phone] Phone: tel: fax: Referral ID Status Reason Start Date Expiration Date V isits Requested Visits Authorized [id number] Authorized 10/23/2024 10/23/2025 1 8 Encounter Details Date Type Department Care Team (Latest Contact Info) Description 10/28/2024 10:23 AM EST - 10/28/2024 11:59 PM EST Hospital Encounter [facility] [address] [place] [phone] Mary Jane Terry MD [address] [place] [address] Anemia, unspecified type (Primary Dx) Discharge Disposition: [...] Info) Description 11/12/2024 10:00 AM EST Appointment [facility] [address] [place] [phone] 11/20/2024 11:20 AM EST Office Visit Gastroenterology - [place] [address] [facility] [address] [place] [phone] Dustin Ren DO [address] [facility] [address] [place] [address] 12/08/2024 3:00 PM EDT Office Visit [facility] Cardiology [address] [place] [address] Reji Kraus MD [address] [place] [address] [address] [place] [address] 12/15/2024 11:15 AM EDT Office Visit Adult Medicine [facility] [address] [place] [address] Radha Cortés MD [address] [place] [address] 06/02/2025 10:45 AM EDT Ancillary Procedure [facility] Cardiology [facility] - [address] [place] [phone] 06/03/2025 10:30 AM EDT Office Visit [facility] Hematology Oncology [address] [place] [address] Mary Jane Terry MD [address] [place] [address] 06/05/2025 10:00 AM EDT Ancillary Procedure [facility] Cardiology [facility] - [facility] [address] [phone] 06/18/2025 10:45 AM EDT Ancillary Procedure [facility] - [facility] [address] [address] 08/06/2025 11:30 AM EST Office Visit Vascular Surgery - [place] 300 [facility] 210 [place] [address] Jennifer Carlson PA 300 [facility] [address] [place] [address] documented as of this encounter Visit Diagnoses [...] 03 documented in this encounter Care Teams Commercial Real Estate Agent Relationship Specialty Start Date End Date Radha Cortés MD [address] [place] [address] PCP - General Internal Medicine 05/13/19 documented as of this encounter
--- OUTSIDE RECORDS SUMMARY | 2024-11-10 13:41 | XMS_ITS | Clinical Summary ---
Author Organization Patient Business Ser [facility] Address [address] [place] [address] Care Team Providers Care Game Advisor Name Role Phone María Cortés MD Primary Care Provider [phone] Allergies No known active allergies Medications albuterol [...] - 11/03/2024 11:59 PM EST Hospital Encounter [address] [phone] Mary Jane Terry MD Anemia, unspecified type (Primary Dx) Discharge Disposition: Home or Self Care 10/28/2024 10:23 AM EST - 10/28/2024 11:59 PM EST Hospital Encounter [address] [address] Mary Jane Terry MD Anemia, unspecified type (Primary Dx) Discharge Disposition: Home or Self Care 10/23/2024 8:53 AM EST - 10/23/2024 11:59 PM EST Hospital Encounter [address] [phone] Mary Jane Terry MD Iron deficiency anemia due to chronic blood loss (Primary Dx); Symptomatic anemia Discharge Disposition: Home or Self Care 10/09/2024 8:03 AM EST - 10/09/2024 11:59 PM EST Hospital Encounter [address] [address] Mary Jane Terry MD Symptomatic anemia (Primary Dx); Iron deficiency anemia due to chronic blood loss Discharge Disposition: Home or Self Care 10/03/2024 1:05 PM EST Lab Draw Station [address] [address] Symptomatic anemia 09/19/2024 8:59 AM EST - 09/19/2024 11:59 PM EST Hospital Encounter [facility] [address] [phone] Anemia, unspecified type (Primary Dx) Discharge Disposition: Home or Self Care 09/02/2024 11:45 AM EST Office Visit [facility] Hematology Oncology [address] [place] [phone] Mary Jane Terry MD Anemia of chronic disease (Primary Dx); Chronic respiratory failure with hypoxia (CMS/HCC) 08/26/2024 2:00 PM EST Ancillary Procedure [facility] Cardiology [facility] [address] [place] [phone] Bilateral carotid artery stenosis 08/21/[address] [place] [phone] Reji Kraus MD medication hold 08/21/2024 Telephone Adult Medicine [facility] [address] [place] [phone] Mary Walker RN 08/20/2024 10:06 AM EST - 08/20/2024 9:33 PM EST Hospital Encounter [facility] Emergency [address] [place] [phone] Víctor Mora, Delroy Monroy MD Anemia, unspecified type (Primary Dx) Discharge Disposition: Left Against Medical Advice from Last 3 Months Immunizations Name Administration Dates Next Due Pfizer SARS-CoV-2 COVID-19, mRNA, LNP-S, preservative free 06/20/2022,03/29/2022,07/03/2021,2020,10/19/2020 Surgical History Surgery Date Site/Laterality Comments APPENDECTOMY PROCEDURE:APPENDECTOMY HYSTERECTOMY PROCEDURE:HYSTERECTOMY COLONOSCOPY PROCEDURE:COLONOSCOPY CHOLECYSTECTOMY PROCEDURE:CHOLECYSTECTOMY CATARACT EXTRACTION, BILATERAL PROCEDURE:CATARACT EXTRACTION, BILATERAL APPENDECTOMY PROCEDURE: TX APPENDECTOMY HYSTERECTOMY PROCEDURE: HISTORICAL HYSTERECTOMY CATARACT EXTRACTION Bilateral PROCEDURE: HISTORICAL CATARACT REMOVAL OTHER SURGICAL HISTORY 06/2018 PROCEDURE: MAMMOGRAM COLONOSCOPY 10/2019 PROCEDURE: HISTORICAL COLONOSCOPY Medical History Medical History Date Comments Hypoxia DX:Hypoxia Psoriasis DX:Psoriasis COPD (chronic obstructive pu lmonary disease) ([facility]) DX:COPD (chronic obstructive pulmonary disease) ([facility]) Covid-19 DX:COVID-19 Pulmonary nodules DX:Pulmonary n odules [...] COMMENT: HS Chronic obstructive pulmonar y disease ([facility]) 06/14/2017 DX:Chronic obstructive pulmo nary disease ([facility]) History of tobacco use 06/14/2017 DX:Histor y of tobacco use Cataract 03/06/2018 DX:Cataract Osteopenia 09/24/2018 DX:Osteopenia Aortic stenosis 05/14/2019 DX:Aortic stenos is; COMMENT: 05/05 mild Iron deficiency anemia 11/19/2019 DX:Iron d eficiency anemia Depressive disorder DX:Depressiv e disorder CHF (congestive heart failur e) ([facility]) 10/25/2021 DX:CHF (congestive heart andres lure) ([facility]); COMMENT: 11/08 felt secondary to severe S/P [...] Description 11/12/2024 10:[address] [facility] [address] [place] [phone] 11/20/2024 11:20 AM EST Office Visit G[facility]ology - [place] [address] [place] [phone] Dustin Ren DO 175 [facility] [address] [place] [address] 12/08/2024 3:00 PM EDT Office Visit [facility] Cardiology [facility] [address] [place] [phone] Reji Kraus MD [address] [place] [address] 12/15/2024 11:15 AM EDT Office Visit Adult Medicine [address] [phone] María Cortés MD [address] [place] [address] 06/02/2025 10:45 AM EDT Ancillary Procedure [facility] Cardiology [facility] [address] [phone] 06/03/2025 10:30 AM EDT Office Visit [facility] Hemat[facility] Oncology [address] [place] [address] Mary Jane Terry MD [address] [place] [address] 06/05/2025 10:00 AM EDT Ancillary Procedure [facility] [place] [address] [address] [phone] 06/18/2025 10:45 AM EDT Ancillary Procedure [facility] [address] [phone] 08/06/2025 11:30 AM EST Office Visit Vascular Surgery - [place] 300 [facility] [address] [place] [address] Jennifer Carlson PA 300 [facility] [address] [place] [address] Health Maintenance Due Date Last Done Comments [...] LAB HEMETOLOGY METHOD 11/07/2024 2:50 PM EST [facility] RBC 3.30(L) 3.80 - 4.80 M/mcL LAB HEMETOLOGY METHOD 11/07/2024 2:50 PM [facility] Hemoglobin 9.8(L) 11.5 - 16.0 g/dL LAB HEMETOLOGY METHOD 11/07/2024 2:50 PM [facility] LAB Hematocrit 32.2(L) 35.0 - 47.0 % LAB HEMETOLOGY METHOD 11/07/2024 2:50 PM [facility] MCV 96.7 79.0 - 98.0 FL LAB HEMETOLOGY METHOD 11/07/2024 2:50 PM [facility] MCH 29.4 27.0 - 32.0 pcg LAB HEMETOLOGY METHOD 11/07/2024 2:50 PM [facility] MCHC 30.4(L) 32.0 - 37.0 g/dL LAB HEMETOLOGY METHOD 11/07/2024 2:50 PM [facility] RDW 14.0 11.0 - 15.0 % LAB HEMETOLOGY METHOD 11/07/2024 2:50 PM [facility] Platelets 286 130 - 400 K/mcL LAB HEMETOLOGY METHOD 11/07/2024 2:50 PM [facility] MPV 9.3 7.0 - 11.0 FL LAB HEMETOLOGY METHOD 11/07/2024 2:50 PM [facility] NRBC 0.0 <1.0 % LAB HEMETOLOGY METHOD 11/07/2024 2:50 PM [facility] NRBC Absolute 0.00 <0.10 K/mcL LAB HEMETOLOGY METHOD 11/07/2024 2:50 PM [facility] Neutrophils Relative 89.9 % LAB HEMETOLOGY METHOD 11/07/2024 2:50 PM [facility] Lymphocytes Relative 3.2 % LAB HEMETOLOGY METHOD 11/07/2024 2:50 PM [facility] Monocytes Relative 4.8 % LAB HEMETOLOGY METHOD 11/07/2024 2:50 PM EST [facility] LAB Eosinophils Relative 0.1 % LAB HEMETOLOGY METHOD 11/07/2024 2:50 PM EST [facility] Basophils Relative 0.4 % LAB HEMETOLOGY METHOD 11/07/2024 2:50 PM [facility] Immature Granulocytes Relative 1.6 % LAB HEMETOLOGY METHOD 11/07/2024 2:50 PM EST [facility] LAB Neutrophils Absolute 10.23(H) 1.50 - 7.00 K/mcL LAB HEMETOLOGY METHOD 11/07/2024 2:50 PM EST [facility] LAB Lymphocytes Absolute 0.37(L) 1.00 - 5.00 K/mcL LAB HEMETOLOGY METHOD 11/07/2024 2:50 PM EST [facility] Monocytes Absolute 0.55 0.20 - 1.00 K/mcL LAB HEMETOLOGY METHOD 11/07/2024 2:50 PM EST [facility] Eosinophils Absolute 0.01 0.00 - 0.50 K/mcL LAB HEMETOLOGY METHOD 11/07/2024 2:50 PM EST [facility] Basophils Absolute 0.05 0.00 - 0.20 K/mcL LAB HEMETOLOGY METHOD 11/07/2024 2:50 PM [facility] Immature Granulocytes Absolute 0.18(H) 0.00 - 0.03 K/mcL LAB HEMETOLOGY METHOD 11/07/2024 2:50 PM EST [facility] Blood Venous blood specimen / Unknown Venipuncture / Unknown 11/07/2024 2:13 PM EST 11/07/2024 2:13 PM EST us María Cortés MD LAB BLOOD ORDERABLES Final Resul t [facility] [address] [place] [address], * Transfuse RBC (10/23/2024 4:07 PM EST) Only the most recent of6 resultswithin the time period is included. Mary Jane Terry MD BLOOD TRANSFUSION ORDERABLES Final Result * Prepare RBC: 2 Units (10/23/2024 8:17 AM EST) Only the most recent of4 resultswithin the time period is included. [facility] Signature Product Code [id number] 10/23/2024 9:55 AM [facility] Unit Number [id number] 10/23/19 9:55 AM [facility] Crossmatch Compatible 10/23/2024 8:25 AM [facility] Dispense Status Transfused 10/23/2024 9:55 AM [facility] Unit ABO Rh APOS 10/23/2024 9:55 AM [facility] Unit Expiration Date Time [id number] 10/23/2024 9:55 AM [facility] Unit Blood Type 6200 10/23/2024 9:55 AM [facility] Product Code [id number] 10/23/2024 12:38 PM [facility] Unit Number [id number] 10/23/19 12:38 PM [facility] Crossmatch Compatible 10/23/2024 8:25 AM [facility] Dispense Status Transfused 10/23/2024 12:38 PM [facility] Unit ABO Rh APOS 10/23/2024 12:38 PM [facility] Unit Expiration Date Time [id number] 10/23/2024 12:38 PM [facility] Unit Blood Type 6200 10/23/2024 12:38 PM [facility] Blood Venous blood specimen / Unknown 10/23/2024 8:17 AM EST 10/22/2024 12:03 PM EST us Mary Jane Terry MD BLOOD BANK PRODUCT ORDERABLE S Final Result [facility] [address] [place] [address], * (ABNORMAL) Complete blood count (10/22/2024 12:03 PM EST) Only the most recent of2 resultswithin the time period is included. WBC 9.9 4.8 - 10.8 K/mcL LAB HEMETOLOGY METHOD 10/22/2024 2:43 PM [facility] RBC 2.40(L) 3.80 - 4.80 M/mcL LAB HEMETOLOGY METHOD 10/22/2024 2:43 PM [facility] Hemoglobin 7.4(L) 11.5 - 16.0 g/dL LAB HEMETOLOGY METHOD 10/22/2024 2:43 PM [facility] Hematocrit 24.0(L) 35.0 - 47.0 % LAB HEMETOLOGY METHOD 10/22/2024 2:43 PM [facility] MCV 100.0(H) 79.0 - 98.0 FL LAB HEMETOLOGY METHOD 10/22/2024 2:43 PM [facility] MCH 30.8 27.0 - 32.0 pcg LAB HEMETOLOGY METHOD 10/22/2024 2:43 PM [facility] MCHC 30.8(L) 32.0 - 37.0 g/dL LAB HEMETOLOGY METHOD 10/22/2024 2:43 PM [facility] RDW 15.1(H) 11.0 - 15.0 % LAB HEMETOLOGY METHOD 10/22/2024 2:43 PM EST [facility] Platelets 271 130 - 400 K/mcL LAB HEMETOLOGY METHOD 10/22/2024 2:43 PM EST [facility] LAB MPV 9.5 7.0 - 11.0 FL LAB HEMETOLOGY METHOD 10/22/2024 2:43 PM EST [facility] NRBC 0.0 <1.0 % LAB HEMETOLOGY METHOD 10/22/2024 2:43 PM EST [facility] NRBC Absolute 0.00 <0.10 K/mcL LAB HEMETOLOGY METHOD 10/22/2024 2:43 PM EST [facility] Blood Venous blood specimen / Unknown Venipuncture / Unknown 10/22/2024 12:03 PM EST 10/22/2024 12:03 PM EST Mary Jane Terry MD LAB BLOOD ORDERABLES Final R esult Performing Organization Address City/[facility]/ZIP Co de Phone Number [facility] [address] [place] [address], * Type and screen (10/22/2024 12:03 PM EST) Only the most recent of5 resultswithin the time period is included. ABO Group A 10/23/2024 7:57 AM EST [facility] Rh Type Positive 10/23/2024 7:57 AM [facility] Antibody Screen Negative 10/23/2024 7:57 AM EST [facility] Blood Venous blood specimen / Unknown Venipuncture / Unknown 10/22/2024 12:03 PM EST 10/22/2024 12:03 PM EST us Mary Jane Terry MD LAB BLOOD BANK TEST ORDERABL ES Final Result [facility] [address] [place] [address], [place] [phone] * (ABNORMAL) Iron and TIBC (09/05/2024 10:27 AM EST) Iron 29(L) 40 - 150 mcg/dL LAB CHEMISTRY METHOD 09/05/2024 1:26 PM EST [facility] TIBC 330 250 - 450 mcg/dL LAB CHEMISTRY METHOD 09/05/2024 1:26 PM EST [facility] Iron Saturation 9(L) 15 - 50 % LAB CHEMISTRY METHOD 09/05/2024 1:26 PM EST [facility] Blood Venous blood specimen / Unknown Venipuncture / Unknown 09/05/2024 10:27 AM EST 09/05/2024 12:31 PM EST us Mary Jane Terry MD LAB BLOOD ORDERABLES Final R esult Performing Organization Address City/[facility]/ZIP Co de Phone Number [facility] [address] [place] [address], [place] [phone] * Ferritin (09/05/2024 10:27 AM EST) [facility] [place] [facility] Ferritin 11 8 - 252 ng/mL LAB CHEMISTRY METHOD 09/05/2024 1:26 PM EST [facility] Blood Venous blood specimen / Unknown Venipuncture / Unknown 09/05/2024 10:27 AM EST 09/05/2024 12:31 PM EST us Mary Jane Terry MD LAB BLOOD ORDERABLES Final R esult [facility] [address] [place] [address], [place] [phone] * Miscellaneous reference lab test (09/02/2024) Only [...] Left BP= 124/42 Vertebral flow is antegrade. Forestry Engineer Details A templeton scale, color and doppler analysis ultrasound was performed. During the study longitudinal and transverse views were obtained. Pulsed wave doppler was performed. us Jennifer OHARA CV VASCULAR PROCEDURES Final Result * Respiratory virus panel molecular study (08/20/2024 2:34 PM EST) Pathologist [facility] Adenovirus Detection by PCR Not Detected Not Detected LAB MICROBIOLOGY METHOD 08/20/2024 3:57 PM [facility] Influenza A PCR Not Detected Not Detected LAB MICROBIOLOGY METHOD 08/20/2024 3:57 PM [facility] Influenza B PCR Not Detected Not Detected LAB MICROBIOLOGY METHOD 08/20/2024 3:57 PM [facility] Coronavirus 229E Not Detected Not Detected LAB MICROBIOLOGY METHOD 08/20/2024 3:57 PM [facility] Coronavirus HKU1 Not Detected Not Detected LAB MICROBIOLOGY METHOD 08/20/2024 3:57 PM [facility] Coronavirus OC43 Not Detected Not Detected LAB MICROBIOLOGY METHOD 08/20/2024 3:57 PM [facility] Coronavirus NL63 Not Detected Not Detected LAB MICROBIOLOGY METHOD 08/20/2024 3:57 PM [facility] Parainfluenza Virus 1 Not Detected Not Detected LAB MICROBIOLOGY METHOD 08/20/2024 3:57 PM [facility] Parainfluenza Virus 2 Not Detected Not Detected LAB MICROBIOLOGY METHOD 08/20/2024 3:57 PM [facility] Parainfluenza Virus 3 Not Detected Not Detected LAB MICROBIOLOGY METHOD 08/20/2024 3:57 PM [facility] Parainfluenza Virus 4 Not Detected Not Detected LAB MICROBIOLOGY METHOD 08/20/2024 3:57 PM [facility] RSV PCR Not Detected Not Detected LAB MICROBIOLOGY METHOD 08/20/2024 3:57 PM [facility] Human Metapneumovirus A and B Not Detected Not Detected LAB MICROBIOLOGY METHOD 08/20/2024 3:57 PM [facility] Rhinovirus/Entero virus Not Detected Not Detected LAB MICROBIOLOGY METHOD 08/20/2024 3:57 PM [facility] Bordetella pertussis Not Detected Not Detected LAB MICROBIOLOGY METHOD 08/20/2024 3:57 PM [facility] Bordetella parapertussis Not Detected Not Detected LAB MICROBIOLOGY METHOD 08/20/2024 3:57 PM [facility] Mycoplasma pneumo by PCR Not Detected Not Detected LAB MICROBIOLOGY METHOD 08/20/2024 3:57 PM [facility] Chlamydia pneumoniae Not Detected Not Detected LAB MICROBIOLOGY METHOD 08/20/2024 3:57 PM [facility] SARS COV-2 Not Detected Not Detected LAB MICROBIOLOGY METHOD 08/20/2024 3:57 PM [facility] Sputum Structure of right anterior naris / Unknown Non-blood Collection / Unknown 08/20/2024 2:34 PM EST 08/20/2024 2:[address] [facility] - 08/20/2024 3:57 PM EST Testing was performed using the [employer] Respiratory Pathogen PCR Assay. All results must [...] ORDER CATY Final Result Performing Organization Address City/[facility]/ZIP Co de Phone Number [facility] [address] [place] [address], * ECG 12 lead (08/20/2024 12:22 PM EST) Ventricular Rate ECG 70 BPM GEMUSE Atrial Rate 70 BPM GEMUSE P-R Interval 158 ms GEMUSE QRS Duration 76 ms GEMUSE Q-T Interval 398 ms GEMUSE QTc 429 ms GEMUSE P Wave [place]undas 87 degrees GEMUSE R [place]und[place] 9 degrees GEMUSE T [place]und[place] 67 degrees GEMUSE ECG Interpretation Normal sinus rhythm Normal ECG When compared with ECG of 19-JUL-2024 18:29, No significant change was found Confirmed by VÍCTOR REA ([id number]) on 08/20/2024 3:43:01 PM GEMUSE 08/20/2024 12:2 2 PM EST 08/20/2024 3:43 PM EST us Americo Mei MD ECG ORDERABLES Final Result Performing Organization Address [facility]/ZIP Co de Phone Number GEMUSE * Magnesium (08/20/2024 11:07 AM EST) Pathologist [facility] Magnesium 2.2 1.9 - 2.6 mg/dL LAB CHEMISTRY METHOD 08/20/2024 12:09 PM EST [facility] Blood Venous blood specimen / Unknown Venipuncture / Unknown 08/20/2024 11:07 AM EST 08/20/2024 11:35 AM EST us Americo Mei MD LAB BLOOD ORDERABLES Final Resu lt [facility] [address] [place] [address], * (ABNORMAL) Basic metabolic panel (08/20/2024 11:07 AM EST) Sodium 140 133 - 145 mmol/L LAB CHEMISTRY METHOD 08/20/2024 12:09 PM [facility] Potassium 4.1 3.5 - 5.5 mmol/L LAB CHEMISTRY METHOD 08/20/2024 12:09 PM [facility] Chloride 104 96 - 110 mmol/L LAB CHEMISTRY METHOD 08/20/2024 12:09 PM [facility] CO2 32 21 - 32 mmol/L LAB CHEMISTRY METHOD 08/20/2024 12:09 PM [facility] Anion Gap 4 3 - 11 LAB CHEMISTRY METHOD 08/20/2024 12:09 PM [facility] Glucose 79 70 - 100 mg/dL LAB CHEMISTRY METHOD 08/20/2024 12:09 PM [facility] BUN 15 5 - 25 mg/dL LAB CHEMISTRY METHOD 08/20/2024 12:09 PM [facility] Creatinine 1.12(H) 0.50 - 1.10 mg/dL LAB CHEMISTRY METHOD 08/20/2024 12:09 PM [facility] eGFR 50(L) >=60 mL/min/1. 73m2 LAB CHEMISTRY METHOD 08/20/2024 12:09 PM [facility] Comment:Calculation based on the??Chronic Kidney Disease Epidemiology Collaboration (CKD-EPI) equation refit??without adjustment for race. BUN/Creatinine Ratio 13.4 LAB CHEMISTRY METHOD 08/20/2024 12:09 PM [facility] Calcium 9.2 8.5 - 10.5 mg/dL LAB CHEMISTRY METHOD 08/20/2024 12:09 PM EST [facility] Blood Venous blood specimen / Unknown Venipuncture / Unknown 08/20/2024 11:07 AM EST 08/20/2024 11:35 AM EST us Americo Mei MD LAB BLOOD ORDERABLES Final Resu lt [facility] [address] [place] [address], * ECG-Annotated (08/20/2024) Provider Onbase ECG ORDERABLES Final Result * OMEGA DEXA AXIAL SKELETON (02/05/2023 6:08 PM EDT) Anatomical Region Laterality Modality Mammography 02/05/2023 2:14 PM EDT Narrative 02/05/2023 6:08 PM EDT [facility] Diagnostic Imaging Department [address] [place] [address] Patient: ??MARLEE ROBERSON ?/Age/Sex: 1945 - 77 - F Unit#: ??[id number] ? Location/Status: ??SPDIMAM/REG CLI ? Mnemonic/Ordering Site: ??MAMDEXAAX/SPMAM Ordering Physician: ??MARÍA CORTÉS MD Omega Dexa Axial Skeleton - 02/05/231456 History: Low estrogen state due to menopause. Chronic glucocorticoid use. On omeprazole. Current smoker. Comparison: 02/01/21 Findings: Bone densitometry is performed utilizing dual energy x-ray absorptiometry (DXA) in the [employer] unit. The lumbar spine and proximal femora [...] 20.0 percent ??Hip 6.0 percent. IMPRESSION: Osteopenia. [id number] Dictating Physician: ??LAURA MARIEE MD Electronically Signed by: ??LAURA MARIEE MD Dic Date/Time: ??02/05/231806 Sign date/Time: ??02/05/231807 Procedure Note Laura Mariee MD - 10/19/2023 [facility] Diagnostic Imaging Department [address] [place] [address] Patient: MARLEE ROBERSON Kalpesh /Age/Sex: 1945 - 77 - F Unit#: [id number] Location/Status: SPDIMA/REG CLI Mnemonic[facility] Ordering Physician: MARÍA CROTÉS MD Omega Dexa Axial Skeleton - 02/05/23 - 1456 History: Low estrogen state due to menopause. Chronic glucocorticoid use.On omeprazole. Current smoker. Comparison: 02/01/21 Findings: Bone densitometry is performed utilizing dual energy x-ray absorptiometry(DXA) in the [employer] unit. The lumbar spine and proximal femora [...] 20.0 percent Hip 6.0 percent. IMPRESSION: Osteopenia. [id number] Dictating Physician: LAURA MARIEE MD Electronically Signed by: LAURA MARIEE MD Dic Date/Time: 02/05/231806 Sign date/Time: 02/05/231807 María Cortés MD IMG BI PROCEDURES Final Result from Last 3 Months or Most Recently Relevant to Health Maintenance Insurance MEDICARE [facility] Advance Directives Documents on File Type Date Recorded Patient Press Service Reader Expl anation Health Care Decision (hx) 05/13/2024 [...] currently active code status orders. Care Teams Game Advisor Relationship Specialty Start Date End Date María Cortés MD [address] [place] [id number] PCP - General Internal Medicine 05/13/19
--- OUTSIDE RECORDS SUMMARY | 2024-11-10 13:41 | XMS_ITS | Clinical Summary ---
Author Organization [facility] Address [address] [place] [address] Care Team Providers Care Conservation Officer Name Role Phone Radha Cortés MD Primary Care Provider [phone] Allergies No known active allergies Medications Medication [...] age to complete this topic Care Teams Conservation Officer Relationship Specialty Start Date End Date Radha Cortés MD PCP - General Internal Medicine 08/27/20
--- OUTSIDE RECORDS SUMMARY | 2024-11-10 13:42 | XMS_ITS | Encounter Summary ---
Author Organization [facility] [address] Address [address] [place] [address] Care Team Providers Care Tender Labor Name Role Phone Radha Cortés MD Primary Care Provider [phone] Reason for Visit * Episode Based Medications (Routine) - Authorized Specialty Diagnoses / Procedures Referred By Rachael t Referred To Contact Diagnoses Iron deficiency anemia due to chronic blood loss Symptomatic anemia Mary Jane Terry MD [address] [place] [address] Phone: tel: fax: [address] [address] Phone: tel: fax: Referral ID Status Reason Start Date Expiration Date V isits Requested Visits Authorized [id number] Authorized 08/20/2024 08/20/2025 1 1 Encounter Details Date Type Department Care Team (Latest Contact Info) Description 10/23/2024 8:53 AM EST - 10/23/2024 11:59 PM EST Hospital Encounter [facility] [address] [place] [phone] Mary Jane Terry MD [address] [place] [address] Iron deficiency anemia due to chronic blood [...] Info) Description 11/12/2024 10:00 AM EST Appointment [facility] [address] [facility] 2nd [place] [phone] 11/20/2024 11:20 AM EST Office Visit Gastroenterology - [place] [address] [facility] [address] [place] [phone] Dustin Ren DO 175 [facility] 200 [place] [address] 12/08/2024 3:00 PM EDT Office Visit [facility] Cardiology [facility] - [address] [place] [address] Reji Kraus MD [address] [place] [address] Dr [address] [place] [address] 12/15/2024 11:15 AM EDT Office Visit Adult Medicine [facility] [address] [place] [address] Radha Cortés MD [address] [place] [address] 06/02/2025 10:45 AM EDT Ancillary Procedure [facility] Cardiology [facility] [address] [facility] 101 [place] [address] 06/03/2025 10:30 AM EDT Office Visit [facility] Hematology Oncology [address] [place] [address] Mary Jane Terry MD [address] [place] [address] 06/05/2025 10:00 AM EDT Ancillary Procedure [facility] - [facility] [address] 300 [facility] 101 [place] [address] 06/18/2025 10:45 AM EDT Ancillary Procedure [facility] 101 300 [facility] 101 [place] [address] 08/06/2025 11:30 AM EST Office Visit Vascular Surgery - [place] 300 [facility] [address] [place] [address] Jennifer Carlson PA 300 [facility] 210 [place] [address] documented as of this encounter Procedures Procedure [...] anemia documented in this encounter Care Teams Tender Labor Relationship Specialty Start Date End Date Radha Cortés MD [address] [place] [address] PCP - General Internal Medicine 05/13/19 documented as of this encounter
--- OUTSIDE RECORDS SUMMARY | 2024-11-10 13:42 | XMS_ITS | Encounter Summary ---
Author Organization [facility] Address [address] [place] [address] Care Team Providers Care Supervisor In Charge Name Role Phone Radha Cortés MD Primary Care Provider [phone] Reason for Visit * Episode Based Medications (Routine) - Authorized Specialty Diagnoses / Procedures Referred By Rachael urbina Referred To Contact Diagnoses Anemia, unspecified type Mary Jane Terry MD [address] [place] [address] Phone: tel: fax: [address] [address] Phone: tel: fax: Referral ID Status Reason Start Date Expiration Date V isits Requested Visits Authorized [id number] Authorized 10/23/2024 10/23/2025 1 8 Encounter Details Date Type Department Care Team (Latest Contact Info) Description 11/03/2024 10:00 AM EST - 11/03/2024 11:59 PM EST Hospital Encounter [facility] [address] [place] [phone] Mary Jane Terry MD [address] [place] [address] Anemia, unspecified type (Primary Dx) Discharge Disposition: [...] Info) Description 11/12/2024 10:00 AM EST Appointment [facility] 271 [facility] 2nd [place] [phone] 11/20/2024 11:20 AM EST Office Visit Gastroenterology - [place] [address] [facility] [address] [place] [phone] Dustin Ren DO 175 [facility] [address] [place] [address] 12/08/2024 3:00 PM EDT Office Visit [address] [place] [address] Reji Kraus MD [address] [place] [address] Dr [address] [place] [address] 12/15/2024 11:15 AM EDT Office Visit Adult Medicine [facility] [address] [place] [address] Radha Cortés MD [address] [place] [address] 06/02/2025 10:45 AM EDT Ancillary Procedure [facility] [address] [address] 06/03/2025 10:30 AM EDT Office Visit [facility] Hematology Oncology [address] [place] [phone] Mary Jane Terry MD [address] [place] [address] 06/05/2025 10:00 AM EDT Ancillary Procedure [facility] [address] [facility] [address] [address] 06/18/2025 10:45 AM EDT Ancillary Procedure [facility] - [facility] [address] [facility] 101 [place] [address] 08/06/2025 11:30 AM EST Office Visit Vascular Surgery - [place] 300 [facility] 210 [place] [address] Jennifer Carlson PA 300 [facility] 210 [place] [address] documented as of this encounter Visit Diagnoses [...] 03 documented in this encounter Care Teams Supervisor In Charge Relationship Specialty Start Date End Date Radha Cortés MD [address] [place] [address] PCP - General Internal Medicine 05/13/19 documented as of this encounter
== END 2024-11-10 10:59 | disposition home or self-care (01) ==
LOC: HO.XRAY 10:58
PROVIDERS: PCP Internal Medicine; Visit Provider Hospitalist
DX: J44.0 Chronic obstructive pulmonary disease with (acute) lower respiratory infection (principal); J43.2 Centrilobular emphysema; J96.11 Chronic respiratory failure with hypoxia; J96.12 Chronic respiratory failure with hypercapnia; D50.9 Iron deficiency anemia, unspecified; Z99.81 Dependence on supplemental oxygen; Z79.899 Other long term (current) drug therapy
CPT/HCPCS: 36415; 71046; 80048; 82803; 85652; 99212

== ENCOUNTER → 2024-11-10 12:15 | Outpatient (BNV) | payer MEDICARE, SELFPAY | PROVIDERS: PCP Internal Medicine; Visit Provider Radiology Diagnostic Radiology | DX: J44.0 Chronic obstructive pulmonary disease with (acute) lower respiratory infection (principal) | CPT/HCPCS: 71046 ==

== ENCOUNTER 2025-02-12 10:57 | Outpatient (AMB) | payer MEDICARE, SELFPAY ==
--- NOTE | 2025-02-12 10:58 | A.OFFVIS_ITS ---
Vital Signs 02/12/25 10:59 Height 5 ft 4 in Weight 133 lb 6.075 oz BMI 22.9 BP 104/0 L Blood Pressure Location Rt brachial Position Sitting Pulse 76 Pulse Source Pulse Oximeter Pulse Oximetry (%) 93 Oxygen Delivery Method Nasal Cannula Intake Visit Reasons: COPD Hedis Nurse Required: No Allergies No Known Allergies Allergy (Verified 02/12/25 11:02) HPI Comments Details: The patient is a 79 y/o woman with a history of COPD also with the O2 dependence on chronic Prednisone. She also has pulmonary nodules over following. She is scheduled for CT scan in a month at [facility]. Therefore, will follow up after that. She has times and dyspnea on exertion. She does need her oxygen. She is looking to getting a portable oxygen concentrator. However she is questioning if she can use the POC at nighttime. I am concerned that if she does not activate the pulse while sleeping and it would not be helpful for her. However if she does decide to buy it we can always retest to see if is effective for her while she is sleeping. She continues to pulmonary rehabilitation. That is going well. She continues uses trelegy. She is using the azithromycin. She has been around people that have been sick and she has been able to stay healthy. Will continue the for next 3-4 months and will see about weaning it off to give her a break from medications. This antibiotic but will use it more for the anti-inflammatory properties. Did review her last CT scan of the chest that she had recently demonstrating small pulmonary nodules are stable in size. She has a RADS 2 and therefore needs a repeat CT scan in a year's time. We did do a chest x-ray today which appears to have resolution of the left-sided process. No evidence of any acute lower respiratory infection. Therefore, she is responding well to the current respiratory regimen and antibiotics. She will complete the antibiotic course and then taper down the prednisone to 10 mg daily. She has been now multiple courses of antibiotics and prednisone is still having hard time with her breathing. She has been having hard time expectorating. She is getting very frustrated upset. She also complains of increasing shortness of breath and increasing heart rate. She denies any chest pains. On examination she does have some rhonchi on exam which appeared to be right worse than left. Her pneumonia was on her left and side initially. That ultimately cleared up on the x-ray. The patient has a hard time expectorating. Therefore, we'll try the str onger antibiotics along with another course of prednisone. At this point will plan to this pulmonary function study with ABG. The patient should stay on a small dose of prednisone of 10 mg every other day and should also restart the azithromycin Sunday and Sunday. Will monitor closely her IgG levels at this time, no need for augmentation therapy. She did have a 6 minutes walk test and during that study her oxygen quickly decreased after 50 ft on room air to 86%. After that heart rate did increase to the 130s. The patient rested he then was placed on 3 L pulse and ambulating her she was able to maintain a pulse ox above 90%. However, heart rate still was elevated than 130s. The patient states that she did have an echocardiogram at [facility] and I do not have the results right now. She does not have a clinical immunologist. It is reasonable to have her follow up with Cardiology as we wait for the results or pulmonary function studies and arterial blood gas. While we wait for those results the patient is to hold off on pulmonary rehabilitation. e did have worsening respiratory symptoms and malaise and she was taken to [facility] which she was found to have a hemoglobin of 5.9. Here in the office we checked back in September she was up to 10 which is significant drop. In the meantime she was given 2 units of blood and she did undergo an upper and lower endoscopy without any significant findings. She is given iron which is taking with multivitamins. While she was there she did have a blood gas demonstrating a pH does 7.36 with a pCO2 of 39 mm of mercury which is within normal limits suggesting that she has no evidence of chronic hypercarbic respiratory failure. 11/15/2023 the patient is here for a pulmonary follow-up visit. She continues to have dyspnea on exertion with minimal activity. She understands that she has very severe COPD. She is also oxygen dependent has significant anemia. She is status post iron infusions. She will be following closely we hematology. In the meantime she has not been very active. We did talk about the importance of conditioning and pulmonary rehabilitation. She had been doing the online pulmonary rehab but did not find it very helpful. We did talk about considering going back to in-person pulmonary rehab. She also also using her noninvasive ventilator. Sometimes difficult for her to tolerate. Already has been demonstrating improvement in the CO2. The therapy has been affecting beneficial. At this point we talked about ways to improve her energy level during daytime. She is going to try increasing the prednisone from 7.5-10 mg. the other options to consider stimulant such as modafinil. 02/06/2024 the patient is here for a pulmonary follow-up visit. She is still struggling with breathing. Develops significant dyspnea with minimal activity. Moderate to severe. She does use the oxygen all the time. The patient did get 2 units of blood transfusion and she was hoping to feel better but she did not. The patient also underwent blood work including a blood gas demonstrating chronic stable hypercarbic respiratory failure and also had her hemoglobin checked which was 9.7 which is still significantly low but better for her. Kidney function was also stable. She did have a chest x-ray demonstrating hyperinflated lungs consistent with her advanced COPD. We talked about her underlying condition as far as her medications she is currently medically optimize with the noninvasive ventilator in the inhaler therapy. She should be increasing the oxygen with activity to avoid the desaturations. In addition to that will try some diuretics to see if we can help with volume status. Explained to her that she may have a component of cor pulmonale. If her symptoms persist we can also request an echocardiogram. At this point the patient understands that she has very severe COPD and at this point she is maximized on her respiratory therapy. Will continue to provide as much support as possible understand the limitations. 03/06/2024 the patient is here for sick visit. She has been struggling. She has had increased respiratory complaints. Hard time breathing. She went to her primary care doctor felt to have a bout of bronchitis she was given doxycycline. Ultimately she has not been getting better so she went to Oncology to see if she needed blood. However, the busy and could not accommodate so she ended up going to the ER. There she did receive 1 unit of blood. She did have a CT of the chest demonstrating significant emphysema but no blood clots. No airspace disease. No clear explanation for the patient's symptoms. She was discharged and she currently is completing a prednisone taper. The patient was able to do a breathing treatment in the office and we were able to help her expectorate some phlegm. It is very tenacious greenish in color. Maybe some tension blood in it very hard for her to expectorate. I did talk to her daughter some concerned that she looks weaker. The patient already has evidence of hypercarbic respiratory failure and now with the mucus burden unable to her secretions is concerned that she could potentially get worse. We did talk about the importance of using the noninvasive ventilator to give her assistance with breathing. And she will use that. We were able to get a sputum culture and send to the lab. It looks like Pseudomonas. Therefore send Levaquin. She already has diarrhea. 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 She knows to stop the medication if she develops any tendonitis. She also be off the azithromycin by while she 03/24/2024 the patient is here for a pulmonary sick visit. She is still struggling with breathing. Initially she responded very well to the Levaquin. She did not complain of any tendinitis or any diarrhea. She did take some probiotics at some periods. She is now back in azithromycin. Her breathing became significantly better apparently. Now much worse again. Starting to get congestion. Difficult to expectorate. Her sputum culture was not helpful as it was only positive for respiratory naty. I do believe that bronchoscopy will be helpful for therapeutic cleaning in addition to lower respiratory cultures to assess any enteric organisms that will require therapy. Will see about scheduling a bronchoscopy. We can do it under moderate sedation and provide her with a lidocaine nebulizer treatment to minimize on the anesthesia effects in view of her respiratory failure. Patient also will undergo blood work specially because he is more tachycardic today. Wonder if she is potentially more anemic is also likely contributing to her symptoms. 04/08/2024 the patient is here for a follow-up visit after hospitalization. She had been admitted to [facility] with worsening respiratory symptoms. At that point she was already on Levaquin for the persistent chest congestion. She required a couple units of blood. It was found that she had blood in her stools. She does have an evaluation from a GI standpoint. Although they do not want to do any procedures because she had some serious complications handling anesthesia in the past. The details are not available though. The patient has been using noninvasive ventilator. She is maxed that with her medications. She still has a significant cough difficult to clear secretions. The family is with her. We did talk about her severity of disease having very severe COPD on top of that significant anemia. I did provide her a letter in order for her to get a transfusion when her hemoglobin is 8 and not wait till the 7 due to her very severe COPD and minimal gas exchange. Hopefully that can provide her some support. In the meantime her condition is unlikely to improve unfortunately. She does have chronic severe progressive disease. Will continue supporting her as much as possible I did recommend that it looking for any other alternatives to treatments she can always going to [place] for 2nd opinion although I do not believe they have much to offer her with her age in severe comorbidities. Will plan to do a bronchoscopy to try to provide airway clearance and deep cultures if there is anything else we can treat to allow her respiratory status to improve. Right now hemoglobin stable since she has got a blood transfusion and IV infusions of iron and will be a good opportunity to do so. 05/08/2024 the patient is here for a pulmonary follow-up visit. She is status post bronchoscopy. 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 She was initially treated with Levaquin and then with doxycycline. Her chest congestion is improved dramatically. Although she could not tolerate the doxycycline after more than 3 weeks because of nausea. Therefore the patient will stop the doxycycline. Would still waiting for sensitivities but we can also try Bactrim for now tried putting a prophylactic dose. She could stop the azithromycin. The patient also had a blood transfusion since we last spoke and hemoglobin has been better than has been a long time. She did move in with her daughter which is reassuring. She also signed papers for DNR. The patient will continue her current respiratory therapy. We did talk about different exercises she can do at home. She needs to continue with her pulmonary rehabilitation. She will continue using to use her oxygen and will follow-up in 6-8 weeks. She will continue the Bactrim until we talk then. Will have to make sure to treat the stenotrophomonas effectively so will have to wait for the sensitivities come back. 07/10/2024 the patient is here for a pulmonary follow-up visit. The patient overall is doing well. She has been doing better from the hemoglobin standpoint. She is getting blood transfusions more regularly. She is avoiding the hemoglobin dropping to the 70s when she becomes very symptomatic. Her cough is overall better. She did grow stenotrophomonas and she was treated with multiple antibiotics. Which she was supposed to stay on Bactrim but she stopped. She is currently on azithromycin 3 times a week. Overall seems to be helping. But feel more comfortable she went back to the Bactrim at least to finish a longer course to minimize the return of the stenotrophomonas. She is using her oxygen good effect. She is also using her respiratory medicines with good effect. No recent imaging to review at this time. Will plan to follow-up the current therapy. She is going to go back on the Bactrim and monitor closely for any adverse symptoms. The patient will return 2 months. I which time at that point we can talk about going back on the azithromycin. She is having issue also with a skin cancer close to her right eye. She can not use the noninvasive ventilator with a regular mask because it bother her right were that she has a surgical intervention. She did have an F30 mask that she is trying although she is still finds it uncomfortable. She is going to start trying to adjusted a little bit better. I did recommend that if she needs to have further surgical intervention for the skin cancer if she is going to have any anesthesia she should do it hospital setting. 09/04/2024 the patient is here for pulmonary follow-up visit. Overall the pat ient is doing about the same. She has been dealing with her anemia. No clear source of her anemia or any blood loss. She still requiring blood transfusions on a monthly basis. I did mention to her to talk to her doctors about a bleeding scan to consider checking her Epogen levels. In the meantime the patient also had skin cancer and had surgery. The patient is not able to use her noninvasive ventilator at this time since she had the surgery close to which the mask fits. Therefore she has to hold off on the noninvasive ventilator for now. Once she feels better she can go back on it. She continues with respiratory therapy with good effect. No need to make any changes at this time. She continues on the prednisone 10 mg daily which will continue. She has also been on the doxycycline daily for the stenotrophomonas. This has been now for several months so therefore will try to decrease it to every other day to see if she tolerates it and keeps her secretions are under control. 11/10/2024 the patient is here for sick visit. She did not feel good the last few days. Therefore they made the appointment. She has been having increasing shortness of breath dyspnea on exertion. Moderate severity. She has been recovering from her eye surgery. Since her eye surgery she could not use her noninvasive ventilator because it affected her eye in addition to that she was not able to take her antibiotics. She felt a little bit more chest D with more cough. [id number] severity. At times she will bring up some phlegm although not colored. She is back on the Bactrim and she is back on her noninvasive ventilator. She has been a little shaky so they were unsure about her CO2. Will get blood work including a blood gas. Her pCO2 is actually better than it has ever been at 45 mmHg which is reassuring. Will also have her get a chest x-ray to better address the area. As far as her anemia she continues work closely with the Hematology and she has been getting regular transfusions and also has been getting IV iron infusions. At this point she is feeling a little bit better so will continue with the current respiratory therapy. Will have her get the blood work and chest x-ray. 02/12/2025 the patient is here for pulmonary follow-up visit. She is still having the same symptoms still complains of dyspnea, decreased energy she is still requiring blood transfusions every 4-6 weeks. She gets those arranged her [facility]. After last transfusion she was actually gets in the hospital for few days. The patient has been having issues with volume status. Recently she was told to increase her diuretic. Today when she came in her blood pressure diastolic could not be read. It was actually documented to be low in the past. Explained to her the concerns about a widened pulse pressure and decrease diastolic pressures this decreases her perfusion pressure of the coronary arteries. The patient denies any dizziness right now. She is going to recheck her blood pressure when she goes home. If her blood pressure continues to be low she will call her clinical immunologist about it. For now she is going to hold off on the diuretic for couple days and then potentially restarted at half dose and she is going to monitor her weight. She is going to continue with the current respiratory therapy as it is affecting beneficial. And she continues uses noninvasive ventilator every night. The ventilator has been effective in decreasing her work of breathin improving her CO2. Will continue to keep her on the same respiratory therapy and she will follow closely with the clinical immunologist monitor closely her blood pressure. She is also going to monitor closely hemoglobin. She is thinking about going to the [facility] she is going to try to make arrangements which she can get her infusions or transfusions closer to the [facility]. [facility] Medical History (Updated 03/09/24 @ 20:01 by Mateo Barrientos MD) Dyspnea (~08/14/23) Tachycardia Anemia Anemia Pre-op chest exam Vertebral artery stenosis Dyspnea Chronic respiratory failure Dyslipidemia Hypothyroidism Centrilobular emphysema Surgical History (Updated 04/10/24 @ 12:47 by Barbara Armando RN) Hx of colonoscopy History of cholecystectomy H/O: hysterectomy Family History Mother No problems noted. Daughter Diabetes Social History Household Members: None Housing: House Do you presently have visiting nurse or other home services: No Alcohol intake: unknown Patient Tobacco Use Status: Former Tobacco user Tobacco use type: Cigarette Years Smoked: 40+ years service: No Current occupational status: retired Review of Systems Const Denies chills, Reports fatigue, Denies fever(s), Denies weight gain and Denies weight loss ENT Denies dizziness, Denies lip swelling and Denies tongue swelling Card Denies chest pain, Denies leg edema, Denies lightheadedness, Denies palpitations, Reports dyspnea, Reports dyspnea on exertion, Denies orthopnea and Denies other Resp Reports cough, Reports dyspnea, Reports dyspnea on exertion and Reports wheezing GI Denies hematochezia and Denies change in stool character Musc Denies abnormal gait, Denies muscle weakness, Denies numbness, Denies radiating pain into limb and Denies tingling Skin/Breast Reports as per HPI Neuro Denies abnormal gait, Denies dizziness, Denies numbness and Denies tingling Psych Reports depression Endo Reports fatigue and Denies palpitations Fredi/Lymph Denies easy bleeding and Denies lymphadenopathy Aller/Immun Denies lip swelling, Denies tongue swelling and Reports wheezing Physical Exam Vital Signs: Last Vital Signs Pulse 76 02/12/25 10:59 BP 104/0 L 02/12/25 10:59 Pulse Ox 93 02/12/25 10:59 Oxygen Delivery Method Nasal Cannula 02/12/25 10:59 BMI result Body Mass Index 22.9 Const General: alert and tired appearing Eyes Conjunctivae: conjunctival abnormal bilateral pallor Pupils: Equal, round and reactive pupils present Neck Neck: Yes normal visual inspection, Yes full ROM and Yes no lymphadenopathy Chest Chest palpation & inspection: normal inspection of the chest Resp Effort & Inspection: normal respiratory effort and prolonged expiratory phase Auscultation: no rhonchi, no wheezes and diminished lung sounds Cardio Rate: tachycardic Rhythm: regular rhythm Heart sounds: S1 normal heart sound present and S2 normal heart sound present GI Palpation (GI): Soft to palpation and nontender Auscultation: normal bowel sounds Skin Trauma: abrasion (RLE) Neuro Cranial nerves: Yes Equal, round and reactive pupils present Assessment & Plan Assessment & Plan (1) Dyspnea: Code(s): R06.00 - Dyspnea, unspecified Category: Medical Qualifiers: Dyspnea type: dyspnea on exertion Qualified Code(s): R06.00 - Dyspnea, unspecified (2) Centrilobular emphysema: Comment: Very severe COPD with FEV1 26% predicted Code(s): J43.2 - Centrilobular emphysema Category: Medical (3) Chronic respiratory failure: Comment: With evidence of chronic hypercarbic respiratory failure, DLCO very severe Code(s): J96.10 - Chronic respiratory failure, unspecified whether with hypoxia or hypercapnia Category: Medical Qualifiers: Respiratory failure complication: hypoxia and hypercapnia Qualified Code(s): J96.11 - Chronic respiratory failure with hypoxia; J96.12 - Chronic respiratory failure with hypercapnia; J96.12 - Chronic respiratory failure with hypercapnia (4) Anemia: Code(s): D64.9 - Anemia, unspecified Category: Medical Qualifiers: Anemia type: iron deficiency Iron deficiency anemia type: unspecified iron deficiency Qualified Code(s): D50.9 - Iron deficiency anemia, unspecified (5) COPD (chronic obstructive pulmonary disease): Comment: very severe, end stage Code(s): J44.9 - Chronic obstructive pulmonary disease, unspecified Category: Medical Qualifiers: COPD type: COPD with acute lower respiratory infection Qualified Code(s): J44.0 - Chronic obstructive pulmonary disease with (acute) lower respiratory infection Plan continue Prednisone 10mg daily continued Trelegy continue Duoneb oxygen supplementation 4 L pulse with activity and also should also uses to sleep. continue NIV, AVAPS, PCO2 better at 65->58mmHg on venous blood gas, volume 350 ml and rate 12., use F30 mask Bactrim DS QOD CXR-hyperinflation Bloodwork, Bloodgas with PCO 45mmHg F/U with Hematology Atarax as needed follow-up in 3 months Medications: New hydroxyzine HCl 25 mg PO BID PRN 30 tabs 1RF itching 30 days Coding Level of Care Code Est Pt Level 4 (27246) Complex EM visit Add On G2211 Diagnoses Dyspnea on exertion R06.00 Dyspnea type: dyspnea on exertion Centrilobular emphysema J43.2 Chronic respiratory failure with hypoxia and hypercapnia J96.11; J96.12; J96.12 Respiratory failure complication: hypoxia and hypercapnia Iron deficiency anemia, unspecified iron deficiency anemia type D50.9 Anemia type: iron deficiency Iron deficiency anemia type: unspecified iron deficiency Chronic obstructive pulmonary disease with acute lower respiratory infection J44.0 COPD type: COPD with acute lower respiratory infection Time Spent (min) 17
[2025-02-12 10:59] VITALS: BP 104/0; PULSE 76; O2SAT 93; BMI 22.9
== END 2025-02-12 14:38 | disposition home or self-care (01) ==
LOC: HO.HPS 10:57
PROVIDERS: PCP Internal Medicine; Visit Provider Hospitalist
DX: R06.00 Dyspnea, unspecified (principal); J43.2 Centrilobular emphysema; J96.11 Chronic respiratory failure with hypoxia; J96.12 Chronic respiratory failure with hypercapnia; D50.9 Iron deficiency anemia, unspecified; J44.0 Chronic obstructive pulmonary disease with (acute) lower respiratory infection
CPT/HCPCS: 99214; G2211

== ENCOUNTER → 2025-02-12 10:57 | Outpatient (BNVA) | payer MEDICARE, SELFPAY | PROVIDERS: PCP Internal Medicine; Visit Provider Hospitalist | DX: J43.2 Centrilobular emphysema (principal); J96.11 Chronic respiratory failure with hypoxia; J96.12 Chronic respiratory failure with hypercapnia; J44.0 Chronic obstructive pulmonary disease with (acute) lower respiratory infection; D50.9 Iron deficiency anemia, unspecified; R06.00 Dyspnea, unspecified | CPT/HCPCS: 99212 ==

== ENCOUNTER 2025-04-09 08:59 | Outpatient (AMB) | payer MEDICARE, SELFPAY ==
[2025-04-09 09:14] VITALS: BP 102/0; PULSE 88; O2SAT 90; BMI 22.7
--- NOTE | 2025-04-09 09:14 | A.OFFVIS_ITS ---
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 She also has pulmonary nodules over following. She is scheduled for CT scan in a month at [facility]. Therefore, will follow up after that. She has times and dyspnea on exertion. She does need her oxygen. She is looking to getting a portable oxygen concentrator. However she is questioning if she can use the POC at nighttime. I am concerned that if she does not activate the pulse while sleeping and it would not be helpful for her. However if she does decide to buy it we can always retest to see if is effective for her while she is sleeping. She continues to pulmonary rehabilitation. That is going well. She continues uses trelegy. She is using the azithromycin. She has been around people that have been sick and she has been able to stay healthy. Will continue the for next 3-4 months and will see about weaning it off to give her a break from medications. This antibiotic but will use it more for the anti-inflammatory properties. Did review her last CT scan of the chest that she had recently demonstrating small pulmonary nodules are stable in size. She has a RADS 2 and therefore needs a repeat CT scan in a year's time. We did do a chest x-ray today which appears to have resolution of the left-sided process. No evidence of any acute lower respiratory infection. Therefore, she is responding well to the current respiratory regimen and antibiotics. She will complete the antibiotic course and then taper down the prednisone to 10 mg daily. She has been now multiple courses of antibiotics and prednisone is still having hard time with her breathing. She has been having hard time expectorating. She is getting very frustrated upset. She also complains of increasing shortness of breath and increasing heart rate. She denies any chest pains. On examination she does have some rhonchi on exam which appeared to be right worse than left. Her pneumonia was on her left and side initially. That ultimately cleared up on the x-ray. The patient has a hard time expectorating. Therefore, we'll try the stronger antibiotics along with another course of prednisone. At this point will plan to this pulmonary function study with ABG. The patient should stay on a small dose of prednisone of 10 mg every other day and should also restart the azithromycin Sunday and Sunday. Will monitor closely her IgG levels at this time, no need for augmentation therapy. She did have a 6 minutes walk test and during that study her oxygen quickly decreased after 50 ft on room air to 86%. After that heart rate did increase to the 130s. The patient rested he then was placed on 3 L pulse and ambulating her she was able to maintain a pulse ox above 90%. However, heart rate still was elevated than 130s. The patient states that she did have an echocardiogram at [facility] and I do not have the results right now. She does not have a player services representative. It is reasonable to have her follow up with Cardiology as we wait for the results or pulmonary function studies and arterial blood gas. While we wait for those results the patient is to hold off on pulmonary rehabilitation. e did have worsening respiratory symptoms and malaise and she was taken to [facility] which she was found to have a hemoglobin of 5.9. Here in the office we checked back in September she was up to 10 which is significant drop. In the meantime she was given 2 units of blood and she did undergo an upper and lower endoscopy without any significant findings. She is given iron which is taking with multivitamins. While she was there she did have a blood gas demonstrating a pH does 7.36 with a pCO2 of 39 mm of mercury which is within normal limits suggesting that she has no evidence of chronic hypercarbic respiratory failure. 11/15/2023 the patient is here for a pulmonary follow-up visit. She continues to have dyspnea on exertion with minimal activity. She understands that she has very severe COPD. She is also oxygen dependent has significant anemia. She is status post iron infusions. She will be following closely we hematology. In the meantime she has not been very active. We did talk about the importance of conditioning and pulmonary rehabilitation. She had been doing the online pulmonary rehab but did not find it very helpful. We did talk about considering going back to in-person pulmonary rehab. She also also using her noninvasive ventilator. Sometimes difficult for her to tolerate. Already has been demonstrating improvement in the CO2. The therapy has been affecting beneficial. At this point we talked about ways to improve her energy level during daytime. She is going to try increasing the prednisone from 7.5-10 mg. the other options to consider stimulant such as modafinil. 02/06/2024 the patient is here for a pulmonary follow-up visit. She is still struggling with breathing. Develops significant dyspnea with minimal activity. Moderate to severe. She does use the oxygen all the time. The patient did get 2 units of blood transfusion and she was hoping to feel better but she did not. The patient also underwent blood work including a blood gas demonstrating chronic stable hypercarbic respiratory failure and also had her hemoglobin checked which was 9.7 which is still significantly low but better for her. Kidney function was also stable. She did have a chest x-ray demonstrating hyperinflated lungs consistent with her advanced COPD. We talked about her underlying condition as far as her medications she is currently medically optimize with the noninvasive ventilator in the inhaler therapy. She should be increasing the oxygen with activity to avoid the desaturations. In addition to that will try some diuretics to see if we can help with volume status. Explained to her that she may have a component of cor pulmonale. If her symptoms persist we can also request an echocardiogram. At this point the patient understands that she has very severe COPD and at this point she is maximized on her respiratory therapy. Will continue to provide as much support as possible understand the limitations. 03/06/2024 the patient is here for sick visit. She has been struggling. She has had increased respiratory complaints. Hard time breathing. She went to her primary care doctor felt to have a bout of bronchitis she was given doxycycline. Ultimately she has not been getting better so she went to Oncology to see if she needed blood. However, the busy and could not accommodate so she ended up going to the ER. There she did receive 1 unit of blood. She did have a CT of the chest demonstrating significant emphysema but no blood clots. No airspace disease. No clear explanation for the patient's symptoms. She was discharged and she currently is completing a prednisone taper. The patient was able to do a breathing treatment in the office and we were able to help her expectorate some phlegm. It is very tenacious greenish in color. Maybe some tension blood in it very hard for her to expectorate. I did talk to her daughter some concerned that she looks weaker. The patient already has evidence of hypercarbic respiratory failure and now with the mucus burden unable to her secretions is concerned that she could potentially get worse. We did talk about the importance of using the noninvasive ventilator to give her assistance with breathing. And she will use that. We were able to get a sputum culture and send to the lab. It looks like Pseudomonas. Therefore send Levaquin. She already has diarrhea. 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 She knows to stop the medication if she develops any tendonitis. She also be off the azithromycin by while she 03/24/2024 the patient is here for a pulmonary sick visit. She is still struggling with breathing. Initially she responded very well to the Levaquin. She did not complain of any tendinitis or any diarrhea. She did take some probiotics at some periods. She is now back in azithromycin. Her breathing became significantly better apparently. Now much worse again. Starting to get congestion. Difficult to expectorate. Her sputum culture was not helpful as it was only positive for respiratory naty. I do believe that bronchoscopy will be helpful for therapeutic cleaning in addition to lower respiratory cultures to assess any enteric organisms that will require therapy. Will see about scheduling a bronchoscopy. We can do it under moderate sedation and provide her with a lidocaine nebulizer treatment to minimize on the anesthesia effects in view of her respiratory failure. Patient also will undergo blood work specially because he is more tachycardic today. Wonder if she is potentially more anemic is also likely contributing to her symptoms. 04/08/2024 the patient is here for a follow-up visit after hospitalization. She had been admitted to [facility] with worsening respiratory symptoms. At that point she was already on Levaquin for the persistent chest congestion. She required a couple units of blood. It was found that she had blood in her stools. She does have an evaluation from a GI standpoint. Although they do not want to do any procedures because she had some serious complications handling anesthesia in the past. The details are not available though. The patient has been using noninvasive ventilator. She is maxed that with her medications. She still has a significant cough difficult to clear secretions. The family is with her. We did talk about her severity of disease having very severe COPD on top of that significant anemia. I did provide her a letter in order for her to get a transfusion when her hemoglobin is 8 and not wait till the 7 due to her very severe COPD and minimal gas exchange. Hopefully that can provide her some support. In the meantime her condition is unlikely to improve unfortunately. She does have chronic severe progressive disease. Will continue supporting her as much as possible I did recommend that it looking for any other alternatives to treatments she can always going to [place] for 2nd opinion although I do not believe they have much to offer her with her age in severe comorbidities. Will plan to do a bronchoscopy to try to provide airway clearance and deep cultures if there is anything else we can treat to allow her respiratory status to improve. Right now hemoglobin stable since she has got a blood transfusion and IV infusions of iron and will be a good opportunity to do so. 05/08/2024 the patient is here for a pulmonary follow-up visit. She is status post bronchoscopy. 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 She was initially treated with Levaquin and then with doxycycline. Her chest congestion is improved dramatically. Although she could not tolerate the doxycycline after more than 3 weeks because of nausea. Therefore the patient will stop the doxycycline. Would still waiting for sensitivities but we can also try Bactrim for now tried putting a prophylactic dose. She could stop the azithromycin. The patient also had a blood transfusio n since we last spoke and hemoglobin has been better than has been a long time. She did move in with her daughter which is reassuring. She also signed papers for DNR. The patient will continue her current respiratory therapy. We did talk about different exercises she can do at home. She needs to continue with her pulmonary rehabilitation. She will continue using to use her oxygen and will follow-up in 6-8 weeks. She will continue the Bactrim until we talk then. Will have to make sure to treat the stenotrophomonas effectively so will have to wait for the sensitivities come back. 07/10/2024 the patient is here for a pulmonary follow-up visit. The patient overall is doing well. She has been doing better from the hemoglobin standpoint. She is getting blood transfusions more regularly. She is avoiding the hemoglobin dropping to the 70s when she becomes very symptomatic. Her cough is overall better. She did grow stenotrophomonas and she was treated with multiple antibiotics. Which she was supposed to stay on Bactrim but she stopped. She is currently on azithromycin 3 times a week. Overall seems to be helping. But feel more comfortable she went back to the Bactrim at least to finish a longer course to minimize the return of the stenotrophomonas. She is using her oxygen good effect. She is also using her respiratory medicines with good effect. No recent imaging to review at this time. Will plan to follow-up the current therapy. She is going to go back on the Bactrim and monitor closely for any adverse symptoms. The patient will return 2 months. I which time at that point we can talk about going back on the azithromycin. She is having issue also with a skin cancer close to her right eye. She can not use the noninvasive ventilator with a regular mask because it bother her right were that she has a surgical intervention. She did have an F30 mask that she is trying although she is still finds it uncomfortable. She is going to start trying to adjusted a little bit better. I did recommend that if she needs to have further surgical intervention for the skin cancer if she is going to have any anesthesia she should do it hospital setting. 09/04/2024 the patient is here for pulmonary follow-up visit. Overall the patient is doing about the same. She has been dealing with her anemia. No clear source of her anemia or any blood loss. She still requiring blood transfusions on a monthly basis. I did mention to her to talk to her doctors about a bleeding scan to consider checking her Epogen levels. In the meantime the patient also had skin cancer and had surgery. The patient is not able to use her noninvasive ventilator at this time since she had the surgery close to which the mask fits. Therefore she has to hold off on the noninvasive ventilator for now. Once she feels better she can go back on it. She continues with respiratory therapy with good effect. No need to make any changes at this time. She continues on the prednisone 10 mg daily which will continue. She has also been on the doxycycline daily for the stenotrophomonas. This has been now for several months so therefore will try to decrease it to every other day to see if she tolerates it and keeps her secretions are under control. 11/10/2024 the patient is here for sick visit. She did not feel good the last few days. Therefore they made the appointment. She has been having increasing shortness of breath dyspnea on exertion. Moderate severity. She has been recovering from her eye surgery. Since her eye surgery she could not use her noninvasive ventilator because it affected her eye in addition to that she was not able to take her antibiotics. She felt a little bit more chest D with more cough. [id number] severity. At times she will bring up some phlegm although not colored. She is back on the Bactrim and she is back on her noninvasive ventilator. She has been a little shaky so they were unsure about her CO2. Will get blood work including a blood gas. Her pCO2 is actually better than it has ever been at 45 mmHg which is reassuring. Will also have her get a chest x-ray to better address the area. As far as her anemia she c wilian work closely with the Hematology and she has been getting regular transfusions and also has been getting IV iron infusions. At this point she is feeling a little bit better so will continue with the current respiratory therapy. Will have her get the blood work and chest x-ray. 02/12/2025 the patient is here for pulmonary follow-up visit. She is still having the same symptoms still complains of dyspnea, decreased energy she is still requiring blood transfusions every 4-6 weeks. She gets those arranged her [facility]. After last transfusion she was actually gets in the hospital for few days. The patient has been having issues with volume status. Recently she was told to increase her diuretic. Today when she came in her blood pressure diastolic could not be read. It was actually documented to be low in the past. Explained to her the concerns about a widened pulse pressure and decrease diastolic pressures this decreases her perfusion pressure of the coronary arteries. The patient denies any dizziness right now. She is going to recheck her blood pressure when she goes home. If her blood pressure continues to be low she will call her player services representative about it. For now she is going to hold off on the diuretic for couple days and then potentially restarted at half dose and she is going to monitor her weight. She is going to continue with the current respiratory therapy as it is affecting beneficial. And she continues uses noninvasive ventilator every night. The ventilator has been effective in decreasing her work of breathin improving her CO2. Will continue to keep her on the same respiratory therapy and she will follow closely with the player services representative monitor closely her blood pressure. She is also going to monitor closely hemoglobin. She is thinking about going to the [facility] she is going to try to make arrangements which she can get her infusions or transfusions closer to the [facility]. 04/09/2025 the patient is here for a pulmonary follow-up visit. She complains of worsening dyspnea on exertion. She is using her oxygen but still feels very breathless with minimal activity. Moderate severity. She is also feeling tired. She did follow-up with Hematology and her hemoglobin appear to have been better than usual. She is using the noninvasive ventilator at nighttime. She continues use her respiratory therapy. She continues to be on a chronic prednisone use. Still though she does not feel well. Indeed we have to consider the progression of the COPD and her respiratory disease. Will go ahead and request blood work. We did go for brief walking oximetry the patient did need additional oxygen up to 4 L pulse with activity. Therefore she will make the adjustments and at home she will increase her concentrator by 0.5 L. she will try to maintain her pulse ox between 92-96%. Is hard because she does have the concentrator elsewhere and she does not have access to it. She does have a 50 ft hose. Will have her get blood work in addition to an x-ray. The patient will follow-up sometime in April in the meantime she will increase her prednisone for prednisone burst specially while she is that the [facility]. COUNT INCLUDES THE [facility] Medical History (Updated 04/12/25 @ 22:12 by Mateo Barrientos MD) Dyspnea (~08/14/23) Tachycardia Anemia Anemia Pre-op chest exam Vertebral artery stenosis Dyspnea Chronic respiratory failure Dyslipidemia Hypothyroidism Centrilobular emphysema Surgical History (Updated 04/10/24 @ 12:47 by Barbara Armando RN) Hx of colonoscopy History of cholecystectomy H/O: hysterectomy Family History Mother No problems noted. Daughter Diabetes Social History Household Members: None Housing: House Do you presently have visiting nurse or other home services: No Alcohol intake: unknown Patient Tobacco Use Status: Former Tobacco user Tobacco use type: Cigarette Years Smoked: 40+ years service: No Current occupational status: retired Review of Systems Const Denies chills, Reports fatigue, Denies fever(s), Denies weight gain and Denies weight loss ENT Denies dizziness, Denies lip swelling and Denies tongue swelling Card Denies chest pain, Denies leg edema, Denies lightheadedness, Denies palpitations, Reports dyspnea, Reports dyspnea on exertion, Denies orthopnea and Denies other Resp Reports cough, Reports dyspnea, Reports dyspnea on exertion and Reports wheezing GI Denies hematochezia and Denies change in stool character Musc Denies abnormal gait, Denies muscle weakness, Denies numbness, Denies radiating pain into limb and Denies tingling Skin/Breast Reports as per HPI Neuro Denies abnormal gait, Denies dizziness, Denies numbness and Denies tingling Psych Reports depression Endo Reports fatigue and Denies palpitations Fredi/Lymph Denies easy bleeding and Denies lymphadenopathy Aller/Immun Denies lip swelling, Denies tongue swelling and Reports wheezing Physical Exam Vital Signs: Last Vital Signs Pulse 88 04/09/25 09:14 BP 102/0 L 04/09/25 09:14 Pulse Ox 90 L 04/09/25 09:14 Oxygen Delivery Method Nasal Cannula 04/09/25 09:14 Oxygen Flow Rate 3 04/09/25 09:14 BMI result Body Mass Index 22.7 Const General: alert and tired appearing Eyes Conjunctivae: conjunctival abnormal bilateral pallor Pupils: Equal, round and reactive pupils present Neck Neck: Yes normal visual inspection, Yes full ROM and Yes no lymphadenopathy Chest Chest palpation & inspection: normal inspection of the chest Resp Effort & Inspection: normal respiratory effort and prolonged expiratory phase Auscultation: no rhonchi, no wheezes and diminished lung sounds Cardio Rate: tachycardic Rhythm: regular rhythm Heart sounds: S1 normal heart sound present and S2 normal heart sound present GI Palpation (GI): Soft to palpation and nontender Auscultation: normal bowel sounds Skin Trauma: abrasion (RLE) Neuro Cranial nerves: Yes Equal, round and reactive pupils present Office Procedures 6 Minute Walk Time:: 09:45 SPO2 % at rest: 92 Pulse at rest: 73 SPO2 % during excercise: 86 Pulse during excercise: 97 SPO2 % after excercise: 93 Pulse after excercise: 82 Distance in yards walked: 180 Performance Observations:: Marlee walked on level ground with a walker, she walked on setting 3 pulsed O2 within 2 minutes her SPO2 decreased to 86%. pulsed O2 increased to 4 and with a brief rest her SPO2 recovered to 94%. She maintained her SPO2 92-94% on pulsed O2 setting 4. [id number] - 6 Minute Walk Assessment & Plan Assessment & Plan (1) Dyspnea: Code(s): R06.00 - Dyspnea, unspecified Category: Medical Qualifiers: Dyspnea type: dyspnea on exertion Qualified Code(s): R06.00 - Dyspnea, unspecified (2) Centrilobular emphysema: Comment: Very severe COPD with FEV1 26% predicted Code(s): J43.2 - Centrilobular emphysema Category: Medical (3) Chronic respiratory failure: Comment: With evidence of chronic hypercarbic respiratory failure, DLCO very severe Code(s): J96.10 - Chronic respiratory failure, unspecified whether with hypoxia or hypercapnia Category: Medical Qualifiers: Respiratory failure complication: hypoxia and hypercapnia Qualified Code(s): J96.11 - Chronic respiratory failure with hypoxia; J96.12 - Chronic respiratory failure with hypercapnia; J96.12 - Chronic respiratory failure with hypercapnia (4) Anemia: Code(s): D64.9 - Anemia, unspecified Category: Medical Qualifiers: Anemia type: iron deficiency Iron deficiency anemia type: unspecified iron deficiency Qualified Code(s): D50.9 - Iron deficiency anemia, unspecified (5) COPD (chronic obstructive pulmonary disease): Comment: very severe, end stage Code(s): J44.9 - Chronic obstructive pulmonary disease, unspecified Category: Medical Qualifiers: COPD type: COPD with acute exacerbation Qualified Code(s): J44.1 - Chronic obstructive pulmonary disease with (acute) exacerbation Plan start prednisone taper then continue Prednisone 10mg daily start Ohtuvayre Bloodwork/CXR continued Trelegy continue Duoneb oxygen supplementation 4 L pulse with activity and also should also uses to sleep. continue NIV, AVAPS, PCO2 better at 65->58mmHg on venous blood gas, volume 350 ml and rate 12., use F30 mask Bactrim DS QOD F/U with Hematology follow-up in 1-2 months Orders: Orders Complete Blood Count Auto Diff 04/09/25 J44.0 - Chronic obstructive pulmonary disease with (acute) lower respiratory infection, R06.00 - Dyspnea, unspecified Basic Metabolic Panel 04/09/25 J44.0 - Chronic obstructive pulmonary disease with (acute) lower respiratory infection, R06.00 - Dyspnea, unspecified B Type Natriuretic Peptide 04/09/25 J44.0 - Chronic obstructive pulmonary disease with (acute) lower respiratory infection, R06.00 - Dyspnea, unspecified Troponin-I High Sensitivity 04/09/25 J44.0 - Chronic obstructive pulmonary dise ase with (acute) lower respiratory infection, R06.00 - Dyspnea, unspecified AMB 6 minute walk 04/09/25 J44.0 - Chronic obstructive pulmonary disease with (acute) lower respiratory infection Venous Blood Gas 04/09/25 J44.0 - Chronic obstructive pulmonary disease with (acute) lower respiratory infection, R06.00 - Dyspnea, unspecified Erythrocyte Sedimentation Rate 04/09/25 J44.0 - Chronic obstructive pulmonary disease with (acute) lower respiratory infection, R06.00 - Dyspnea, unspecified XR chest 2V 04/09/25 J44.0 - Chronic obstructive pulmonary disease with (acute) lower respiratory infection, R06.00 - Dyspnea, unspecified Medications: New prednisone PO daily; Take 2 tabs daily x 5 days, then 1 tab daily x 5 days 15 tabs 0RF 10 days Coding Level of Care Code Est Pt Level 5 (04362) Complex EM visit Add On G2211 Diagnoses Dyspnea on exertion R06.00 Dyspnea type: dyspnea on exertion Centrilobular emphysema J43.2 Chronic respiratory failure with hypoxia and hypercapnia J96.11; J96.12; J96.12 Respiratory failure complication: hypoxia and hypercapnia Iron deficiency anemia, unspecified iron deficiency anemia type D50.9 Anemia type: iron deficiency Iron deficiency anemia type: unspecified iron deficiency Chronic obstructive pulmonary disease with acute exacerbation J44.1 COPD type: COPD with acute exacerbation CPT Codes Coding ([id number]) Time Spent (min) 45
--- OUTSIDE RECORDS SUMMARY | 2025-04-09 09:27 | XMS_ITS | Encounter Summary ---
Author Organization [facility] Address [address] [place] [address] Care Team Providers Care Contact Lens Fitter Name Role Phone Radha Cortés MD Primary Care Provider [phone] Reason for Visit * Reason Onset Date Comments faxed order 04/07/2025 [facility] order #[id number] Encounter Details Date Type Department Care Team ([facility] st Contact Info) Description 04/07/2025 Telephone Adult Medicine [address] [address] Khalida Winslow [place] faxed order ([facility] order #[id number]) Social History Tobacco Use Types Packs/Day Years Used Date Smoking Tobacco: Former Cigarettes Q uit: 09/17/1996 Smokeless Tobacco: Never Alcohol Use Standard Drinks/Week Comments Not Currently 0 (1 standard drink = 0.6 oz pur e alcohol) Housing Instability Answer Date Recorde d Are you worried that in the next 2 months you may not have stable housing? No 12/08/2024 Food Access & Nutrition Answer Date Rec orded Do you have access to a vari ety of food including fruits and vegetables? Yes 12/08/2024 Access to Healthcare Answer Date Record ed Within the last 3 months, felix koo many times did you visit the emergency department for your medical care? 0 12/08/2024 Health Literacy Answer Date Recorded How often do you need to hav e someone help you when you read instructions, pamphlets, or other written material from your doctor or pharmacy? Never 12/08/2024 Caregiver: How often do you need to have someone help you when you read instructions, pamphlets, or other written material from your doctor or pharmacy? Not on file 12/08/2024 Financial Risk Answer Date Recorded How hard is it for you to pa y for the very basics like food, housing, medical care, and air conditioning / heating? Not very hard 12/08/2024 Transportation Answer Date Recorded Has the lack of transportati on kept you from meetings, work, or from getting things needed for daily living? No Has the lack of transportati on kept you from medical appointments or from getting medications? No 12/08/2024 Social Isolation Answer Date Recorded How often do you feel lonely or isolated from th ose around you? Never 12/08/2024 Food Risk Answer Date Recorded Within the past 12 months we worried whether our food would run out before we got money to buy more. Never true 12/08/2024 Within the past 12 months th e food we bought just didn't last and we didn't have money to get more. Never true 12/08/2024 Dependent Care Answer Date Recorded Do you need help finding or paying for care for your loved ones. For example, child and family counselor or elderly care for an older adult? No 12/08/2024 Education Answer Date Recorded Do you think completing more education or training, like finishing a GED, going to college, or learning a trade, would be helpful for you? No 12/08/2024 Employment and Income Answer Date Recor ded During the last four weeks, have you been actively looking for work? No 12/08/2024 Living Situation Answer Date Recorded What is your living situation? 0 12/08/2024 Interpersonal Safety Answer Date Record ed Physical Abuse 01/28/2025 Verbal Abuse 01/28/2025 Comments No Sex and Gender Information Value Date Recorded Sex Assigned at Female 08/20/2024 12:31 PM EST Legal Sex Female 11:05 PM EST Gender Identity Female 08/20/2024 12:31 PM EST Sexual Orientation Straight 08/26/2024 9: 20 AM EST documented as of this encounter Progress Notes * Khalida GEM Winslow - 04/07/2025 1:04 PM EDT Received orders from [facility] order #[id number]. Please signa nd fax to [phone] documented in this encounter Plan of Treatment Upcoming Encounters Date Type Department Care Team (Late st Contact Info) Description 04/30/2025 11:00 AM EDT Office Visit Adult Medicine [facility] [address] [place] [address] Radha Cortés MD [address] [place] [address] 06/05/2025 10:00 AM EDT Ancillary Procedure [facility] [address] [address] 06/09/2025 10:30 AM EDT Office Visit [facility] Hematology Oncology [address] [place] [address] Mary Jane Terry MD [address] [place] [address] 06/09/2025 12:00 PM EDT Ancillary Procedure [place] [address] [address] 06/18/2025 10:45 AM EDT Ancillary Procedure [place] [address] [address] 07/17/2025 2:10 PM EDT Office Visit [facility] [address] [facility] [address] [place] [address] Gisel Arthur NP [address] [place] [address] [address] [place] [address] 08/06/2025 11:30 AM EST Office Visit Vascular Surgery - [place] [address] [place] [address] Jennifer Carlson PA [address] [facility] [address] [place] [address] documented as of this encounter Visit Diagnoses Not on filedocumented in this encounter Additional Health Concerns Assessment Noted Time PHQ-9 Depression Total Score: 0 12/09/19 25 1:44 PM EDT A fall risk assessment has been complete d for the patient 12/15/2024 11:14 AM EDT documented as of this encounter Care Teams Contact Lens Fitter Relationship Specialty Start Date End Date Radha Cortés MD [address] [place] [address] PCP - General Internal Medicine 05/13/19 documented as of this encounter
--- OUTSIDE RECORDS SUMMARY | 2025-04-09 09:27 | XMS_ITS | Clinical Summary ---
Author Organization [facility] Address [address] [place] [address] Care Team Providers Care Property Maintenance Supervisor Name Role Phone Radha Cortés MD Primary Care Provider Allergies No known active allergies Medications Medication [...] 76 06/11/2024 4:35 PM EDT Temperature 36.2 C (97.2 F) 06/11/2024 4:35 PM EDT Respiratory Rate 18 06/11/2024 4:35 PM EDT [...] 07/03/2021, Additional history exists Influenza Vaccine (#1) 2025 3, 07/03/2022, 07/03/2022, Additional history exists DTap [...] age to complete this topic Care Teams Property Maintenance Supervisor Relationship Specialty Start Date End Date Radha Cortés MD PCP - General Internal Medicine 08/27/20
[2025-04-09 09:53] VITALS: PULSE 73; O2SAT 92
== END 2025-04-09 09:53 | disposition home or self-care (01) ==
LOC: HO.HPS 09:00
PROVIDERS: PCP Internal Medicine; Visit Provider Hospitalist
DX: J44.0 Chronic obstructive pulmonary disease with (acute) lower respiratory infection (principal); R06.00 Dyspnea, unspecified
CPT/HCPCS: 94618; 99215

== ENCOUNTER 2025-04-09 08:59 | Outpatient (REF) | payer MEDICARE, SELFPAY ==
--- NOTE | ~2025-04-09 | XR_ITS ---
EXAMINATION: XR CHEST CLINICAL INFORMATION: R06.00 - Dyspnea, unspecified COMPARISON: 11/10/2024 TECHNIQUE: 2 views of the chest were obtained. FINDINGS: Aortic valve prosthesis is unchanged. 2 Short metallic markers or clips project over the right lower chest wall/breast, unchanged. Lungs are mildly hyperinflated, unchanged. Lungs remain clear. There is no pleural effusion. XR/XR chest 2V IMPRESSION: No acute disease. Mild stable hyperinflation. Electronically signed by: Luca Olmedo MD 04/09/2025 10:41 AM EDT
[2025-04-09 10:18] LABS: MANUAL DIFF FLAG NO
[2025-04-09 10:21] LABS: Venous Blood Gas Refer to POC result
[2025-04-09 10:29] LABS: VBG HCO3 37 mmol/L (22-26); VBG O2 % Saturation 45.0 %
[2025-04-09 10:44] LABS: Hematocrit 29.8 % (37.0-47.0); Hemoglobin 9.4 g/dl (12.0-16.0); Imm Gran Abs Auto 0.14 X10*3/uL (0.00-0.03); Imm Gran Pct Auto 1.1 % (0.0-0.4); Lymphocytes Absolute Auto 0.6 X10*3/uL (1.2-4.9); Mean Corpuscular HGB Conc 31.5 g/dl (31.0-35.0); Mean Corpuscular Hemoglobin 30.3 pg (27.0-33.0); Mean Corpuscular Volume 96.1 fL (80.0-98.0); NRBC Abs Auto 0.000 X10*3/uL (0.0-0.012); NRBC Pct Auto 0.0 /100WBC (0.0-0.2); Platelet Count 303 X10*3/uL (160-400); Red Blood Count 3.10 X10*6/uL (4.20-5.50); White Blood Count 12.2 X10*3/uL (4.8-10.8)
[2025-04-09 11:12] LABS: B Type Natriuretic Peptide 18 pg/mL (<100)
[2025-04-09 11:14] LABS: Anion Gap 12 (12-20); Blood Urea Nitrogen 12 mg/dL (9-16); Calcium 9.8 mg/dL (8.4-10.2); Carbon Dioxide 32 mmol/L (22-29); Chloride 102 mmol/L (96-108); Estimated Glomerular Filt Rate 51; Potassium 4.4 mmol/L (3.3-5.1); Sodium 142 mmol/L (135-145)
[2025-04-09 11:19] LABS: Troponin-I High Sensitivity 26.6 ng/L (<3.5-17.0)
== END 2025-04-09 09:00 | disposition home or self-care (01) ==
LOC: HO.LAB 08:59
PROVIDERS: PCP Internal Medicine; Visit Provider Hospitalist
DX: J44.1 Chronic obstructive pulmonary disease with (acute) exacerbation (principal); J44.0 Chronic obstructive pulmonary disease with (acute) lower respiratory infection; J96.11 Chronic respiratory failure with hypoxia; J96.12 Chronic respiratory failure with hypercapnia; J43.2 Centrilobular emphysema; D50.0 Iron deficiency anemia secondary to blood loss (chronic); Z79.2 Long term (current) use of antibiotics; Z79.51 Long term (current) use of inhaled steroids; Z79.899 Other long term (current) drug therapy; Z87.891 Personal history of nicotine dependence
CPT/HCPCS: 36415; 71046; 80048; 82803; 83880; 84484; 85025; 85652; 94618; 99212

== ENCOUNTER → 2025-04-09 10:18 | Outpatient (BNV) | payer MEDICARE, SELFPAY | PROVIDERS: PCP Internal Medicine; Visit Provider Radiology Diagnostic Radiology | DX: R06.00 Dyspnea, unspecified (principal) | CPT/HCPCS: 71046 ==

== ENCOUNTER 2025-05-07 11:08 | Outpatient (AMB) | payer MEDICARE, SELFPAY ==
[2025-05-07 11:10] VITALS: BP 142/60; PULSE 89; O2SAT 90; BMI 22.8
--- NOTE | 2025-05-07 11:10 | MHC.OFFVIS ---
Vital Signs 05/07/25 11:10 Height 5 ft 4 in Weight 133 lb BMI 22.8 BP 142/60 H Blood Pressure Location Rt brachial Position Sitting Pulse 89 Pulse Source Pulse Oximeter Pulse Oximetry (%) 90 L Oxygen Delivery Method Nasal Cannula Oxygen Flow Rate 3 Intake Visit Reasons: COPD Allergies No Known Allergies Allergy (Verified 05/07/25 11:20) HPI Comments Details: The patient is a 79 y/o woman with a history of COPD also with the O2 dependence on chronic Prednisone. She also has pulmonary nodules over following. She is scheduled for CT scan in a month at [facility]. Therefore, will follow up after that. She has times and dyspnea on exertion. She does need her oxygen. She is looking to getting a portable oxygen concentrator. However she is questioning if she can use the POC at nighttime. I am concerned that if she does not activate the pulse while sleeping and it would not be helpful for her. However if she does decide to buy it we can always retest to see if is effective for her while she is sleeping. She continues to pulmonary rehabilitation. That is going well. She continues uses trelegy. She is using the azithromycin. She has been around people that have been sick and she has been able to stay healthy. Will continue the for next 3-4 months and will see about weaning it off to give her a break from medications. This antibiotic but will use it more for the anti-inflammatory properties. Did review her last CT scan of the chest that she had recently demonstrating small pulmonary nodules are stable in size. She has a RADS 2 and therefore needs a repeat CT scan in a year's time. We did do a chest x-ray today which appears to have resolution of the left-sided process. No evidence of any acute lower respiratory infection. Therefore, she is responding well to the current respiratory regimen and antibiotics. She will complete the antibiotic course and then taper down the prednisone to 10 mg daily. She has been now multiple courses of antibiotics and prednisone is still having hard time with her breathing. She has been having hard time expectorating. She is getting very frustrated upset. She also complains of increasing shortness of breath and increasing heart rate. She denies any chest pains. On examination she does have some rhonchi on exam which appeared to be right worse than left. Her pneumonia was on her left and side initially. That ultimately cleared up on the x-ray. The patient has a hard time expectorating. Therefore, we'll try the stronger antibiotics along with another course of prednisone. At this point will plan to this pulmonary function study with ABG. The patient should stay on a small dose of prednisone of 10 mg every other day and should also restart the azithromycin Sunday and Sunday. Will monitor closely her IgG levels at this time, no need for augmentation therapy. She did have a 6 minutes walk test and during that study her oxygen quickly decreased after 50 ft on room air to 86%. After that heart rate did increase to the 130s. The patient rested he then was placed on 3 L pulse and ambulating her she was able to maintain a pulse ox above 90%. However, heart rate still was elevated than 130s. The patient states that she did have an echocardiogram at [facility] and I do not have the results right now. She does not have a transcript evaluator. It is reasonable to have her follow up with Cardiology as we wait for the results or pulmonary function studies and arterial blood gas. While we wait for those results the patient is to hold off on pulmonary rehabilitation. e did have worsening respiratory symptoms and malaise and she was taken to [facility] which she was found to have a hemoglobin of 5.9. Here in the office we checked back in September she was up to 10 which is significant drop. In the meantime she was given 2 units of blood and she did undergo an upper and lower endoscopy without any significant findings. She is given iron which is taking with multivitamins. While she was there she did have a blood gas demonstrating a pH does 7.36 with a pCO2 of 39 mm of mercury which is within normal limits suggesting that she has no evidence of chronic hypercarbic respiratory failure. 11/15/2023 the patient is here for a pulmonary follow-up visit. She continues to have dyspnea on exertion with minimal activity. She understands that she has very severe COPD. She is also oxygen dependent has significant anemia. She is status post iron infusions. She will be following closely we hematology. In the meantime she has not been very active. We did talk about the importance of conditioning and pulmonary rehabilitation. She had been doing the online pulmonary rehab but did not find it very helpful. We did talk about considering going back to in-person pulmonary rehab. She also also using her noninvasive ventilator. Sometimes difficult for her to tolerate. Already has been demonstrating improvement in the CO2. The therapy has been affecting beneficial. At this point we talked about ways to improve her energy level during daytime. She is going to try increasing the prednisone from 7.5-10 mg. the other options to consider stimulant such as modafinil. 02/06/2024 the patient is here for a pulmonary follow-up visit. She is still struggling with breathing. Develops significant dyspnea with minimal activity. Moderate to severe. She does use the oxygen all the time. The patient did get 2 units of blood transfusion and she was hoping to feel better but she did not. The patient also underwent blood work including a blood gas demonstrating chronic stable hypercarbic respiratory failure and also had her hemoglobin checked which was 9.7 which is still significantly low but better for her. Kidney function was also stable. She did have a chest x-ray demonstrating hyperinflated lungs consistent with her advanced COPD. We talked about her underlying condition as far as her medications she is currently medically optimize with the noninvasive ventilator in the inhaler therapy. She should be increasing the oxygen with activity to avoid the desaturations. In addition to that will try some diuretics to see if we can help with volume status. Explained to her that she may have a component of cor pulmonale. If her symptoms persist we can also request an echocardiogram. At this point the patient understands that she has very severe COPD and at this point she is maximized on her respiratory therapy. Will continue to provide as much support as possible understand the limitations. 03/06/2024 the patient is here for sick visit. She has been struggling. She has had increased respiratory complaints. Hard time breathing. She went to her primary care doctor felt to have a bout of bronchitis she was given doxycycline. Ultimately she has not been getting better so she went to Oncology to see if she needed blood. However, the busy and could not accommodate so she ended up going to the ER. There she did receive 1 unit of blood. She did have a CT of the chest demonstrating significant emphysema but no blood clots. No airspace disease. No clear explanation for the patient's symptoms. She was discharged and she currently is completing a prednisone taper. The patient was able to do a breathing treatment in the office and we were able to help her expectorate some phlegm. It is very tenacious greenish in color. Maybe some tension blood in it very hard for her to expectorate. I did talk to her daughter some concerned that she looks weaker. The patient already has evidence of hypercarbic respiratory failure and now with the mucus burden unable to her secretions is concerned that she could potentially get worse. We did talk about the importance of using the noninvasive ventilator to give her assistance with breathing. And she will use that. We were able to get a sputum culture and send to the lab. It looks like Pseudomonas. Therefore send Levaquin. She already has diarrhea. She needs to lease picker probiotics. She knows to stop the medication if she develops any tendonitis. She also be off the azithromycin by while she 03/24/2024 the patient is here for a pulmonary sick visit. She is still struggling with breathing. Initially she responded very well to the Levaquin. She did not complain of any tendinitis or any diarrhea. She did take some probiotics at some periods. She is now back in azithromycin. Her breathing became significantly better apparently. Now much worse again. Starting to get congestion. Difficult to expectorate. Her sputum culture was not helpful as it was only positive for respiratory naty. I do believe that bronchoscopy will be helpful for therapeutic cleaning in addition to lower respiratory cultures to assess any enteric organisms that will require therapy. Will see about scheduling a bronchoscopy. We can do it under moderate sedation and provide her with a lidocaine nebulizer treatment to minimize on the anesthesia effects in view of her respiratory failure. Patient also will undergo blood work specially because he is more tachycardic today. Wonder if she is potentially more anemic is also likely contributing to her symptoms. 04/08/2024 the patient is here for a follow-up visit after hospitalization. She had been admitted to [facility] with worsening respiratory symptoms. At that point she was already on Levaquin for the persistent chest congestion. She required a couple units of blood. It was found that she had blood in her stools. She does have an evaluation from a GI standpoint. Although they do not want to do any procedures because she had some serious complications handling anesthesia in the past. The details are not available though. The patient has been using noninvasive ventilator. She is maxed that with her medications. She still has a significant cough difficult to clear secretions. The family is with her. We did talk about her severity of disease having very severe COPD on top of that significant anemia. I did provide her a letter in order for her to get a transfusion when her hemoglobin is 8 and not wait till the 7 due to her very severe COPD and minimal gas exchange. Hopefully that can provide her some support. In the meantime her condition is unlikely to improve unfortunately. She does have chronic severe progressive disease. Will continue supporting her as much as possible I did recommend that it looking for any other alternatives to treatments she can always going to [place] for 2nd opinion although I do not believe they have much to offer her with her age in severe comorbidities. Will plan to do a bronchoscopy to try to provide airway clearance and deep cultures if there is anything else we can treat to allow her respiratory status to improve. Right now hemoglobin stable since she has got a blood transfusion and IV infusions of iron and will be a good opportunity to do so. 05/08/2024 the patient is here for a pulmonary follow-up visit. She is status post bronchoscopy. 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 She was initially treated with Levaquin and then with doxycycline. Her chest congestion is improved dramatically. Although she could not tolerate the doxycycline after more than 3 weeks because of nausea. Therefore the patient will stop the doxycycline. Would still waiting for sensitivities but we can also try Bactrim for now tried putting a prophylactic dose. She could stop the azithromycin. The patient also had a blood transfusion since we last spoke and hemoglobin has been better than has been a long time. She did move in with her daughter which is reassuring. She also signed papers for DNR. The patient will continue her current respiratory therapy. We did talk about different exercises she can do at home. She needs to continue with her pulmonary rehabilitation. She will continue using to use her oxygen and will follow-up in 6-8 weeks. She will continue the Bactrim until we talk then. Will have to make sure to treat the stenotrophomonas effectively so will have to wait for the sensitivities come back. 07/10/2024 the patient is here for a pulmonary follow-up visit. The patient overall is doing well. She has been doing better from the hemoglobin standpoint. She is getting blood transfusions more regularly. She is avoiding the hemoglobin dropping to the 70s when she becomes very symptomatic. Her cough is overall better. She did grow stenotrophomonas and she was treated with multiple antibiotics. Which she was supposed to stay on Bactrim but she stopped. She is currently on azithromycin 3 times a week. Overall seems to be helping. But feel more comfortable she went back to the Bactrim at least to finish a longer course to minimize the return of the stenotrophomonas. She is using her oxygen good effect. She is also using her respiratory medicines with good effect. No recent imaging to review at this time. Will plan to follow-up the current therapy. She is going to go back on the Bactrim and monitor closely for any adverse symptoms. The patient will return 2 months. I which time at that point we can talk about going back on the azithromycin. She is having issue also with a skin cancer close to her right eye. She can not use the noninvasive ventilator with a regular mask because it bother her right were that she has a surgical intervention. She did have an F30 mask that she is trying although she is still finds it uncomfortable. She is going to start trying to adjusted a little bit better. I did recommend that if she needs to have further surgical intervention for the skin cancer if she is going to have any anesthesia she should do it hospital setting. 09/04/2024 the patient is here for pulmonary follow-up visit. Overall the patient is doing about the same. She has been dealing with her anemia. No clear source of her anemia or any blood loss. She still requiring blood transfusions on a monthly basis. I did mention to her to talk to her doctors about a bleeding scan to consider checking her Epogen levels. In the meantime the patient also had skin cancer and had surgery. The patient is not able to use her noninvasive ventilator at this time since she had the surgery close to which the mask fits. Therefore she has to hold off on the noninvasive ventilator for now. Once she feels better she can go back on it. She continues with respiratory therapy with good effect. No need to make any changes at this time. She continues on the prednisone 10 mg daily which will continue. She has also been on the doxycycline daily for the stenotrophomonas. This has been now for several months so therefore will try to decrease it to every other day to see if she tolerates it and keeps her secretions are under control. 11/10/2024 the patient is here for sick visit. She did not feel good the last few days. Therefore they made the appointment. She has been having increasing shortness of breath dyspnea on exertion. Moderate severity. She has been recovering from her eye surgery. Since her eye surgery she could not use her noninvasive ventilator because it affected her eye in addition to that she was not able to take her antibiotics. She felt a little bit more chest D with more cough. [id number] severity. At times she will bring up some phlegm although not colored. She is back on the Bactrim and she is back on her noninvasive ventilator. She has been a little shaky so they were unsure about her CO2. Will get blood work including a blood gas. Her pCO2 is actually better than it has ever been at 45 mmHg which is reassuring. Will also have her get a chest x-ray to better address the area. As far as her anemia she continues work closely with the Hematology and she has been getting regular transfusions and also has been getting IV iron infusions. At this point she is feeling a little bit better so will continue with the current respiratory therapy. Will have her get the blood work and chest x-ray. 02/12/2025 the patient is here for pulmonary follow-up visit. She is still having the same symptoms still complains of dyspnea, decreased energy she is still requiring blood transfusions every 4-6 weeks. She gets those arranged her [facility]. After last transfusion she was actually gets in the hospital for few days. The patient has been having issues with volume status. Recently she was told to increase her diuretic. Today when she came in her blood pressure diastolic could not be read. It was actually documented to be low in the past. Explained to her the concerns about a widened pulse pressure and decrease diastolic pressures this decreases her perfusion pressure of the coronary arteries. The patient denies any dizziness right now. She is going to recheck her blood pressure when she goes home. If her blood pressure continues to be low she will call her transcript evaluator about it. For now she is going to hold off on the diuretic for couple days and then potentially restarted at half dose and she is going to monitor her weight. She is going to continue with the current respiratory therapy as it is affecting beneficial. And she continues uses noninvasive ventilator every night. The ventilator has been effective in decreasing her work of breathin improving her CO2. Will continue to keep her on the same respiratory therapy and she will follow closely with the transcript evaluator monitor closely her blood pressure. She is also going to monitor closely hemoglobin. She is thinking about going to the [facility] she is going to try to make arrangements which she can get her infusions or transfusions closer to the [facility]. 04/09/2025 the patient is here for a pulmonary follow-up visit. She complains of worsening dyspnea on exertion. She is using her oxygen but still feels very breathless with minimal activity. Moderate severity. She is also feeling tired. She did follow-up with Hematology and her hemoglobin appear to have been better than usual. She is using the noninvasive ventilator at nighttime. She continues use her respiratory therapy. She continues to be on a chronic prednisone use. Still though she does not feel well. Indeed we have to consider the progression of the COPD and her respiratory disease. Will go ahead and request blood work. We did go for brief walking oximetry the patient did need additional oxygen up to 4 L pulse with activity. Therefore she will make the adjustments and at home she will increase her concentrator by 0.5 L. she will try to maintain her pulse ox between 92-96%. Is hard because she does have the concentrator elsewhere and she does not have access to it. She does have a 50 ft hose. Will have her get blood work in addition to an x-ray. The patient will follow-up sometime in April in the meantime she will increase her prednisone for prednisone burst specially while she is that the [facility]. 05/07/2025 the patient is here for pulmonary follow-up visit. Overall she is doing well. She has not required a blood transfusion and many weeks which is reassuring. Seems to be holding her hemoglobin. The patient has been tolerating her respiratory therapy. She did start the new nebulizer therap, Ohtuvayre. Tolerating that well. Continues on 10 mg of prednisone which is reasonable for her to continue. She continues use a noninvasive ventilator at nighttime. Her last blood gas was done back in March 2025. PCO2 is slightly elevated at 60 mmHg. Her average tidal volume is 418 mL. Therefore will send a new order to her [facility] to increase her tidal volume some in order to improve her gas exchange. Otherwise the patient is doing well she will follow-up in 3 months and will plan to do blood work prior to that visit. She has any issues prior to the next visit she can always call for further recommendations. [facility] Medical History (Updated 04/12/25 @ 22:12 by Mateo Barrientos MD) Dyspnea (~08/14/23) Tachycardia Anemia Anemia Pre-op chest exam Vertebral artery stenosis Dyspnea Chronic respiratory failure Dyslipidemia Hypothyroidism Centrilobular emphysema Surgical History (Updated 04/10/24 @ 12:47 by Barbara Armando RN) Hx of colonoscopy History of cholecystectomy H/O: hysterectomy Family History Mother No problems noted. Daughter Diabetes Social History Household Members: None Housing: House Do you presently have visiting nurse or other home services: No Alcohol intake: unknown Patient Tobacco Use Status: Former Tobacco user Tobacco use type: Cigarette Years Smoked: 40+ years service: No Current occupational status: retired Review of Systems Const Denies chills, Reports fatigue, Denies fever(s), Denies weight gain and Denies weight loss ENT Denies dizziness, Denies lip swelling and Denies tongue swelling Card Denies chest pain, Denies leg edema, Denies lightheadedness, Denies palpitations, Reports dyspnea on exertion, Denies orthopnea and Denies other Resp Reports cough, Reports dyspnea on exertion and Reports wheezing GI Denies hematochezia and Denies change in stool character Musc Denies abnormal gait, Denies muscle weakness, Denies numbness, Denies radiating pain into limb and Denies tingling Skin/Breast Reports as per HPI Neuro Denies abnormal gait, Denies dizziness, Denies numbness and Denies tingling Psych Reports depression Endo Reports fatigue and Denies palpitations Fredi/Lymph Denies easy bleeding and Denies lymphadenopathy Aller/Immun Denies lip swelling, Denies tongue swelling and Reports wheezing Physical Exam Vital Signs: Last Vital Signs Pulse 89 05/07/25 11:10 BP 142/60 H 05/07/25 11:10 Pulse Ox 90 L 05/07/25 11:10 Oxygen Delivery Method Nasal Cannula 05/07/25 11:10 Oxygen Flow Rate 3 05/07/25 11:10 BMI result Body Mass Index 22.8 Const General: alert and tired appearing Eyes Conjunctivae: conjunctival abnormal bilateral pallor Pupils: Equal, round and reactive pupils present Neck Neck: Yes normal visual inspection, Yes full ROM and Yes no lymphadenopathy Chest Chest palpation & inspection: normal inspection of the chest Resp Effort & Inspection: normal respiratory effort and prolonged expiratory phase Auscultation: no rhonchi, no wheezes and diminished lung sounds Cardio Rate: tachycardic Rhythm: regular rhythm Heart sounds: S1 normal heart sound present and S2 normal heart sound present GI Palpation (GI): Soft to palpation and nontender Auscultation: normal bowel sounds Skin Trauma: abrasion (RLE) Neuro Cranial nerves: Yes Equal, round and reactive pupils present Assessment & Plan Assessment & Plan (1) Dyspnea: Code(s): R06.00 - Dyspnea, unspecified Category: Medical Qualifiers: Dyspnea type: dyspnea on exertion Qualified Code(s): R06.00 - Dyspnea, unspecified (2) Centrilobular emphysema: Comment: Very severe COPD with FEV1 26% predicted Code(s): J43.2 - Centrilobular emphysema Category: Medical (3) Chronic respiratory failure: Comment: With evidence of chronic hypercarbic respiratory failure, DLCO very severe Code(s): J96.10 - Chronic respiratory failure, unspecified whether with hypoxia or hypercapnia Category: Medical Qualifiers: Respiratory failure complication: hypoxia and hypercapnia Qualified Code(s): J96.11 - Chronic respiratory failure with hypoxia; J96.12 - Chronic respiratory failure with hypercapnia; J96.12 - Chronic respiratory failure with hypercapnia (4) Anemia: Code(s): D64.9 - Anemia, unspecified Category: Medical Qualifiers: Anemia type: iron deficiency Iron deficiency anemia type: unspecified iron deficiency Qualified Code(s): D50.9 - Iron deficiency anemia, unspecified (5) COPD (chronic obstructive pulmonary disease): Comment: very severe, end stage Code(s): J44.9 - Chronic obstructive pulmonary disease, unspecified Category: Medical Qualifiers: COPD type: COPD with acute exacerbation Qualified Code(s): J44.1 - Chronic obstructive pulmonary disease with (acute) exacerbation Plan continue Prednisone 10mg daily continue Ohtuvayre Bloodwork with next visit continued Trelegy continue Duoneb oxygen supplementation 4 L pulse with activity and also should also uses to sleep. continue NIV, AVAPS, PCO2 better at 65->58mmHg on venous blood gas, increased volume 400->430 ml and increased rate 12->15., use F30 mask Bactrim DS QOD F/U with Hematology follow-up in 3 months Orders: Orders Basic Metabolic Panel Today J44.1 - Chronic obstructive pulmonary disease with (acute) exacerbation Venous Blood Gas Today J44.1 - Chronic obstructive pulmonary disease with (acute) exacerbation Complete Blood Count Auto Diff Today J44.1 - Chronic obstructive pulmonary disease with (acute) exacerbation Coding Level of Care Code Est Pt Level 4 (07784) Complex EM visit Add On G2211 Diagnoses Dyspnea on exertion R06.00 Dyspnea type: dyspnea on exertion Centrilobular emphysema J43.2 Chronic respiratory failure with hypoxia and hypercapnia J96.11; J96.12; J96.12 Respiratory failure complication: hypoxia and hypercapnia Iron deficiency anemia, unspecified iron deficiency anemia type D50.9 Anemia type: iron deficiency Iron deficiency anemia type: unspecified iron deficiency Chronic obstructive pulmonary disease with acute exacerbation J44.1 COPD type: COPD with acute exacerbation Time Spent (min) 18
--- OUTSIDE RECORDS SUMMARY | 2025-05-07 12:51 | XMS_ITS ---
Author Name [facility] Organization Unknown Care Team Organization Name Specialty Phone Email Start Date End [facility] ACO 05/06/2025
--- OUTSIDE RECORDS SUMMARY | 2025-05-07 12:51 | XMS_ITS | Encounter Summary ---
Author Organization [facility] Address [address] [place] [address] Care Team Providers Care Records Tech Name Role Phone Radha Cortés MD Primary Care Provider [phone] Encounter Details Date Type Department Care Team (Late st Contact Info) Description 02/06/[address] [facility] - Main Lab [address] [facility] [place] [address] Radha Cortés MD [address] [place] [address] Heart failure, unspecified (CMS/HCC V24, CMS/HCC V28); Chronic kidney disease, stage 3 unspecified (CMS/HCC V24, CMS/HCC V28); Iron deficiency anemia, unspecified Social History Tobacco Use Types Packs/Day Years [...] Record ed Within the last 3 months, ho w many times did you visit the emergency [...] care for your loved ones. For example, children's author or elderly care for an older adult? [...] AM EST documented as of this encounter Plan of Treatment Upcoming Encounters Date Type Department Care Team (Late st Contact Info) Description 06/05/2025 10:00 AM EDT Ancillary Procedure [facility] [address] [address] 06/09/2025 10:30 AM EDT Office Visit Hematology Oncology [address] [place] [address] Mary Jane Terry MD [address] [place] [address] 06/09/2025 12:00 PM EDT Ancillary Procedure [facility] - [facility] [address] [address] 06/18/2025 10:45 AM EDT Ancillary Procedure [facility] [address] [address] 07/17/2025 2:10 PM EDT Office Visit [facility] [address] [facility] [address] [place] [address] Gisel Arthur NP [address] [place] [address] [facility] [address] [place] [address] 08/06/2025 11:30 AM EST Office Visit Vascular Surgery - [place] [address] [facility] [address] [place] [address] Jennifer Carlson PA [address] [facility] [address] [place] [address] 09/07/2025 12:45 PM EST Office Visit Adult [address] [address] Radha Cortés MD [address] [place] [address] documented as of this encounter Procedures Procedure Name Priority Date/Time Associated Diagnosis Comments CBC WITH AUTO DIFFERENTIAL Routine 02/06/2025 11:30 AM EDT Heart failure, unspecified (CMS/HCC V24, CMS/HCC V28) Chronic kidney disease, stage 3 unspecified (CMS/HCC V24, CMS/HCC V28) Iron deficiency anemia, unspecified CBC AND DIFFERENTIAL Routine 02/06/2025 11:30 AM EDT Heart failure, unspecified (CMS/HCC V24, CMS/HCC V28) Chronic kidney disease, stage 3 unspecified (CMS/HCC V24, CMS/HCC V28) Iron deficiency anemia, unspecified documented in this encounter Results * (ABNORMAL) CBC auto differential (02/06/2025 11:30 AM EDT) WBC 12.3(H) 4.8 - 10.8 K/mcL LAB HEMETOLOGY METHOD 02/06/2025 2:53 PM [facility] RBC 3.20(L) 3.80 - 4.80 M/mcL LAB HEMETOLOGY METHOD 02/06/2025 2:53 PM [facility] Hemoglobin 9.9(L) 11.5 - 16.0 g/dL LAB HEMETOLOGY METHOD 02/06/2025 2:53 PM [facility] Hematocrit 32.4(L) 35.0 - 47.0 % LAB HEMETOLOGY METHOD 02/06/2025 2:53 PM [facility] MCV 100.6(H) 79.0 - 98.0 FL LAB HEMETOLOGY METHOD 02/06/2025 2:53 PM [facility] MCH 30.7 27.0 - 32.0 pcg LAB HEMETOLOGY METHOD 02/06/2025 2:53 PM EDT [facility] MCHC 30.6(L) 32.0 - 37.0 g/dL LAB HEMETOLOGY METHOD 02/06/2025 2:53 PM [facility] RDW 15.1(H) 11.0 - 15.0 % LAB HEMETOLOGY METHOD 02/06/2025 2:53 PM [facility] Platelets 356 130 - 400 K/mcL LAB HEMETOLOGY METHOD 02/06/2025 2:53 PM EDT [facility] MPV 9.3 7.0 - 11.0 FL LAB HEMETOLOGY METHOD 02/06/2025 2:53 PM [facility] NRBC 0.0 <1.0 % LAB HEMETOLOGY METHOD 02/06/2025 2:53 PM [facility] NRBC Absolute 0.00 <0.10 K/mcL LAB HEMETOLOGY METHOD 02/06/2025 2:53 PM [facility] Neutrophils Relative 85.4 % LAB HEMETOLOGY METHOD 02/06/2025 2:53 PM [facility] Lymphocytes Relative 7.3 % LAB HEMETOLOGY METHOD 02/06/2025 2:53 PM [facility] Monocytes Relative 5.1 % LAB HEMETOLOGY METHOD 02/06/2025 2:53 PM [facility] Eosinophils Relative 0.6 % LAB HEMETOLOGY METHOD 02/06/2025 2:53 PM [facility] Basophils Relative 0.5 % LAB HEMETOLOGY METHOD 02/06/2025 2:53 PM [facility] Immature Granulocytes Relative 1.1 % LAB HEMETOLOGY METHOD 02/06/2025 2:53 PM [facility] Neutrophils Absolute 10.46(H) 1.50 - 7.00 K/mcL LAB HEMETOLOGY METHOD 02/06/2025 2:53 PM EDT [facility] Lymphocytes Absolute 0.89(L) 1.00 - 5.00 K/mcL LAB HEMETOLOGY METHOD 02/06/2025 2:53 PM EDT [facility] Monocytes Absolute 0.63 0.20 - 1.00 K/mcL LAB HEMETOLOGY METHOD 02/06/2025 2:53 PM EDT [facility] Eosinophils Absolute 0.07 0.00 - 0.50 K/[facility] LAB HEMETOLOGY METHOD 02/06/2025 2:53 PM EDT [facility] Basophils Absolute 0.06 0.00 - 0.20 K/[facility] LAB HEMETOLOGY METHOD 02/06/2025 2:53 PM EDT [facility] Immature Granulocytes Absolute 0.14(H) 0.00 - 0.03 K/mcL LAB HEMETOLOGY METHOD 02/06/2025 2:53 PM EDT [facility] Blood Venous blood specimen / Unknown 02/06/2025 11:30 AM EDT 02/06/2025 2:35 PM EDT aRdha Cortés MD LAB BLOOD ORDERABLES Final Resul t [facility] [address] [place] [address], documented in this encounter Visit Diagnoses Diagnosis Heart failure, unspecified (CMS/HCC V24, CMS/HCC V28) Heart failure, unspecified Chronic kidney disease, stage 3 unspecified (CMS/HCC V24, CMS/HCC V28) Iron deficiency anemia, unspecified documented in this encounter Additional Health Concerns Assessment Noted Time PHQ-9 Depression Total Score: 0 12/09/19 25 1:44 PM EDT A fall risk assessment has been complete d for the patient 12/15/2024 11:14 AM EDT documented as of this encounter Care Teams Records Tech Relationship Specialty Start Date End Date Radha Cortés MD [address] [place] [address] PCP - General Internal Medicine 05/13/19 documented as of this encounter
--- OUTSIDE RECORDS SUMMARY | 2025-05-07 12:51 | XMS_ITS | Clinical Summary ---
Author Organization [facility] Address [address] [place] [address] Care Team Providers Care Director Of Operations Home Health Name Role Phone Radha Cortés MD Primary Care Provider [phone] Allergies No known active allergies Medications Medication [...] age to complete this topic Care Teams Director Of Operations Home Health Relationship Specialty Start Date End Date Radha Cortés MD PCP - General Internal Medicine 08/27/20
== END 2025-05-07 11:42 | disposition home or self-care (01) ==
LOC: HO.HPS 11:09
PROVIDERS: PCP Internal Medicine; Visit Provider Hospitalist
DX: R06.00 Dyspnea, unspecified (principal); J43.2 Centrilobular emphysema; J96.11 Chronic respiratory failure with hypoxia; J96.12 Chronic respiratory failure with hypercapnia; D50.9 Iron deficiency anemia, unspecified; J44.1 Chronic obstructive pulmonary disease with (acute) exacerbation
CPT/HCPCS: 99214; G2211

== ENCOUNTER → 2025-05-07 11:08 | Outpatient (BNVA) | payer MEDICARE, SELFPAY | PROVIDERS: PCP Internal Medicine; Visit Provider Hospitalist | DX: J43.2 Centrilobular emphysema (principal); J96.11 Chronic respiratory failure with hypoxia; J96.12 Chronic respiratory failure with hypercapnia; J44.1 Chronic obstructive pulmonary disease with (acute) exacerbation; D50.9 Iron deficiency anemia, unspecified | CPT/HCPCS: 99212 ==

== ENCOUNTER 2025-07-06 10:13 | Outpatient (REF) | payer MEDICARE, SELFPAY ==
--- NOTE | ~2025-07-06 | XR_ITS ---
EXAMINATION: XR CHEST CLINICAL INFORMATION: J18.9 - Pneumonia, unspecified organism COMPARISON: April 09, 2025. TECHNIQUE: PA and lateral views FINDINGS: Hyperinflated lungs. Pulmonary reticular pattern. No consolidation, pleural effusion or pneumothorax. Cardiomediastinal silhouette size is normal. Metallic stent in the ascending thoracic aorta/aortic valve. Calcified plaque in the thoracic aorta. Osteopenia versus osteoporosis. Multilevel thoracolumbar spondylosis. XR/XR chest 2V IMPRESSION: Concerning COPD emphysematous type changes without acute airspace disease. Electronically signed by: Guzman Washington MD 07/06/2025 11:05 AM EDT
[2025-07-06 12:27] LABS: Resp Syncy Virus RNA Qual PCR NEGATIVE (Negative); SARS COV2 PCR INHOUSE NEGATIVE (Negative)
== END 2025-07-06 10:14 | disposition home or self-care (01) ==
LOC: HO.XRAY 10:13
PROVIDERS: PCP Internal Medicine; Visit Provider Hospitalist
DX: J44.1 Chronic obstructive pulmonary disease with (acute) exacerbation (principal); J43.2 Centrilobular emphysema; J96.11 Chronic respiratory failure with hypoxia; J96.12 Chronic respiratory failure with hypercapnia; J18.9 Pneumonia, unspecified organism; D50.9 Iron deficiency anemia, unspecified; Z79.51 Long term (current) use of inhaled steroids; Z79.2 Long term (current) use of antibiotics; Z79.899 Other long term (current) drug therapy; Z87.891 Personal history of nicotine dependence
CPT/HCPCS: 71046; 87637; 96372; 99212

== ENCOUNTER 2025-07-06 10:13 | Outpatient (AMB) | payer MEDICARE, SELFPAY ==
[2025-07-06 10:15] VITALS: BP 158/50; PULSE 112; O2SAT 96; BMI 22.3
--- NOTE | 2025-07-06 10:15 | MHC.OFFVIS ---
Vital Signs 07/06/25 10:15 Height 5 ft 4 in Weight 130 lb 1.164 oz BMI 22.3 BP 158/50 H Blood Pressure Location Lt brachial Position Sitting Pulse 112 H Pulse Source Pulse Oximeter Pulse Oximetry (%) 96 Oxygen Delivery Method Nasal Cannula Oxygen Flow Rate 4 Intake Visit Reasons: Sick visit Pen And Pencil Repairer Required: No Allergies No Known Allergies Allergy (Verified 07/06/25 10:18) HPI Comments Details: The patient is a 80 y/o woman with a history of COPD also with the O2 dependence on chronic Prednisone. She also has pulmonary nodules over following. She is scheduled for CT scan in a month at [facility]. Therefore, will follow up after that. She has times and dyspnea on exertion. She does need her oxygen. She is looking to getting a portable oxygen concentrator. However she is questioning if she can use the POC at nighttime. I am concerned that if she does not activate the pulse while sleeping and it would not be helpful for her. However if she does decide to buy it we can always retest to see if is effective for her while she is sleeping. She continues to pulmonary rehabilitation. That is going well. She continues uses trelegy. She is using the azithromycin. She has been around people that have been sick and she has been able to stay healthy. Will continue the for next 3-4 months and will see about weaning it off to give her a break from medications. This antibiotic but will use it more for the anti-inflammatory properties. Did review her last CT scan of the chest that she had recently demonstrating small pulmonary nodules are stable in size. She has a RADS 2 and therefore needs a repeat CT scan in a year's time. We did do a chest x-ray today which appears to have resolution of the left-sided process. No evidence of any acute lower respiratory infection. Therefore, she is responding well to the current respiratory regimen and antibiotics. She will complete the antibiotic course and then taper down the prednisone to 10 mg daily. She has been now multiple courses of antibiotics and prednisone is still having hard time with her breathing. She has been having hard time expectorating. She is getting very frustrated upset. She also complains of increasing shortness of breath and increasing heart rate. She denies any chest pains. On examination she does have some rhonchi on exam which appeared to be right worse than left. Her pneumonia was on her left and side initially. That ultimately cleared up on the x-ray. The patient has a hard time expectorating. Therefore, we'll try the stronger antibiotics along with another course of prednisone. At this point will plan to this pulmonary function study with ABG. The patient should stay on a small dose of prednisone of 10 mg every other day and should also restart the azithromycin Sunday and Sunday. Will monitor closely her IgG levels at this time, no need for augmentation therapy. She did have a 6 minutes walk test and during that study her oxygen quickly decreased after 50 ft on room air to 86%. After that heart rate did increase to the 130s. The patient rested he then was placed on 3 L pulse and ambulating her she was able to maintain a pulse ox above 90%. However, heart rate still was elevated than 130s. The patient states that she did have an echocardiogram at [facility] and I do not have the results right now. She does not have a wind up operator. It is reasonable to have her follow up with Cardiology as we wait for the results or pulmonary function studies and arterial blood gas. While we wait for those results the patient is to hold off on pulmonary rehabilitation. e did have worsening respiratory symptoms and malaise and she was taken to [facility] which she was found to have a hemoglobin of 5.9. Here in the office we checked back in September she was up to 10 which is significant drop. In the meantime she was given 2 units of blood and she did undergo an upper and lower endoscopy without any significant findings. She is given iron which is taking with multivitamins. While she was there she did have a blood gas demonstrating a pH does 7.36 with a pCO2 of 39 mm of mercury which is within normal limits suggesting that she has no evidence of chronic hypercarbic respiratory failure. 11/15/2023 the patient is here for a pulmonary follow-up visit. She continues to have dyspnea on exertion with minimal activity. She understands that she has very severe COPD. She is also oxygen dependent has significant anemia. She is status post iron infusions. She will be following closely we hematology. In the meantime she has not been very active. We did talk about the importance of conditioning and pulmonary rehabilitation. She had been doing the online pulmonary rehab but did not find it very helpful. We did talk about considering going back to in-person pulmonary rehab. She also also using her noninvasive ventilator. Sometimes difficult for her to tolerate. Already has been demonstrating improvement in the CO2. The therapy has been affecting beneficial. At this point we talked about ways to improve her energy level during daytime. She is going to try increasing the prednisone from 7.5-10 mg. the other options to consider stimulant such as modafinil. 02/06/2024 the patient is here for a pulmonary follow-up visit. She is still struggling with breathing. Develops significant dyspnea with minimal activity. Moderate to severe. She does use the oxygen all the time. The patient did get 2 units of blood transfusion and she was hoping to feel better but she did not. The patient also underwent blood work including a blood gas demonstrating chronic stable hypercarbic respiratory failure and also had her hemoglobin checked which was 9.7 which is still significantly low but better for her. Kidney function was also stable. She did have a chest x-ray demonstrating hyperinflated lungs consistent with her advanced COPD. We talked about her underlying condition as far as her medications she is currently medically optimize with the noninvasive ventilator in the inhaler therapy. She should be increasing the oxygen with activity to avoid the desaturations. In addition to that will try some diuretics to see if we can help with volume status. Explained to her that she may have a component of cor pulmonale. If her symptoms persist we can also request an echocardiogram. At this point the patient understands that she has very severe COPD and at this point she is maximized on her respiratory therapy. Will continue to provide as much support as possible understand the limitations. 03/06/2024 the patient is here for sick visit. She has been struggling. She has had increased respiratory complaints. Hard time breathing. She went to her primary care doctor felt to have a bout of bronchitis she was given doxycycline. Ultimately she has not been getting better so she went to Oncology to see if she needed blood. However, the busy and could not accommodate so she ended up going to the ER. There she did receive 1 unit of blood. She did have a CT of the chest demonstrating significant emphysema but no blood clots. No airspace disease. No clear explanation for the patient's symptoms. She was discharged and she currently is completing a prednisone taper. The patient was able to do a breathing treatment in the office and we were able to help her expectorate some phlegm. It is very tenacious greenish in color. Maybe some tension blood in it very hard for her to expectorate. I did talk to her daughter some concerned that she looks weaker. The patient already has evidence of hypercarbic respiratory failure and now with the mucus burden unable to her secretions is concerned that she could potentially get worse. We did talk about the importance of using the noninvasive ventilator to give her assistance with breathing. And she will use that. We were able to get a sputum culture and send to the lab. It looks like Pseudomonas. Therefore send Levaquin. She already has diarrhea. She needs to apple picker probiotics. She knows to stop the medication if she develops any tendonitis. She also be off the azithromycin by while she 03/24/2024 the patient is here for a pulmonary sick visit. She is still struggling with breathing. Initially she responded very well to the Levaquin. She did not complain of any tendinitis or any diarrhea. She did take some probiotics at some periods. She is now back in azithromycin. Her breathing became significantly better apparently. Now much worse again. Starting to get congestion. Difficult to expectorate. Her sputum culture was not helpful as it was only positive for respiratory naty. I do believe that bronchoscopy will be helpful for therapeutic cleaning in addition to lower respiratory cultures to assess any enteric organisms that will require therapy. Will see about scheduling a bronchoscopy. We can do it under moderate sedation and provide her with a lidocaine nebulizer treatment to minimize on the anesthesia effects in view of her respiratory failure. Patient also will undergo blood work specially because he is more tachycardic today. Wonder if she is potentially more anemic is also likely contributing to her symptoms. 04/08/2024 the patient is here for a follow-up visit after hospitalization. She had been admitted to [facility] with worsening respiratory symptoms. At that point she was already on Levaquin for the persistent chest congestion. She required a couple units of blood. It was found that she had blood in her stools. She does have an evaluation from a GI standpoint. Although they do not want to do any procedures because she had some serious complications handling anesthesia in the past. The details are not available though. The patient has been using noninvasive ventilator. She is maxed that with her medications. She still has a significant cough difficult to clear secretions. The family is with her. We did talk about her severity of disease having very severe COPD on top of that significant anemia. I did provide her a letter in order for her to get a transfusion when her hemoglobin is 8 and not wait till the 7 due to her very severe COPD and minimal gas exchange. Hopefully that can provide her some support. In the meantime her condition is unlikely to improve unfortunately. She does have chronic severe progressive disease. Will continue supporting her as much as possible I did recommend that it looking for any other alternatives to treatments she can always going to [facility] for 2nd opinion although I do not believe they have much to offer her with her age in severe comorbidities. Will plan to do a bronchoscopy to try to provide airway clearance and deep cultures if there is anything else we can treat to allow her respiratory status to improve. Right now hemoglobin stable since she has got a blood transfusion and IV infusions of iron and will be a good opportunity to do so. 05/08/2024 the patient is here for a pulmonary follow-up visit. She is status post bronchoscopy. 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 She was initially treated with Levaquin and then with doxycycline. Her chest congestion is improved dramatically. Although she could not tolerate the doxycycline after more than 3 weeks because of nausea. Therefore the patient will stop the doxycycline. Would still waiting for sensitivities but we can also try Bactrim for now tried putting a prophylactic dose. She could stop the azithromycin. The patient also had a blood transfusion since we last spoke and hemoglobin has been better than has been a long time. She did move in with her daughter which is reassuring. She also signed papers for DNR. The patient will continue her current respiratory therapy. We did talk about different exercises she can do at home. She needs to continue with her pulmonary rehabilitation. She will continue using to use her oxygen and will follow-up in 6-8 weeks. She will continue the Bactrim until we talk then. Will have to make sure to treat the stenotrophomonas effectively so will have to wait for the sensitivities come back. 07/10/2024 the patient is here for a pulmonary follow-up visit. The patient overall is doing well. She has been doing better from the hemoglobin standpoint. She is getting blood transfusions more regularly. She is avoiding the hemoglobin dropping to the 70s when she becomes very symptomatic. Her cough is overall better. She did grow stenotrophomonas and she was treated with multiple antibiotics. Which she was supposed to stay on Bactrim but she stopped. She is currently on azithromycin 3 times a week. Overall seems to be helping. But feel more comfortable she went back to the Bactrim at least to finish a longer course to minimize the return of the stenotrophomonas. She is using her oxygen good effect. She is also using her respiratory medicines with good effect. No recent imaging to review at this time. Will plan to follow-up the current therapy. She is going to go back on the Bactrim and monitor closely for any adverse symptoms. The patient will return 2 months. I which time at that point we can talk about going back on the azithromycin. She is having issue also with a skin cancer close to her right eye. She can not use the noninvasive ventilator with a regular mask because it bother her right were that she has a surgical intervention. She did have an F30 mask that she is trying although she is still finds it uncomfortable. She is going to start trying to adjusted a little bit better. I did recommend that if she needs to have further surgical intervention for the skin cancer if she is going to have any anesthesia she should do it hospital setting. 09/04/2024 the patient is here for pulmonary follow-up visit. Overall the patient is doing about the same. She has been dealing with her anemia. No clear source of her anemia or any blood loss. She still requiring blood transfusions on a monthly basis. I did mention to her to talk to her doctors about a bleeding scan to consider checking her Epogen levels. In the meantime the patient also had skin cancer and had surgery. The patient is not able to use her noninvasive ventilator at this time since she had the surgery close to which the mask fits. Therefore she has to hold off on the noninvasive ventilator for now. Once she feels better she can go back on it. She continues with respiratory therapy with good effect. No need to make any changes at this time. She continues on the prednisone 10 mg daily which will continue. She has also been on the doxycycline daily for the stenotrophomonas. This has been now for several months so therefore will try to decrease it to every other day to see if she tolerates it and keeps her secretions are under control. 11/10/2024 the patient is here for sick visit. She did not feel good the last few days. Therefore they made the appointment. She has been having increasing shortness of breath dyspnea on exertion. Moderate severity. She has been recovering from her eye surgery. Since her eye surgery she could not use her noninvasive ventilator because it affected her eye in addition to that she was not able to take her antibiotics. She felt a little bit more chest D with more cough. Njnx-ru-xeictway severity. At times she will bring up some phlegm although not colored. She is back on the Bactrim and she is back on her noninvasive ventilator. She has been a little shaky so they were unsure about her CO2. Will get blood work including a blood gas. Her pCO2 is actually better than it has ever been at 45 mmHg which is reassuring. Will also have her get a chest x-ray to better address the area. As far as her anemia she continues work closely with the Hematology and she has been getting regular transfusions and also has been getting IV iron infusions. At this point she is feeling a little bit better so will continue with the current respiratory therapy. Will have her get the blood work and chest x-ray. 02/12/2025 the patient is here for pulmonary follow-up visit. She is still having the same symptoms still complains of dyspnea, decreased energy she is still requiring blood transfusions every 4-6 weeks. She gets those arranged her [facility]. After last transfusion she was actually gets in the hospital for few days. The patient has been having issues with volume status. Recently she was told to increase her diuretic. Today when she came in her blood pressure diastolic could not be read. It was actually documented to be low in the past. Explained to her the concerns about a widened pulse pressure and decrease diastolic pressures this decreases her perfusion pressure of the coronary arteries. The patient denies any dizziness right now. She is going to recheck her blood pressure when she goes home. If her blood pressure continues to be low she will call her wind up operator about it. For now she is going to hold off on the diuretic for couple days and then potentially restarted at half dose and she is going to monitor her weight. She is going to continue with the current respiratory therapy as it is affecting beneficial. And she continues uses noninvasive ventilator every night. The ventilator has been effective in decreasing her work of breathin improving her CO2. Will continue to keep her on the same respiratory therapy and she will follow closely with the wind up operator monitor closely her blood pressure. She is also going to monitor closely hemoglobin. She is thinking about going to the [facility] she is going to try to make arrangements which she can get her infusions or transfusions closer to the [facility]. 04/09/2025 the patient is here for a pulmonary follow-up visit. She complains of worsening dyspnea on exertion. She is using her oxygen but still feels very breathless with minimal activity. Moderate severity. She is also feeling tired. She did follow-up with Hematology and her hemoglobin appear to have been better than usual. She is using the noninvasive ventilator at nighttime. She continues use her respiratory therapy. She continues to be on a chronic prednisone use. Still though she does not feel well. Indeed we have to consider the progression of the COPD and her respiratory disease. Will go ahead and request blood work. We did go for brief walking oximetry the patient did need additional oxygen up to 4 L pulse with activity. Therefore she will make the adjustments and at home she will increase her concentrator by 0.5 L. she will try to maintain her pulse ox between 92-96%. Is hard because she does have the concentrator elsewhere and she does not have access to it. She does have a 50 ft hose. Will have her get blood work in addition to an x-ray. The patient will follow-up sometime in April in the meantime she will increase her prednisone for prednisone burst specially while she is that the [facility]. 05/07/2025 the patient is here for pulmonary follow-up visit. Overall she is doing well. She has not required a blood transfusion and many weeks which is reassuring. Seems to be holding her hemoglobin. The patient has been tolerating her respiratory therapy. She did start the new nebulizer therap, Ohtuvayre. Tolerating that well. Continues on 10 mg of prednisone which is reasonable for her to continue. She continues use a noninvasive ventilator at nighttime. Her last blood gas was done back in March 2025. PCO2 is slightly elevated at 60 mmHg. Her average tidal volume is 418 mL. Therefore will send a new order to her [employer] to increase her tidal volume some in order to improve her gas exchange. Otherwise the patient is doing well she will follow-up in 3 months and will plan to do blood work prior to that visit. She has any issues prior to the next visit she can always call for further recommendations. 07/06/2025 the patient is here for sick visit. She has been sick now for about 3-4 days. She had positive sick contact with the grandson was sick with a viral syndrome. Apparently she had also had been close to sick great grandchildren. Started developing worsening cough shortness of breath. She called over the weekend. She was started on a prednisone taper and also give him Levaquin. The patient is still on the Bactrim every other day. She has a hard time expectorating she is more short of breath. She came in today she is afebrile. I did swab her for COVID RSV and flu. The patient also gets Solu-Medrol 125 mg I am x1. She will get an x-ray. In the meantime will continue her on the Levaquin and also increase her back to twice a day. She will continue with the prednisone taper. Will follow up with the x-ray and also the swab. If indeed her symptoms worsen she knows to go to the ER for an admission as she is failing outpatient therapy. [facility] Medical History (Updated 07/06/25 @ 10:40 by Mateo Barrientos MD) Pneumonia Dyspnea (~08/14/23) Tachycardia Anemia Anemia Pre-op chest exam Vertebral artery stenosis Dyspnea Chronic respiratory failure Dyslipidemia Hypothyroidism Centrilobular emphysema Surgical History (Updated 04/10/24 @ 12:47 by Barbara Armando RN) Hx of colonoscopy History of cholecystectomy H/O: hysterectomy Family History Mother No problems noted. Daughter Diabetes Social History Household Members: None Housing: House Do you presently have visiting nurse or other home services: No Alcohol intake: unknown Patient Tobacco Use Status: Former Tobacco user Tobacco use type: Cigarette Years Smoked: 40+ years service: No Current occupational status: retired Review of Systems Const Denies chills, Reports fatigue, Denies fever(s), Denies weight gain and Denies weight loss ENT Denies dizziness, Denies lip swelling and Denies tongue swelling Card Denies chest pain, Denies leg edema, Denies lightheadedness, Denies palpitations, Reports dyspnea on exertion, Denies orthopnea and Denies other Resp Reports cough, Reports dyspnea on exertion and Reports wheezing GI Denies hematochezia and Denies change in stool character Musc Denies abnormal gait, Denies muscle weakness, Denies numbness, Denies radiating pain into limb and Denies tingling Skin/Breast Reports as per HPI Neuro Denies abnormal gait, Denies dizziness, Denies numbness and Denies tingling Psych Reports depression Endo Reports fatigue and Denies palpitations Fredi/Lymph Denies easy bleeding and Denies lymphadenopathy Aller/Immun Denies lip swelling, Denies tongue swelling and Reports wheezing Physical Exam Vital Signs: Last Vital Signs Pulse 112 H 07/06/25 10:15 BP 158/50 H 07/06/25 10:15 Pulse Ox 96 07/06/25 10:15 Oxygen Delivery Method Nasal Cannula 07/06/25 10:15 Oxygen Flow Rate 4 07/06/25 10:15 BMI result Body Mass Index 22.3 Const General: alert and tired appearing Eyes Conjunctivae: conjunctival abnormal bilateral pallor Pupils: Equal, round and reactive pupils present Neck Neck: Yes normal visual inspection, Yes full ROM and Yes no lymphadenopathy Chest Chest palpation & inspection: normal inspection of the chest Resp Effort & Inspection: prolonged expiratory phase Auscultation: rhonchi, wheezes and diminished lung sounds Cardio Rate: tachycardic Rhythm: regular rhythm Heart sounds: S1 normal heart sound present and S2 normal heart sound present GI Palpation (GI): Soft to palpation and nontender Auscultation: normal bowel sounds Skin Trauma: abrasion (RLE) Neuro Cranial nerves: Yes Equal, round and reactive pupils present Office Meds methylprednisolone sod suc(PF) 125 mg/2 mL solution for injection Performing Provider: Mateo Barrientos MD Performing Location: [facility] Pulmonology [facility] Administered by: Nikki Lyman LPN on 07/06/25 11:03 Dose Route Admin Location Dispensed Lot Number Expiration Date [employer] 125 mg IM 1 ea [id number] 10/17/27 2461-1725-31 [employer] Total Dispensed Waste 1 ea 0 % Assessment & Plan Assessment & Plan (1) COPD (chronic obstructive pulmonary disease): Comment: very severe, end stage Code(s): J44.9 - Chronic obstructive pulmonary disease, unspecified Category: Medical Qualifiers: COPD type: COPD with acute exacerbation Qualified Code(s): J44.1 - Chronic obstructive pulmonary disease with (acute) exacerbation (2) Dyspnea: Code(s): R06.00 - Dyspnea, unspecified Category: Medical Qualifiers: Dyspnea type: dyspnea on exertion Qualified Code(s): R06.00 - Dyspnea, unspecified (3) Centrilobular emphysema: Comment: Very severe COPD with FEV1 26% predicted Code(s): J43.2 - Centrilobular emphysema Category: Medical (4) Chronic respiratory failure: Comment: With evidence of chronic hypercarbic respiratory failure, DLCO very severe Code(s): J96.10 - Chronic respiratory failure, unspecified whether with hypoxia or hypercapnia Category: Medical Qualifiers: Respiratory failure complication: hypoxia and hypercapnia Qualified Code(s): J96.11 - Chronic respiratory failure with hypoxia; J96.12 - Chronic respiratory failure with hypercapnia; J96.12 - Chronic respiratory failure with hypercapnia (5) Anemia: Code(s): D64.9 - Anemia, unspecified Category: Medical Qualifiers: Anemia type: iron deficiency Iron deficiency anemia type: unspecified iron deficiency Qualified Code(s): D50.9 - Iron deficiency anemia, unspecified (6) Pneumonia: Code(s): J18.9 - Pneumonia, unspecified organism Category: Medical Plan solemedrol 125mg IM x 1, then Prednisone taper continue Levofloxacin Increase Bactrim DS BID CXR FLU/RSV/SARS negative continue Ohtuvayre Bloodwork with next visit continued Trelegy continue Duoneb oxygen supplementation 4 L pulse with activity and also should also uses to sleep. continue NIV, AVAPS, PCO2 better at 65->58mmHg on venous blood gas, increased volume 400->430 ml and increased rate 12->15., use F30 mask F/U with Hematology follow-up in 1-2 months Orders: Orders SARS-CoV2/FLU/RSV Today J18.9 - Pneumonia, unspecified organism XR chest 2V Today J18.9 - Pneumonia, unspecified organism AMB Methylprednisolone Sod Succ Injection Today J44.1 - Chronic obstructive pulmonary disease with (acute) exacerbation Medications: New prednisone PO daily; Take 6 tabs daily x 3 days, then 5 tabs x 3 days, then 4 tabs x 3 days, then 3 tabs x 3 days, then 2 tabs daily x 3 days, then 1 tab x 3 days to complete. 63 tabs 0RF 18 days Changed From levofloxacin 500 mg PO DAILY 7 tabs 0RF To levofloxacin 500 mg PO DAILY 7 tabs 0RF 7 days Coding Level of Care Code Est Pt Level 5 (57995) Complex EM visit Add On G2211 Diagnoses Chronic obstructive pulmonary disease with acute exacerbation J44.1 COPD type: COPD with acute exacerbation Dyspnea on exertion R06.00 Dyspnea type: dyspnea on exertion Centrilobular emphysema J43.2 Chronic respiratory failure with hypoxia and hypercapnia J96.11; J96.12; J96.12 Respiratory failure complication: hypoxia and hypercapnia Iron deficiency anemia, unspecified iron deficiency anemia type D50.9 Anemia type: iron deficiency Iron deficiency anemia type: unspecified iron deficiency Pneumonia J18.9 Time Spent (min) 60
== END 2025-07-06 11:22 | disposition home or self-care (01) ==
LOC: HO.HPS 10:14
PROVIDERS: PCP Internal Medicine; Visit Provider Hospitalist
DX: J44.1 Chronic obstructive pulmonary disease with (acute) exacerbation (principal); J43.2 Centrilobular emphysema; J96.11 Chronic respiratory failure with hypoxia; J96.12 Chronic respiratory failure with hypercapnia; D50.9 Iron deficiency anemia, unspecified; J18.9 Pneumonia, unspecified organism
CPT/HCPCS: 99214; G2211

== ENCOUNTER → 2025-07-06 10:52 | Outpatient (BNV) | payer MEDICARE, SELFPAY | PROVIDERS: PCP Internal Medicine; Visit Provider Radiology Diagnostic Radiology | DX: J44.0 Chronic obstructive pulmonary disease with (acute) lower respiratory infection (principal) | CPT/HCPCS: 71046 ==

== ENCOUNTER 2025-07-09 12:33 | Observation (INO) | payer MEDICARE, SELFPAY ==
[2025-07-09] VITALS (7 sets, daily range): BP systolic 113–172; BP diastolic 46–69; PULSE 87–104; RESP 16–22; TEMP 36.7–37.2; O2SAT 92–95; BMI 22.3; BMI 23.3
--- NOTE | ~2025-07-09 | XR_ITS ---
EXAMINATION: XR CHEST 2 VIEWS HISTORY: SOB COMPARISON: Comparison is made with the prior examination dated 07/06/2025. FINDINGS: AP and lateral views of the chest are submitted. The lungs remain hyperinflated, consistent with COPD. Clear. There is no pleural effusion, pneumothorax, or pulmonary vascular congestion. The heart is normal in size. The patient is status post aortic valve replacement. There is mild degenerative disc disease of the spine. There are surgical clips in the right breast. XR/XR chest 2V IMPRESSION: COPD. No acute cardiopulmonary abnormality. Electronically signed by: Femi Pavon MD 07/09/2025 02:29 PM EDT
--- NOTE | 2025-07-09 12:38 | ED.SOB ---
HPI - SOB/Dyspnea General Chief Complaint: Dyspnea Stated Complaint: COPD, heart racing Time Seen by Provider: 07/09/25 12:56 Source: patient, family, RN notes reviewed and old records reviewed Mode of arrival: ambulatory Limitations: no limitations History of Present Illness ED Provider: Meagn HPI Narrative: Patient is an 80-year-old female with history of COPD, O2 dependent, on chronic prednisone, anemia frequently requiring transfusions, TAVR on ASA, hypothyroidism presenting to the ED with daughter complaining of ongoing dyspnea, worse with exertion. Denies chest pain or palpitations. Saw Dr. Barrientos on Sunday and was started on levofloxacin, is not noting any improvement in dyspnea. Cough productive of clear sputum. Denies fevers. Also having suprapubic pressure and only urinating small amounts when she tries to go. MD elicited complaint: shortness of breath Related Data Home Medications ?Medication ?Instructions ?Recorded ?Confirmed levothyroxine 25 mcg tablet 25 mcg PO MOTUWETHFRSA@0600 07/15/20 07/09/25 aspirin 81 mg chewable tablet 81 mg PO DAILY 07/16/20 07/09/25 Oxygen Home Use 10/18/22 nebulizers 10/18/22 pantoprazole 40 mg tablet,delayed 40 mg PO DAILY@0630 04/08/24 07/09/25 release gabapentin 100 mg capsule 100 mg PO BEDTIME 07/10/24 07/09/25 furosemide 20 mg tablet (Lasix) 20 mg PO DAILY 02/12/25 07/09/25 simvastatin 40 mg tablet 40 mg PO BEDTIME 02/12/25 07/09/25 albuterol sulfate 2.5 mg/3 mL 2.5 mg inhalation Q6H PRN 07/09/25 07/09/25 (0.083 %) solution for nebulization Shortness Of Breath dextromethorphan-guaifenesin 10 1 tab-cap PO Q4H 07/09/25 07/09/25 mg-200 mg capsule (Mucinex Cough-Chest Congestion HBP) docusate sodium 100 mg tablet 100 mg PO DAILY 07/09/25 07/09/25 ensifentrine 3 mg/2.5 mL 2.5 ml inhalation BID 07/09/25 07/09/25 suspension for nebulization (Ohtuvayre) hydroxyzine HCl 25 mg tablet 25 mg PO BID PRN Anxiety 07/09/25 07/09/25 levothyroxine 25 mcg tablet 50 mcg PO KAUR@0600 07/09/25 07/09/25 loratadine 10 mg tablet (Claritin) 10 mg PO DAILY PRN Allergy Symptoms 07/09/25 07/09/25 polyethylene glycol 3350 17 17 g PO DAILY Constipation 07/09/25 07/09/25 gram/dose oral powder (Miralax) prednisone 10 mg tablet See Rx Instructions PO DAILY 07/09/25 07/09/25 Previous Rx's ?Medication ?Instructions ?Recorded ipratropium bromide 42 mcg (0.06 2 spray intranasal TID PRN allergy 07/09/24 %) nasal spray symptoms #15 mL albuterol sulfate 90 mcg/actuation 2 puff PO Q6H PRN wheezing 90 days 12/12/24 aerosol inhaler #3 ea ondansetron 4 mg disintegrating 4 mg PO Q8H PRN for 05/19/25 tablet nausea/vomiting #30 tabs sulfamethoxazole 800 1 tab PO BID 30 days #60 tabs 05/21/25 mg-trimethoprim 160 mg tablet (Bactrim DS) levofloxacin 500 mg tablet 500 mg PO DAILY 7 days #7 tabs 07/06/25 fluticasone fur. 200 mcg-umeclid 1 ea PO DAILY #180 ea 07/07/25 62.5 mcg-vilant 25 mcg inhalat.powder (Trelegy Ellipta) Allergies Allergy/AdvReac Type Severity Reaction Status Date / Time No Known Allergies Allergy Verified 07/09/25 12:38 Review of Systems Review of Systems: As per HPI Yes all other systems are reviewed and are negative Constitutional: Constitutional: Reports as per HPI PMFSH Past Medical History Medical History (Updated 07/09/25 @ 14:53 by Rosaline Guzman NP) Pneumonia Dyspnea (~08/14/23) Tachycardia Anemia Anemia Pre-op chest exam Vertebral artery stenosis Dyspnea Chronic respiratory failure Dyslipidemia Hypothyroidism Centrilobular emphysema Surgical History (Updated 04/10/24 @ 12:47 by Barbara Armando RN) Hx of colonoscopy History of cholecystectomy H/O: hysterectomy Family History Family History Mother No problems noted. Daughter Diabetes Social History Social History Household Members: Children Housing: House Do you presently have visiting nurse or other home services: No Alcohol intake: unknown Patient Tobacco Use Status: Former Tobacco user Tobacco use type: Cigarette Years Smoked: 40+ years service: No Current occupational status: retired Physical Exam Vital Signs: Vital Signs: Last Vital Signs Temp 97.6 F 07/10/25 03:37 Pulse 68 07/10/25 03:37 Resp 16 07/10/25 03:37 BP 165/69 H 07/10/25 03:37 Pulse Ox 95 07/10/25 03:37 O2 Del Method Nasal Cannula 07/10/25 03:37 O2 Flow Rate 1 07/10/25 03:37 Oxygen Flow Rate 4 07/09/25 12:36 BMI result Body Mass Index 22.3 Vital signs have been reviewed and appear to be correct. Blood pressure elevated. Heart rate mildly tachycardic. Respiratory rate normal. Temperature normal. Oxygen saturation normal on baseline O2. Const: General: cooperative, healthy appearing and no acute distress Orientation/consciousness: oriented to person, oriented to place, oriented to time and patient oriented x3 Limitations: no limitations HEENT: Head: Yes normocephalic and Yes atraumatic Ears: external ears normal General nose exam: Normal external nose present Face and sinus: Yes face symmetric Mouth: oropharynx normal and moist mucous membranes Throat: Yes uvula midline Eyes: Pupils: Equal, round and reactive pupils present Neck: Neck: Yes normal visual inspection and Yes supple Resp: Effort & Inspection: normal respiratory effort and able to speak in complete sentences Auscultation: diminished lung sounds diffuse Cardio: Rate: regular rate Rhythm: regular rhythm Heart sounds: S1 normal heart sound present and S2 normal heart sound present GI: Palpation (GI): Soft to palpation and nontender Auscultation: normoactive bowel sounds : General: Yes no CVA tenderness Back/Spine/Pelvis: Back: no CVA tenderness Skin: General skin exam: elasticity normal and turgor normal Neuro: General: oriented to person, oriented to place, oriented to time, patient oriented x3, moves all extremities, no focal motor deficits and CN's II-XI intact bilaterally Cranial nerves: Yes Equal, round and reactive pupils present Cognition (Neuro): normal cognition Extrem: General: Yes full ROM, Yes no pedal edema and Yes no calf tenderness Psych: Mental Status: mental status grossly normal Affect: normal affect Thought process: Normal thought process present Course Course Course Narrative: This is an RME: Additional HPI, ROS, PE not included below will be deferred to primary provider. RME assessment and note performed by: Erika Troy PA-C This is a 22-sifu-ksf-female COPD also with the O2 dependence on chronic Prednisone, hypothyroidism, anemia requiring transfusions - last had 2 units 6 weeks ago, TAVR on ASA, who presents to the ER with complaints of increased SOB. Lung sounds diminished. Patient was seen by Dr. Barrientos on Sunday and was given prednisone and Levaquin, shortness for breath and productive cough has persisted. Also endorsing some bladder pressure and voiding in small amounts. Plan: Labs, EKG Medications Administered Generic Name Dose Route Start Last Admin Trade Name Freq PRN Reason Stop Dose Admin Atorvastatin Calcium 20 mg 07/09/25 21:00 07/09/25 23:18 Atorvastatin Calcium 20 Mg Tablet PO 20 mg BEDTIME SYLVIA Administration Docusate Sodium 100 mg 07/09/25 21:00 07/09/25 23:19 Docusate Sodium 100 Mg Capsule PO Not Given BID SYLVIA Enoxaparin Sodium 40 mg 07/09/25 17:30 07/09/25 18:12 Enoxaparin Sodium 40 Mg/0.4 Ml Syringe SUBCUT 40 mg Q24H SYLVIA Administration Gabapentin 100 mg 07/09/25 21:00 07/09/25 23:19 Gabapentin 100 Mg Capsule PO 100 mg BEDTIME SYLVIA Administration Guaifenesin/Dextromethorphan 1 tab 07/09/25 18:00 07/10/25 05:27 Guaifenesin Dm 600/30 1 Tab Tab.Er.12h PO 1 tab Q4H SYLVIA Administration Hydrocortisone Sodium Succinate 25 mg 07/09/25 18:30 07/10/25 01:58 Hydrocortisone Sod Succ/Pf 100 Mg Vial IVPUSH 25 mg Q8H SYLVIA Administration Hydroxyzine HCl 25 mg 07/09/25 21:00 07/09/25 18:20 Hydroxyzine Hcl 25 Mg Tablet PO 25 mg BID PRN Administration Anxiety Ceftriaxone Sodium 1 gm/ 50 mls @ 100 mls/hr 07/09/25 17:15 07/10/25 06:16 Sodium Chloride IV Infused Q12H SYLVIA Infusion Azithromycin 500 mg/ Sodium 250 mls @ 125 mls/hr 07/09/25 17:15 07/09/25 21:32 Chloride IV Infused Q24H SYLVIA Infusion Sodium Chloride 1,000 mls @ 100 mls/hr 07/09/25 17:30 07/09/25 18:27 Ns IVCONT 100 mls/hr .Q10H SYLVIA Administration Levothyroxine Sodium 25 mcg 07/10/25 06:00 07/10/25 05:27 Levothyroxine Sodium 25 Mcg Tablet PO 25 mcg MOTUWETHFRSA@0600 SYLVIA Administration Methylprednisolone Sodium Succinate 80 mg 07/09/25 18:30 07/10/25 05:26 Methylprednisolone Sod Succ 125 Mg/2 Ml Vial IVPUSH 80 mg Q6H SYLVIA Administration Omeprazole 20 mg 07/10/25 06:30 07/10/25 05:27 Omeprazole 20 Mg Capsule.Dr PO 20 mg DAILY@0630 SYLVIA Administration Polyethylene Glycol 17 gm 07/09/25 17:29 07/09/25 18:20 Polyethylene Glycol 3350 17 Gm Powd.Pack PO 17 gm DAILY PRN Administration Constipation Sodium Chloride 3 ml 07/10/25 00:00 07/10/25 00:05 0.9 % Sodium Chloride Flush 3 Ml Syringe IVFLUSH Not Given QSHIFT SYLVIA Discontinued Medications Generic Name Dose Route Start Last Admin Trade Name Freq PRN Reason Stop Dose Admin Albuterol Sulfate 2.5 mg/ 0 mg 07/09/25 15:01 07/09/25 15:10 Albuterol/Ipratropium 3 ml INHALE 07/09/25 15:02 1 dose ONCE ONE Administration Ceftriaxone Sodium 1 gm/ 50 mls @ 100 mls/hr 07/09/25 13:22 07/09/25 14:13 Sodium Chloride IV 07/09/25 13:51 Infused ONCE ONE Infusion Doxycycline Hyclate 100 mg/ 250 mls @ 166.67 mls/hr 07/09/25 13:22 07/09/25 16:25 Sodium Chloride IV 07/09/25 14:51 Infused ONCE ONE Infusion Vancomycin HCl 1,500 mg/ 500 mls @ 333.333 mls/hr 07/09/25 18:30 07/09/25 23:33 Sodium Chloride IV 07/09/25 19:59 Infused ONCE ONE Infusion Simethicone 80 mg 07/09/25 20:39 07/09/25 21:17 Simethicone 80 Mg Tab.Chew PO 07/09/25 20:40 80 mg ONCE ONE Administration Medical Decision Making Medical Decision Making [facility] Narrative: Patient is an 80-year-old female with history of COPD, O2 dependent, on chronic prednisone, anemia frequently requiring transfusions, TAVR on ASA, hypothyroidism presenting to the ED with daughter complaining of ongoing dyspnea, worse with exertion. On exam patient is awake, A+Ox3, mildly tachycardic, BP elevated, afebrile, normal neurological exam without focal deficits, physical exam findings as above. Given reported symptoms and physical exam findings, initial differential includes but is not limited to COPD exacerbation, pneumonia, anemia, electrolyte abnormality, viral illness. Less likely CHF but will check BNP. Labs notable for mild leukocytosis, anemia not currently requiring transfusion, mildly elevated troponin. Viral serology negative. X-ray chest notable for no evidence of pneumonia. My interpretation is in agreement with the radiologist's interpretation. Differential Diagnosis Differential Diagnoses: The differential diagnosis associated with the presentation includes as per [facility] Admission/Observation Consideration of admission/observation: Escalation of care including admission/observation considered Consult Healthcare Provider Management of the patient was discussed with: Hospitalist Lab Data [facility] Lab Attestation statement: I reviewed the patient's lab results. as per [facility] 07/09/25 13:15 07/09/25 13:15 Labs: Lab Results 07/09/25 07/09/25 07/09/25 Range/Units 13:15 13:23 13:30 WBC 13.7 H (4.8-10.8) X10*3/uL RBC 3.56 L (4.20-5.50) X10*6/uL Hgb 10.4 L (12.0-16.0) g/dl Hct 32.6 L (37.0-47.0) % MCV 91.6 (80.0-98.0) fL MCH 29.2 (27.0-33.0) pg MCHC 31.9 (31.0-35.0) g/dl RDW 16.0 (11.0-16.0) % Plt Count 275 (160-400) X10*3/uL MPV 9.1 L (9.4-12.3) fL Immature Gran % (Auto) 1.8 H (0.0-0.4) % Neut % (Auto) 94.1 H (45-73) % Lymph % (Auto) 1.6 L (20-40) % Snyder % (Auto) 2.3 (2-11) % Eos % (Auto) 0.0 (0-4) % Baso % (Auto) 0.2 (0-2) % Lymph # (Auto) 0.2 L (1.2-4.9) X10*3/uL Snyder # (Auto) 0.3 (0.1-1.2) X10*3/uL Eos # (Auto) 0.0 (0.0-0.4) X10*3/uL Baso # (Auto) 0.0 (0.0-0.2) X10*3/uL Abs Immat Gran (auto) 0.24 H (0.00-0.03) X10*3/uL Absolute Neuts (auto) 12.9 H (2.0-8.3) x10*3/uL Absolute Nucleated RBC 0.000 (0.0-0.012) X10*3/uL Nucleated RBC % (auto) 0.0 (0.0-0.2) /100WBC Smear Tech's Comments VERIFIED Hold Blue Top SEE NOTE VBG pH 7.40 (7.32-7.43) VBG pCO2 49 mmHg VBG pO2 73 mmHg VBG HCO3 30 H (22-26) mmol/L VBG O2 Saturation 94.0 % VBG Base Excess 5.2 mmol/L Sodium 139 (135-145) mmol/L Potassium 4.2 (3.3-5.1) mmol/L Chloride 103 (96-108) mmol/L Carbon Dioxide 28 (22-29) mmol/L Anion Gap 12 (12-20) BUN 17 H (9-16) mg/dL Creatinine 1.12 (0.5-1.4) mg/dL Estim Creat Clear Calc 34.0 Estimated GFR 47 Random Glucose 113 (60-115) mg/dL Lactic Acid 1.3 (0.5-2.0) mmol/L Calcium 9.4 (8.4-10.2) mg/dL Magnesium 2.2 (1.6-2.6) mg/dL Total Bilirubin 0.2 (0.0-1.0) mg/dL Direct Bilirubin < 0.2 (0.0-0.5) mg/dL AST 36 H (5-31) U/L ALT 23 (0-31) U/L Alkaline Phosphatase 79 (39-117) U/L Troponin I High Sens 9.8 D (<3.5-17.0) ng/L NT-Pro-B Natriuret Pep 101.0 (<300) pg/mL Total Protein 6.7 (6.5-8.0) g/dL Albumin 4.5 (3.5-5.0) g/dL Urine Color Urine Appearance Urine pH (5.0-9.0) Ur Specific [place] (1.005-1.025) Urine Protein (Neg-Trace) mg/dL Urine Glucose (UA) (Negative) mg/dL Urine Ketones (Negative) mg/dL Urine Blood (Negative) Urine Nitrite (Negative) Ur Leukocyte Esterase (Negative) Urine RBC (0-2) /HPF Urine WBC (0-5) /HPF Ur Squamous Epith Cells (0-2) /HPF Urine Bacteria (None Seen) Hyaline Casts (0-2) /LPF COVID-19 (JOE) Negative (Negative) COVID-19 Clin Com See Note Influenza Type A (KASANDRA) Negative (Negative) Influenza Type B (KASANDRA) Negative (Negative) Influenza A & B Note See Note Blood Type A Positive Antibody Screen NEGATIVE 07/09/25 Range/Units 13:46 WBC (4.8-10.8) X10*3/uL RBC (4.20-5.50) X10*6/uL Hgb (12.0-16.0) g/dl Hct (37.0-47.0) % MCV (80.0-98.0) fL MCH (27.0-33.0) pg MCHC (31.0-35.0) g/dl RDW (11.0-16.0) % Plt Count (160-400) X10*3/uL MPV (9.4-12.3) fL Immature Gran % (Auto) (0.0-0.4) % Neut % (Auto) (45-73) % Lymph % (Auto) (20-40) % Snyder % (Auto) (2-11) % Eos % (Auto) (0-4) % Baso % (Auto) (0-2) % Lymph # (Auto) (1.2-4.9) X10*3/uL Snyder # (Auto) (0.1-1.2) X10*3/uL Eos # (Auto) (0.0-0.4) X10*3/uL Baso # (Auto) (0.0-0.2) X10*3/uL Abs Immat Gran (auto) (0.00-0.03) X10*3/uL Absolute Neuts (auto) (2.0-8.3) x10*3/uL Absolute Nucleated RBC (0.0-0.012) X10*3/uL Nucleated RBC % (auto) (0.0-0.2) /100WBC Smear Tech's Comments Hold Blue Top VBG pH (7.32-7.43) VBG pCO2 mmHg VBG pO2 mmHg VBG HCO3 (22-26) mmol/L VBG O2 Saturation % VBG Base Excess mmol/L Sodium (135-145) mmol/L Potassium (3.3-5.1) mmol/L Chloride (96-108) mmol/L Carbon Dioxide (22-29) mmol/L Anion Gap (12-20) BUN (9-16) mg/dL Creatinine (0.5-1.4) mg/dL Estim Creat Clear Calc Estimated GFR Random Glucose (60-115) mg/dL Lactic Acid (0.5-2.0) mmol/L Calcium (8.4-10.2) mg/dL Magnesium (1.6-2.6) mg/dL Total Bilirubin (0.0-1.0) mg/dL Direct Bilirubin (0.0-0.5) mg/dL AST (5-31) U/L ALT (0-31) U/L Alkaline Phosphatase (39-117) U/L Troponin I High Sens (<3.5-17.0) ng/L NT-Pro-B Natriuret Pep (<300) pg/mL Total Protein (6.5-8.0) g/dL Albumin (3.5-5.0) g/dL Urine Color Yellow Urine Appearance Clear Urine pH 6.5 (5.0-9.0) Ur Specific [place] 1.010 (1.005-1.025) Urine Protein Negative (Neg-Trace) mg/dL Urine Glucose (UA) Negative (Negative) mg/dL Urine Ketones Negative (Negative) mg/dL Urine Blood Small (1+) H (Negative) Urine Nitrite Negative (Negative) Ur Leukocyte Esterase Negative (Negative) Urine RBC 6-10 H (0-2) /HPF Urine WBC 0-5 (0-5) /HPF Ur Squamous Epith Cells 0-2 (0-2) /HPF Urine Bacteria None Seen (None Seen) Hyaline Casts 0-2 (0-2) /LPF COVID-19 (JOE) (Negative) COVID-19 Clin Com Influenza Type A (KASANDRA) (Negative) Influenza Type B (KASANDRA) (Negative) Influenza A & B Note Blood Type Antibody Screen Independent Interpretation I performed an independent interpretation of an: EKG (sinus tachycardia, rate 105 beats per minute, normal ME interval and QTC) and Plain X-Ray Interpretation: No evidence of pneumonia on chest x-ray Radiology Impression Discussion of test interpretation with radiology: I have reviewed the radiologist's reading. Radiologist Impression: EXAMINATION: XR CHEST 2 VIEWS HISTORY: SOB COMPARISON: Comparison is made with the prior examination dated 07/06/2025. FINDINGS: AP and lateral views of the chest are submitted. The lungs remain hyperinflated, consistent with COPD. Clear. There is no pleural effusion, pneumothorax, or pulmonary vascular congestion. The heart is normal in size. The patient is status post aortic valve replacement. There is mild degenerative disc disease of the spine. There are surgical clips in the right breast. XR/XR chest 2V IMPRESSION: COPD. No acute cardiopulmonary abnormality. Independent Historian Clinical information obtained from an independent historian. History obtained from or confirmed by: Other (daughter) External Record Review External record reviewed: Inpatient record, Office record and Outpatient record Prescription Management I considered prescription management with: Antibiotic Discharge Plan Discharge Clinical Impression: Acute exacerbation of chronic obstructive airways disease Patient Disposition: Admitted As Inpatient Interventions: Admission Worksheet (ED) Last Done: 07/09/25 19:58 Discharge Date/Time: 07/09/25 20:53
--- NOTE | 2025-07-09 12:42 | ECG_ITS ---
Test Reason : dyspnea Blood Pressure : */* mmHG Vent. Rate : 105 BPM Atrial Rate : 105 BPM P-R Int : 132 ms QRS Dur : 84 ms QT Int : 334 ms P-R-T Axes : 90 -18 91 degrees QTcB Int : 441 ms Sinus tachycardia Septal infarct , age undetermined Abnormal ECG No previous ECGs available Referred By: Erika Troy Electronically Signed By: PIPE ALLEN MD
[2025-07-09 13:25] LABS: Venous Blood Gas Refer to POC result
[2025-07-09 13:27] LABS: VBG HCO3 30 mmol/L (22-26); VBG O2 % Saturation 94.0 %
[2025-07-09 13:28] LABS: Hematocrit 32.6 % (37.0-47.0); Hemoglobin 10.4 g/dl (12.0-16.0); Imm Gran Abs Auto 0.24 X10*3/uL (0.00-0.03); Imm Gran Pct Auto 1.8 % (0.0-0.4); Lymphocytes Absolute Auto 0.2 X10*3/uL (1.2-4.9); MANUAL DIFF FLAG SCAN; Mean Corpuscular HGB Conc 31.9 g/dl (31.0-35.0); Mean Corpuscular Hemoglobin 29.2 pg (27.0-33.0); Mean Corpuscular Volume 91.6 fL (80.0-98.0); NRBC Abs Auto 0.000 X10*3/uL (0.0-0.012); NRBC Pct Auto 0.0 /100WBC (0.0-0.2); Platelet Count 275 X10*3/uL (160-400); Red Blood Count 3.56 X10*6/uL (4.20-5.50); SCAN SMEAR FLAG 1; White Blood Count 13.7 X10*3/uL (4.8-10.8)
[2025-07-09 13:43] LABS: Alanine Aminotransferase 23 U/L (0-31); Albumin Level 4.5 g/dL (3.5-5.0); Alkaline Phosphatase 79 U/L (39-117); Anion Gap 12 (12-20); Aspartate Amino Transferase 36 U/L (5-31); Blood Urea Nitrogen 17 mg/dL (9-16); Calcium 9.4 mg/dL (8.4-10.2); Carbon Dioxide 28 mmol/L (22-29); Chloride 103 mmol/L (96-108); Creatinine Clr Calc Pharmacy 34.0; Estimated Glomerular Filt Rate 47; Magnesium 2.2 mg/dL (1.6-2.6); Potassium 4.2 mmol/L (3.3-5.1); Sodium 139 mmol/L (135-145); Total Protein 6.7 g/dL (6.5-8.0)
[2025-07-09 13:49] LABS: NT Pro B Type Natriuretic Pept 101.0 pg/mL (<300); Troponin-I High Sensitivity 9.8 ng/L (<3.5-17.0)
[2025-07-09 13:50] LABS: COVID-19 Test Negative (Negative); IDNOW Serial# 55D5AD1C; IDNOW Serial# 58CA691E; Influenza B2 Negative (Negative)
[2025-07-09 13:53] LABS: Appearance Urine Clear; Glucose Urine UA Negative (Negative); PH 6.5 (5.0-9.0); Specific Gravity - Urine 1.010 (1.005-1.025); UMIC TRIGGER UACC YES
[2025-07-09] MEDS: Albuterol Sulfate 2.5 MG, Albuterol/Iprat 2.5/0.5MG 3 ML 3 ML INHALE (15:10)
--- NOTE | 2025-07-09 16:07 | PHA.MEDREC ---
Addendum entered by Richa Miller [facility] 07/09/25 17:24: [facility] reviewed Addendum entered by Elisabeth Butterfield 07/09/25 16:48: Spoke with pt and daughter about Bactrim; pt usually takes 2 tabs Q48H but since Friday 07/06, pt has been taking [address] tells her otherwise. Original Note: Pharmacy Consult ? Medication Reconciliation Pharmacy has completed the medication reconciliation. Spoke with pt and pt daughter at bedside and they confirmed pt medications with a list they had brought in. Pt started taking on 07/04 a Levofloxacin 500mg tab QD for 7 days and Prednisone 10mg taper and is taking 3 tabs for 1 more day then 2 tabs for 3 days then 1 tablet there after; pt takes a Prednisone 10mg tab once daily regularly per pt and daughter. Pt takes Levothyroxine 25mcg daily on MoTuWeThFrSa and 50mcg on Mathias and pt usually takes Multivitamin, Biotin and Calcium but stopped those until finished with the Levofloxacin regimen.
--- NOTE | 2025-07-09 17:12 | PM.IMHP ---
History of Present Illness Date of Service: 07/09/25 Chief Complaint: SOB/ASHBY on minimal exertion , failed outpatient antibiotics Daughter was in the room and she is the main historian. 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 Patient's daughter reports that over the past 1 month she has been having severe exertional dyspnea and is mostly bed-bound, used to be able to walk around the house but right now she is unable to even use a bedside commode without getting out of breath and having tachycardia and tachypnea. She had seen Dr. Barrientos on Sunday and she was started on levofloxacin, and was instructed to seek care in the hospital if it does not improve which is why she is right now here. Patient's daughter also reports frequency of urination and no fever or chills or burning sensation. Patient was deemed hospice appropriate, believes that if she were to agree to hospice ?I am giving up?. Patient's daughter seems to be more aware of her chronic decline and is aware that she is likely hospice appropriate and is interested in seeking more input. Patient received IV steroids and nebulizing treatment in the ED, due to her high complexity and failing outpatient antibiotics she has been initiated on ceftriaxone and azithromycin for possible respiratory viral etiology of exacerbation of COPD Patient is being admitted for further medical management. Review of Systems Review of Systems: Yes all other systems are reviewed and are negative [facility] Medical History (Updated 07/09/25 @ 14:53 by Rosaline Guzman NP) Pneumonia Dyspnea (~08/14/23) Tachycardia Anemia Anemia Pre-op chest exam Vertebral artery stenosis Dyspnea Chronic respiratory failure Dyslipidemia Hypothyroidism Centrilobular emphysema Family History Mother No problems noted. Daughter Diabetes Surgical History (Updated 04/10/24 @ 12:47 by Barbara Armando RN) Hx of colonoscopy History of cholecystectomy H/O: hysterectomy Social History Household Members: None Housing: House Do you presently have visiting nurse or other home services: No Alcohol intake: unknown Patient Tobacco Use Status: Former Tobacco user Tobacco use type: Cigarette Years Smoked: 40+ years Advance Directives: No Advance Directives Information Provided: Yes service: No Current occupational status: retired Meds Allergies Allergy/AdvReac Type Severity Reaction Status Date / Time No Known Allergies Allergy Verified 07/09/25 12:38 Home Medications ?Medication ?Instructions ?Recorded ?Confirmed ?Last Taken ?Type levothyroxine 25 mcg tablet 25 mcg PO MOTUWETHFRSA@0600 07/15/20 07/09/25 07/09/25 History aspirin 81 mg chewable tablet 81 mg PO DAILY 07/16/20 07/09/25 07/08/25 History Oxygen Home Use 10/18/22 Unknown History nebulizers 10/18/22 Unknown History pantoprazole 40 mg tablet,delayed 40 mg PO DAILY@0630 04/08/24 07/09/25 07/08/25 History release gabapentin 100 mg capsule 100 mg PO BEDTIME 07/10/24 07/09/25 07/08/25 History furosemide 20 mg tablet (Lasix) 20 mg PO DAILY 02/12/25 07/09/25 07/08/25 History simvastatin 40 mg tablet 40 mg PO BEDTIME 02/12/25 07/09/25 07/08/25 History albuterol sulfate 2.5 mg/3 mL 2.5 mg inhalation Q6H PRN 07/09/25 07/09/25 Unknown History (0.083 %) solution for nebulization Shortness Of Breath dextromethorphan-guaifenesin 10 1 tab-cap PO Q4H 07/09/25 07/09/25 07/08/25 History mg-200 mg capsule (Mucinex Cough-Chest Congestion HBP) docusate sodium 100 mg tablet 100 mg PO DAILY 07/09/25 07/09/25 07/08/25 History ensifentrine 3 mg/2.5 mL 2.5 ml inhalation BID 07/09/25 07/09/25 Unknown History suspension for nebulization (Ohtuvayre) hydroxyzine HCl 25 mg tablet 25 mg PO BID PRN Anxiety 07/09/25 07/09/25 Unknown History levothyroxine 25 mcg tablet 50 mcg PO KAUR@0600 07/09/25 07/09/25 07/05/25 History loratadine 10 mg tablet (Claritin) 10 mg PO DAILY PRN Allergy Symptoms 07/09/25 07/09/25 07/08/25 History polyethylene glycol 3350 17 17 g PO DAILY Constipation 07/09/25 07/09/25 Unknown History gram/dose oral powder (Miralax) prednisone 10 mg tablet See Rx Instructions PO DAILY 07/09/25 07/09/25 07/09/25 History Physical Exam Vital Signs and Narrative: Vital Signs: Last Vital Signs Temp 98.2 F 07/09/25 12:36 Pulse 104 H 07/09/25 16:32 Resp 17 07/09/25 16:32 BP 134/55 L 07/09/25 16:32 Pulse Ox 93 07/09/25 16:32 O2 Del Method Nasal Cannula 07/09/25 16:32 O2 Flow Rate 1 07/09/25 16:32 Oxygen Flow Rate 4 07/09/25 12:36 BMI result Body Mass Index 22.3 General: AOx3, frail elderly woman who is having exertional difficulty breathing, was using a nebulizer at the time of my examination Resp: Bilateral wheezing expiratory and inspiratory, accessory use of muscle CVS: S1, S2, RRR GI: +BS, NT, no distention Skin: Warm, dry Neuro: Cranial nerves II-XII grossly intact bilaterally. Motor grossly intact bilaterally Extremities: Bilateral pedal edema, tender to touch, chronic per patient and daughter Psych: Anxious Results Labs 07/09/25 13:15 07/09/25 13:15 Labs: Laboratory Results - last 24 hr 07/09/25 07/09/25 07/09/25 13:15 13:23 13:30 MCV 91.6 MCH 29.2 MCHC 31.9 RDW 16.0 Plt Count 275 MPV 9.1 L Immature Gran % (Auto) 1.8 H Neut % (Auto) 94.1 H Lymph % (Auto) 1.6 L Borden % (Auto) 2.3 Eos % (Auto) 0.0 Baso % (Auto) 0.2 Lymph # (Auto) 0.2 L Borden # (Auto) 0.3 Eos # (Auto) 0.0 Baso # (Auto) 0.0 Abs Immat Gran (auto) 0.24 H Absolute Neuts (auto) 12.9 H Absolute Nucleated RBC 0.000 Nucleated RBC % (auto) 0.0 Smear Tech's Comments VERIFIED Hold Blue Top SEE NOTE VBG pH 7.40 VBG pCO2 49 VBG pO2 73 VBG HCO3 30 H VBG O2 Saturation 94.0 VBG Base Excess 5.2 Anion Gap 12 Estim Creat Clear Calc 34.0 Estimated GFR 47 Random Glucose 113 Lactic Acid 1.3 Calcium 9.4 Magnesium 2.2 Total Bilirubin 0.2 Direct Bilirubin < 0.2 AST 36 H ALT 23 Alkaline Phosphatase 79 Troponin I High Sens 9.8 D NT-Pro-B Natriuret Pep 101.0 Total Protein 6.7 Albumin 4.5 Urine Color Urine Appearance Urine pH Ur Specific [place] Urine Protein Urine Glucose (UA) Urine Ketones Urine Blood Urine Nitrite Ur Leukocyte Esterase Urine RBC Urine WBC Ur Squamous Epith Cells Urine Bacteria Hyaline Casts COVID-19 (JOE) Negative COVID-19 Andigilog Com See Note Influenza Type A (KASANDRA) Negative Influenza Type B (KASANDRA) Negative Influenza A & B Note See Note Blood Type A Positive Antibody Screen NEGATIVE 07/09/25 13:46 MCV MCH MCHC RDW Plt Count MPV Immature Gran % (Auto) Neut % (Auto) Lymph % (Auto) Borden % (Auto) Eos % (Auto) Baso % (Auto) Lymph # (Auto) Borden # (Auto) Eos # (Auto) Baso # (Auto) Abs Immat Gran (auto) Absolute Neuts (auto) Absolute Nucleated RBC Nucleated RBC % (auto) Smear Tech's Comments Hold Blue Top VBG pH VBG pCO2 VBG pO2 VBG HCO3 VBG O2 Saturation VBG Base Excess Anion Gap Estim Creat Clear Calc Estimated GFR Random Glucose Lactic Acid Calcium Magnesium Total Bilirubin Direct Bilirubin AST ALT Alkaline Phosphatase Troponin I High Sens NT-Pro-B Natriuret Pep Total Protein Albumin Urine Color Yellow Urine Appearance Clear Urine pH 6.5 Ur Specific [place] 1.010 Urine Protein Negative Urine Glucose (UA) Negative Urine Ketones Negative Urine Blood Small (1+) H Urine Nitrite Negative Ur Leukocyte Esterase Negative Urine RBC 6-10 H Urine WBC 0-5 Ur Squamous Epith Cells 0-2 Urine Bacteria None Seen Hyaline Casts 0-2 COVID-19 (JOE) COVID-19 Clin Com Influenza Type A (KASANDRA) Influenza Type B (KASANDRA) Influenza A & B Note Blood Type Antibody Screen Imaging Radiologist's Impressions: Impressions Chest X-Ray 07/09/25 14:19 IMPRESSION: COPD. No acute cardiopulmonary abnormality. Electronically signed by: Femi Pavon MD 07/09/2025 02:29 PM EDT RP Assessment and Plan (1) Acute exacerbation of chronic obstructive airways disease: Status: Acute Patient is an elderly woman who is 80 years old with a very complicated pulmonary history-COPD on 3.5 L on baseline and more on minimal ambulation, chronic SOB/ASHBY, centrilobular severe emphysema, chronic respiratory failure with hypoxia hypercapnia, chronic ID requiring transfusions, chronic prednisone 10 mg being admitted for workup of AE COPD exacerbation. AE COPD COPD on 3.5 L on baseline and more on minimal ambulation, chronic SOB/ASHBY, centrilobular severe emphysema, chronic respiratory failure with hypoxia hypercapnia, chronic ID requiring transfusions, chronic prednisone 10 mg, unable to tolerate decrease in steroid dose Failed outpatient antibiotics with Levaquin 2 day course Patient likely has severe advanced COPD, failed outpatient Levaquin with worsening exertional dyspnea and hence needs IV steroids and nebulizer treatments We will stress dose steroids given that she is on 10 mg prednisone at baseline likely has suppressed We will maintain O2 88-92 Follow-up viral respiratory and COVID panel-was recently ordered and it was negative although she did have recent sick contacts Patient was given Levaquin by her primary synchronous motor assembler Dr. Barrientos and likely failed it hence we will initiate her on IV antibiotics given her severity of pulmonary etiology of AE COPD Pulmonary consult consider if she is not responding to the above treatment for more than 1 or 2 2 days Daughter is interested in hospice consult hence placed Patient does not want to stay in the hospital if this is the end-stage and would like to pass away peacefully at home Anemia on chronic iron infusions Follows outpatient spa manager/esthetician at [facility] who stated that she needs to be transfused if less than 8.5, she is at 10.4 hence does not need transfusion today Daily CBC and transfuse to goal Hypothyroidism-continue thyroxine Need for inpatient-This patient requires inpatient hospitalization due to the severity and complexity of her acute and chronic medical conditions. 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 She is chronically steroid-dependent and unable to tolerate dose reduction, placing her at risk for adrenal insufficiency during acute illness. She presents with an acute exacerbation of COPD that has failed outpatient management with oral antibiotics, now requiring escalation to IV steroids, nebulized bronchodilators, and IV antibiotics. Her high baseline oxygen requirement and chronic respiratory failure put her at significant risk for rapid decompensation, necessitating close inpatient monitoring of respiratory status, oxygenation, and potential need for ventilatory support. Additionally, she has chronic iron deficiency anemia requiring transfusions, further complicating her management. The need for stress-dose steroids, daily laboratory monitoring, and multidisciplinary care?including pulmonary and palliative input?cannot be safely provided in an outpatient setting. The severity of her underlying disease, failure of outpatient therapy, and high risk for life-threatening complications underscore the necessity and significance of inpatient admission. Med rec pending-please follow post med rec and resume accordingly This note is constructed using voice recognition software. While every effort has been made to ensure accuracy, trust advisor errors may have been included. Quality Stroke Does the patient have a stroke diagnosis?: No VTE Prior VTE?: Yes VTE Risk Level:: Medical - moderate - high VTE Device Contraindication: N/A - Device Ordered VTE Drug Contraindication: N/A - Med Ordered
--- OUTSIDE RECORDS SUMMARY | 2025-07-09 17:44 | XMS_ITS | Clinical Summary ---
Author Organization [facility] Address [address] [place] [address] Care Team Providers Care Litigation Coordinator Name Role Phone Radha Cortés MD Primary Care Provider [phone] Allergies No known active allergies Medications Medication [...] 75+ series) 2019 COVID-19 Vaccine ( season) 2025 06/20/2022, 03/29/2022, 07/03/2021, Additional history exists Influenza [...] age to complete this topic Care Teams Litigation Coordinator Relationship Specialty Start Date End Date Radha Cortés MD PCP - General Internal Medicine 08/27/20
--- OUTSIDE RECORDS SUMMARY | 2025-07-09 17:44 | XMS_ITS | Clinical Summary ---
Author Organization [facility] Address [address] [place] [address] Care Team Providers Care Mica Patcher Name Role Phone María Cortés MD Primary Care Provider [phone] Allergies No known active allergies Medications albuterol HFA (PROAIR HFA ; PROVENTIL HFA ; VENTOLIN HFA) 90 mcg/actuation inhaler Inhale 2 puffs by mouth every 6 hours as needed. Active albuterol 2.5 mg /3 mL (0.083 %) nebulizer solution Take 3 mL (2.5 mg total) by nebulization 1 (one) time each day. Take 3 mL (2.5 mg total) by [...] 1 capsule (100 mg total) by mouth 1 (one) time each day after lunch. Active fluticasone-umecl idinium-vilantero l (TRELEGY ELLIPTA) 200-62.5-25 mcg inhaler Inhale 1 puff (200 mcg total) by mouth 1 (one) time each day. Active multivitamin (MULTIPLE VITAMINS ORAL) Take 1 tablet by mouth 1 (one) time each day. Active predniSONE (DELTASONE) 10 mg tablet Take 1 tablet (10 mg total) by mouth 1 (one) time each day. Active ondansetron ODT (ZOFRAN-ODT) 4 mg disintegrating tablet DISSOLVE ONE TABLET BY MOUTH EVERY 8 HOURS NEEDED Active sulfamethoxazole- trimethoprim (BACTRIM DS,SEPTRA DS) 800-160 mg per tablet Take 1 tablet by mouth 2 (two) times a day. Every other day due today and then again on 01/30/2025 Active furosemide (LASIX) 20 mg tablet Take 1 tablet (20 mg total) by mouth 1 (one) time each day. 90 tablet 1 025 Active polyethylene glycol (MIRALAX) 17 gram packet Take 17 g by mouth 1 (one) time each day after lunch. Active biotin 5,000 mcg tablet,chewable Chew 5,000 mcg 1 (one) time each day. Active loratadine (CLARITIN) 10 mg tablet Take 1 tablet (10 mg total) by mouth 1 (one) time each day. Active ensifentrine (Ohtuvayre) 3 mg/2.5 mL suspension for nebulization Active gabapentin (NEURONTIN) 100 mg capsule Take 1 capsule (100 mg total) by mouth at bedtime. 90 capsule 1 Active simvastatin (ZOCOR) 40 mg tablet TAKE ONE TABLET BY MOUTH DAILY AT BEDTIME 90 tablet 1 Active levothyroxine (SYNTHROID, LEVOTHROID) 25 mcg tablet TAKE ONE TABLET BY MOUTH EVERY MORNING BEFORE BREAKFAST. TAKE TWO TABLETS BY MOUTH ON SUNDAY. 102 tablet 1 Active pantoprazole (PROTONIX) 40 mg EC tablet TAKE ONE TABLET BY MOUTH EVERY DAY 90 tablet 1 025 Active simvastatin (ZOCOR) 40 mg tablet TAKE ONE TABLET BY MOUTH DAILY AT BEDTIME 90 tablet 1 025 2024 Discontinued levothyroxine (SYNTHROID, LEVOTHROID) 25 mcg tablet TAKE ONE TABLET BY MOUTH EVERY MORNING BEFORE BREAKFAST. TAKE TWO TABLETS BY MOUTH ON SUNDAY. 102 tablet 1 025 2024 Discontinued pantoprazole (PROTONIX) 40 mg EC tablet TAKE ONE TABLET BY MOUTH EVERY DAY 90 tablet 1 025 2024 Discontinued gabapentin (NEURONTIN) 100 mg capsule TAKE ONE CAPSULE BY MOUTH DAILY AT BEDTIME 90 capsule 025 2024 Discontinued(R eorder) Active Problems Problem Noted Date Diagnosed Date Chronic kidney disease, stage 3a (CMS/[facility] V24, C MS/[facility] V28) 04/30/2025 Coronary artery disease invo lving [place] coronary artery of [place] heart without angina pectoris 01/05/2025 Assessment & Plan (01/05/2025 5:17 PM EDT): The patient was noted to have a 30% stenosis in the mid LAD on her left heart cath done in 2020 prior to her TAVR valve placement. She continues on medical therapy with aspirin and simvastatin. She denies any anginal symptoms on today's visit. Will continue her current therapy. S/p TAVR (transcatheter aort ic valve replacement), bioprosthetic 12/08/2024 Assessment & Plan (01/05/2025 5:17 PM EDT): The patient has a history of aortic valve stenosis status post bioprosthetic aortic valve replacement via a valve procedure in October 2021. Of note, the patient has a history of anemia requiring recurrent iron transfusions and blood transfusions but her anemia predates her TAVR valve procedure. As such, her longstanding persistent anemia which has been present for years is unrelated to her TAVR valve placement. On today's visit, the patient states that she has mild but chronic shortness of breath with exertion in the setting of her COPD. Importantly, she denies any recent change in her exertional dyspnea. However, her last echocardiogram is from 2022. Therefore, we will proceed with a follow-up echocardiogram to reevaluate her TAVR valve. Orders: Transthoracic echocardiogram (TTE) complete with PRN contrast, bubble, strain, and 3D order panel; Future perflutren lipid microsphere (DEFINITY) 1.3 mL in sodium chloride 0.9% 8.7 mL injection Anemia, unspecified type 08/20/2024 Carotid artery stenosis 08/20/2024 Overview (08/20/2024): 01/03, 6 left 50-69% Symptomatic anemia 07/19/2024 Neuropathy 06/24/2024 Overview (08/20/2024): Axonal sensory and peripheral motor neuropathy, legs DNR (do not resuscitate) 04/29/2024 Overview (12/07/2024): MOLST form completed 04/29/2024 Cardiopulmonary resuscitation - do not resuscitate Ventilation for a patient in respiratory distress - do not intubate or ventilate Transfer to hospital - transfer to hospital Dialysis - no dialysis Artificial nutrition - no artificial nutrition Artificial hydration - use artificial hydration Paresthesia of foot, bilateral 07/12/2023 Overview (08/20/2024): Chronic numbness, tingling, heaviness of feet x 3 to 4 years. Labs pending. Will consider neurology consult for formal nerve conduction studies versus additional work-up. 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 The patient's blood pressure today was noted to be well controlled. We'll continue the current antihypertensive medication regimen. Assessment & Plan (12/15/2024 11:42 AM EDT): Iron deficiency anemia 11/19/2019 Assessment & Plan (12/15/2024 11:42 AM EDT): Pulmonary nodules 03/26/2019 Osteopenia 09/24/2018 Overview (08/20/2024): 03/09 T score spine +1.9 hip -2-2 FRAX score 20% 10 year fracture risk Hypothyroid 07/17/2018 Assessment & Plan (12/15/2024 11:42 AM EDT): Cataract 03/06/2018 Supplemental oxygen dependent 10/17/2017 Overview (08/20/2024): 3L Psoriasis 07/14/2017 GERD (gastroesophageal reflux disease) 7 Colon polyps 07/14/2017 Overview (08/20/2024): Tubular adenoma times 2 11/06 Chronic obstructive pulmonar y disease ([facility] V24, [facility] V28) 06/14/2017 Resolved Problems Problem Noted Date Diagnosed Date Resolved Date Nontraumatic tear of skin 08/20/2024 S/p TAVR (transcatheter aort ic valve replacement), bioprosthetic 11/08/2021 12/08/2024 Overview (12/07/2024): 11/08 TAVR CHF (congestive heart failur e) ([facility] V24, [facility] V28) 10/25/2021 01/05/2025 Overview (08/20/2024): 11/08 felt secondary to severe Assessment & Plan (12/15/2024 11:42 AM EDT): Encounters Date Type Department Care Team Description 06/16/2025 Results Follow-Up Adult [address] [phone] Miguel Ángel VenitaGEM 06/09/2025 10:30 AM EDT Office Visit [facility] Hematology Oncology [address] [place] [address] [phone] Mary Jane Terry MD Macrocytic anemia (Primary Dx); Granulocytosis; Other specified diseases of blood and blood-forming organs 04/30/2025 11:00 AM EDT Office Visit Adult Medicine [address] [phone] María Cortés MD Benign essential HTN (Primary Dx); Coronary artery disease involving [place] coronary artery of [place] heart without angina pectoris; Iron deficiency anemia due to chronic blood loss; Chronic respiratory failure with hypoxia ([facility] V24, [facility] V28); Acquired hypothyroidism; Chronic kidney disease, stage 3a ([facility] V24, [facility] V28) 04/29/2025 Telephone [facility] Hematology Oncology [address] [place] [address] [phone] Mary Jane Terry MD 04/27/2025 Telephone Adult Medicine [address] [phone] María Cortés MD from Last 3 Months Immunizations Immunization Administration Dates Next Due COVID-19 (Pfizer/Comirnaty) 12yo and older 07/09/2023 Influenza trivalent, 0.5mL ( Fluad) 65yo and older 07/06/2024,07/03/2023,05/28/2020,06/19 Influenza trivalent, with pr eservative (Fluzone; Afluria) 6mo and older 07/03/2022,07/26/2021,06/17/2021,06/25,07/16/2017,06/19/2016,08/01/2012 Pfizer (ages 12 & older) Biv alent, COVID-19 06/20/2022,03/29/2022 Pfizer SARS-CoV-2 COVID-19, mRNA, LNP-S, preservative free 06/20/2022,03/29/2022,07/03/2021,11/10,10/19/2020 Pneumococcal conjugate 13 va lent (Prevnar 13, PCV13) 2mo and older 05/28/2020,08/04/2015 Pneumococcal polysaccharide 23 valent (Pneumovax 23) 2yo and older 10/02/2018 RSV, bivalent, protein subun it RSVpreF, 0.5mL, Preservative Free (Arexvy) 50yo and older 06/11/2023 Tdap Tetanus diptheria acell ular pertussis (Boostrix; Adacel) 7yo and older 10/03/2022 Zoster Live 09/08/2013 Zoster recombinant (Shingrix ) 19yo and older 11/18/2018,09/14/2018 Surgical History Surgery Date Site/Laterality Comments APPENDECTOMY CHOLECYSTECTOMY HYSTERECTOMY CATARACT EXTRACTION Bilateral COLONOSCOPY 10/2019 Medical History Medical History Date Comments Hypoxia COPD (chronic obstructive pu lmonary disease) ([facility] V24, [facility] V28) Covid-19 Pulmonary nodules DX:Pulmonary n odules Carotid artery stenosis Hypothyroid GERD (gastroesophageal reflux disease) 7 Colon polyps 07/14/2017 Anxiety 07/14/2017 Psoriasis 07/14/2017 Hyperlipidemia 07/14/2017 Supplemental oxygen dependent 10/17/2017 HS Chronic obstructive pulmonar y disease ([facility] V24, [facility] V28) 06/14/2017 History of tobacco use 06/14/2017 Cataract 03/06/2018 Osteopenia 09/24/2018 Iron deficiency anemia 11/19/2019 Depressive disorder CHF (congestive heart failur e) ([facility] V24, [facility] V28) 10/25/202111/08 felt secondary to sever e S/P Avr 11/08/202111/08 TAVR Benign essential HTN 01/30/2022 Pancreas cyst 10/03/2022 Neuropathy 06/24/2024 Axonal sensory a nd peripheral motor neuropathy, legs Family History Medical History Relation Name Comments CABG Brother dementia, valve replacement Diabetes Sister Colon cancer Uncle Relation Name Status Comments Brother Alive Father (Age 84) Mother (Age 99) Sister Alive Uncle Social History Tobacco Use Types Packs/Day Years Used Date Smoking Tobacco: Former Cigarettes Q uit: 09/17/1996 Smokeless Tobacco: Never Tobacco Cessation:Counseling Given: Not Answered Alcohol Use Standard Drinks/Week Comments Not Currently [...] your loved ones. For example, child and adolescent psychologist or elderly care for an older adult? [...] Date Recorded What is your living situation? Unrecognized valu e 12/08/2024 Interpersonal Safety Answer Date Record ed Physical Abuse Unrecognized value 01/28/2025 Verbal Abuse Unrecognized value 01/28/2025 Comments No Sex and Gender Information Value Date Recorded Sex Assigned at Female 08/20/2024 12:31 PM EST Legal Sex Female 11:05 PM EST Gender Identity Female 08/20/2024 12:31 PM EST Sexual Orientation Straight 08/26/2024 9: 20 AM EST Obstetrics History Last Filed Vital Signs Vital Sign Reading Time Taken Comments Blood Pressure 119/37 06/09/2025 10:35 AM EDT Pulse 96 06/09/2025 10:35 AM EDT Temperature 36.8 C (98.3 F) 06/09/2025 10:35 AM EDT Respiratory Rate 14 04/30/2025 10:5 7 AM EDT Oxygen Saturation 94% 06/09/2025 10: 35 AM EDT 3L nasal cannula Inhaled Oxygen Concentration - - Weight 59.9 kg (132 lb) 06/09/2025 10:3 5 AM EDT Height 162.6 cm (5' 4 ) 04/30/2025 10:5 7 AM EDT Body Mass Index 22.66 04/30/2025 10:57 AM EDT Plan of Treatment Upcoming Encounters Date Type Department Care Team (Late st Contact Info) Description 07/17/2025 2:10 PM EDT Office Visit [facility] - [facility] [address] [place] [phone] Gisel Arthur NP [address] [place] [address] [address] [place] [phone] 07/28/2025 11:15 AM EST Office Visit [facility] Hematology Oncology [address] [place] [phone] Mary Jane Terry MD [address] [place] [address] 07/30/2025 10:00 AM EST Ancillary Procedure [facility] - [facility] [address] [place] [phone] 08/06/2025 11:30 AM EST Office Visit [facility] [place] [address] [place] [phone] Em Al MD [address] [place] [phone] 08/18/2025 3:45 PM EST Ancillary Procedure [facility] - [facility] [address] [facility] [address] [place] [phone] 09/07/2025 12:45 PM EST Office Visit Adult Medicine [facility] [address] [place], [place] [phone] María Cortés MD [address] [place] [phone] Health Maintenance Due Date Last Done Comments Cholesterol Screening (Lipid Panel) 08/20/2022 COVID-19 Vaccine ( season) 2025 07/09/2023, 06/20/2022, 06/20/2022, Additional history exists Influenza Vaccine (#1) 2025 , 07/03/2023, 07/03/2022, Additional history exists Social Influencers of Health Screening 12/08/2025 12/08/2024 Medicare Annual Wellness Visit 12/15/2025 12/15/2024 Falls Risk Assessment 01/30/2026 01/30/2025, 025 Hypertension/CHF/CAD Annual BMP Blood Test 05/30/2026 05/30/2025, 01/29/2025, 01/28/2025, Additional history exists DTaP,Tdap,and Td Vaccines (2 - Td or Tdap) 10/03/2032 10/03/2022 Osteoporosis Screening (Bone Density Screening) 02/05/2033 02/05/2023, 02/01/2021, 08/05/2018 Zoster Vaccines Completed 11/18/2018, 08/18, 09/08/2013 Pneumococcal Vaccine: 50+ Years Completed 05/28/2020, 10/02/2018, 08/04/2015 RSV Immunization Adult Patients Completed 06/11/2023 Depression Screening Completed 04/23/2025 HIB Vaccines Aged Out No longer eligi [...] age to complete this topic Meningococcal B Vaccine Aged Out No l onger eligible based on patient's age to complete this topic RSV Immunization Patients Under 20 months Aged Out No longer eligible based on patient's age to complete this topic Varicella Vaccines Aged Out No longer eligible based on patient's age to complete this topic Procedures Procedure Name Priority Date/Time Associated Diagnosis Comments CBC WITH AUTO DIFFERENTIAL Routine 06/23/2025 11:59 AM EDT Anemia, unspecified type CBC AND DIFFERENTIAL Routine 06/23/2025 11:59 AM EDT Anemia, unspecified type CBC WITH AUTO DIFFERENTIAL Routine 06/15/2025 12:21 PM EDT Anemia, unspecified type CBC AND DIFFERENTIAL Routine 06/15/2025 12:21 PM EDT Anemia, unspecified type CBC WITH AUTO DIFFERENTIAL Routine 06/09/2025 11:08 AM EDT Macrocytic anemia Granulocytosis CBC AND DIFFERENTIAL Routine 06/09/2025 11:08 AM EDT Macrocytic anemia Granulocytosis JAK2 GENE, V617F MUTATION, QUANTITATIVE, MOLECULAR STUDY Routine 06/09/2025 11:08 AM EDT Macrocytic anemia Granulocytosis Other specified diseases of blood and blood-forming organs BCR, ABL FISH CYTOGENETICS Routine 06/09/2025 11:08 AM EDT Macrocytic anemia Granulocytosis TYPE AND SCREEN Routine 06/09/2025 11:08 AM EDT Macrocytic anemia Granulocytosis CBC WITH AUTO DIFFERENTIAL Routine 05/22/2025 11:28 AM EDT Anemia, unspecified type CBC AND DIFFERENTIAL Routine 05/22/2025 11:28 AM EDT Anemia, unspecified type CBC WITH AUTO DIFFERENTIAL Routine 05/12/2025 10:53 AM EDT Anemia, unspecified type CBC AND DIFFERENTIAL Routine 05/12/2025 10:53 AM EDT Anemia, unspecified type CBC WITH AUTO DIFFERENTIAL Routine 04/29/2025 3:59 PM EDT Anemia, unspecified type CBC AND DIFFERENTIAL Routine 04/29/2025 3:59 PM EDT Anemia, unspecified type CBC WITH AUTO DIFFERENTIAL Routine 04/20/2025 10:25 AM EDT Symptomatic anemia CBC AND DIFFERENTIAL Routine 04/20/2025 10:25 AM EDT Symptomatic anemia BASIC METABOLIC PANEL Routine 01/29/2025 5:30 AM EDT YEHUDA DEXA AXIAL SKELETON Routine 02/05/2023 6:08 PM EDT Other specified disorders of bone density and structure, left thigh from Last 3 Months or Most Recently Relevant to Health Maintenance Results * (ABNORMAL) CBC auto differential (06/23/2025 11:59 AM EDT) Only the most recent of7 resultswithin the time period is included. WBC 13.1(H) 4.8 - 10.8 K/[facility] LAB HEMETOLOGY METHOD 06/23/2025 2:00 PM [facility] RBC 3.80 3.80 - 4.80 M/mcL LAB HEMETOLOGY METHOD 06/23/2025 2:00 PM [facility] Hemoglobin 10.6(L) 11.5 - 16.0 g/dL LAB HEMETOLOGY METHOD 06/23/2025 2:00 PM [facility] Hematocrit 35.8 35.0 - 47.0 % LAB HEMETOLOGY METHOD 06/23/2025 2:00 PM [facility] MCV 95.0 79.0 - 98.0 FL LAB HEMETOLOGY METHOD 06/23/2025 2:00 PM [facility] MCH 28.1 27.0 - 32.0 pcg LAB HEMETOLOGY METHOD 06/23/2025 2:00 PM [facility] MCHC 29.6(L) 32.0 - 37.0 g/dL LAB HEMETOLOGY METHOD 06/23/2025 2:00 PM [facility] RDW 15.7(H) 11.0 - 15.0 % LAB HEMETOLOGY METHOD 06/23/2025 2:00 PM [facility] Platelets 290 130 - 400 K/mcL LAB HEMETOLOGY METHOD 06/23/2025 2:00 PM [facility] MPV 9.4 7.0 - 11.0 FL LAB HEMETOLOGY METHOD 06/23/2025 2:00 PM [facility] NRBC 0.0 <1.0 % LAB HEMETOLOGY METHOD 06/23/2025 2:00 PM [facility] NRBC Absolute 0.00 <0.10 K/mcL LAB HEMETOLOGY METHOD 06/23/2025 2:00 PM [facility] Neutrophils Relative 87.4 % LAB HEMETOLOGY METHOD 06/23/2025 2:00 PM [facility] Lymphocytes Relative 4.2 % LAB HEMETOLOGY METHOD 06/23/2025 2:00 PM [facility] Monocytes Relative 6.1 % LAB HEMETOLOGY METHOD 06/23/2025 2:00 PM [facility] Eosinophils Relative 0.4 % LAB HEMETOLOGY METHOD 06/23/2025 2:00 PM [facility] Basophils Relative 0.5 % LAB HEMETOLOGY METHOD 06/23/2025 2:00 PM [facility] Immature Granulocytes Relative 1.4 % LAB HEMETOLOGY METHOD 06/23/2025 2:00 PM [facility] Neutrophils Absolute 11.46(H) 1.50 - 7.00 K/mcL LAB HEMETOLOGY METHOD 06/23/2025 2:00 PM [facility] Lymphocytes Absolute 0.55(L) 1.00 - 5.00 K/mcL LAB HEMETOLOGY METHOD 06/23/2025 2:00 PM [facility] Monocytes Absolute 0.80 0.20 - 1.00 K/mcL LAB HEMETOLOGY METHOD 06/23/2025 2:00 PM [facility] Eosinophils Absolute 0.05 0.00 - 0.50 K/mcL LAB HEMETOLOGY METHOD 06/23/2025 2:00 PM [facility] Basophils Absolute 0.07 0.00 - 0.20 K/mcL LAB HEMETOLOGY METHOD 06/23/2025 2:00 PM [facility] Immature Granulocytes Absolute 0.19(H) 0.00 - 0.03 K/mcL LAB HEMETOLOGY METHOD 06/23/2025 2:00 PM [facility] Blood Venous blood specimen / Unknown Venipuncture / Unknown 06/23/2025 11:59 AM EDT 06/23/2025 11:59 AM EDT María Cortés MD LAB BLOOD ORDERABLES Final Resul t [facility] [address] [place] [address], * JAK2 gene, V617F mutation, quantitative, molecular study (06/09/2025 11:08 AM EDT) [facility] JAK2 (V617F) Mutation Not detected Not detected 06/12/2025 1:34 PM EDT [facility] WBC Percent with V617F Mutation <0.1 <0.1 % 06/12/2025 1:34 PM EDT [facility] Comment: This procedure uses real-time polymerase chain reaction amplification and detection to quantify the percentage of white blood cells containing the V617F (G>T at position 617) point mutation in the autoinhibitory pseudokinase domain of the JAK2 protein. The lower limit of quantitation is 0.1% (1 in 1000 cells). A Not detected result does not preclude the presence of this or another point mutation in this gene. This test uses commercial reagents that have not been approved or cleared by the FDA. The FDA has determined that such clearance or approval is not necessary. The performance characteristics of this procedure were determined by [facility]. This test is performed pursuant to a license agreement with [employer] Test performed at [facility], [address] , [place] [address] Janet Arvizu MD, PhD - [employer] Scient[employer] Blood Venous blood specimen / Unknown Venipuncture / Unknown 06/09/2025 11:08 AM EDT 06/09/2025 11:48 AM EDT us Mary Jane Terry MD LAB MOLECULAR DIAGNOSTICS OR DERABLES Final Result [facility] [address] [address] * BCR ABL FISH CYTOGENETICS (06/09/2025 11:08 AM EDT) [facility] Scan Result See Scanned Result 06/19/2025 11:22 AM EDT EXTERNAL LAB (NON-INTERFAC ED) Blood Venous blood specimen / Unknown Venipuncture / Unknown 06/09/2025 11:08 AM EDT 06/09/2025 11:48 AM EDT Mary Jane Terry MD LAB CYTOGENETICS ORDERABLES Final Result Performing Organization Address City/[facility]/ZIP Co de Phone Number EXTERNAL LAB (NON-INTERFACED) * Type and screen (06/09/2025 11:08 AM EDT) [facility] ABO Group A 06/09/2025 1:57 PM EDT [facility] Rh Type Positive 06/09/2025 1:57 PM EDT [facility] Antibody Screen Negative 06/09/2025 1:57 PM EDT [facility] Blood Venous blood specimen / Unknown Venipuncture / Unknown 06/09/2025 11:08 AM EDT 06/09/2025 11:45 AM EDT Mary Jane Teryr MD LAB BLOOD BANK TEST ORDERABL ES Final Result Performing Organization Address City/[facility]/ZIP Ak de Phone Number [facility] [address] [place] [address], * (ABNORMAL) Basic metabolic panel (01/29/2025 5:30 AM EDT) [facility] Sodium 143 133 - 145 mmol/L LAB CHEMISTRY METHOD 01/29/2025 7:04 AM EDT [facility] Potassium 4.8 3.5 - 5.5 mmol/L LAB CHEMISTRY METHOD 01/29/2025 7:04 AM EDT [facility] Chloride 107 96 - 110 mmol/L LAB CHEMISTRY METHOD 01/29/2025 7:04 AM [facility] CO2 34(H) 21 - 32 mmol/L LAB CHEMISTRY METHOD 01/29/2025 7:04 AM [facility] Anion Gap 2(L) 3 - 11 LAB CHEMISTRY METHOD 01/29/2025 7:04 AM [facility] Glucose 85 70 - 100 mg/dL LAB CHEMISTRY METHOD 01/29/2025 7:04 AM [facility] BUN 16 5 - 25 mg/dL LAB CHEMISTRY METHOD 01/29/2025 7:04 AM [facility] Creatinine 0.99 0.50 - 1.10 mg/dL LAB CHEMISTRY METHOD 01/29/2025 7:04 AM [facility] eGFR 58(L) >=60 mL/min/1. 73m2 LAB CHEMISTRY METHOD 01/29/2025 7:04 AM [facility] Comment:Calculation based on the Chronic Kidney Disease Epidemiology Collaboration (CKD-EPI) equation refit without adjustment for race. BUN/Creatinine Ratio 16.2 LAB CHEMISTRY METHOD 01/29/2025 7:04 AM [facility] Calcium 8.9 8.5 - 10.5 mg/dL LAB CHEMISTRY METHOD 01/29/2025 7:04 AM [facility] Blood Venous blood specimen / Unknown Venipuncture / Unknown 01/29/2025 5:30 AM EDT 01/29/2025 6:22 AM EDT us Angelique OHARA LAB BLOOD ORDERABLES Final Resul t [facility] [address] [place] [address], * YEHUDA DEXA AXIAL SKELETON (02/05/2023 6:08 PM EDT) Anatomical Region Laterality Modality Mammography 02/05/2023 2:14 PM EDT Narrative 02/05/2023 6:08 PM EDT [facility] Diagnostic Imaging Department [address] [place] [address] Patient: KIRIT ROBERSON Kalpesh MeléndezB./Age/Sex: 1945 - 77 - F Unit#: [id number] Location/Status: [facility]/REG CLI Mnemonic/[facility]ing [facility] Ordering Physician: MARÍA CORTÉS MD [facility] Dexa Axial Skeleton - 02/05/231456 History: Low estrogen state due to menopause. Chronic glucocorticoid use. On omeprazole. Current smoker. Comparison: 02/01/21 Findings: Bone densitometry is performed utilizing dual energy x-ray absorptiometry (DXA) in the [employer] unit. The lumbar spine and proximal femora are evaluated in the AP projection. The FRAX questionaire was completed. The results indicate low bone mass (osteopenia), with a left femoral neck T- score of -2.2. The Z score is 0.0, indicating bone mineral density within the range of normal for age. There has been no statistically significant change. The detailed DEXA report will be mailed to the referring physician's office. DualFemur FRAX: 10-year Probability of Fracture: Major Osteoporotic 20.0 percent Hip 6.0 percent. IMPRESSION: Osteopenia. [id number] Dictating Physician: LAURA MARIEE MD Electronically Signed by: LAURA MARIEE MD Dic Date/Time: 02/05/23 5711 Sign date/Time: 02/05/231807 Procedure Note Laura Mariee MD - 10/19/2023 [facility] Diagnostic Imaging Department [address] [place] [address] Patient: KIRIT ROBERSON Kalpesh /Age/Sex: 1945 - 77 - F Unit#: [id number] Location/Status[facility]/Ordering Site: [facility] Ordering Physician: MARÍA CORTÉS MD [facility] Dexa Axial Skeleton - 02/05/231456 History: Low estrogen state due to menopause. Chronic glucocorticoid use.On omeprazole. Current smoker. Comparison: 02/01/21 Findings: Bone densitometry is performed utilizing dual energy x-ray absorptiometry(DXA) in the [employer] unit. The lumbar spine and proximal femora [...] 20.0 percent Hip 6.0 percent. IMPRESSION: Osteopenia. [id number] Dictating Physician: LAURA MARIEE MD Electronically Signed by: LAURA MARIEE MD Dic Date/Time: 02/05/231806 Sign date/Time: 02/05/231807 María Cortés MD IMG BI PROCEDURES Final Result from Last 3 Months or Most Recently Relevant to Health Maintenance Insurance MEDICARE [facility] Advance Directives Documents on File Type Date Recorded Patient Loading Manager Expl anation Health Care Decision (hx) 05/13/2024 AD BENAVIDES DIRECTIVE Health Care Decision (hx) 05/11/2024 PO LST FORM Health Care Decision (hx) 05/11/2024 PO LST FORM Health Care Decision (hx) 05/11/2024 PO LST FORM Health Care Decision (hx) 05/11/2024 PO LST FORM Health Care Decision (hx) 05/11/2024 PO LST FORM Health Care Decision (hx) 05/11/2024 PO LST FORM * No CPR/Do Not Intubate (Latest Code Status on File) Date Activated Date Inactivated Comments 01/28/2025 10:26 AM 01/30/2025 5:40 PM This code s tatus was ascertained in the following way: Code status discussion: discussion with patient To update the patient's code status, place a code status order. Do not modify or discontinue any currently active code status orders. * Full Code - Default Date Activated Date Inactivated Comments 01/28/2025 8:25 AM 01/28/2025 10:26 AM This is ord er is used when code status has not been discussed with the patient, or code status is otherwise unknown/unconfirmed To update the patient's code status, place a code status order. Do not modify or discontinue any currently active code status orders. * No CPR/Do Not Intubate Date Activated Date Inactivated Comments 12/15/2024 11:31 AM 01/28/2025 8:25 AM This code s tatus was ascertained in the following way: Code status discussion: discussion with patient To update the patient's code status, place a code status order. Do not modify or discontinue any currently active code status orders. * Full Code - Default Date Activated Date Inactivated Comments 08/20/2024 2:31 PM 08/20/2024 11:35 PM This is ord er is used when code status has not been discussed with the patient, or code status is otherwise unknown/unconfirmed To update the patient's code status, place a code status order. Do not modify or discontinue any currently active code status orders. Healthcare Agents on File Name Relationship Healthcare Agent [facility] Communication Femi Jules Health Care Agent Care Teams Mica Patcher Relationship Specialty Start Date End Date María Cortés MD [address] [place] [address] PCP - General Internal Medicine 05/13/19
--- OUTSIDE RECORDS SUMMARY | 2025-07-09 17:44 | XMS_ITS | Encounter Summary ---
Author Organization [facility] Address [address] [place] [address] Care Team Providers Care Teacher Adult Education Name Role Phone Radha Cortés MD Primary Care Provider [phone] Encounter Details Date Type Department Care Team (Late st Contact Info) Description 02/06/2025 Lab Requisition [facility] - Main Lab [address] [place] [address] Radha Cortés MD [address] [place], [place] Heart failure, unspecified (CMS/HCC V24, CMS/HCC V28); [...] care for your loved ones. For example, early childhood lead teacher or elderly care for an older adult? [...] Description 07/17/2025 2:10 PM EDT Office Visit [facility] Cardiology [facility] [address] [place] [phone] Gisel Arthur NP [address] [place] [address] [address] [place] [phone] 07/28/2025 11:15 AM EST Office Visit [facility] Hematology Oncology [address] [place] [phone] Mary Jane Terry MD [address] [place] [address] 07/30/2025 10:00 AM EST Ancillary Procedure [facility] [address] [facility] [address] [place] [phone] 08/06/2025 11:30 AM EST Office Visit Vascular Surgery - [place] [address] [facility] [address] [place] [phone] Em Al MD [address] [place] [phone] 08/18/2025 3:45 PM EST Ancillary Procedure [facility] - [facility] [address] [facility] [address] [place] [phone] 09/07/2025 12:45 PM EST Office Visit Adult Medicine [place] [address] [place], [place] [phone] Radha Cortés MD [address] [place], [place] [phone] (work) documented as of this encounter Procedures Procedure Name Priority Date/Time Associated Diagnosis Comments CBC WITH AUTO DIFFERENTIAL Routine 02/06/2025 11:30 AM EDT Heart failure, unspecified ([facility] V24, [facility] V28) Chronic kidney disease, stage 3 unspecified ([facility] V24, [facility] V28) Iron deficiency anemia, unspecified CBC AND DIFFERENTIAL Routine 02/06/2025 11:30 AM EDT Heart failure, unspecified ([facility] V24, [facility] V28) Chronic kidney disease, stage 3 unspecified ([facility] V24, [facility] V28) Iron deficiency anemia, unspecified documented in this encounter Results * (ABNORMAL) CBC auto differential (02/06/2025 11:30 AM EDT) WBC 12.3(H) 4.8 - 10.8 K/mcL LAB HEMETOLOGY METHOD 02/06/2025 2:53 PM [facility] LAB RBC 3.20(L) 3.80 - 4.80 M/mcL LAB HEMETOLOGY METHOD 02/06/2025 2:53 PM [facility] LAB Hemoglobin 9.9(L) 11.5 - 16.0 g/dL LAB HEMETOLOGY METHOD 02/06/2025 2:53 PM [facility] LAB Hematocrit 32.4(L) 35.0 - 47.0 % LAB HEMETOLOGY METHOD 02/06/2025 2:53 PM [facility] LAB MCV 100.6(H) 79.0 - 98.0 FL LAB HEMETOLOGY METHOD 02/06/2025 2:53 PM [facility] LAB MCH 30.7 27.0 - 32.0 pcg LAB HEMETOLOGY METHOD 02/06/2025 2:53 PM [facility] LAB MCHC 30.6(L) 32.0 - 37.0 g/dL LAB HEMETOLOGY METHOD 02/06/2025 2:53 PM EDT [facility] LAB RDW 15.1(H) 11.0 - 15.0 % LAB HEMETOLOGY METHOD 02/06/2025 2:53 PM EDT [facility] LAB Platelets 356 130 - 400 K/mcL LAB HEMETOLOGY METHOD 02/06[facility]25 2:[facility] MPV 9.3 7.0 - 11.0 FL LAB HEMETOLOGY METHOD 02/06/2025 2:[facility] NRBC 0.0 <1.0 % LAB HEMETOLOGY METHOD 02/06/2025 2:[facility] NRBC Absolute 0.00 <0.10 K/mcL LAB HEMETOLOGY METHOD 02/06/2025 2:53 PM [facility] Neutrophils Relative 85.4 % LAB HEMETOLOGY METHOD 02/06/2025 2:53 [facility] Lymphocytes Relative 7.3 % LAB HEMETOLOGY METHOD 02/06/2025 2:53 PM [facility] Monocytes Relative 5.1 % LAB HEMETOLOGY METHOD 02/06/2025 2:53 PM [facility] LAB Eosinophils Relative 0.6 % LAB HEMETOLOGY METHOD 02/06/2025 2:53 PM [facility] LAB Basophils Relative 0.5 % LAB HEMETOLOGY METHOD 02/06/2025 2:53 PM [facility] Immature Granulocytes Relative 1.1 % LAB HEMETOLOGY METHOD 02/06/2025 2:53 [facility] Neutrophils Absolute 10.46(H) 1.50 - 7.00 K/mcL LAB HEMETOLOGY METHOD 02/06/2025 2:53 [facility] Lymphocytes Absolute 0.89(L) 1.00 - 5.00 K/mcL LAB HEMETOLOGY METHOD 02/06/2025 2:53 PM EDT [facility] LAB Monocytes Absolute 0.63 0.20 - 1.00 K/mcL LAB HEMETOLOGY METHOD 02/06/2025 2:53 PM EDT [facility] LAB Eosinophils Absolute 0.07 0.00 - 0.50 K/mcL LAB HEMETOLOGY METHOD 02/06/2025 2:53 PM EDT [facility] LAB Basophils Absolute 0.06 0.00 - 0.20 K/mcL LAB HEMETOLOGY METHOD 02/06/2025 2:53 PM EDT [facility] Immature Granulocytes Absolute 0.14(H) 0.00 - 0.03 K/[facility] LAB HEMETOLOGY METHOD 02/06/2025 2:53 PM EDT [facility] Blood Venous blood specimen / Unknown 02/06/2025 11:30 AM EDT 02/06/2025 2:35 PM EDT us Radha Cortés MD LAB BLOOD ORDERABLES Final Resul t [facility] [address] [place] [address], documented in this encounter Visit Diagnoses Diagnosis [...] documented as of this encounter Care Teams Teacher Adult Education Relationship Specialty Start Date End Date Radha Cortés MD [address] [place] [address] PCP - General Internal Medicine 05/13/19 documented as of this encounter
--- OUTSIDE RECORDS SUMMARY | 2025-07-09 17:44 | XMS_ITS | Encounter Summary ---
Author Organization [facility] Address [address] [place] [address] Care Team Providers Care Rattan Worker Name Role Phone Radha Cortés MD Primary Care Provider [phone] Encounter Details Date Type Department Care Team (Late st Contact Info) Description 06/16/2025 Results Follow-Up Adult Medicine [address] [phone] Venita Del Rosario [place] Social History Tobacco Use Types Packs/Day Years [...] ed Within the last 3 months, felix w many times did you visit the [...] do you feel lonely or isolated from ose around you? Never 12/08/2024 Food Risk [...] care for your loved ones. For example, vocational childcare teacher or elderly care for an older [...] Description 07/17/2025 2:10 PM EDT Office Visit [facility] Cardiology [facility] [address] [place] [phone] Gisel Arthur NP [address] [place] [address] [address] [place] [phone] 07/28/2025 11:15 AM EST Office Visit [facility] Hematology Oncology [address] [place] [phone] Mary Jane Terry MD [address] [place] [address] 07/30/2025 10:00 AM EST Ancillary Procedure [facility] [address] [facility] [address] [place] [phone] 08/06/2025 11:30 AM EST Office Visit Vascular Surgery - [place] [address] [place] [address] Em Al MD [address] [place] [phone] 08/18/2025 3:45 PM EST Ancillary Procedure [facility] [address] [facility] [address] [place] [address] 09/07/2025 12:45 PM EST Office Visit Adult Medicine [facility] [address] [place] [address] Radha Cortés MD [address] [place] [phone] documented as of this encounter Visit Diagnoses Not on filedocumented in this encounter Additional Health Concerns Assessment Noted Time PHQ-9 Depression Total Score: 0 12/09/19 25 1:44 PM EDT A fall risk assessment has been complete d for the patient 12/15/2024 11:14 AM EDT documented as of this encounter Care Teams Rattan Worker Relationship Specialty Start Date End Date Radha Cortés MD [address] [place] [address] PCP - General Internal Medicine 05/13/19 documented as of this encounter
--- OUTSIDE RECORDS SUMMARY | 2025-07-09 17:44 | XMS_ITS | Data Portability ---
Author Organization [place] [facility], [facility] Address [address] [place] [id number] Care Team Providers Care Manufacturing Engineer Name Role Phone MARÍA CUMMINGS Primary Care Provider [phone] YOLANDA MARQUIS Primary Care Provider [phone] Assessment Encounter Date Assessment Date Assessment LastModified by Organization Details LastModified Time 01/16/2022 01/16/2022 Time On Scene with Patient: 01:02:59 DDX: COPD exacerbation, pneumonia, PE, CHF, [place], symptomatic anemia, cardiac dysrhythmia. Pt appears calm and alert. Speaking complete sentences while seated but appears to get winded with exertion and talking a lot. Her initial vital signs with ambulation were concerning with increased heart rate up to 146- this was regular in rhythm and EKG confirmed sinus tachycardia but unable to capture at the higher heart rate. Pt is negative for flu and COVID today. Cannot rule out PE in this setting though Wells score is low at 1.5 - Further labs done on scene concerning for anemia with H/H of 7.5/ 22. this is a drop from her last labs in [facility] in 10/2021. This brings the concern for symptomatic anemia. Given this and complex history, discussed going to the ED for further evaluation, repeat labs and possible blood transfusion. Pt is having her son come to her home to drive her to [facility]. Will call [facility] ED with expect. Pt was given labs, EKG and write up for her to bring to the ED with her. PT was sitting on her couch on her O2 at 3 lpm, Resp 20 Skin pale warm dry. Speech clear. and conversing with staff. PT agrees to call 911 with ANY worsening symptoms or if her son does not make it in a timely fashion to pick her up. Not available 01/16/2022 15:20:32 Plan of Treatment Reminders Order Date Submit Date Provider Last Modified By Organization Details Last Modified Time Details Appointments None recorded. Lab rapid SARS CoV 2 Ag, QL IA, respiratory specimen [address] - Home, [address], [place], [address], 14:27:30 rapid flu (A+B) [address] - [place], [address] [place], [address], 14:28:03 creatinine, blood 2021 022 [facility] [address] [facility], [place], [address], 14:33:26 EC8+ iStat 2021 022 [facility] , [address] [place], [address], 14:32:20 Referral None recorded. Procedures None recorded. Surgeries None recorded. Imaging None recorded. Medication Orders None recorded. Patient TargetsNo targets recorded. Patient Instructions Encounter Date Encounter Id Patient Instructions Last Modified By Organization Details Last Modified Time 01/16/2022 [id number] NA 141 K 3.9 CL 104 TCO2 32 BUN 11 GLU 110 HCT 22 HGB 7.5 ANGAP 10 CREAT - 0.7 [facility] came to evaluate you for your increased shortness of breath and dyspnea on exertion. You have not had any chest pain but notice your heart rate increasing with any effort. We checked your labs and you are anemic - see above. We also tested you for COVID and FLU A and FLU B - these were negative. We did an EKG and it showed you to have a sinus tachycardia with some global ST segment depression. You ambulated with us here and your heart rate increased to 148 and your O2 sat stayed at 92% on 3 lpm. We would like you to go to the emergency room to get further evaluated for this. You are presenting with symptomatic anemia. You are having your son bring you to the ED> I will call the [facility] ED and let them know you are coming. If you feel any worse, please call 911 and go by ambulance. Not available 01/16/2022 14:38:11 Reason for Referral None Reported. Results Created Date Observation Date Name Description Value Unit Range Abnormal Flag Note LastModifiedBy Organization Detail LastModifiedTime 01/17/20 22 01/16/2022 rapid flu (A+B) Flu A (ref: neg) negati ve Not Available [facility] - [address], [address], 01/16/2022 13:59:48 01/17/20 22 01/16/2022 rapid flu (A+B) Flu B (ref: neg) negati ve Not Available [facility] - [address], [address], 01/16/2022 13:59:48 01/17/20 22 01/16/2022 rapid flu (A+B) Control Visual ized/V alid Not Available [facility] - [address], [address], 01/16/2022 13:59:48 01/17/20 22 01/16/2022 rapid flu (A+B) Location [facility], [facility], [address] [place] [address], [id number] Not Available [facility] - [address], [address], 01/16/2022 13:59:48 01/17/20 22 01/16/2022 rapid SARS CoV 2 Ag, QL IA, respi rator y speci men Covid-19 (ref: neg) negati ve Not Available [facility] - Home [address] [place] [address], [address], 01/16/2022 13:59:38 01/17/20 22 01/16/2022 rapid SARS CoV 2 Ag, QL IA, respi rator y speci men Control Visual ized/V alid Not Available [facility] [address] [place], [address], 01/16/2022 13:59:38 01/17/20 22 01/16/2022 rapid SARS CoV 2 Ag, QL IA, respi rator y speci men Location [facility], [address] [place] [address], [id number] Not Available [facility] [address] [place], [address], 01/16/2022 13:59:38 01/17/20 22 01/16/2022 rapid SARS CoV 2 Ag, QL IA, respi rator y speci men Language Englis h Not Available [facility] [address] [place], [address], 01/16/2022 13:59:38 01/17/20 22 01/16/2022 CREAT ININE , BLOOD crea 0.7 mg/dL 0.6-1. 3 Not Available [facility] [address] [place], [address], 01/16/2022 14:33:26 01/17/20 22 01/16/2022 EC8+ ISTAT pH 7.339 7.309- 7.409 Not Available [facility] [address] [place], [address], 01/16/2022 14:32:20 01/17/20 22 01/16/2022 EC8+ ISTAT glu 110 mg/dL 70-105 Not Available [facility] [address] [place], [address], 01/16/2022 14:32:20 01/17/20 22 01/16/2022 EC8+ ISTAT BUN 11 mg/dL 8-26 Not Available [facility] [address] [place], [address], 01/16/2022 14:32:20 01/17/20 22 01/16/2022 EC8+ ISTAT Na 141 mmol/ L 138-14 6 Not Available [facility] [address] [place], [address], 01/16/2022 14:32:20 01/17/20 22 01/16/2022 EC8+ ISTAT K 3.9 mmol/ L 3.5-4. 9 Not Available [facility] [address] [place], [address], 01/16/2022 14:32:20 01/17/20 22 01/16/2022 EC8+ ISTAT cL 104 mmol/ L 98-109 Not Available [facility] [address] [place], [address], 01/16/2022 14:32:20 01/17/20 22 01/16/2022 EC8+ ISTAT TCO2 32 mmol/ L 24-29 Not Available [facility] [address] [place], [address], 01/16/2022 14:32:20 01/17/20 22 01/16/2022 EC8+ ISTAT angap 10 mmol/ L 10-20 Not Available [facility] [address] [place], [address], 01/16/2022 14:32:20 01/17/20 22 01/16/2022 EC8+ ISTAT HCT 22 %pcv 38-51 Not Available [facility] [address] [place], [address], 01/16/2022 14:32:20 01/17/20 22 01/16/2022 EC8+ ISTAT Hb 7.5 g/dL 12-17 Not Available [facility] [address] [place], [address], 01/16/2022 14:32:20 Result Notes None recorded. Procedures Surgical History Date Name Laterality Status Provider Name and Address Organization Details Recorded Time 01/17/20 Venipuncture - completed ORESTES WATKINS NP [address], [place], [address], [place] [facility] 01/16/2022 14:35:10 01/17/20 22 ECG Interpretation - completed ORESTES WATKINS NP [address], [place], [address], [place] [facility] 01/16/2022 14:37:21 10/19/19 22 transcatheter aortic valve replacement completed ORESTSE WATKINS NP [address], [place], [address], [place] [facility] 01/16/2022 13:50:13 hysterectomy completed ORESTES WATKINS NP [address], [place], [address], [place] [facility] 01/16/2022 13:52:13 Imaging Results None recorded. Procedure Notes None recorded. Medical Equipment None Reported. Allergies No known drug allergies Medications Name Sig Start Date Stop Date Status Note LastModified by Organization Details LastModified Time prednisone 10 mg tablet TAKE 1 TABLET BY MOUTH DAILY active Not Available Not Available Not Available azithromycin 250 mg tablet TAKE 1 TABLET BY MOUTH 3 TIMES A WEEK active Not Available Not Available No t Available prednisone 5 mg tablet TAKE 2 TABLETS BY MOUTH DAILY active Not Available Not Available Not Available clopidogrel 75 mg tablet TAKE 1 TABLET BY MOUTH DAILY active Not Available Not Available Not Available omeprazole 40 mg capsule,theresa yed release TAKE 1 CAPSULE BY MOUTH EVERY MORNING 30 MINUTES AFTER TAKING THYROID MEDICATION. WAIT 30 MORE MINUTES THEN EAT TO ACTIVATE THE MEDICATION. active Not Available Not Available Not Available simvastatin 40 mg tablet TAKE 1 TABLET BY MOUTH AT BEDTIME active Not Available Not Available No t Available theophylline ER 300 mg tablet,exten ded release,12 hr TAKE 1 TABLET BY MOUTH EVERY 12 HOURS active Not Available Not Available No t Available levothyroxin e 25 mcg tablet TAKE 1 TABLET BY MOUTH DAILY active Not Available Not Available Not Available triamcinolon e acetonide 0.025 % topical cream APPLY SPARINGLY TO RASH UNDER BREAST AND GROIN TWICE DAILY FOR 7 TO 10 DAYS THEN STOP. USE WITH KETOCONAZOL E CREAM. active Not Available Not Available No t Available prednisone 2.5 mg tablet TAKE 1 TABLET BY MOUTH DAILY active Not Available Not Available Not Available omeprazole 20 mg capsule,theresa yed release TAKE 1 CAPSULE BY MOUTH DAILY active Not Available Not Available Not Available furosemide 20 mg tablet TAKE 1 TABLET BY MOUTH DAILY NEEDED FOR WIEGHT GAIN active Not Available Not Available No t Available albuterol sulfate HFA 90 mcg/actuatio n aerosol inhaler INHALE 2 PUFFS INTO LUNGS EVERY 6 HOURS NEEDED FOR WHEEZING active Not Available Not Available No t Available ketoconazole 2 % topical cream APPLY TO RASH UNDER BREAST AND IN GROIN TWICE DAILY UNTIL CLEAR. ONCE CLEAR STOP AND APPLY MEDICATED POWDER FOR MAINTENANCE . active Not Available Not Available No t Available fluticasone propionate 50 mcg/actuatio n nasal spray,suspen pedro SHAKE LIQUID AND USE 2 SPRAYS IN EACH NOSTRIL DAILY active Not Available Not Available No t Available Trelegy Ellipta 100 mcg-62.5 mcg-25 mcg powder for inhalation INHALE 1 PUFF BY MOUTH DAILY active Not Available Not Available Not Available Vitals Date Recorded Heart rate Body temperature Oxygen saturation Oxygen saturation in Arterial blood by Pulse oximetry Respiratory rate Systolic And Diastolic Provider Name and Address Organization Details Last Updated DateTime 2 125 /min 97.9 [degF] 97 % 97 % 16 /min 144/44 mm[Hg] Not Available [facility] 14:09:30 Social History None recorded. Functional Status Question Answer Note LastModified by Organization D etails LastModified Time Do you or have you ever used any other forms of tobacco or nicotine? No Information not available 01/16/2022 Mental Status None recorded. Family History Nothing Reported. Medical History Condition Response Diabetes N Coronary Artery Disease Y CHF N Parkinson's Disease N Cancer N Stroke N Dementia N Hypothyroidism Y COPD Y Asthma Y Depression N High Cholesterol Y Rheumatoid Arthritis N Pulmonary Embolism N Hypertension Y A-fib N Osteoporosis N Kidney Disease N Gynecological HistoryNo gynecological history recorded. Obstetrics History GPAL:G 0 P 0 0 0 0 Past Encounters Encounter ID Performer Location Encounter Start Date Encounter Closed Date Diagnosis/Indication Diagnosis SNOMED-CT Code Diagnosis ICD10 Code Diagnosis IMO Codes Diagnosis Note [id number] ORESTES WATKINS NP [facility] - HOME [address] [place] [address], [place] [address] 01/16/2022 13:43:50 01/20/2022 13:41:39 Dyspnea on exertion 65446326 R06.09 Anemia 613937436 D64.9 symptomati c anemia Health Concerns Section Related Observation LastModified by Organization Detai ls LastModified Time None Recorded Concern Status LastModified by Organization Details LastModified Time None Recorded Advance Directives Directive None Recorded Payers Insurance Date Sequence Insurance Name Policy Number Policy Shepherd Covered Member ID Shepherd Member ID Guarantor Name 01/16/2022 1 *SELF PAY* Marlee MacLure [id number] Marlee MacLure 01/16/2022 2 [place] [id number] Marlee MacLure [id number] Marlee MacLure 01/23/2022 2 [place] [id number] Marlee MacLure [id number] Marlee MacLure 01/23/2022 1 [place] [employer] Marlee E MacLure [id number] Marlee MacLure Notes Date Note Type Note Provider Name and Address Organization Details Recorded Time 01/16/2022 text/html 76 year-old female with history of emphysema on O2 via [place], TAVR (10/2021), intermittent anemia, carotid artery stenosis, HTN, HLD, hypothyroid who calls to her home for evaluation of shortness of breath. Pt began with increased shortness of breath about 2 days ago. She has been having increasing dyspnea on exertion. Normally she has some of this but now it seems she gets winded with even short distances. She has noticed her heart rate going up as well.She has some history of anemia about 3 months ago but has not had a problem with this since her TAVR in Oct.There have been no fevers or chills.She did spend the weekend with her daughter who has been sick with sinus infections, ear infections but no respiratory symptoms. ORESTES WATKINS NP [address], [place], [address], [place] [facility] 01/16/2022 15:20:42 OBGyn Episode No OBEpisode recorded.
--- NOTE | 2025-07-09 18:35 | MHC.EDTECH ---
Double orders placed for respiratory pathogen panel. 1st order completed and sent to the lab at this time.
[2025-07-09 19:20] LABS: NT Pro B Type Natriuretic Pept 118.7 pg/mL (<300)
[2025-07-09] MEDS: Hydrocortisone Sod Succ/PF 100 MG VIAL 25 MG IVPUSH (19:25)
--- NOTE | 2025-07-09 19:58 | HO.NURTONUR ---
Pt came in for worsening dyspnea with worse with exertion x 1 month. Pt was seen by Dr. Sarkar and placed on ABX and was told to come in if no improvement. Pt also reports frequent urination. Here in ED Pt was given steroids, breathing tx and admit for possible respiratory viral etiology of exacerbation. Pt is on home O2, 3-4L plan to maintain O2 88-92%. Pt A&Ox3, primarily uses w/c but can transfer to commode with assistance. 20G IV to L arm with NS @100 mL/hr. and azithromicin @ 125 mL/hr.
--- NOTE | 2025-07-09 21:43 | PHA.PROG ---
Admission Date/Time: July 09, 2025 17:29 Indication: Respiratory Weight in k.967 kg Serum Creatinine - Last 168 Hours 07/09/25 13:15 Creatinine 1.12 Estimated CrCl and GFR - Last 168 Hours 07/09/25 13:15 Estim Creat Clear Calc 34.0 Estimated GFR 47 Vancomycin Loading Dose: 2,000 mg Current Vancomycin Dosing Regimen: 1,000mg q24h Vancomycin Monitoring using AUC goal of 400 - 600 range with trough as surrogate marker: 571, 17.9 Date and Time for next Vancomycin Level to be drawn: 07/10 Pharmacist Comments on Vancomycin Plan: Very poor renal function. Getting trough before next dose. Vancomycin dosing will take advantage of [employer] as a clinical decision support tool that uses Bayesian modeling to calculate individual patient's pharmacokinetic parameters and forecast the patient's drug concentration time course with the target goal AUC 24 range of 400 - 600 mg/L/hr.
[2025-07-09] MEDS: guaiFENesin DM 600/30 1 TAB TAB.ER.12H PO (23:18)
[2025-07-10] VITALS (10 sets, daily range): BP systolic 103–185; BP diastolic 55–77; PULSE 68–103; RESP 16–20; TEMP 35.8–36.8; O2SAT 91–96; BMI 23.2
[2025-07-10] MEDS: Hydrocortisone Sod Succ/PF 100 MG VIAL 25 MG IVPUSH ×2 (01:58→08:48)
[2025-07-10] MEDS: guaiFENesin DM 600/30 1 TAB TAB.ER.12H PO ×6 (01:59→20:59)
[2025-07-10 07:48] LABS: Hematocrit 32.3 % (37.0-47.0); Hemoglobin 10.1 g/dl (12.0-16.0); Imm Gran Abs Auto 0.18 X10*3/uL (0.00-0.03); Imm Gran Pct Auto 1.5 % (0.0-0.4); Lymphocytes Absolute Auto 0.4 X10*3/uL (1.2-4.9); MANUAL DIFF FLAG SCAN; Mean Corpuscular HGB Conc 31.3 g/dl (31.0-35.0); Mean Corpuscular Hemoglobin 28.7 pg (27.0-33.0); Mean Corpuscular Volume 91.8 fL (80.0-98.0); NRBC Abs Auto 0.000 X10*3/uL (0.0-0.012); NRBC Pct Auto 0.0 /100WBC (0.0-0.2); Platelet Count 269 X10*3/uL (160-400); Red Blood Count 3.52 X10*6/uL (4.20-5.50); SCAN SMEAR FLAG 1; White Blood Count 12.2 X10*3/uL (4.8-10.8)
[2025-07-10 08:00] LABS: Alanine Aminotransferase 20 U/L (0-31); Albumin Level 3.9 g/dL (3.5-5.0); Alkaline Phosphatase 68 U/L (39-117); Anion Gap 10 (12-20); Aspartate Amino Transferase 32 U/L (5-31); Blood Urea Nitrogen 12 mg/dL (9-16); Calcium 8.6 mg/dL (8.4-10.2); Carbon Dioxide 30 mmol/L (22-29); Chloride 107 mmol/L (96-108); Creatinine Clr Calc Pharmacy 40.0; Estimated Glomerular Filt Rate 56; Magnesium 2.1 mg/dL (1.6-2.6); Potassium 4.3 mmol/L (3.3-5.1); Sodium 143 mmol/L (135-145); Total Protein 6.0 g/dL (6.5-8.0)
[2025-07-10 08:07] LABS: Cholesterol 232 mg/dL (<200); HDL Cholesterol 112 mg/dL (>40); Triglycerides 74 mg/dL (<150)
[2025-07-10 08:22] LABS: Thyroid Stimulating Hormone 0.68 uIU/mL (0.32-4.0)
[2025-07-10 08:25] LABS: MRSA Nasal PCR NEGATIVE (Negative); SA Nasal PCR NEGATIVE (Negative)
[2025-07-10 10:11] LABS: Chlamydia pneumoniae PCR Not Detected (Not Detect.); Coronavirus 229E PCR Not Detected (Not Detect.); Coronavirus HKU1 PCR Not Detected (Not Detect.); Coronavirus NL63 PCR Not Detected (Not Detect.); Coronavirus OC43 PCR Not Detected (Not Detect.); RSV PCR Not Detected (Not Detect.); Rhino/Enterovirus PCR Detected (Not Detect.)
[2025-07-10 10:16] LABS: SARS-CoV-2 PCR Not Detected (Not Detect.)
[2025-07-10] MEDS: Fluticasone/Umeclidinium/Vilanterol 200/62.5/25 BLST.W.DEV 1 PUFF INHALE (11:51)
--- NOTE | 2025-07-10 13:40 | HO.PM.IMPN ---
Subjective Subjective Date of Service: 07/10/25 Interval History: f/u on copd exacerbation, very anxious Physical Exam Vital Signs: Vital Signs: Last Vital Signs Temp 97.9 F 07/10/25 11:33 Pulse 88 07/10/25 11:56 Resp 18 07/10/25 11:56 BP 185/77 H 07/10/25 11:30 Pulse Ox 91 L 07/10/25 11:30 O2 Del Method Nasal Cannula 07/10/25 11:30 O2 Flow Rate 1 07/10/25 11:30 Oxygen Flow Rate 4 07/09/25 12:36 BMI result Body Mass Index 23.2 Const: Other: General: AO X 3, no acute distress Resp: moderate breathing effort CVS: S1,S2,RRR GI: +BS, NT, no distention Skin: No rash Neuro: motor grossly intact Psych: appropriate affect Objective Data Active Medications Acetaminophen (Acetaminophen 325 Mg Tablet) 650 mg PO Q6H PRN PRN Reason: Pain, Mild 1-3,fever,headache Albuterol Sulfate (Albuterol Sulfate (0.083%) 2.5 Mg/3 Ml Vial.Neb) 2.5 mg INHALE Q6H PRN PRN Reason: Shortness of Breath Albuterol Sulfate (Albuterol Sulfate 90 Mcg 8 Gm Inhaler) 2 puff INHALE Q6H PRN PRN Reason: Wheezing Aspirin (Aspirin 81 Mg Tab.Chew) 81 mg PO DAILY [facility] Last Admin: 07/10/25 08:48 Dose: 81 mg Documented By: GUILHERME Atorvastatin Calcium (Atorvastatin Calcium 20 Mg Tablet) 20 mg PO BEDTIME [facility] Last Admin: 07/09/25 23:18 Dose: 20 mg Documented By: TINO Benzonatate (Benzonatate 100 Mg Capsule) 100 mg PO TID PRN PRN Reason: Cough Calcium Carbonate (Calcium Carbonate 750 Mg Tab.Chew) 750 mg PO Q4H PRN PRN Reason: Heartburn Docusate Sodium (Docusate Sodium 100 Mg Capsule) 100 mg PO DAILY [facility] Last Admin: 07/10/25 08:48 Dose: Not Given Documented By: GUILHERME Non-Admin Reason: diarrhea Docusate Sodium (Docusate Sodium 100 Mg Capsule) 100 mg PO BID [facility] Last Admin: 07/10/25 08:49 Dose: Not Given Documented By: GUILHERME Non-Admin Reason: diarrhea Enoxaparin Sodium (Enoxaparin Sodium 40 Mg/0.4 Ml Syringe) 40 mg SUBCUT Q24H [facility] Last Admin: 07/09/25 18:12 Dose: 40 mg Documented By: YU Fluticasone/Umeclidinium/Vilanterol (Fluticasone/Umeclidinium/Vilanterol 200/62.5/25 Blst.W.Dev) 1 puff INHALE RDAILY [facility] Last Admin: 07/10/25 11:51 Dose: 1 puff Documented By: SHELBY Furosemide (Furosemide 20 Mg Tablet) 20 mg PO DAILY [facility]; Protocol Last Admin: 07/10/25 08:47 Dose: 20 mg Documented By: GUILHERME Gabapentin (Gabapentin 100 Mg Capsule) 100 mg PO BEDTIME [facility] Last Admin: 07/09/25 23:19 Dose: 100 mg Documented By: TINO Guaifenesin/Dextromethorphan (Guaifenesin Dm 600/30 1 Tab Tab.Er.12h) 1 tab PO Q4H [facility] Last Admin: 07/10/25 13:05 Dose: 1 tab Documented By: GUILHERME Hydrocortisone Sodium Succinate (Hydrocortisone Sod Succ/Pf 100 Mg Vial) 25 mg IVPUSH Q8H [facility] Last Admin: 07/10/25 08:48 Dose: 25 mg Documented By: GUILHERME Hydroxyzine HCl (Hydroxyzine Hcl 25 Mg Tablet) 25 mg PO BID PRN PRN Reason: Anxiety Last Admin: 07/10/25 08:48 Dose: 25 mg Documented By: GUILHERME Ceftriaxone Sodium 1 gm/ (Sodium Chloride) 50 mls @ 100 mls/hr IV Q12H [facility] Last Infusion: 07/10/25 06:16 Dose: Infused Documented By: TINO Azithromycin 500 mg/ Sodium (Chloride) 250 mls @ 125 mls/hr IV Q24H [facility] Last Infusion: 07/09/25 21:32 Dose: Infused Documented By: TINO Sodium Chloride (Ns) 1,000 mls @ 100 mls/hr IVCONT .Q10H [facility] Last Admin: 07/10/25 13:36 Dose: Not Given Documented By: GUILHERME Non-Admin Reason: IV Running Vancomycin HCl 1,000 mg/ (Sodium Chloride) 270 mls @ 270 mls/hr IV Q24H [facility] Ipratropium Larue (Ipratropium Larue Alessandro 0.06 % 15 Ml [place]) 2 spray NOSTRIL-B TID PRN PRN Reason: allergy symptoms Levothyroxine Sodium (Levothyroxine Sodium 50 Mcg Tablet) 50 mcg PO KAUR@0600 [facility] Levothyroxine Sodium (Levothyroxine Sodium 25 Mcg Tablet) 25 mcg PO MOTUWETHFRSA@0600 [facility] Last Admin: 07/10/25 05:27 Dose: 25 mcg Documented By: TINO Loratadine (Loratadine 10 Mg Tablet) 10 mg PO DAILY PRN PRN Reason: Allergy Symptoms Magnesium Hydroxide (Milk Of Magnesia 30 Ml Oral.Susp) 30 ml PO DAILY PRN PRN Reason: Constipation Melatonin (Melatonin 3 Mg Tablet) 6 mg PO BEDTIME PRN PRN Reason: Insomnia Methylprednisolone Sodium Succinate (Methylprednisolone Sod Succ 125 Mg/2 Ml Vial) 80 mg IVPUSH Q6H [facility] Last Admin: 07/10/25 13:05 Dose: 80 mg Documented By: GUILHERME Nitroglycerin (Nitroglycerin 0.4 Mg Tab.Subl) 0.4 mg SUBLINGUAL Q5MX3 PRN PRN Reason: Chest Pain Non-Formulary Medication (Ensifentrine [Ohtuvayre]) 2.5 ml INHALE BID [facility] Omeprazole (Omeprazole 20 Mg Capsule.Dr) 20 mg PO DAILY@0630 [facility] Last Admin: 07/10/25 05:27 Dose: 20 mg Documented By: TINO Ondansetron HCl (Ondansetron Odt 4 Mg Tab.Rapdis) 4 mg TRANSLINGU Q8H PRN PRN Reason: for nausea/vomiting Ondansetron HCl (Ondansetron Hcl 4 Mg/2 Ml Vial) 4 mg IVPUSH Q8H PRN PRN Reason: Nausea and Vomiting Pharmacy Consult (Consult Rx Vancomycin Dosing) 1 each MISCELLANE DAILY PRN PRN Reason: Consult order Polyethylene Glycol (Polyethylene Glycol 3350 17 Gm Powd.Pack) 17 gm PO DAILY [facility] Last Admin: 07/10/25 08:49 Dose: Not Given Documented By: GUILHERME Non-Admin Reason: diarrhea Polyethylene Glycol (Polyethylene Glycol 3350 17 Gm Powd.Pack) 17 gm PO DAILY PRN PRN Reason: Constipation Last Admin: 07/09/25 18:20 Dose: 17 gm Documented By: YU Sodium Chloride (0.9 % Sodium Chloride Flush 3 Ml Syringe) 3 ml IVFLUSH QSHIFT [facility] Last Admin: 07/10/25 08:49 Dose: Not Given Documented By: GUILHERME Non-Admin Reason: IV Running Labs 07/10/25 07:03 07/10/25 07:03 Labs: Laboratory Results - last 24 hr 07/09/25 07/09/25 07/09/25 13:15 13:30 13:46 MCV MCH MCHC RDW Plt Count MPV Immature Gran % (Auto) 1.8 H Neut % (Auto) 94.1 H Lymph % (Auto) 1.6 L [place] % (Auto) 2.3 Eos % (Auto) 0.0 Baso % (Auto) 0.2 Lymph # (Auto) 0.2 L [place] # (Auto) 0.3 Eos # (Auto) 0.0 Baso # (Auto) 0.0 Abs Immat Gran (auto) 0.24 H Absolute Neuts (auto) 12.9 H Absolute Nucleated RBC 0.000 Nucleated RBC % (auto) 0.0 Smear Tech's Comments VERIFIED Anion Gap 12 Estim Creat Clear Calc 34.0 Estimated GFR 47 Random Glucose 113 Lactic Acid 1.3 Calcium 9.4 Magnesium 2.2 Total Bilirubin 0.2 Direct Bilirubin < 0.2 AST 36 H ALT 23 Alkaline Phosphatase 79 Troponin I High Sens 9.8 D NT-Pro-B Natriuret Pep 101.0 Total Protein 6.7 Albumin 4.5 Triglycerides Cholesterol LDL Cholesterol, Calc HDL Cholesterol TSH Urine Color Yellow Urine Appearance Clear Urine pH 6.5 Ur Specific [place] 1.010 Urine Protein Negative Urine Glucose (UA) Negative Urine Ketones Negative Urine Blood Small (1+) H Urine Nitrite Negative Ur Leukocyte Esterase Negative Urine RBC 6-10 H Urine WBC 0-5 Ur Squamous Epith Cells 0-2 Urine Bacteria None Seen Hyaline Casts 0-2 Nasal Screen MRSA (PCR) Nasal S. aureus Screen Nasal MRSA/S.aureus Interp Respiratory Panel Levi Adenovirus (Rapid PCR) B.pert (TEM-PCR) B.parapertussis DNA PCR C. pneumoniae DNA (PCR) Coronavirus OC43 (PCR) Coronavirus HKU1 (PCR) Coronavirus 229E (PCR) COVID-19 (JOE) Negative COVID-19 Clin Com See Note Coronavirus NL63 (PCR) Human Metapneumovir PCR Influenza Type A (KASANDRA) Negative Influenza A (RT-PCR) Influenza A (H1) PCR Influ A (H1/09) PCR Influenza A (H3) PCR Influenza Type B (KASANDRA) Negative Influenza B (RT-PCR) Influenza A & B Note See Note M. pneumoniae (PCR) Parainfluenza 1 (PCR) Parainfluenza 2 (PCR) Parainfluenza 3 (PCR) Parainfluenza 4 (PCR) RSV (PCR) Entero/Rhino (PCR) SARS-CoV-2 RNA (RT-PCR) Blood Type A Positive Antibody Screen NEGATIVE 07/09/25 07/09/25 07/10/25 18:33 18:50 07:03 MCV 91.8 MCH 28.7 MCHC 31.3 RDW 16.0 Plt Count 269 MPV 9.3 L Immature Gran % (Auto) 1.5 H Neut % (Auto) 93.2 H Lymph % (Auto) 3.0 L [place] % (Auto) 2.1 Eos % (Auto) 0.0 Baso % (Auto) 0.2 Lymph # (Auto) 0.4 L [place] # (Auto) 0.3 Eos # (Auto) 0.0 Baso # (Auto) 0.0 Abs Immat Gran (auto) 0.18 H Absolute Neuts (auto) 11.4 H Absolute Nucleated RBC 0.000 Nucleated RBC % (auto) 0.0 Smear Tech's Comments VERIFIED Anion Gap 10 L Estim Creat Clear Calc 40.0 Estimated GFR 56 Random Glucose 131 H Lactic Acid Calcium 8.6 D Magnesium 2.1 Total Bilirubin 0.1 Direct Bilirubin AST 32 H ALT 20 Alkaline Phosphatase 68 Troponin I High Sens NT-Pro-B Natriuret Pep 118.7 Total Protein 6.0 L Albumin 3.9 Triglycerides 74 Cholesterol 232 H LDL Cholesterol, Calc 106 H HDL Cholesterol 112 TSH 0.68 Urine Color Urine Appearance Urine pH Ur Specific [place] Urine Protein Urine Glucose (UA) Urine Ketones Urine Blood Urine Nitrite Ur Leukocyte Esterase Urine RBC Urine WBC Ur Squamous Epith Cells Urine Bacteria Hyaline Casts Nasal Screen MRSA (PCR) NEGATIVE Nasal S. aureus Screen NEGATIVE Nasal MRSA/S.aureus Interp SEE NOTE Respiratory Panel Levi See Note Adenovirus (Rapid PCR) Not Detected B.pert (TEM-PCR) Not Detected B.parapertussis DNA PCR Not Detected C. pneumoniae DNA (PCR) Not Detected Coronavirus OC43 (PCR) Not Detected Coronavirus HKU1 (PCR) Not Detected Coronavirus 229E (PCR) Not Detected COVID-19 (JOE) COVID-19 Clin Com Coronavirus NL63 (PCR) Not Detected Human Metapneumovir PCR Not Detected Influenza Type A (KASANDRA) Influenza A (RT-PCR) Not Detected Influenza A (H1) PCR TNP Influ A (H1/09) PCR TNP Influenza A (H3) PCR TNP Influenza Type B (KASANDRA) Influenza B (RT-PCR) Not Detected Influenza A & B Note M. pneumoniae (PCR) Not Detected Parainfluenza 1 (PCR) Not Detected Parainfluenza 2 (PCR) Not Detected Parainfluenza 3 (PCR) Not Detected Parainfluenza 4 (PCR) Not Detected RSV (PCR) Not Detected Entero/Rhino (PCR) Detected A SARS-CoV-2 RNA (RT-PCR) Not Detected Blood Type Antibody Screen Assessment and Plan (1) Acute exacerbation of chronic obstructive airways disease: Status: Acute Assessment and Plan: Patient is an elderly woman who is 80 years old with a very complicated pulmonary history-COPD on 3.5 L on baseline and more on minimal ambulation, chronic SOB/ASHBY, centrilobular severe emphysema, chronic respiratory failure with hypoxia hypercapnia, chronic ID requiring transfusions, chronic prednisone 10 mg being admitted for workup of AE COPD exacerbation. Advanced copd with chronic resp failure likely precipated by entero/rhino virus treat with bronchodilators iv steroid empiric Abx laura booth consider pulm consult if not improving should consider hospice anemia of chronic disease stable Hypothyroidism continue thyroxine Elevated BP no history of HTN monitor if peristent high, start norvasc lovenox for dvt prophylaxis DNR/DNI Quality Stroke Does the patient have a stroke diagnosis?: No VTE Prior VTE?: Yes VTE Risk Level:: Medical - moderate - high VTE Device Contraindication: N/A - Device Ordered VTE Drug Contraindication: N/A - Med Ordered
[2025-07-10] MEDS: Albuterol Sulfate (0.083%) 2.5 MG/3 ML VIAL.NEB INHALE ×2 (15:16→19:06)
--- NOTE | 2025-07-10 15:37 | MHC.CM.PN ---
JAMARCUS GIVEN 07/10. THIS CM MET WITH PATIENT AND HER DAUGHTER PRESENT AT BEDSIDE. PATIENT LIVES AT HOME WITH HER DAUGHTER. PATIENT USES HOME O2 THOUGH [facility], AND HAVE A HOME VENTILATOR THROUGH [facility], AND A BEDSIDE COMMODE. DP: RETURN HOME WITH FAMILY SUPPORT, DAUGHTER TO TRANSPORT HER HOME AT DISCHARGE. PCP: DR. MARÍA CUMMINGS
[2025-07-11] VITALS (10 sets, daily range): BP systolic 116–150; BP diastolic 55–67; PULSE 67–104; RESP 16–20; TEMP 36.2–37; O2SAT 94–100; BMI 24.2
[2025-07-11] MEDS: guaiFENesin DM 600/30 1 TAB TAB.ER.12H PO ×6 (03:00→20:36)
[2025-07-11] MEDS: Albuterol Sulfate (0.083%) 2.5 MG/3 ML VIAL.NEB INHALE ×2 (07:58→17:45)
[2025-07-11] MEDS: Fluticasone/Umeclidinium/Vilanterol 200/62.5/25 BLST.W.DEV 1 PUFF INHALE (07:59)
[2025-07-11 08:42] LABS: Creatinine Clr Calc Pharmacy 37.7; Estimated Glomerular Filt Rate 53
[2025-07-11] MEDS: 0.9 % Sodium Chloride Flush 3 ML SYRINGE IVFLUSH ×2 (08:52→16:32)
--- NOTE | 2025-07-11 09:54 | PC.NURSE ---
Pt alert and orientedx3. Up to commode with one assist. Pt is weak but transfers ok. Lungs are diminished. She has a new blood blister on her right posterior thigh because the skin got pinched when she sat on the commode this morning. [place] dressing placed over it. Pt had liquid BM this morning, we discussed maybe holding miralax tomorrow. She expressed concerns about having another bolwel obstruction. Appetite is poor, but she is eating protein as she is able. Her daughter will bring in distilled water for her home BiPAP.
[2025-07-11 10:13] LABS: Appearance Urine Cloudy; Glucose Urine UA Negative (Negative); PH 6.0 (5.0-9.0); Specific Gravity - Urine 1.015 (1.005-1.025)
--- NOTE | 2025-07-11 11:09 | P.PNIM_ITS ---
Subjective Subjective Date of Service: 07/11/25 Interval History: f/u on copd exacerbation, seems better, less anxious, but overall still winded Physical Exam 2 Vital Signs: Vital Signs: Last Vital Signs Temp 97.6 F 07/11/25 08:00 Pulse 100 07/11/25 08:00 Resp 20 07/11/25 08:00 BP 150/57 H 07/11/25 08:53 Pulse Ox 100 07/11/25 08:00 O2 Del Method Nasal Cannula 07/11/25 08:00 O2 Flow Rate 2 07/11/25 08:00 Oxygen Flow Rate 4 07/09/25 12:36 BMI result Body Mass Index 24.2 Const: Other: General: AO X 3, anxious Resp: moderate breathing effort CVS: S1,S2,RRR GI: +BS, NT, no distention Skin: No rash Neuro: motor grossly intact Psych: appropriate affect Objective Data Active Medications Acetaminophen (Acetaminophen 325 Mg Tablet) 650 mg PO Q6H PRN PRN Reason: Pain, Mild 1-3,fever,headache Albuterol Sulfate (Albuterol Sulfate (0.083%) 2.5 Mg/3 Ml Vial.Neb) 2.5 mg INHALE Q2H PRN PRN Reason: Shortness of Breath/Wheezing Last Admin: 07/11/25 07:58 Dose: 2.5 mg Documented By: MALACHI Amlodipine Besylate (Amlodipine Besylate 2.5 Mg Tablet) 2.5 mg PO DAILY [facility]; Protocol Last Admin: 07/11/25 08:53 Dose: 2.5 mg Documented By: ZOE Aspirin (Aspirin 81 Mg Tab.Chew) 81 mg PO DAILY [facility] Last Admin: 07/11/25 08:55 Dose: 81 mg Documented By: ZOE Atorvastatin Calcium (Atorvastatin Calcium 20 Mg Tablet) 20 mg PO BEDTIME [facility] Last Admin: 07/10/25 20:59 Dose: 20 mg Documented By: RICKIE Benzonatate (Benzonatate 100 Mg Capsule) 100 mg PO TID PRN PRN Reason: Cough Calcium Carbonate (Calcium Carbonate 750 Mg Tab.Chew) 750 mg PO Q4H PRN PRN Reason: Heartburn Docusate Sodium (Docusate Sodium 100 Mg Capsule) 100 mg PO DAILY [facility] Last Admin: 07/11/25 08:54 Dose: 100 mg Documented By: ZOE Docusate Sodium (Docusate Sodium 100 Mg Capsule) 100 mg PO BID [facility] Last Admin: 07/11/25 08:54 Dose: 100 mg Documented By: ZOE Enoxaparin Sodium (Enoxaparin Sodium 40 Mg/0.4 Ml Syringe) 40 mg SUBCUT Q24H [facility] Last Admin: 07/10/25 17:25 Dose: 40 mg Documented By: GUILHERME Fluticasone/Umeclidinium/Vilanterol (Fluticasone/Umeclidinium/Vilanterol 200/62.5/25 Blst.W.Dev) 1 puff INHALE RDAILY [facility] Last Admin: 07/11/25 07:59 Dose: 1 puff Documented By: MALACHI Furosemide (Furosemide 20 Mg Tablet) 20 mg PO DAILY [facility]; Protocol Last Admin: 07/11/25 08:53 Dose: 20 mg Documented By: ZOE Gabapentin (Gabapentin 100 Mg Capsule) 100 mg PO BEDTIME [facility] Last Admin: 07/10/25 20:59 Dose: 100 mg Documented By: RICKIE Guaifenesin/Dextromethorphan (Guaifenesin Dm 600/30 1 Tab Tab.Er.12h) 1 tab PO Q4H [facility] Last Admin: 07/11/25 08:52 Dose: 1 tab Documented By: ZOE Hydroxyzine HCl (Hydroxyzine Hcl 25 Mg Tablet) 25 mg PO BID PRN PRN Reason: Anxiety Last Admin: 07/10/25 08:48 Dose: 25 mg Documented By: GUILHERME Ceftriaxone Sodium 1 gm/ (Sodium Chloride) 50 mls @ 100 mls/hr IV Q12H [facility] Last Infusion: 07/11/25 06:35 Dose: Infused Documented By: SANTY Azithromycin 500 mg/ Sodium (Chloride) 250 mls @ 125 mls/hr IV Q24H [facility] Last Infusion: 07/10/25 20:32 Dose: Infused Documented By: SANTY Ipratropium [place] (Ipratropium [place] Alessandro 0.06 % 15 Ml [place]) 2 spray NOSTRIL-B TID PRN PRN Reason: allergy symptoms Levothyroxine Sodium (Levothyroxine Sodium 50 Mcg Tablet) 50 mcg PO KAUR@0600 [facility] Levothyroxine Sodium (Levothyroxine Sodium 25 Mcg Tablet) 25 mcg PO MOTUWETHFRSA@0600 [facility] Last Admin: 07/11/25 06:00 Dose: 25 mcg Documented By: SANTY Loratadine (Loratadine 10 Mg Tablet) 10 mg PO DAILY PRN PRN Reason: Allergy Symptoms Lorazepam (Lorazepam 0.5 Mg Tablet) 0.25 mg PO Q6H PRN PRN Reason: Anxiety Last Admin: 07/10/25 21:08 Dose: 0.25 mg Documented By: RICKIE Magnesium Hydroxide (Milk Of Magnesia 30 Ml Oral.Susp) 30 ml PO DAILY PRN PRN Reason: Constipation Melatonin (Melatonin 3 Mg Tablet) 6 mg PO BEDTIME PRN PRN Reason: Insomnia Methylprednisolone Sodium Succinate (Methylprednisolone Sod Succ 40 Mg/Ml Vial) 40 mg IVPUSH BID [facility] Last Admin: 07/11/25 08:51 Dose: 40 mg Documented By: ZOE Nitroglycerin (Nitroglycerin 0.4 Mg Tab.Subl) 0.4 mg SUBLINGUAL Q5MX3 PRN PRN Reason: Chest Pain Patient Own Medication ( Ensifentrine [ Ohtuvayre] 3 Mg/2.5 Ml Suspension For Nebulization 2.5 ml INHALE RBID [facility] Last Admin: 07/11/25 07:59 Dose: 2.5 ml Documented By: MALACHI Omeprazole (Omeprazole 20 Mg Capsule.Dr) 20 mg PO DAILY@0630 [facility] Last Admin: 07/11/25 06:00 Dose: 20 mg Documented By: SATNY Ondansetron HCl (Ondansetron Odt 4 Mg Tab.Rapdis) 4 mg TRANSLINGU Q8H PRN PRN Reason: for nausea/vomiting Ondansetron HCl (Ondansetron Hcl 4 Mg/2 Ml Vial) 4 mg IVPUSH Q8H PRN PRN Reason: Nausea and Vomiting Polyethylene Glycol (Polyethylene Glycol 3350 17 Gm Powd.Pack) 17 gm PO DAILY [facility] Last Admin: 07/11/25 08:55 Dose: 17 gm Documented By: ZOE Polyethylene Glycol (Polyethylene Glycol 3350 17 Gm Powd.Pack) 17 gm PO DAILY PRN PRN Reason: Constipation Last Admin: 07/09/25 18:20 Dose: 17 gm Documented By: YU Sodium Chloride (0.9 % Sodium Chloride Flush 3 Ml Syringe) 3 ml IVFLUSH QSHIFT [facility] Last Admin: 07/11/25 08:52 Dose: 3 ml Documented By: ZOE Labs 07/10/25 07:03 07/11/25 07:35 Labs: Laboratory Results - last 24 hr 07/10/25 07/11/25 07/11/25 20:18 07:35 09:11 Hold Purple Top SEE NOTE Estim Creat Clear Calc 37.7 Estimated GFR 53 Urine Color Yellow Urine Appearance Cloudy Urine pH 6.0 Ur Specific [place] 1.015 Urine Protein Negative Urine Glucose (UA) Negative Urine Ketones Negative Urine Blood Negative Urine Nitrite Negative Ur Leukocyte Esterase Negative Random Vancomycin 9.0 L Microbiology Microbiology Results: Microbiology 07/09/25 13:30 Blood Culture - Preliminary Blood - Venous No growth after 24 hours. 07/09/25 13:15 Blood Culture - Preliminary Blood - Venous No growth after 24 hours. Assessment and Plan (1) Acute exacerbation of chronic obstructive airways disease: Status: Acute Assessment and Plan: Patient is an elderly woman who is 80 years old with a very complicated pulmonary history-COPD on 3.5 L on baseline and more on minimal ambulation, chronic SOB/ASHBY, centrilobular severe emphysema, chronic respiratory failure with hypoxia hypercapnia, chronic ID requiring transfusions, chronic prednisone 10 mg being admitted for workup of AE COPD exacerbation. Advanced copd with chronic resp failure likely precipated by entero/rhino virus continue with bronchodilators iv steroid empiric Abx azithro consider pulm consult if not improving should consider hospice anemia of chronic disease stable Hypothyroidism continue thyroxine Ativan for anxiety Elevated BP no history of HTN monitor if peristent high, start norvasc lovenox for dvt prophylaxis DNR/DNI Quality Stroke Does the patient have a stroke diagnosis?: No VTE Prior VTE?: Yes VTE Risk Level:: Medical - moderate - high VTE Device Contraindication: N/A - Device Ordered VTE Drug Contraindication: N/A - Med Ordered
[2025-07-12 03:04] VITALS: BP 137/62; PULSE 80; RESP 18; TEMP 36.4; O2SAT 96
[2025-07-12] MEDS: guaiFENesin DM 600/30 1 TAB TAB.ER.12H PO ×3 (03:15→08:45)
[2025-07-12 05:55] VITALS: BMI 24.2
[2025-07-12 06:20] LABS: Creatinine Clr Calc Pharmacy 42.8; Estimated Glomerular Filt Rate > 60
[2025-07-12 07:24] VITALS: BP 142/62; PULSE 67; RESP 18; TEMP 36.8; O2SAT 97
[2025-07-12] MEDS: Fluticasone/Umeclidinium/Vilanterol 200/62.5/25 BLST.W.DEV 1 PUFF INHALE (08:53)
[2025-07-12 08:54] VITALS: PULSE 67; RESP 18; O2SAT 97
--- NOTE | 2025-07-12 10:29 | HO.PM.IMPN ---
Subjective Subjective Date of Service: 07/12/25 Interval History: She is feeling much better, today vitals are better Physical Exam Vital Signs: Vital Signs: Last Vital Signs Temp 98.3 F 07/12/25 07:24 Pulse 67 07/12/25 08:54 Resp 18 07/12/25 08:54 BP 142/62 H 07/12/25 07:24 Pulse Ox 97 07/12/25 07:24 O2 Del Method CPAP 07/12/25 07:24 O2 Flow Rate 3.0 07/12/25 07:24 Oxygen Flow Rate 4 07/09/25 12:36 BMI result Body Mass Index 24.2 Const: Other: General: AO X 3, anxious Resp: moderate breathing effort CVS: S1,S2,RRR GI: +BS, NT, no distention Skin: No rash Neuro: motor grossly intact Psych: appropriate affect Objective Data Active Medications Acetaminophen (Acetaminophen 325 Mg Tablet) 650 mg PO Q6H PRN PRN Reason: Pain, Mild 1-3,fever,headache Albuterol Sulfate (Albuterol Sulfate (0.083%) 2.5 Mg/3 Ml Vial.Neb) 2.5 mg INHALE Q2H PRN PRN Reason: Shortness of Breath/Wheezing Last Admin: 07/11/25 17:45 Dose: 2.5 mg Documented By: REED Amlodipine Besylate (Amlodipine Besylate 2.5 Mg Tablet) 2.5 mg PO DAILY [facility]; Protocol Last Admin: 07/12/25 08:44 Dose: 2.5 mg Documented By: CAROLEE Aspirin (Aspirin 81 Mg Tab.Chew) 81 mg PO DAILY [facility] Last Admin: 07/12/25 08:44 Dose: 81 mg Documented By: CAROLEE Atorvastatin Calcium (Atorvastatin Calcium 20 Mg Tablet) 20 mg PO BEDTIME [facility] Last Admin: 07/11/25 20:36 Dose: 20 mg Documented By: STEPHANIE Benzonatate (Benzonatate 100 Mg Capsule) 100 mg PO TID PRN PRN Reason: Cough Calcium Carbonate (Calcium Carbonate 750 Mg Tab.Chew) 750 mg PO Q4H PRN PRN Reason: Heartburn Docusate Sodium (Docusate Sodium 100 Mg Capsule) 100 mg PO DAILY [facility] Last Admin: 07/12/25 08:43 Dose: Not Given Documented By: CAROLEE Non-Admin Reason: Duplicate Order Docusate Sodium (Docusate Sodium 100 Mg Capsule) 100 mg PO BID [facility] Last Admin: 07/12/25 08:44 Dose: 100 mg Documented By: CAROLEE Enoxaparin Sodium (Enoxaparin Sodium 40 Mg/0.4 Ml Syringe) 40 mg SUBCUT Q24H [facility] Last Admin: 07/11/25 17:57 Dose: 40 mg Documented By: VIVIANE Fluticasone/Umeclidinium/Vilanterol (Fluticasone/Umeclidinium/Vilanterol 200/62.5/25 Blst.W.Dev) 1 puff INHALE RDAILY [facility] Last Admin: 07/12/25 08:53 Dose: 1 puff Documented By: ANTONINA Furosemide (Furosemide 20 Mg Tablet) 20 mg PO DAILY [facility]; Protocol Last Admin: 07/12/25 08:44 Dose: 20 mg Documented By: CAROLEE Gabapentin (Gabapentin 100 Mg Capsule) 100 mg PO BEDTIME [facility] Last Admin: 07/11/25 20:36 Dose: 100 mg Documented By: STEPHANIE Guaifenesin/Dextromethorphan (Guaifenesin Dm 600/30 1 Tab Tab.Er.12h) 1 tab PO Q4H [facility] Last Admin: 07/12/25 08:45 Dose: 1 tab Documented By: CAROLEE Hydroxyzine HCl (Hydroxyzine Hcl 25 Mg Tablet) 25 mg PO BID PRN PRN Reason: Anxiety Last Admin: 07/10/25 08:48 Dose: 25 mg Documented By: GUILHERME Ceftriaxone Sodium 1 gm/ (Sodium Chloride) 50 mls @ 100 mls/hr IV Q12H [facility] Last Infusion: 07/12/25 06:55 Dose: Infused Documented By: STEPHANIE Azithromycin 500 mg/ Sodium (Chloride) 250 mls @ 125 mls/hr IV Q24H [facility] Last Infusion: 07/11/25 20:45 Dose: Infused Documented By: STEPHANIE Ipratropium [place] (Ipratropium [place] Alessandro 0.06 % 15 Ml [place]) 2 spray NOSTRIL-B TID PRN PRN Reason: allergy symptoms Levothyroxine Sodium (Levothyroxine Sodium 50 Mcg Tablet) 50 mcg PO KAUR@0600 [facility] Last Admin: 07/12/25 06:00 Dose: 50 mcg Documented By: STEPHANIE Levothyroxine Sodium (Levothyroxine Sodium 25 Mcg Tablet) 25 mcg PO MOTUWETHFRSA@0600 [facility] Last Admin: 07/11/25 06:00 Dose: 25 mcg Documented By: SANTY Loratadine (Loratadine 10 Mg Tablet) 10 mg PO DAILY PRN PRN Reason: Allergy Symptoms Lorazepam (Lorazepam 0.5 Mg Tablet) 0.25 mg PO Q6H PRN PRN Reason: Anxiety Last Admin: 07/11/25 20:37 Dose: 0.25 mg Documented By: STEPHANIE Magnesium Hydroxide (Milk Of Magnesia 30 Ml Oral.Susp) 30 ml PO DAILY PRN PRN Reason: Constipation Melatonin (Melatonin 3 Mg Tablet) 6 mg PO BEDTIME PRN PRN Reason: Insomnia Methylprednisolone Sodium Succinate (Methylprednisolone Sod Succ 40 Mg/Ml Vial) 40 mg IVPUSH BID [facility] Last Admin: 07/12/25 08:45 Dose: 40 mg Documented By: CAROLEE Nitroglycerin (Nitroglycerin 0.4 Mg Tab.Subl) 0.4 mg SUBLINGUAL Q5MX3 PRN PRN Reason: Chest Pain Patient Own Medication ( Ensifentrine [ Ohtuvayre] 3 Mg/2.5 Ml Suspension For Nebulization 2.5 ml INHALE RBID [facility] Last Admin: 07/12/25 08:53 Dose: 2.5 ml Documented By: ANTONINA Omeprazole (Omeprazole 20 Mg Capsule.Dr) 20 mg PO DAILY@0630 [facility] Last Admin: 07/12/25 06:00 Dose: 20 mg Documented By: STEPHANIE Ondansetron HCl (Ondansetron Odt 4 Mg Tab.Rapdis) 4 mg TRANSLINGU Q8H PRN PRN Reason: for nausea/vomiting Ondansetron HCl (Ondansetron Hcl 4 Mg/2 Ml Vial) 4 mg IVPUSH Q8H PRN PRN Reason: Nausea and Vomiting Polyethylene Glycol (Polyethylene Glycol 3350 17 Gm Powd.Pack) 17 gm PO DAILY [facility] Last Admin: 07/12/25 08:43 Dose: Not Given Documented By: CAROLEE Non-Admin Reason: Patient Refused Polyethylene Glycol (Polyethylene Glycol 3350 17 Gm Powd.Pack) 17 gm PO DAILY PRN PRN Reason: Constipation Last Admin: 07/09/25 18:20 Dose: 17 gm Documented By: YU Sodium Chloride (0.9 % Sodium Chloride Flush 3 Ml Syringe) 3 ml IVFLUSH QSHIFT SYLVIA Last Admin: 07/12/25 08:45 Dose: Not Given Documented By: CARLOEE Non-Admin Reason: Previously Administered Labs 07/10/25 07:03 07/12/25 05:57 Labs: Laboratory Results - last 24 hr 07/12/25 05:57 Hold Purple Top SEE NOTE Estim Creat Clear Calc 42.8 Estimated GFR > 60 Microbiology Microbiology Results: Microbiology 07/09/25 13:30 Blood Culture - Preliminary Blood - Venous No growth after 48 hours. 07/09/25 13:15 Blood Culture - Preliminary Blood - Venous No growth after 48 hours. Assessment and Plan (1) Acute exacerbation of chronic obstructive airways disease: Status: Acute Plan Patient is an elderly woman who is 80 years old with a very complicated pulmonary history-COPD on 3.5 L on baseline and more on minimal ambulation, chronic SOB/ASHBY, centrilobular severe emphysema, chronic respiratory failure with hypoxia hypercapnia, chronic ID requiring transfusions, chronic prednisone 10 mg being admitted for workup of AE COPD exacerbation. Advanced copd with chronic resp failure likely precipated by entero/rhino virus continue with bronchodilators iv steroid, transition to PO empiric Abx azithro for 5 days consider pulm consult if not improving should consider hospice in the future anemia of chronic disease stable Hypothyroidism continue thyroxine Ativan for anxiety Elevated BP no history of HTN monitor if peristent high, start norvasc lovenox for dvt prophylaxis DNR/DNI Quality Stroke Does the patient have a stroke diagnosis?: No VTE Prior VTE?: Yes VTE Risk Level:: Medical - moderate - high VTE Device Contraindication: N/A - Device Ordered VTE Drug Contraindication: N/A - Med Ordered
--- NOTE | 2025-07-12 10:40 | PM.DS ---
DS: Providers Provider Date of Service: 07/12/25 Date of admission: 07/09/25 17:29 Date of discharge: 07/12/25 Primary care physician: Radha Cortés MD DS: Diagnosis Discharge Diagnosis (1) Acute exacerbation of chronic obstructive airways disease: Status: Acute DS: Summary Hospital Course Hospital Course: admission hpi Chief Complaint: SOB/ASHBY on minimal exertion , failed outpatient antibiotics Daughter was in the room and she is the main historian. 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 Patient's daughter reports that over the past 1 month she has been having severe exertional dyspnea and is mostly bed-bound, used to be able to walk around the house but right now she is unable to even use a bedside commode without getting out of breath and having tachycardia and tachypnea. She had seen Dr. Barrientos on Sunday and she was started on levofloxacin, and was instructed to seek care in the hospital if it does not improve which is why she is right now here. Patient's daughter also reports frequency of urination and no fever or chills or burning sensation. Patient was deemed hospice appropriate, believes that if she were to agree to hospice ?I am giving up?. Patient's daughter seems to be more aware of her chronic decline and is aware that she is likely hospice appropriate and is interested in seeking more input. Patient received IV steroids and nebulizing treatment in the ED, due to her high complexity and failing outpatient antibiotics she has been initiated on ceftriaxone and azithromycin for possible respiratory viral etiology of exacerbation of COPD Patient is being admitted for further medical management. Hospital course: Patient is an elderly woman who is 80 years old with a very complicated pulmonary history-COPD on 3.5 L on baseline and more on minimal ambulation, chronic SOB/ASHBY, centrilobular severe emphysema, chronic respiratory failure with hypoxia hypercapnia, chronic ID requiring transfusions, chronic prednisone 10 mg being admitted for workup of AE COPD exacerbation. The patient has advanced COPD with chronic respiratory failure, likely precipitated by a rhinovirus/enterovirus infection, though a concurrent bacterial infection could not be ruled out. She was treated with nebulized bronchodilators, intravenous steroids, and empiric antibiotics (azithromycin and ceftriaxone), resulting in significant clinical improvement. Respiratory viral panel was positive for rhinovirus/enterovirus, supporting this as the likely trigger for her exacerbation. She will be discharged home with a prednisone taper and to complete the course of levofloxacin (Levaquin) that was prescribed prior to hospitalization. 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 The patient also has significant anxiety, which improved with low-dose lorazepam (Ativan) 0.25 mg as needed. A prescription for lorazepam will be provided for home use per family request for comfort. anemia of chronic disease stable Hypothyroidism continue thyroxine Ativan for anxiety Elevated BP no history of HTN monitor if peristent high, start norvasc Time Attestation Discharge Coordination Time (in mins): 45 Quality: Safe Use of Opioids Does Pt have an Active Cancer Diagnosis on the Problem List?: No Quality: Stroke Does the patient have a stroke diagnosis?: No Physical Exam Vital Signs: Vital Signs: Last Vital Signs Temp 98.3 F 07/12/25 07:24 Pulse 67 07/12/25 08:54 Resp 18 07/12/25 08:54 BP 142/62 H 07/12/25 07:24 Pulse Ox 97 07/12/25 07:24 O2 Del Method CPAP 07/12/25 07:24 O2 Flow Rate 3.0 07/12/25 07:24 Oxygen Flow Rate 4 07/09/25 12:36 BMI result Body Mass Index 24.2 Const: Other: General: AO X 3, no acute distress Resp: CTA bilateral CVS: S1,S2,RRR GI: +BS, NT, no distention Skin: No rash Neuro: motor grossly intact Psych: appropriate affect DS: Data Data Completed and Pending Labs on day of discharge: Laboratory Results - last 24 hr 07/12/25 05:57 Hold Purple Top SEE NOTE Creatinine 0.89 Estim Creat Clear Calc 42.8 Estimated GFR > 60 Preliminary micro results at discharge 07/09/25 13:30 Blood Culture - Preliminary Blood - Venous No growth after 48 hours. 07/09/25 13:15 Blood Culture - Preliminary Blood - Venous No growth after 48 hours. Discharge Plan Discharge Anticipated Discharge Date/Time: 07/12/25 11:54 Patient Disposition: Home Health Service Discharge Diagnosis: Acute exacerbation of COPD, bronchitis Referrals: [facility] [Outside] - 1 Week Radha Cortés MD [Primary Care Provider, Internal Medicine] - 1 Week Discharge Medications: New lorazepam 0.5 mg Tablet 0.25 mg PO Q8H PRN (Reason: Anxiety) Qty: 20 0RF prednisone 10 mg tablet See Taper PO DAILY Qty: 20 0RF Taper: Prednisone 40 mg daily for 2 Days and 0 Hour 30 mg daily for 2 Days and 0 Hour 20 mg daily for 2 Days and 0 Hour 10 mg daily for 2 Days and 0 Hour Rx Instructions: 40 mg Daily x3 days, 30 mg daily x3 days, 20 mg daily x3 days, 10 mg daily x3 days Continued ipratropium bromide 42 mcg (0.06 %) spray,non-aerosol 2 spray intranasal TID PRN (Reason: allergy symptoms) Qty: 15 11RF Rx Instructions: administer into each nostril albuterol sulfate 90 mcg/actuation HFA aerosol inhaler 2 puff PO Q6H PRN (Reason: wheezing) 90 Days Qty: 3 0RF ondansetron 4 mg tablet,disintegrating 4 mg PO Q8H PRN (Reason: for nausea/vomiting) Qty: 30 1RF sulfamethoxazole-trimethoprim [Bactrim DS] 800-160 mg tablet 1 tab PO BID 30 Days Qty: 60 3RF Trelegy Ellipta 200-62.5-25 mcg blister with device 1 ea PO DAILY Qty: 180 3RF levothyroxine 25 mcg tablet 25 mcg PO MOTUWETHFRSA@0600 aspirin 81 mg Tablet,Chewable 81 mg PO DAILY levothyroxine 25 mcg tablet 50 mcg PO KAUR@0600 loratadine [Claritin] 10 mg Tablet 10 mg PO DAILY PRN (Reason: Allergy Symptoms) hydroxyzine HCl 25 mg tablet 25 mg PO BID PRN (Reason: Anxiety) Mucinex Cough-Chest Congest HB 10-200 mg Capsule 1 tab-cap PO Q4H polyethylene glycol 3350 [Miralax] 17 gram/dose Powder 17 g PO DAILY docusate sodium 100 mg Tablet 100 mg PO DAILY Ohtuvayre 3 mg/2.5 mL Suspension For Nebulization 2.5 ml INHALATION BID albuterol sulfate 2.5 mg /3 mL (0.083 %) solution for nebulization 2.5 mg inhalation Q6H PRN (Reason: Shortness Of Breath) simvastatin 40 mg tablet 40 mg PO BEDTIME (DME) nebulizers Misc See Rx Instructions .ROUTE Rx Instructions: As directed (DME) Oxygen Home Use Kit See Rx Instructions .ROUTE Rx Instructions: As directed pantoprazole 40 mg tablet,delayed release (DR/EC) 40 mg PO DAILY@0630 gabapentin 100 mg capsule 100 mg PO BEDTIME furosemide [Lasix] 20 mg tablet 20 mg PO DAILY levofloxacin 500 mg tablet 500 mg PO DAILY 7 Days Qty: 7 0RF Discontinued prednisone 10 mg tablet See Rx Instructions PO DAILY Taper: Prednisone 30 daily for 1 Day and 0 Hour 20 daily for 3 Days and 0 Hour 10 daily for 3 Days and 0 Hour Rx Instructions: PO daily; Take 6 tabs daily x 3 days, then 5 tabs x 3 days, then 4 tabs x 3 days, then 3 tabs x 3 days, then 2 tabs daily x 3 days, then 1 tab x 3 days to complete. Discharge Orders: Discharge Order (Routine); Ordered 07/12/25 Ordered By: Orlando Watts Diet: Advance to usual diet Activity on Discharge: As tolerated Stand Alone Forms: Patient Portal Discharge page Print Language: Armenian Care Plan Goals: recovery from copd exacerbation, and acute bronchitis Health Concerns: chronic respiratory failure, copd Plan of Treatment: take prednisone as recommended Take Levaquin as previously prescribed b continue using inhalers as directed take ativan as needed for anxiety follow up with your doctor and lung doctor in 1 to 2 weeks Assessment: see above Patient Instructions: Acute Bronchitis (GEN), COPD (Chronic Obstructive Pulmonary Disease) (DC)
[2025-07-12 11:58] VITALS: BP 158/67; PULSE 85; RESP 16; TEMP 37; O2SAT 97
--- NOTE | 2025-07-12 12:21 | W.MHC.F2F ---
Service Date Service Date: 07/12/25 Encounter Date of encounter: 07/12/25 Reasons for Services Signs and symptoms assessed: shortness of breath Reason for fpc: medication management, medication treatment and teach disease management Reason for physical therapy: therapeutic exercises and energy conservation Homebound: Leaving the home is medically contraindicated at this time without the asist of a device and/or another person due th the listed conditions above and below. Reason homebound: shortness of breath with minimal effort, shortness of breath at rest and weakness related to hospital stay Homebound supporting statement: The patient has advanced chronic obstructive pulmonary disease (COPD) and is currently experiencing an acute exacerbation. They require continuous home oxygen therapy and experience significant shortness of breath with minimal exertion, such as walking a few steps or performing basic activities of daily living. Due to these symptoms, leaving the home requires considerable and taxing effort. The patient is only able to leave the home infrequently and for medically necessary appointments or treatments. The severity of their respiratory symptoms and oxygen dependence make it unsafe and impractical for them to leave the home environment except when absolutely necessary. Certification: Based on the above findings, I certify that this patient is confined to the home and needs intermittent fpc care, physical therapy and/or speech therapy, or continues to need occupational therapy. The patient is under my care, and I have initiated the establishment of the plan of care. The patient will be followed by a physician who will periodically review the plan of care. Time Spent With Patient Time: Total time managing care of this patient today ____ minutes.
[2025-07-12] MEDS: Albuterol Sulfate (0.083%) 2.5 MG/3 ML VIAL.NEB INHALE (12:37)
--- NOTE | 2025-07-12 12:57 | MHC.CM.PN ---
Patient discharged to home with [facility]. DC info sent to the agency. Patients dtr will provide transportation home. The patients secondary insurance [employer] ID and group #s sent to registration via Task today.
== END 2025-07-12 13:03 | disposition home health service (06) ==
LOC: HO.ED 14:58 → HO.EDOVER 17:35 → HO.IMC 19:16 → HO.S3 07-11 13:11
PROVIDERS: Physician Assistant Medical; Registered Nurse Emergency; Admitting Provider Student in an Organized Health Care Education/Training Program; Emergency Provider Emergency Medicine; PCP Internal Medicine; Visit Provider Internal Medicine
DX: J44.1 Chronic obstructive pulmonary disease with (acute) exacerbation (principal); R06.00 Dyspnea, unspecified; D64.9 Anemia, unspecified; R00.0 Tachycardia, unspecified; E78.5 Hyperlipidemia, unspecified; E03.9 Hypothyroidism, unspecified; R03.0 Elevated blood-pressure reading, without diagnosis of hypertension; Z03.818 Encounter for observation for suspected exposure to other biological agents ruled out; Z99.81 Dependence on supplemental oxygen; Z79.899 Other long term (current) drug therapy; Z87.891 Personal history of nicotine dependence
CPT/HCPCS: 36415; 71046; 80048; 80053; 80061; 80076; 80202; 81001; 81003; 82565; 82803; 83605; 83735; 83880; 84443; 84484; 85025; 86850; 86900; 86901; 87040; 87502; 87633; 87635; 87640; 87641; 93005; 94640; 96361; 96365; 96366; 96372; 96375; 96376; 99221; 99285; J0456; J0696; J1271; J1650; J1720; J2919; J3374

== ENCOUNTER → 2025-07-09 12:42 | Outpatient (BNV) | payer MEDICARE, SELFPAY | PROVIDERS: Emergency Provider Emergency Medicine; PCP Internal Medicine; Visit Provider Radiology Diagnostic Radiology | DX: J44.9 Chronic obstructive pulmonary disease, unspecified (principal) | CPT/HCPCS: 71046 ==

== ENCOUNTER → 2025-07-09 12:42 | Outpatient (BNV) | payer MEDICARE, SELFPAY | PROVIDERS: Emergency Provider Emergency Medicine; PCP Internal Medicine; Visit Provider Internal Medicine Cardiovascular Disease | DX: R00.0 Tachycardia, unspecified (principal) | CPT/HCPCS: 93010 ==

== ENCOUNTER → 2025-07-09 17:29 | Outpatient (BNV) | payer MEDICARE, SELFPAY | PROVIDERS: Admitting Provider Student in an Organized Health Care Education/Training Program; Emergency Provider Emergency Medicine; PCP Internal Medicine; Visit Provider Student in an Organized Health Care Education/Training Program | DX: J44.1 Chronic obstructive pulmonary disease with (acute) exacerbation (principal) | CPT/HCPCS: 99232; 99239; G0180 ==

== ENCOUNTER 2025-07-24 13:15 | Outpatient (AMB) | payer MEDICARE, SELFPAY ==
--- OUTSIDE RECORDS SUMMARY | 2025-07-22 13:30 | XMS_ITS | Encounter Summary ---
Author Organization [facility] Address [address] [place] [address] Care Team Providers Care Insurance Verification Representative Name Role Phone Radha Cortés MD Primary Care Provider [phone] Reason for Visit * Reason Comments Hospital Follow-up [facility] Encounter Details Date Type Department Care Team (Late st Contact Info) Description 07/22/2025 1:30 PM EST Office Visit Adult Medicine [id number] [place], [place] [phone] Radha Cortés MD [address] [place], [place] Chronic respiratory failure with hypoxia (CMS/HCC V24, CMS/HCC V28) (Primary Dx); End stage COPD (CMS/HCC V24, CMS/HCC V28); Benign essential HTN; Supplemental oxygen dependent; Anemia, unspecified type Social History Tobacco Use Types Packs/Day Years [...] care for your loved ones. For example, school childcare attendant or elderly care for an older adult? [...] Sign Reading Time Taken Comments Blood Pressure 120/72 07/22/2025 3:27 PM EST Pulse 109 07/22/2025 1:23 PM EST Temperature 35.9 C (96.6 F) 07/22/2025 1:23 PM EST Respiratory Rate 14 07/22/2025 1:23 PM EST Oxygen Saturation 94% 07/22/2025 1:23 PM EST Inhaled Oxygen Concentration - - Weight 59.7 kg (131 lb 11.2 oz) 07/22/2025 1:23 PM EST Height 162.6 cm (5' 4 ) 07/22/2025 1:23 PM EST Body Mass Index 22.61 07/22/2025 1:23 PM EST documented in this encounter Progress Notes * Radha Cortés MD - 07/22/2025 1:30 PM EST Chief Complaint: Chief Complaint Patient presents with Hospital Follow-up [facility] [place] IDENTIFIER: Kirit Otoole is a 80 y.o. old female HPI She comes for posthospital evaluation accompanied by her daughter. Nurse out reach note is reviewedand medications are reconciled. She was hospitalized July 09 - July 12. She has end-stage oxygen dependent COPD, hypothyroidism, recurrent anemia requiring transfusions, aortic valve replacement and hypothyroidism, had been having worsening shortness of breath over the month prior, had been seeing her switchboard manager and already was being treated with antibiotics. Her shortness of breath became severe with tachycardia and tachypnea and she came to the hospital. She was started on updrafts and steroids as well as antibiotics, she did test positive for rhinovirus and was felt to be having acute exacerbation of COPD, chronic respiratory failure with hypoxia. She was discharged to home on antibiotics and also given low-dose lorazepam for anxiety. She is being followed by the VNA and getting home VNA services as well as PT. She will be seeing her switchboard manager later this week. She does have a DO NOT RESUSCITATE order, does not feel she is ready for hospice yet. She is using her albuterol and Trelegy inhalers and updrafts, Bactrim, levothyroxine, MiraLAX, simvastatin, Protonix, gabapentin, completing a course of levofloxacin. She is still having shortness of breath with activity butnot as severe as when she went into the hospital. She has been having some mild edema ROS: General: No malaise, significant weight loss or fever Respiratory: As noted Cardiovascular: No chest pain, palpitations, no orthopnea Past Medical History: Patient Active Problem List Diagnosis Date Noted Chronic kidney disease, stage 3a ([facility] V24, [facility] V28) 04/30/2025 Coronary artery disease involving [place] coronary artery of [place] heart without angina pectoris 01/05/2025 S/p TAVR (transcatheter aortic valve replacement), bioprosthetic 12/08/2024 Anemia, unspecified type 08/20/2024 Carotid artery stenosis 08/20/2024 Symptomatic anemia 07/19/2024 Neuropathy 06/24/2024 DNR (do not resuscitate) 04/29/2024 Paresthesia of foot, bilateral 07/12/2023 Pancreas cyst 10/03/2022 Iatrogenic arteriovenous fistula ([facility] V24) 05/11/2022 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 Chronic respiratory failure with hypoxia ([facility] V24, [facility] V28) 01/30/2022 Benign essential HTN 01/30/2022 Iron deficiency anemia 11/19/2019 Pulmonary nodules 03/26/2019 Osteopenia 09/24/2018 Hypothyroid 07/17/2018 Cataract 03/06/2018 Supplemental oxygen dependent 10/17/2017 Psoriasis 07/14/2017 GERD (gastroesophageal reflux disease) 07/14/2017 Colon polyps 07/14/2017 Chronic obstructive pulmonary disease ([facility] V24, [facility] V28) 06/14/2017 Surgical History: Surgical History[1] Family History: Family History[2] Social History: Social History Tobacco Use Smoking status: Former Current packs/day: 0.00 Types: Cigarettes Quit date: 09/17/1996 Years since quittin.8 Smokeless tobacco: Never Substance Use Topics Alcohol use: Not Currently Allergies: Patient has no known allergies. Medications: Medications Taking[3] Medication Discontinued/Reordered: There are no discontinued medications. Vitals: Blood pressure 120/72, pulse 109, temperature 35.9 ??C (96.6 ??F), temperature source Temporal, resp. rate 14, height 1.626 m (64 ), weight 59.7 kg (131 lb 11.2 oz), SpO2 94%. Body mass index is 22.61 kg/m??.BMI is 18.5 to 24.9 (within the normal range) and will be followed Physical Exam: General: patient is in no acute distress. Neck supple without adenopathy, no thyromegaly. Lungs clear with auscultation. Heart: regular S1S2 without murmur, rub or gallop. Extremities without cyanosis, clubbing or edema. Labs: Hospital admission and discharge notes reviewed Impression: 1. Chronic respiratory failure with hypoxia (CMS/HCC V24, CMS/[facility] V28) 2. End stage COPD (CMS/[facility] V24, CMS/[facility] V28) 3. Benign essential HTN 4. Supplemental oxygen dependent 5. Anemia, unspecified type Assessment and Plan: She does have advanced COPD, chronic respiratory failure with hypoxia and is oxygen dependent. She is not yet ready for hospice, does have a DO NOT RESUSCITATE order and would not want to be resuscitated or put onto a life support machine. She is continuing with her home updrafts and inhalers and will see pulmonary as scheduled, on chronic Bactrim, completing the course of antibiotics from the hospital as well as the prednisone taper. She we will discuss getting the flu vaccine with her switchboard manager as well as whether low- dose lorazepam would be appropriate when she has severe anxiety and air hunger. She will continue to monitor her blood count which has been stable, she has not needed anyrecent transfusions and has been getting the blood counts done regularly and is seeing hematology as scheduled. She will return in 4 months routinely, sooner if needed. [1] Past Surgical History: Procedure Laterality Date APPENDECTOMY CATARACT EXTRACTION Bilateral CHOLECYSTECTOMY COLONOSCOPY 10/2019 HYSTERECTOMY [2] Family History Problem Relation Name Age of Onset Diabetes Sister CABG Brother dementia, valve replacement Colon cancer Uncle 85.00 [3] Outpatient Medications Marked as Taking for the 07/22/25 encounter (Office Visit) with Radha Cortés MD Medication Sig Dispense Refill albuterol 2.5 mg /3 mL (0.083 %) [...] by mouth 1 (one) time each day. biotin 5,000 mcg tablet,chewable Chew 5,000 mcg 1 (one) time each day. calcium carbonate 1,500 mg (600 mg elemental calcium) tablet Take 600 mg by mouth 1 (one) time eachday. docusate sodium (COLACE) 100 mg capsule Take 1 capsule (100 mg total) by mouth 1 (one) time each day after lunch. ensifentrine (Ohtuvayre) 3 mg/2.5 mL suspension for nebulization lguwqpizhvp-ucuwtznthxee-wwgwkjiyii (TRELEGY ELLIPTA) 200-62.5-25 mcg inhaler Inhale 1 puff (200 mcg total) by mouth 1 (one) time each day. furosemide (LASIX) 20 mg tablet Take 1 tablet (20 mg total) by mouth 1 (one) time each day. 90 tablet 1 gabapentin (NEURONTIN) 100 mg capsule Take 1 capsule (100 mg total) by mouth at bedtime. 90 capsule1 levothyroxine (SYNTHROID, LEVOTHROID) 25 mcg tablet TAKE ONE TABLET BY MOUTH EVERY MORNING BEFORE BREAKFAST. TAKE TWO TABLETS BY MOUTH ON SUNDAY. 102 tablet 1 loratadine (CLARITIN) 10 mg tablet Take 1 tablet (10 mg total) by mouth 1 (one) time each day. multivitamin (MULTIPLE VITAMINS ORAL) Take 1 tablet by mouth 1 (one) time each day. ondansetron ODT (ZOFRAN-ODT) 4 mg disintegrating tablet DISSOLVE ONE TABLET BY MOUTH EVERY 8 HOURS NEEDED pantoprazole (PROTONIX) 40 mg EC tablet TAKE ONE TABLET BY MOUTH EVERY DAY 90 tablet 1 polyethylene glycol (MIRALAX) 17 gram packet Take 17 g by mouth 1 (one) time each day after lunch. predniSONE (DELTASONE) 10 mg tablet Take 1 tablet (10 mg total) by mouth 1 (one) time each day. simvastatin (ZOCOR) 40 mg tablet TAKE ONE TABLET BY MOUTH DAILY AT BEDTIME 90 tablet 1 sulfamethoxazole-trimethoprim (BACTRIM DS,SEPTRA DS) 800-160 mg per tablet Take 1 tablet by mouth 2(two) times a day. Every other day due today and then again on 01/30/2025 documented in this encounter Plan of Treatment Upcoming Encounters Date Type Department Care Team (Late st Contact Info) Description 07/28/2025 11:15 AM EST Office Visit [facility] Hematology Oncology [address] [place] [address] Mary Jane Terry MD [address] [place] [address] 07/30/2025 10:00 AM EST Ancillary Procedure [facility] Cardiology [address] [phone] 08/06/2025 11:30 AM EST Office Visit Vascular Surgery [address] [phone] Em Al MD [address] [place] [phone] 08/18/2025 3:45 PM EST Ancillary Procedure [facility] Cardiology [address] [address] 09/14/2025 2:30 PM EST Office Visit Vascular Surgery [address] [phone] Jennifer Carlson PA [address] [address] 11/19/2025 2:30 PM EST Office Visit Adult Medicine [facility] [address] [place], [place] [phone] Radha Cortés MD [address] [place], [place] 12/07/2025 2:40 PM EDT Office Visit [facility] [address] [place] [address] Gisel Arthur NP [address] [place] [address] [address] [place] [address] documented as of this encounter Visit Diagnoses Diagnosis Chronic respiratory failure with hypoxia (CMS/HCC V24, CMS/HCC V28)- Primary End stage COPD (CMS/HCC V24, CMS/HCC V28) Benign essential HTN Supplemental oxygen dependent Dependence on supplemental oxygen Anemia, unspecified type documented in this encounter Additional Health Concerns Assessment Noted Time PHQ-9 Depression Total Score: 0 12/09/19 25 1:44 PM EDT A fall risk assessment has been complete d for the patient 12/15/2024 11:14 AM EDT documented as of this encounter Care Teams Insurance Verification Representative Relationship Specialty Start Date End Date Radha Cortés MD [address] [place] [address] PCP - General Internal Medicine 05/13/19 documented as of this encounter
--- NOTE | 2025-07-24 13:17 | A.OFFVIS_ITS ---
Vital Signs 07/24/25 13:28 Height 5 ft 4 in BMI Reason not done Patient refused/unable BP 120/0 L Blood Pressure Location Rt brachial Position Sitting Pulse 103 H Pulse Source Pulse Oximeter Pulse Oximetry (%) 95 Oxygen Delivery Method Nasal Cannula Oxygen Flow Rate 3 Intake Visit Reasons: COPD Circuit Manager Required: No Accompanied by: Daughter Allergies No Known Allergies Allergy (Verified 07/24/25 13:30) HPI Comments Details: The patient is a 80 y/o woman with a history of COPD also with the O2 dependence on chronic Prednisone. She also has pulmonary nodules over following. She is scheduled for CT scan in a month at [facility]. Therefore, will follow up after that. She has times and dyspnea on exertion. She does need her oxygen. She is looking to getting a portable oxygen concentrator. However she is questioning if she can use the POC at nighttime. I am concerned that if she does not activate the pulse while sleeping and it would not be helpful for her. However if she does decide to buy it we can always retest to see if is effective for her while she is sleeping. She continues to pulmonary rehabilitation. That is going well. She continues uses trelegy. She is using the azithromycin. She has been around people that have been sick and she has been able to stay healthy. Will continue the for next 3-4 months and will see about weaning it off to give her a break from medications. This antibiotic but will use it more for the anti-inflammatory properties. Did review her last CT scan of the chest that she had recently demonstrating small pulmonary nodules are stable in size. She has a RADS 2 and therefore needs a repeat CT scan in a year's time. We did do a chest x-ray today which appears to have resolution of the left-sided process. No evidence of any acute lower respiratory infection. Therefore, she is responding well to the current respiratory regimen and antibiotics. She will complete the antibiotic course and then taper down the prednisone to 10 mg daily. She has been now multiple courses of antibiotics and prednisone is still having hard time with her breathing. She has been having hard time expectorating. She is getting very frustrated upset. She also complains of increasing shortness of breath and increasing heart rate. She denies any chest pains. On examination she does have some rhonchi on exam which appeared to be right worse than left. Her pneumonia was on her left and side initially. That ultimately cleared up on the x-ray. The patient has a hard time expectorating. Therefore, we'll try the stronger antibiotics along with another course of prednisone. At this point will plan to this pulmonary function study with ABG. The patient should stay on a small dose of prednisone of 10 mg every other day and should also restart the azithromycin Sunday and Sunday. Will monitor closely her IgG levels at this time, no need for augmentation therapy. She did have a 6 minutes walk test and during that study her oxygen quickly decreased after 50 ft on room air to 86%. After that heart rate did increase to the 130s. The patient rested he then was placed on 3 L pulse and ambulating her she was able to maintain a pulse ox above 90%. However, heart rate still was elevated than 130s. The patient states that she did have an echocardiogram at [facility] and I do not have the results right now. She does not have a orthodontic technician assistant. It is reasonable to have her follow up with Cardiology as we wait for the results or pulmonary function studies and arterial blood gas. While we wait for those results the patient is to hold off on pulmonary rehabilitation. e did have worsening respiratory symptoms and malaise and she was taken to [facility] which she was found to have a hemoglobin of 5.9. Here in the office we checked back in September she was up to 10 which is significant drop. In the meantime she was given 2 units of blood and she did undergo an upper and lower endoscopy without any significant findings. She is given iron which is taking with multivitamins. While she was there she did have a blood gas demonstrating a pH does 7.36 with a pCO2 of 39 mm of mercury which is within normal limits suggesting that she has no evidence of chronic hypercarbic respiratory failure. 11/15/2023 the patient is here for a pulmonary follow-up visit. She continues to have dyspnea on exertion with minimal activity. She understands that she has very severe COPD. She is also oxygen dependent has significant anemia. She is status post iron infusions. She will be following closely we hematology. In the meantime she has not been very active. We did talk about the importance of conditioning and pulmonary rehabilitation. She had been doing the online pulmonary rehab but did not find it very helpful. We did talk about considering going back to in-person pulmonary rehab. She also also using her noninvasive ventilator. Sometimes difficult for her to tolerate. Already has been demonstrating improvement in the CO2. The therapy has been affecting beneficial. At this point we talked about ways to improve her energy level during daytime. She is going to try increasing the prednisone from 7.5-10 mg. the other options to consider stimulant such as modafinil. 02/06/2024 the patient is here for a pulmonary follow-up visit. She is still struggling with breathing. Develops significant dyspnea with minimal activity. Moderate to severe. She does use the oxygen all the time. The patient did get 2 units of blood transfusion and she was hoping to feel better but she did not. The patient also underwent blood work including a blood gas demonstrating chronic stable hypercarbic respiratory failure and also had her hemoglobin checked which was 9.7 which is still significantly low but better for her. Kidney function was also stable. She did have a chest x-ray demonstrating hyperinflated lungs consistent with her advanced COPD. We talked about her underlying condition as far as her medications she is currently medically optimize with the noninvasive ventilator in the inhaler therapy. She should be increasing the oxygen with activity to avoid the desaturations. In addition to that will try some diuretics to see if we can help with volume status. Expla ined to her that she may have a component of cor pulmonale. If her symptoms persist we can also request an echocardiogram. At this point the patient understands that she has very severe COPD and at this point she is maximized on her respiratory therapy. Will continue to provide as much support as possible understand the limitations. 03/06/2024 the patient is here for sick visit. She has been struggling. She has had increased respiratory complaints. Hard time breathing. She went to her primary care doctor felt to have a bout of bronchitis she was given doxycycline. Ultimately she has not been getting better so she went to Oncology to see if she needed blood. However, the busy and could not accommodate so she ended up going to the ER. There she did receive 1 unit of blood. She did have a CT of the chest demonstrating significant emphysema but no blood clots. No airspace disease. No clear explanation for the patient's symptoms. She was discharged and she currently is completing a prednisone taper. The patient was able to do a breathing treatment in the office and we were able to help her expectorate some phlegm. It is very tenacious greenish in color. Maybe some tension blood in it very hard for her to expectorate. I did talk to her daughter some concerned that she looks weaker. The patient already has evidence of hypercarbic respiratory failure and now with the mucus burden unable to her secretions is concerned that she could potentially get worse. We did talk about the importance of using the noninvasive ventilator to give her assistance with breathing. And she will use that. We were able to get a sputum culture and send to the lab. It looks like Pseudomonas. Therefore send Levaquin. She already has diarrhea. She needs to slate picker probiotics. She knows to stop the medication if she develops any tendonitis. She also be off the azithromycin by while she 03/24/2024 the patient is here for a pulmonary sick visit. She is still strugglin g with breathing. Initially she responded very well to the Levaquin. She did not complain of any tendinitis or any diarrhea. She did take some probiotics at some periods. She is now back in azithromycin. Her breathing became significantly better apparently. Now much worse again. Starting to get congestion. Difficult to expectorate. Her sputum culture was not helpful as it was only positive for respiratory naty. I do believe that bronchoscopy will be helpful for therapeutic cleaning in addition to lower respiratory cultures to assess any enteric organisms that will require therapy. Will see about scheduling a bronchoscopy. We can do it under moderate sedation and provide her with a lidocaine nebulizer treatment to minimize on the anesthesia effects in view of her respiratory failure. Patient also will undergo blood work specially because he is more tachycardic today. Wonder if she is potentially more anemic is also likely contributing to her symptoms. 04/08/2024 the patient is here for a follow-up visit after hospitalization. She had been admitted to [facility] with worsening respiratory symptoms. At that point she was already on Levaquin for the persistent chest congestion. She required a couple units of blood. It was found that she had blood in her stools. She does have an evaluation from a GI standpoint. Although they do not want to do any procedures because she had some serious complications handling anesthesia in the past. The details are not available though. The patient has been using noninvasive ventilator. She is maxed that with her medications. She still has a significant cough difficult to clear secretions. The family is with her. We did talk about her severity of disease having very severe COPD on top of that significant anemia. I did provide her a letter in order for her to get a transfusion when her hemoglobin is 8 and not wait till the 7 due to her very severe COPD and minimal gas exchange. Hopefully that can provide her some support. In the meantime her condition is unlikely to improve unfortunately. She does have chronic severe progressive disease. Will continue supporting her as much as possible I did recommend that it looking for any other alternatives to treatments she can always going to [facility] for 2nd opinion although I do not believe they have much to offer her with her age in severe comorbidities. Will plan to do a bronchoscopy to try to provide airway clearance and deep cultures if there is anything else we can treat to allow her respiratory status to improve. Right now hemoglobin stable since she has got a blood transfusion and IV infusions of iron and will be a good opportunity to do so. 05/08/2024 the patient is here for a pulmonary follow-up visit. She is status post bronchoscopy. 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 She was initially treated with Levaquin and then with doxycycline. Her chest congestion is improved dramatically. Although she could not tolerate the doxycycline after more than 3 weeks because of nausea. Therefore the patient will stop the doxycycline. Would still waiting for sensitivities but we can also try Bactrim for now tried putting a prophylactic dose. She could stop the azithromycin. The patient also had a blood tr ansfusion since we last spoke and hemoglobin has been better than has been a long time. She did move in with her daughter which is reassuring. She also signed papers for DNR. The patient will continue her current respiratory therapy. We did talk about different exercises she can do at home. She needs to continue with her pulmonary rehabilitation. She will continue using to use her oxygen and will follow-up in 6-8 weeks. She will continue the Bactrim until we talk then. Will have to make sure to treat the stenotrophomonas effectively so will have to wait for the sensitivities come back. 07/10/2024 the patient is here for a pulmonary follow-up visit. The patient overall is doing well. She has been doing better from the hemoglobin standpoint. She is getting blood transfusions more regularly. She is avoiding the hemoglobin dropping to the 70s when she becomes very symptomatic. Her cough is overall better. She did grow stenotrophomonas and she was treated with multiple antibiotics. Which she was supposed to stay on Bactrim but she stopped. She is currently on azithromycin 3 times a week. Overall seems to be helping. But feel more comfortable she went back to the Bactrim at least to finish a longer course to minimize the return of the stenotrophomonas. She is using her oxygen good effect. She is also using her respiratory medicines with good effect. No recent imaging to review at this time. Will plan to follow-up the current therapy. She is going to go back on the Bactrim and monitor closely for any adverse symptoms. The patient will return 2 months. I which time at that point we can talk about going back on the azithromycin. She is having issue also with a skin cancer close to her right eye. She can not use the noninvasive ventilator with a regular mask because it bother her right were that she has a surgical intervention. She did have an F30 mask that she is trying although she is still finds it uncomfortable. She is going to start trying to adjusted a little bit better. I did recommend that if she needs to have further surgical intervention for the skin cancer if she is going to have any anesthesia she should do it hospital setting. 09/04/2024 the patient is here for pulmonary follow-up visit. Overall the patient is doing about the same. She has been dealing with her anemia. No clear source of her anemia or any blood loss. She still requiring blood transfusions on a monthly basis. I did mention to her to talk to her doctors about a bleeding scan to consider checking her Epogen levels. In the meantime the patient also had skin cancer and had surgery. The patient is not able to use her noninvasive ventilator at this time since she had the surgery close to which the mask fits. Therefore she has to hold off on the noninvasive ventilator for now. Once she feels better she can go back on it. She continues with respiratory therapy with good effect. No need to make any changes at this time. She continues on the prednisone 10 mg daily which will continue. She has also been on the doxycycline daily for the stenotrophomonas. This has been now for several months so therefore will try to decrease it to every other day to see if she tolerates it and keeps her secretions are under control. 11/10/2024 the patient is here for sick visit. She did not feel good the last few days. Therefore they made the appointment. She has been having increasing shortness of breath dyspnea on exertion. Moderate severity. She has been recovering from her eye surgery. Since her eye surgery she could not use her noninvasive ventilator because it affected her eye in addition to that she was not able to take her antibiotics. She felt a little bit more chest D with more cough. [id number] severity. At times she will bring up some phlegm although not colored. She is back on the Bactrim and she is back on her noninvasive ventilator. She has been a little shaky so they were unsure about her CO2. Will get blood work including a blood gas. Her pCO2 is actually better than it has ever been at 45 mmHg which is reassuring. Will also have her get a chest x-ray to better address the area. As far as her anemia she continues work closely with the Hematology and she has been getting regular transfusions and also has been getting IV iron infusions. At this point she is feeling a little bit better so will continue with the current respiratory therapy. Will have her get the blood work and chest x-ray. 02/12/2025 the patient is here for pulmonary follow-up visit. She is still having the same symptoms still complains of dyspnea, decreased energy she is still requiring blood transfusions every 4-6 weeks. She gets those arranged her [facility]. After last transfusion she was actually gets in the hospital for few days. The patient has been having issues with volume status. Recently she was told to increase her diuretic. Today when she came in her blood pressure diastolic could not be read. It was actually documented to be low in the past. Explained to her the concerns about a widened pulse pressure and decrease diastolic pressures this decreases her perfusion pressure of the coronary arteries. The patient denies any dizziness right now. She is going to recheck her blood pressure when she goes home. If her blood pressure continues to be low she will call her orthodontic technician assistant about it. For now she is going to hold off on the diuretic for couple days and then potentially restarted at half dose and she is going to monitor her weight. She is going to continue with the current respiratory therapy as it is affecting beneficial. And she continues uses noninvasive ventilator every night. The ventilator has been effective in decreasing her work of breathin improving her CO2. Will continue to keep her on the same respiratory therapy and she will follow closely with the orthodontic technician assistant monitor closely her blood pressure. She is also going to monitor closely hemoglobin. She is thinking about going to the [facility] she is going to try to make arrangements which she can get her infusions or transfusions closer to the [facility]. 04/09/2025 the patient is here for a pulmonary follow-up visit. She complains of worsening dyspnea on exertion. She is using her oxygen but still feels very breathless with minimal activity. Moderate severity. She is also feeling tired. She did follow-up with Hematology and her hemoglobin appear to have been better than usual. She is using the noninvasive ventilator at nighttime. She continues use her respiratory therapy. She continues to be on a chronic p rednisone use. Still though she does not feel well. Indeed we have to consider the progression of the COPD and her respiratory disease. Will go ahead and request blood work. We did go for brief walking oximetry the patient did need additional oxygen up to 4 L pulse with activity. Therefore she will make the adjustments and at home she will increase her concentrator by 0.5 L. she will try to maintain her pulse ox between 92-96%. Is hard because she does have the concentrator elsewhere and she does not have access to it. She does have a 50 ft hose. Will have her get blood work in addition to an x-ray. The patient will follow-up sometime in April in the meantime she will increase her prednisone for prednisone burst specially while she is that the [facility]. 05/07/2025 the patient is here for pulmonary follow-up visit. Overall she is doing well. She has not required a blood transfusion and many weeks which is reassuring. Seems to be holding her hemoglobin. The patient has been navarro erating her respiratory therapy. She did start the new nebulizer therap, Ohtuvayre. Tolerating that well. Continues on 10 mg of prednisone which is reasonable for her to continue. She continues use a noninvasive ventilator at nighttime. Her last blood gas was done back in March 2025. PCO2 is slightly elevated at 60 mmHg. Her average tidal volume is 418 mL. Therefore will send a new order to her [employer] to increase her tidal volume some in order to improve her gas exchange. Otherwise the patient is doing well she will follow- up in 3 months and will plan to do blood work prior to that visit. She has any issues prior to the next visit she can always call for further recommendations. 07/06/2025 the patient is here for sick visit. She has been sick now for about 3-4 days. She had positive sick contact with the grandson was sick with a viral syndrome. Apparently she had also had been close to sick great grandchildren. Started developing worsening cough shortness of breath. She called over the weekend. She was started on a prednisone taper and also give him Levaquin. The patient is still on the Bactrim every other day. She has a hard time expectorating she is more short of breath. She came in today she is afebrile. I did swab her for COVID RSV and flu. The patient also gets Solu-Medrol 125 mg I am x1. She will get an x-ray. In the meantime will continue her on the Levaquin and also increase her back to twice a day. She will continue with the prednisone taper. Will follow up with the x-ray and also the swab. If indeed her symptoms worsen she knows to go to the ER for an admission as she is failing outpatient therapy. 07/24/2025 the patient is here for hospital follow-up visit. She had been seen back in the end of June and she was treated for a COPD exacerbation. Likely due to a viral syndrome. Her symptoms were no better she actually got worse so she went to the ER. She was admitted to the hospital for few days. Her respiratory viral panel was positive for enterovirus. Her chest x-ray was personally by me without any acute disease just chronic hyperinflation of the lungs emphysema. The patient also had blood work including a blood gas that actually demonstrated chronic hypercarbic respiratory failure but much better than before. She has been using the noninvasive ventilator as she tolerates that well. She does use it the whole night and also naps with it. She has a significant cough. Hard to expectorate. She already finished a course of levofloxacin and also was taking Bactrim. Will try to get a sputum culture at this point and give her a break from the antibiotics until we can get the culture back. The patient continues to taper off the prednisone. Will try get her some Mucomyst as well to try to help her with the mucus clearance. [facility] Medical History (Updated 07/26/25 @ 20:33 by Mateo Barrientos MD) Pneumonia Dyspnea (~08/14/23) Tachycardia Anemia Anemia Pre-op chest exam Vertebral artery stenosis Dyspnea Chronic respiratory failure Dyslipidemia Hypothyroidism Centrilobular emphysema Surgical History (Updated 04/10/24 @ 12:47 by Barbara Armando RN) Hx of colonoscopy History of cholecystectomy H/O: hysterectomy Family History Mother No problems noted. Daughter Diabetes Social History Household Members: Children Housing: House Do you presently have visiting nurse or other home services: No Alcohol intake: unknown Patient Tobacco Use Status: Former Tobacco user Tobacco use type: Cigarette Years Smoked: 40+ years service: No Current occupational status: retired Review of Systems Const Denies chills, Reports fatigue, Denies fever(s), Denies weight gain and Denies weight loss ENT Denies dizziness Card Denies chest pain, Denies leg edema, Denies lightheadedness, Denies palpitations, Reports dyspnea, Reports dyspnea on exertion, Denies orthopnea and Denies other Resp Reports chest congestion, Reports cough, Denies hemoptysis, Reports dyspnea, Reports dyspnea on exertion and Reports wheezing GI Denies hematochezia and Denies change in stool character Musc Denies abnormal gait, Denies muscle weakness, Denies numbness, Denies radiating pain into limb and Denies tingling Skin/Breast Reports as per HPI Neuro Denies abnormal gait, Denies dizziness, Denies numbness and Denies tingling Psych Reports depression Endo Reports fatigue and Denies palpitations Fredi/Lymph Denies easy bleeding and Denies lymphadenopathy Aller/Immun Reports wheezing Physical Exam Vital Signs: Last Vital Signs Pulse 103 H 07/24/25 13:28 BP 120/0 L 07/24/25 13:28 Pulse Ox 95 07/24/25 13:28 Oxygen Delivery Method Nasal Cannula 07/24/25 13:28 Oxygen Flow Rate 3 07/24/25 13:28 Const General: alert and tired appearing Eyes Conjunctivae: conjunctival abnormal bilateral pallor Pupils: Equal, round and reactive pupils present Neck Neck: Yes normal visual inspection, Yes full ROM and Yes no lymphadenopathy Chest Chest palpation & inspection: normal inspection of the chest Resp Effort & Inspection: prolonged expiratory phase Auscultation: rhonchi, wheezes and diminished lung sounds Cardio Rate: tachycardic Rhythm: regular rhythm Heart sounds: S1 normal heart sound present and S2 normal heart sound present GI Palpation (GI): Soft to palpation and nontender Auscultation: normal bowel sounds Skin Trauma: abrasion (RLE) Neuro Cranial nerves: Yes Equal, round and reactive pupils present Office Procedures Nebulizer Treatment Nebulizer Treatment 25092-Yxxjritbs/MDI RX initial, or Nebulizer Subsequent Treatment Office Meds levalbuterol HCl 1.25 mg/3 mL solution for nebulization Performing Provider: Mateo Barrientos MD Performing Location: [facility] [place] [facility] Administered by: Raine Rodriguez LPN on 07/24/25 13:54 Dose Route Admin Location Dispensed Lot Number Expiration Date ND Field Servicer 1.25 mg inhalation 3 mL [id number] 11/14/26 60053-998-75 Peppercoin sodium chloride 3 % for nebulization Performing Provider: Mateo Barrientos MD Performing Location: [facility] [place] [facility] Administered by: Raine Rodriguez LPN on 07/24/25 13:54 Dose Route Admin Location Dispensed Lot Number Expiration Date NDC Field Servicer 3 mL inhalation 3 mL [id number] 04/16/26 [id number] NEPHRON IGGY Assessment & Plan Assessment & Plan (1) COPD (chronic obstructive pulmonary disease): Comment: very severe, end stage Code(s): J44.9 - Chronic obstructive pulmonary disease, unspecified Category: Medical Qualifiers: COPD type: chronic bronchitis Chronic bronchitis type: mucopurulent Qu alified Code(s): J41.1 - Mucopurulent chronic bronchitis (2) Dyspnea: Code(s): R06.00 - Dyspnea, unspecified Category: Medical Qualifiers: Dyspnea type: dyspnea on exertion Qualified Code(s): R06.00 - Dyspnea, unspecified (3) Centrilobular emphysema: Comment: Very severe COPD with FEV1 26% predicted Code(s): J43.2 - Centrilobular emphysema Category: Medical (4) Chronic respiratory failure: Comment: With evidence of chronic hypercarbic respiratory failure, DLCO very severe Code(s): J96.10 - Chronic respiratory failure, unspecified whether with hypoxia or hypercapnia Category: Medical Qualifiers: Respiratory failure complication: hypoxia and hypercapnia Qualified Code(s): J96.11 - Chronic respiratory failure with hypoxia; J96.12 - Chronic respiratory failure with hypercapnia; J96.12 - Chronic respiratory failure with hypercapnia (5) Anemia: Code(s): D64.9 - Anemia, unspecified Category: Medical Qualifiers: Anemia type: iron deficiency Iron deficiency anemia type: unspecified iron deficiency Qualified Code(s): D50.9 - Iron deficiency anemia, unspecified (6) Pneumonia: Code(s): J18.9 - Pneumonia, unspecified organism Category: Medical Plan Decrease Bactrim DS every other day continue Ohtuvayre continued Trelegy continue Duoneb start Mucomyst BID oxygen supplementation 4 L pulse with activity and also should also uses to sleep. continue NIV, AVAPS, PCO2 better at 65->58mmHg on venous blood gas, increased volume 400->430 ml and increased rate 12->15., use F30 mask Sputum Cx Prednisone taper follow-up in 1-2 months Orders: Orders AMB Nebulizer Treatment 07/24/25 J44.1 - Chronic obstructive pulmonary disease with (acute) exacerbation Sputum Cult + Gram stain 07/24/25 R91.1 - Solitary pulmonary nodule Medications: New acetylcysteine 2 mL inhalation BID 120 mL 7RF 30 days J18.9 - Pneumonia, unspecified organism, J44.1 - Chronic obstructive pulmonary disease with (acute) exacerbation Coding Level of Care Code Est Pt Level 5 (42170) Complex EM visit Add On G2211 Diagnoses Mucopurulent chronic bronchitis J41.1 COPD type: chronic bronchitis Chronic bronchitis type: mucopurulent Dyspnea on exertion R06.00 Dyspnea type: dyspnea on exertion Centrilobular emphysema J43.2 Chronic respiratory failure with hypoxia and hypercapnia J96.11; J96.12; J96.12 Respiratory failure complication: hypoxia and hypercapnia Iron deficiency anemia, unspecified iron deficiency anemia type D50.9 Anemia type: iron deficiency Iron deficiency anemia type: unspecified iron deficiency Pneumonia J18.9 CPT Codes Nebulizer Treatment - Nebulizer Treatment, initial or subsequent: 53620-C ebulizer/MDI RX initial, or Nebulizer Subsequent Treatment ([id number]) Time Spent (min) 45
[2025-07-24 13:28] VITALS: BP 120/0; PULSE 103; O2SAT 95
--- OUTSIDE RECORDS SUMMARY | 2025-07-24 15:24 | XMS_ITS | Clinical Summary ---
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 ([facility] V24) 03/23/2022 Overview (12/07/2024): Chronic respiratory failure with hypoxia ([facility] V24, [facility] V28) 01/30/2022 Assessment & Plan (12/15/2024 11:42 [...] 2 11/06 Chronic obstructive pulmonar y disease ([facility] V24, [facility] V28) 06/14/2017 Resolved Problems Problem Noted Date Diagnosed Date Resolved Date Nontraumatic tear of skin 08/20/2024 S/p TAVR (transcatheter aort ic valve replacement), bioprosthetic 11/08/2021 12/08/2024 Overview (12/07/2024): 11/08 TAVR CHF (congestive heart failur e) ([facility] V24, [facility] V28) 10/25/2021 01/05/2025 Overview (08/20/2024): 11/08 felt secondary to severe Assessment & Plan (12/15/2024 11:42 AM EDT): Encounters Date Type Department Care Team Description 07/24/2025 [facility] [address] [phone] María Cortés MD 07/23/2025 Lab Requisition [facility] - Main Lab [address] [facility] [place] [phone] Mary Jane Terry MD Nutritional anemia, unspecified 07/22/2025 1:30 PM EST Office Visit [address] [phone] María Cortés MD Chronic respiratory failure with hypoxia ([facility] V24, [facility] V28) (Primary Dx); End stage COPD ([facility] V24, [facility] V28); Benign essential HTN; Supplemental oxygen dependent; Anemia, unspecified type 07/22/2025 Billing Patient Not Present [address] [phone] María Cortés MD 07/22/[address] [phone] María Cortés MD 07/16/2025 Lab Requisition [facility] - Main Lab [address] [facility] [place] [phone] Mary Jane Terry MD Nutritional anemia, unspecified 07/14/2025 Telephone [facility] Hematology Oncology [address] [place] [address] Mary Jane Terry MD 06/16/2025 Results Follow-Up [address] [phone] Venita Del Rosario MA 06/09/2025 10:30 AM EDT Office Visit [facility] Hematology Oncology [address] [place] [phone] Mary Jane Terry MD Macrocytic anemia (Primary Dx); Granulocytosis; Other specified diseases of blood and blood-forming organs 04/30/2025 11:00 AM EDT Office Visit [address] [phone] María Cortés MD Benign essential HTN (Primary Dx); Coronary artery disease involving venetie ira coronary artery of venetie ira heart without angina pectoris; Iron deficiency anemia due to chronic blood loss; Chronic respiratory failure with hypoxia ([facility] V24, [facility] V28); Acquired hypothyroidism; Chronic kidney disease, stage 3a ([facility] V24, [facility] V28) 04/29/2025 Telephone [facility] Hematology Oncology [address] [place] [address] Mary Jane Terry MD 04/27/[address] [phone] María Cortés MD from Last 3 Months Immunizations Immunization Administration Dates Next Due COVID-19 (Pfizer/ComirnatAstroloMe) 12yo and older 07/09/2023 Influenza trivalent, 0.5mL [...] Hypoxia COPD (chronic obstructive pu lmonary disease) ([facility] V24, [facility] V28) Covid-19 Pulmonary nodules DX:Pulmonary n odules Carotid artery stenosis Hypothyroid GERD (gastroesophageal reflux disease) 7 Colon polyps 07/14/2017 Anxiety 07/14/2017 Psoriasis 07/14/2017 Hyperlipidemia 07/14/2017 Supplemental oxygen dependent 10/17/2017 HS Chronic obstructive pulmonar y disease ([facility] V24, [facility] V28) 06/14/2017 History of tobacco use 06/14/2017 Cataract 03/06/2018 Osteopenia 09/24/2018 Iron deficiency anemia 11/19/2019 Depressive disorder CHF (congestive heart failur e) ([facility] V24, [facility] V28) 10/25/202111/08 felt secondary to sever e [...] for your loved ones. For example, children's nursery assistant or elderly care for an older adult? [...] Mass Index 22.61 07/22/2025 1:23 PM EST Plan of Treatment Upcoming Encounters Date Type Department Care Team (Late st Contact Info) Description 07/28/2025 11:15 AM EST Office Visit [facility] Hematology Oncology [address] [place] [address] Mary Jane Terry MD [address] [place] [address] 07/30/2025 10:00 AM EST Ancillary Procedure [facility] - [facility] [address] [phone] 08/06/2025 11:30 AM EST Office Visit Vascular Surgery [facility] [address] [phone] Em Al MD [address] [place] [phone] 08/18/2025 3:45 PM EST Ancillary Procedure [facility] [address] [phone] 09/14/2025 2:30 PM EST Office Visit Vascular Surgery [facility] [address] [phone] Jennifer Carlson PA 300 [facility] [address] [place] [address] 11/19/2025 2:30 PM EST Office Visit Adult Medicine [facility] [address] [place] [address] María Cortés MD [address] [place] [address] 12/07/2025 2:40 PM EDT Office Visit [facility] [address] [place] [address] Gisel Arthur NP [address] [place] [address] Dr Mckeon [address] [place] [address] Health Maintenance Due Date Last Done Comments [...] Diagnosis Comments CBC WITH AUTO DIFFERENTIAL Routine 07/23/2025 12:00 PM EST Nutritional anemia, unspecified CBC AND DIFFERENTIAL Routine 07/23/2025 12:00 PM EST Nutritional anemia, unspecified CBC WITH AUTO DIFFERENTIAL Routine 07/16/2025 10:30 AM EDT Nutritional anemia, unspecified CBC AND DIFFERENTIAL Routine 07/16/2025 10:30 AM EDT Nutritional anemia, unspecified CBC WITH AUTO DIFFERENTIAL Routine 06/23/2025 11:59 [...] 04/29/2025 3:59 PM EDT Anemia, unspecified type BASIC METABOLIC PANEL Routine 01/29/2025 5:30 AM EDT OMEGA DEXA AXIAL SKELETON Routine 02/05/2023 6:08 PM EDT Other specified disorders of bone density and structure, left thigh from Last 3 Months or Most Recently Relevant to Health Maintenance Results * (ABNORMAL) CBC auto differential (07/23/2025 12:00 PM EST) Only the most recent of8 resultswithin the time period is included. WBC 18.6(H) 4.8 - 10.8 [facility] LAB HEMETOLOGY METHOD 07/23/2025 2:00 PM [facility] RBC 3.30(L) 3.80 - 4.80 M/mcL LAB HEMETOLOGY METHOD 07/23/2025 2:00 PM [facility] Hemoglobin 9.9(L) 11.5 - 16.0 g/dL LAB HEMETOLOGY METHOD 07/23/2025 2:00 PM [facility] LAB Hematocrit 30.8(L) 35.0 - 47.0 % LAB HEMETOLOGY METHOD 07/23/2025 2:00 PM [facility] MCV 92.8 79.0 - 98.0 FL LAB HEMETOLOGY METHOD 07/23/2025 2:00 PM [facility] MCH 29.8 27.0 - 32.0 pcg LAB HEMETOLOGY METHOD 07/23/2025 2:00 PM [facility] MCHC 32.1 32.0 - 37.0 g/dL LAB HEMETOLOGY METHOD 07/23/2025 2:00 PM [facility] RDW 16.4(H) 11.0 - 15.0 % LAB HEMETOLOGY METHOD 07/23/2025 2:00 PM [facility] Platelets 222 130 - 400 K/mcL LAB HEMETOLOGY METHOD 07/23/2025 2:00 PM [facility] MPV 9.4 7.0 - 11.0 FL LAB HEMETOLOGY METHOD 07/23/2025 2:00 PM [facility] NRBC 0.0 <1.0 % LAB HEMETOLOGY METHOD 07/23/2025 2:00 PM [facility] NRBC Absolute 0.00 <0.10 K/mcL LAB HEMETOLOGY METHOD 07/23/2025 2:00 PM [facility] Neutrophils Relative 93.2 % LAB HEMETOLOGY METHOD 07/23/2025 2:00 PM [facility] Lymphocytes Relative 1.5 % LAB HEMETOLOGY METHOD 07/23/2025 2:00 PM [facility] Monocytes Relative 3.5 % LAB HEMETOLOGY METHOD 07/23/2025 2:00 PM [facility] Eosinophils Relative 0.1 % LAB HEMETOLOGY METHOD 07/23/2025 2:00 PM [facility] Basophils Relative 0.2 % LAB HEMETOLOGY METHOD 07/23/2025 2:00 PM [facility] Immature Granulocytes Relative 1.5 % LAB HEMETOLOGY METHOD 07/23/2025 2:00 PM [facility] Neutrophils Absolute 17.30(H) 1.50 - 7.00 K/mcL LAB HEMETOLOGY METHOD 07/23/2025 2:00 PM [facility] Lymphocytes Absolute 0.28(L) 1.00 - 5.00 K/mcL LAB HEMETOLOGY METHOD 07/23/2025 2:00 PM [facility] Monocytes Absolute 0.64 0.20 - 1.00 K/mcL LAB HEMETOLOGY METHOD 07/23/2025 2:00 PM [facility] Eosinophils Absolute 0.01 0.00 - 0.50 K/mcL LAB HEMETOLOGY METHOD 07/23/2025 2:00 PM [facility] Basophils Absolute 0.04 0.00 - 0.20 K/mcL LAB HEMETOLOGY METHOD 07/23/2025 2:00 PM [facility] Immature Granulocytes Absolute 0.28(H) 0.00 - 0.03 K/mcL LAB HEMETOLOGY METHOD 07/23/2025 2:00 PM [facility] Blood Venous blood specimen / Unknown 07/23/2025 12:00 PM EST 07/23/2025 1:51 PM EST us Mary Jane Terry MD LAB BLOOD ORDERABLES Final R esult [facility] ([facility]) [facility] [address] [place] [address], * JAK2 gene, V617F mutation, quantitative, molecular study (06/09/2025 11:08 AM EDT) JAK2 (V617F) Mutation Not detected Not detected 06/12/2025 1:34 PM EDT [facility] WBC Percent with V617F Mutation <0.1 <0.1 % 06/12/2025 1:34 PM EDT [facility] Comment: This procedure uses real-time polymerase [...] characteristics of this procedure were determined by [facility]. This test is performed pursuant to a license agreement with [employer] Test performed at [facility], [address] , [place] [address] Janet Arvizu MD, PhD - Plastic Tile Layer Blood Venous blood specimen / Unknown Venipuncture / Unknown 06/09/2025 11:08 AM EDT 06/09/2025 11:48 AM EDT Mary Jane Terry MD LAB MOLECULAR DIAGNOSTICS OR DERABLES Final Result [facility] [address] [place] [address] * BCR ABL FISH CYTOGENETICS (06/09/2025 11:08 AM EDT) Pathologist [facility] Scan Result See Scanned Result 06/19/2025 11:22 AM EDT EXTERNAL LAB (NON-INTERFAC ED) Blood Venous blood specimen / Unknown Venipuncture / Unknown 06/09/2025 11:08 AM EDT 06/09/2025 11:48 AM EDT MaryJ ane Terry MD LAB CYTOGENETICS ORDERABLES Final Result Performing Organization Address City/[facility]/ZIP Co de Phone Number EXTERNAL LAB (NON-INTERFACED) * Type and screen (06/09/2025 11:08 AM EDT) Pathologist [facility] ABO Group A 06/09/2025 1:57 PM EDT [facility] Rh Type Positive 06/09/2025 1:57 PM EDT [facility] Antibody Screen Negative 06/09/2025 1:57 PM EDT [facility] Blood Venous blood specimen / Unknown Venipuncture / Unknown 06/09/2025 11:08 AM EDT 06/09/2025 11:45 AM EDT Mary Jane Terry MD LAB BLOOD BANK TEST ORDERABL ES Final Result Performing Organization Address [facility] de Phone Number [facility] [address] [place] [address], [place] [phone] * (ABNORMAL) Basic metabolic panel (01/29/2025 5:30 AM EDT) Sodium 143 133 - 145 mmol/L LAB CHEMISTRY METHOD 01/29/2025 7:04 AM EDT [facility] Potassium 4.8 3.5 - 5.5 mmol/L LAB CHEMISTRY METHOD 01/29/2025 7:04 AM EDT [facility] Chloride 107 96 - 110 mmol/L LAB CHEMISTRY METHOD 01/29/2025 7:04 AM EDT [facility] CO2 34(H) 21 - 32 mmol/L LAB CHEMISTRY METHOD 01/29[facility]2025 7[facility] Anion Gap 2(L) 3 - [...] [facility] LAB BLOOD ORDERABLES Final Resul t [facility] [address] [place] [address], * OMEGA DEXA AXIAL SKELETON (02/05/2023 6:08 PM EDT) Anatomical Region Laterality Modality Mammography 02/05/2023 2:14 PM EDT Narrative 02/05/2023 6:08 PM EDT [facility] Diagnostic Imaging Department [address] [place] [address] Patient: KIRIT ROBERSON Kalpesh MeléndezB./Age/Sex: 1945 - 77 - F Unit#: [id number] Location/Status: SPDIMAM/REG CLI Mnemonic/Ordering Site: MAMDEXAAX/SPMAM Ordering Physician: MARÍA CORTÉS MD Omega Dexa Axial Skeleton - 02/05/231456 History: Low estrogen state due to menopause. Chronic glucocorticoid use. On omeprazole. Current smoker. Comparison: 02/01/21 Findings: Bone densitometry is performed utilizing dual energy x-ray absorptiometry (DXA) in the [employer] unit. The lumbar spine and proximal femora [...] 20.0 percent Hip 6.0 percent. IMPRESSION: Osteopenia. [id number] Dictating Physician: LAURA MARIEE MD Electronically Signed by: LAURA MARIEE MD Dic Date/Time: 02/05/231806 Sign date/Time: 02/05/231807 Procedure Note Laura Mariee MD - 10/19/2023 [facility] Diagnostic Imaging Department [address] [place] [address] Patient: ZELYDIAKIRIT./Age/Sex: 1945 - 77 - F Unit#: [id number] Location/Status: SPDIMAM/REG CLI Mnemonic/[facility]ing [facility] Ordering Physician: MARÍA CORTÉS MD Omega Dexa Axial Skeleton - 02/05/23 History: Low estrogen state due to menopause. Chronic glucocorticoid use.On omeprazole. Current smoker. Comparison: 02/01/21 Findings: Bone densitometry is performed utilizing dual energy x-ray absorptiometry(DXA) in the [employer] unit. The lumbar spine and proximal femora [...] 20.0 percent Hip 6.0 percent. IMPRESSION: Osteopenia. [id number] Dictating Physician: LAURA MARIEE MD Electronically Signed by: LAURA MARIEE MD Dic Date/Time: 02/05/231806 Sign date/Time: 02/05/231807 us María Cortés MD IMG BI PROCEDURES Final Result from Last 3 Months or Most Recently Relevant to Health Maintenance Insurance MEDICARE [facility] Advance Directives Documents on File Type Date Recorded Patient Drawing Frame Tender Expl anation Health Care Decision (hx) 05/13/2024 [...] Agents on File Name Relationship Healthcare Agent [facility] p Communication Femi Roberson [facility] Health Care Agent Care Teams Humanities Teacher Relationship Specialty Start Date End Date María Cortés MD [address] [place] [address] PCP - General Internal Medicine 05/13/19
--- OUTSIDE RECORDS SUMMARY | 2025-07-24 15:24 | XMS_ITS ---
Author Organization Patient Business [facility] Address [address] [place] [address] Care Team Providers Care Power Wood Sawyer Name Role Phone Radha Cortés MD Primary Care Provider [phone] Transitional Care Management Status:Ongoing (Active) Start date:07/12/2025 Enrollment date:07/13/2025 Case Team Name Relationship Phone Maria Esther Linder RN(Responsible Staff) Care Christa mo Continued Care and Services Coordination
--- OUTSIDE RECORDS SUMMARY | 2025-07-24 15:24 | XMS_ITS ---
Author Organization Patient Business [facility] Address [address] [place] [address] Care Team Providers Care Director [employer] Name Role Phone Radha Cortés MD Primary Care Provider [phone] Chronic Care Management Status:Identified (Enrolling) Start date:07/23/2025 Enrollment reason:Identified using hospital discharge data Case Team Name Relationship Phone Maria Esther Linder RN(Responsible Staff) Care Christa mo Continued Care and Services Coordination
--- OUTSIDE RECORDS SUMMARY | 2025-07-24 15:24 | XMS_ITS | Encounter Summary ---
Author Organization [facility] Address [address] [place] [address] Care Team Providers Care Tail Edger Name Role Phone Radha Cortés MD Primary Care Provider [phone] Reason for Visit * Reason Onset Date Comments faxed order 07/24/2025 Comfort plus car egiver order [id number] Encounter Details Date Type Department Care Team (Late st Contact Info) Description 07/24/2025 Telephone Adult Medicine [facility] [place] [address] [place], [place] [phone] Radha Cortés MD [address] [place], [place] Social History Tobacco Use Types Packs/Day [...] for your loved ones. For example, child development associate teacher or elderly care for an older [...] as of this encounter Progress Notes * Venita Del Rosario MA - 07/24/2025 1:44 PM EST Signed scanned and e-faxed * Valarie Real - 07/24/2025 11:27 AM EST Comfort plus caregiver order [id number] received please sign and fax to [phone] documented in this encounter Plan of Treatment Upcoming Encounters Date Type Department Care Team (Late st Contact Info) Description 07/28/2025 11:15 AM EST Office Visit [facility] Hematology Oncology [address] [place] [phone] Mary Jane Terry MD [address] [place] [address] 07/30/2025 10:00 AM EST Ancillary Procedure [facility] Cardiology [address] [phone] 08/06/2025 11:30 AM EST Office Visit Vascular Surgery [address] [phone] Em Al MD [address] [place] [phone] 08/18/2025 3:45 PM EST Ancillary Procedure [facility] Cardiology [address] [phone] 09/14/2025 2:30 PM EST Office Visit Vascular [address] [phone] Jennifer Carlson PA [address] [address] 11/19/2025 2:30 PM EST Office Visit Adult Medicine [facility] [place] [address] [place], [place] [phone] Radha Cortés MD [address] [place] [address] 12/07/2025 2:40 PM EDT Office Visit [facility] [address] [place] [address] Gisel Arthur NP [address] [place] [address] Dr Mike [address] [place] [phone] documented as of this encounter Visit Diagnoses Not on filedocumented in this encounter Additional Health Concerns Assessment Noted Time PHQ-9 Depression Total Score: 0 12/09/19 25 1:44 PM EDT A fall risk assessment has been complete d for the patient 12/15/2024 11:14 AM EDT documented as of this encounter Care Teams Tail Edger Relationship Specialty Start Date End Date Radha Cortés MD [address] [place] [address] PCP - General Internal Medicine 05/13/19 documented as of this encounter
--- OUTSIDE RECORDS SUMMARY | 2025-07-24 15:24 | XMS_ITS | Clinical Summary ---
Author Organization [facility] Address [address] [place] [address] Care Team Providers Care Fish Farm Manager Name Role Phone Radha Cortés MD Primary Care Provider [phone] Allergies No known active allergies Medications Medication [...] age to complete this topic Care Teams Fish Farm Manager Relationship Specialty Start Date End Date Radha Cortés MD PCP - General Internal Medicine 08/27/20
--- OUTSIDE RECORDS SUMMARY | 2025-07-24 15:25 | XMS_ITS | Data Portability ---
Author Organization [place] [facility], [facility] Address [address] [place] [address] Care Team Providers Care Design Analyst Name Role Phone MARÍA CUMMINGS Primary Care Provider [phone] YOLANDA MARQUIS Primary Care Provider Assessment Encounter Date Assessment Date Assessment LastModified by Organization Details LastModified Time 01/16/2022 01/16/2022 Time On Scene with Patient: 01:02:59 DDX: COPD exacerbation, pneumonia, PE, CHF, SD, symptomatic anemia, cardiac dysrhythmia. Pt appears calm [...] to her home to drive her to [facility]. Will call [facility] ED with expect. Pt was given [...] Ag, QL IA, respiratory specimen [address] - Home, [address], [place], [address], 14:27:30 rapid flu (A+B) [address] - [place], [address] [place], [address], 14:28:03 creatinine, blood 2021 022 [facility], [address] [facility], [place], [address], 14:33:26 EC8+ iStat 2021 022 [facility] , [address] [place], [address], 14:32:20 Referral None recorded. Procedures None recorded. Surgeries None recorded. Imaging None recorded. Medication Orders None recorded. Patient TargetsNo targets recorded. Patient Instructions Encounter Date Encounter Id Patient Instructions Last Modified By Organization Details Last Modified Time 01/16/2022 [id number] NA 141 K 3.9 CL 104 TCO2 32 BUN 11 GLU 110 HCT 22 HGB 7.5 ANGAP 10 CREAT - 0.7 [facility] came to evaluate you for your increased [...] to the ED> I will call the [facility] ED and let them know you are coming. If you feel any worse, please call 911 and go by ambulance. Not available 01/16/2022 14:38:11 Reason for Referral None Reported. Results Created Date Observation Date Name Description Value Unit Range Abnormal Flag Note LastModifiedBy Organization Detail LastModifiedTime 01/17/20 22 01/16/2022 rapid flu (A+B) Flu A (ref: neg) negati ve Not Available [facility] - [address], [address], 01/16/2022 13:59:48 01/17/20 22 01/16/2022 rapid flu (A+B) Flu B (ref: neg) negati ve Not Available [facility] - [address], [address], 01/16/2022 13:59:48 01/17/20 22 01/16/2022 rapid flu (A+B) Control Visual ized/V alid Not Available [facility] - [address], [address], 01/16/2022 13:59:48 01/17/20 22 01/16/2022 rapid flu (A+B) Location [facility], [facility], [address] [place] [address], [id number] [phone] Not Available [facility] - [address], [address], 01/16/2022 13:59:48 01/17/20 22 01/16/2022 rapid SARS CoV 2 Ag, QL IA, respi rator y speci men Covid-19 (ref: neg) negati ve Not Available [facility] - Home [address] [place] [address], [address], 01/16/2022 13:59:38 01/17/20 22 01/16/2022 rapid SARS CoV 2 Ag, QL IA, respi rator y speci men Control Visual ized/V alid Not Available [facility] - Home [address] [place], [address], 01/16/2022 13:59:38 01/17/20 22 01/16/2022 rapid SARS CoV 2 Ag, QL IA, respi rator y speci men Location [facility], [address] [place] [address], [id number] [phone] Not Available [facility] - Home [address] [place], [address], 01/16/2022 13:59:38 01/17/20 22 01/16/2022 rapid SARS CoV 2 Ag, QL IA, respi rator y speci men Language Englis h Not Available [facility] - Home [address] [place], [address], 01/16/2022 13:59:38 01/17/20 22 01/16/2022 CREAT ININE , BLOOD crea 0.7 mg/dL 0.6-1. 3 Not Available [facility] [address] [place], [address], 01/16/2022 14:33:26 01/17/20 22 01/16/2022 EC8+ ISTAT pH 7.339 7.309- 7.409 Not Available [facility] [address] [place], [address], 01/16/2022 14:32:20 01/17/20 22 01/16/2022 EC8+ ISTAT glu 110 mg/dL 70-105 Not Available [facility] [address] [place], [address], 01/16/2022 14:32:20 01/17/20 22 01/16/2022 EC8+ ISTAT BUN 11 mg/dL 8-26 Not Available [facility] [address] [place], [address], 01/16/2022 14:32:20 01/17/20 22 01/16/2022 EC8+ ISTAT Na 141 mmol/ L 138-14 6 Not Available [facility] [address] [place], [address], 01/16/2022 14:32:20 01/17/20 22 01/16/2022 EC8+ ISTAT K 3.9 mmol/ L 3.5-4. 9 Not Available [facility] [address] [place], [address], 01/16/2022 14:32:20 01/17/20 22 01/16/2022 EC8+ ISTAT cL 104 mmol/ L 98-109 Not Available [facility] [address] [place], [address], 01/16/2022 14:32:20 01/17/20 22 01/16/2022 EC8+ ISTAT TCO2 32 mmol/ L 24-29 Not Available [facility] [address] [place], [address], 01/16/2022 14:32:20 01/17/20 22 01/16/2022 EC8+ ISTAT angap 10 mmol/ L 10-20 Not Available [facility] [address] [place], [address], 01/16/2022 14:32:20 01/17/20 22 01/16/2022 EC8+ ISTAT HCT 22 %pcv 38-51 Not Available [facility] [address] [place], [address], 01/16/2022 14:32:20 01/17/20 22 01/16/2022 EC8+ ISTAT Hb 7.5 g/dL 12-17 Not Available [facility] [address] [place], [address], 01/16/2022 14:32:20 Result Notes None recorded. Procedures Surgical History Date Name Laterality Status Provider Name and Address Organization Details Recorded Time 01/17/20 Venipuncture - completed ORESTES WATKINS NP [address], [place], [address], [place] [facility] 01/16/2022 14:35:10 01/17/20 22 ECG Interpretation - completed ORESTES WATKINS NP [address], [place], [address], [place] [facility] 01/16/2022 14:37:21 10/19/19 22 transcatheter aortic valve replacement completed ORESTES WATKINS NP [address], [place], [address], [place] [facility] 01/16/2022 13:50:13 hysterectomy completed ORESTES WATKINS NP [address], [place], [address], [place] [facility] 01/16/2022 13:52:13 Imaging Results None recorded. Procedure [...] History Nothing Reported. Medical History Condition Response Coronary Artery Disease Y Parkinson's Disease N COPD Y Depression N Hypothyroidism Y A-fib N Diabetes N CHF N Cancer N Dementia N Stroke N Asthma Y High Cholesterol Y Rheumatoid Arthritis N Pulmonary Embolism N Hypertension Y Osteoporosis N Kidney Disease N Gynecological HistoryNo gynecological history recorded. Obstetrics History GPAL:G 0 P 0 0 0 0 Past Encounters Encounter ID Performer Location Encounter Start Date Encounter Closed Date Diagnosis/Indication Diagnosis SNOMED-CT Code Diagnosis ICD10 Code Diagnosis IMO Codes Diagnosis Note [id number] ORESTES WATKINS NP [facility] - HOME [address] [place] [address], [place] [address] 01/16/2022 13:43:50 01/20/2022 13:41:39 Dyspnea on exertion 71537004 R06.09 Anemia 212583239 D64.9 symptomati c anemia Health Concerns Section Related Observation LastModified by Organization Detai ls LastModified Time None Recorded Concern Status LastModified by Organization Details LastModified Time None Recorded Advance Directives Directive None Recorded Payers Insurance Date Sequence Insurance Name Policy Number Policy Shepherd Covered Member ID Shepherd Member ID Guarantor Name 01/16/2022 1 *SELF PAY* Marlee MacLure [id number] Marlee MacLure 01/16/2022 2 [place] [id number] Marlee MacLure [id number] Marlee MacLure 01/23/2022 2 [place] [id number] Marlee MacLure [id number] Marlee MacLure 01/23/2022 1 [place] [employer] Marlee E MacLure [id number] Marlee MacLure Notes Date Note Type [...] symptoms. ORESTES WATKINS NP [address], [place], [address], [place] [facility] 01/16/2022 15:20:42 OBGyn Episode No OBEpisode recorded.
--- OUTSIDE RECORDS SUMMARY | 2025-07-24 15:25 | XMS_ITS | Encounter Summary ---
Author Organization [facility] Address [address] [place] [address] Care Team Providers Care Rolled Materials Worker Name Role Phone Radha Cortés MD Primary Care Provider [phone] Encounter Details Date Type Department Care Team (Late st Contact Info) Description 02/06/2025 Lab Requisition [facility] - Main Lab [address] [place] [address] Radha Cortés MD [address] [place], [place] Heart failure, unspecified (CMS/HCC V24, CMS/HCC [...] your loved ones. For example, child development consultant or elderly care for an older adult? [...] Description 07/28/2025 11:15 AM EST Office Visit [facility] Hematology Oncology [address] [place] [address] Mary Jane Terry MD [address] [place] [address] 07/30/2025 10:00 AM EST Ancillary Procedure [facility] - [address] [address] 08/06/2025 11:30 AM EST Office Visit Vascular Surgery [facility] [address] [address] Em Al MD [address] [place] [address] 08/18/2025 3:45 PM EST Ancillary Procedure [facility] Cardiology [address] [address] 09/14/2025 2:30 PM EST Office Visit Vascular [facility] [address] [address] Jennifer Carlson PA [address] [address] 11/19/2025 2:30 PM EST Office Visit Adult Medicine [address] [phone] Radha Cortés MD [address] [place] [address] 12/07/2025 2:40 PM EDT Office Visit [facility] - [facility] [address] [place] [address] Gisel Arthur NP [address] [facility] [address] [place] [address] documented as of this encounter Procedures Procedure [...] LAB HEMETOLOGY METHOD 02/06/2025 2:53 PM EDT [facility] RBC 3.20(L) 3.80 - 4.80 M/mcL LAB HEMETOLOGY METHOD 02/06/2025 2:53 PM EDT [facility] Hemoglobin 9.9(L) 11.5 - 16.0 g/dL LAB HEMETOLOGY METHOD 02/06/2025 2:53 PM EDT [facility] Hematocrit 32.4(L) 35.0 - 47.0 % LAB HEMETOLOGY METHOD 02/06/2025 2:53 PM EDT [facility] MCV 100.6(H) 79.0 - 98.0 FL LAB HEMETOLOGY METHOD 02/06/2025 2:53 PM EDT [facility] MCH 30.7 27.0 - 32.0 pcg LAB HEMETOLOGY METHOD 02/06/2025 2:53 PM EDT [facility] MCHC 30.6(L) 32.0 - 37.0 g/dL LAB HEMETOLOGY METHOD [facility] RDW 15.1(H) 11.0 - 15.0 % LAB HEMETOLOGY METHOD 02/06/2025 2:53 PM EDT [facility] Platelets 356 130 - 400 K/mcL LAB HEMETOLOGY METHOD [facility]/06[facility]25 [facility] MPV 9.3 7.0 - 11.0 FL LAB HEMETOLOGY METHOD 02/06/2025 2[facility] NRBC 0.0 <1.0 % LAB HEMETOLOGY METHOD 02/06/2025 [facility] NRBC Absolute 0.00 <0.10 K/mcL LAB HEMETOLOGY METHOD 02/06/2025 2[facility] Neutrophils Relative 85.4 % LAB HEMETOLOGY METHOD 02/06/2025 2:53 PM [facility] Lymphocytes Relative 7.3 % LAB HEMETOLOGY METHOD 02/06/2025 2:53 PM EDT [facility] Monocytes Relative 5.1 % LAB HEMETOLOGY METHOD 02/06/2025 [facility] Eosinophils Relative 0.6 % LAB HEMETOLOGY METHOD 02/06/2025 2[facility] Basophils Relative 0.5 % LAB HEMETOLOGY METHOD 02/06/2025 [facility] Immature Granulocytes Relative 1.1 % LAB HEMETOLOGY METHOD 02/06/2025 2:53 PM EDT [facility] Neutrophils Absolute 10.46(H) 1.50 - 7.00 K/mcL LAB HEMETOLOGY METHOD 02/06/2025 2:53 PM EDT [facility] Lymphocytes Absolute 0.89(L) 1.00 - 5.00 K/mcL LAB HEMETOLOGY METHOD 02/06/2025 2:53 PM EDT [facility] Monocytes Absolute 0.63 0.20 - 1.00 K/mcL LAB HEMETOLOGY METHOD 02/06/2025 2:53 PM EDT [facility] Eosinophils Absolute 0.07 0.00 - 0.50 [facility] LAB HEMETOLOGY METHOD 02/06/2025 2:53 PM EDT [facility] Basophils Absolute 0.06 0.00 - 0.20 K/mcL LAB HEMETOLOGY METHOD 02/06/2025 2:53 PM EDT [facility] Immature Granulocytes Absolute 0.14(H) 0.00 - 0.03 [facility] LAB HEMETOLOGY METHOD 02/06/2025 2:53 PM EDT [facility] Blood Venous blood specimen / Unknown 02/06/2025 11:30 AM EDT 02/06/2025 2:35 PM EDT us Radha Cortés MD LAB BLOOD ORDERABLES Final Resul t [facility] [address] [place] [address], documented in this encounter Visit Diagnoses Diagnosis [...] documented as of this encounter Care Teams Rolled Materials Worker Relationship Specialty Start Date End Date Radha Cortés MD [address] [place] [address] PCP - General Internal Medicine 05/13/19 documented as of this encounter
--- OUTSIDE RECORDS SUMMARY | 2025-07-24 15:25 | XMS_ITS | Encounter Summary ---
Author Organization [facility] Address [address] [place] [address] Care Team Providers Care Lead Software Test Engineer Name Role Phone Radha Cortés MD Primary Care Provider [phone] Encounter Details Date Type Department Care Team (Late st Contact Info) Description 07/22/2025 Billing Patient Not Present Adult Medicine [facility] [address] [place], [place] [phone] Radha Cortés MD [address] [place], [place] Social History Tobacco Use Types Packs/Day [...] for your loved ones. For example, children's program coordinator or elderly care for an older adult? [...] Description 07/28/2025 11:15 AM EST Office Visit [facility] Hematology Oncology [address] [place] [phone] Mary Jane Terry MD [address] [place] [address] 07/30/2025 10:00 AM EST Ancillary Procedure [facility] Cardiology [facility] [address] [facility] Mike [address] [place] [phone] 08/06/2025 11:30 AM EST Office Visit Vascular Surgery [facility] 300 [facility] [address] [place] [address] Em Al MD [address] [place] [phone] 08/18/2025 3:45 PM EST Ancillary Procedure [facility] Cardiology [facility] [address] 300 [facility] [address] [place] [phone] 09/14/2025 2:30 PM EST Office Visit Vascular Surgery [facility] [address] [place] [phone] Jennifer Carlson PA 300 [facility] [address] [place] [address] 11/19/2025 2:30 PM EST Office Visit Adult Medicine [facility] [address] [place] [phone] Radha Cortés MD [address] [place] [phone] 12/07/2025 2:40 PM EDT Office Visit [facility] Cardiology [address] [place] [address] Gisel Arthur NP [address] [place] [address] [place] [address] documented as of this encounter Visit Diagnoses Not on filedocumented in this encounter Additional Health Concerns Assessment Noted Time PHQ-9 Depression Total Score: 0 12/09/19 25 1:44 PM EDT A fall risk assessment has been complete d for the patient 12/15/2024 11:14 AM EDT documented as of this encounter Care Teams Lead Software Test Engineer Relationship Specialty Start Date End Date Radha Cortés MD [address] [place] [address] PCP - General Internal Medicine 05/13/19 documented as of this encounter
--- OUTSIDE RECORDS SUMMARY | 2025-07-24 15:25 | XMS_ITS | Encounter Summary ---
Author Organization [facility] Address [address] [place] [address] Care Team Providers Care Statistics Manager Name Role Phone Radha Cortés MD Primary Care Provider [phone] Encounter Details Date Type Department Care Team (Late st Contact Info) Description 06/16/2025 Results Follow-Up Adult Medicine [address] [address] Venita Del Rosario [place] Social History Tobacco [...] for your loved ones. For example, child protective investigator or elderly care for an older adult? [...] Description 07/28/2025 11:15 AM EST Office Visit [facility] Hematology Oncology [address] [place] [phone] Mary Jane Terry MD [address] [place] [address] 07/30/2025 10:00 AM EST Ancillary Procedure [facility] Cardiology [facility] [address] [address] 08/06/2025 11:30 AM EST Office Visit Vascular Surgery [facility] 300 [facility] [address] [place] [address] Em Al MD [address] [place] [address] 08/18/2025 3:45 PM EST Ancillary Procedure [facility] [address] [address] 09/14/2025 2:30 PM EST Office Visit Vascular Surgery [facility] 300 [facility] [address] [place] [phone] Jennifer Carlson PA [address] [address] 11/19/2025 2:30 PM EST Office Visit Adult [facility] [address] [place], [place] [phone] Radha Cortés MD [address] [place], [place] 12/07/2025 2:40 PM EDT Office Visit [facility] [address] [place] [address] [place] [address] Gisel Arthur NP [address] [place] [address] Dr [address]ke[address] [place] [phone] documented as of this encounter Visit Diagnoses Not on filedocumented in this encounter Additional Health Concerns Assessment Noted Time PHQ-9 Depression Total Score: 0 12/09/19 25 1:44 PM EDT A fall risk assessment has been complete d for the patient 12/15/2024 11:14 AM EDT documented as of this encounter Care Teams Statistics Manager Relationship Specialty Start Date End Date Radha Cortés MD [address] [place] [address] PCP - General Internal Medicine 05/13/19 documented as of this encounter
--- OUTSIDE RECORDS SUMMARY | 2025-07-24 15:25 | XMS_ITS | Encounter Summary ---
Author Organization [facility] Address [address] [place] [address] Care Team Providers Care Supervisory Geographer Name Role Phone Radha Cortés MD Primary Care Provider [phone] Reason for Visit * Reason Onset Date Comments faxed order 07/22/2025 Comfort plus car egiver order [id number] Encounter Details Date Type Department Care Team (Late st Contact Info) Description 07/22/2025 Telephone Adult Medicine [facility] [address] [place], [place] [phone] Radha Cortés MD [address] [place], [place] Social History Tobacco Use Types Packs/Day [...] care for your loved ones. For example, childcare center director or elderly care for an older adult? [...] * Venita Del Rosario [place] - 07/24/2025 12:37 PM EST Signed scanned and e-faxed * Valarie Real - 07/22/2025 11:45 AM EST Comfort plus caregiver order [id number] received please sign and fax [phone] documented in this encounter Plan of Treatment Upcoming Encounters Date Type Department Care Team (Late st Contact Info) Description 07/28/2025 11:15 AM EST Office Visit [facility] Hematology Oncology [address] [place] [address] Mary Jane Terry MD [address] [place] [address] 07/30/2025 10:00 AM EST Ancillary Procedure [facility] Cardiology [address] [address] 08/06/2025 11:30 AM EST Office Visit Vascular Surgery [address] [address] Em Al MD [address] [place] [address] 08/18/2025 3:45 PM EST Ancillary Procedure [facility] Cardiology [address] [address] 09/14/2025 2:30 PM EST Office Visit Vascular [address] [address] Jennifer Carlson PA [address] [address] 11/19/2025 2:30 PM EST Office Visit Adult Medicine [facility] [address] [place], [place] [phone] Radha Cortés MD [address] [place] [address] 12/07/2025 2:40 PM EDT Office Visit [facility] - [facility] [address] [place] [address] Gisel Arthur NP [address] [place] [address] Dr Mike [address] [place] [phone] documented as of this encounter Visit Diagnoses Not on filedocumented in this encounter Additional Health Concerns Assessment Noted Time PHQ-9 Depression Total Score: 0 12/09/19 25 1:44 PM EDT A fall risk assessment has been complete d for the patient 12/15/2024 11:14 AM EDT documented as of this encounter Care Teams Supervisory Geographer Relationship Specialty Start Date End Date Radha Cortés MD [address] [place] [address] PCP - General Internal Medicine 05/13/19 documented as of this encounter
--- OUTSIDE RECORDS SUMMARY | 2025-07-24 15:25 | XMS_ITS | Encounter Summary ---
Author Organization [facility] Address [address] [place] [address] Care Team Providers Care Airborne Operations Manager Name Role Phone Radha Cortés MD Primary Care Provider [phone] Encounter Details Date Type Department Care Team (Late st Contact Info) Description 07/23/2025 Lab Requisition [facility] - Main Lab 299 [facility] [place] [phone] Mary Jane Terry MD [address] [place] [address] Nutritional anemia, unspecified Social History Tobacco Use Types [...] care for your loved ones. For example, children teacher or elderly care for an older [...] Description 07/28/2025 11:15 AM EST Office Visit [facility] Hematology Oncology [address] [place] [phone] Mary Jane Terry MD [address] [place] [address] 07/30/2025 10:00 AM EST Ancillary Procedure [facility] Cardiology [facility] [address] [facility] [address] [place] [phone] 08/06/2025 11:30 AM EST Office Visit Vascular Surgery [facility] [address] [facility] [address] [place] [address] Em Al MD [address] [place] [phone] 08/18/2025 3:45 PM EST Ancillary Procedure [facility] Cardiology [facility] [address] 300 [facility] 101 [place] [phone] 09/14/2025 2:30 PM EST Office Visit Vascular Surgery [facility] [address] [place] [phone] Jennifer Carlson PA 300 [facility] 210 [place] [address] 11/19/2025 2:30 PM EST Office Visit Adult Medicine [facility] [address] [place] [phone] Radha Cortés MD [address] [place] [phone] 12/07/2025 2:40 PM EDT Office Visit [facility] Cardiology [address] [place] [phone] Gisel Arthur NP [address] [place] [address] [place] [address] documented as of this encounter Procedures Procedure Name Priority Date/Time Associated Diagnosis Comments CBC WITH AUTO DIFFERENTIAL Routine 07/23/2025 12:00 PM EST Nutritional anemia, unspecified CBC AND DIFFERENTIAL Routine 07/23/2025 12:00 PM EST Nutritional anemia, unspecified documented in this encounter Results * (ABNORMAL) CBC auto differential (07/23/2025 12:00 PM EST) WBC 18.6(H) 4.8 - 10.8 K/mcL LAB HEMETOLOGY METHOD 07/23/2025 2:00 PM [facility] LAB RBC 3.30(L) 3.80 - 4.80 M/mcL LAB HEMETOLOGY METHOD 07/23/2025 2:00 PM [facility] LAB Hemoglobin 9.9(L) 11.5 - 16.0 g/dL LAB HEMETOLOGY METHOD 07/23/2025 2:00 PM [facility] LAB Hematocrit 30.8(L) 35.0 - 47.0 % LAB HEMETOLOGY METHOD 07/23/2025 2:00 PM [facility] LAB MCV 92.8 79.0 - 98.0 FL LAB HEMETOLOGY METHOD 07/23/2025 2:00 PM [facility] LAB MCH 29.8 27.0 - 32.0 pcg LAB HEMETOLOGY METHOD 07/23/2025 2:00 PM [facility] LAB MCHC 32.1 32.0 - 37.0 g/dL LAB HEMETOLOGY METHOD 07/23/2025 2:00 PM [facility] LAB RDW 16.4(H) 11.0 - 15.0 % LAB HEMETOLOGY METHOD 07/23/2025 2:00 PM [facility] LAB Platelets 222 130 - 400 K/mcL LAB HEMETOLOGY METHOD 07/23/2025 2:00 PM [facility] LAB MPV 9.4 7.0 - 11.0 FL LAB HEMETOLOGY METHOD 07/23/2025 2:00 PM [facility] LAB NRBC 0.0 <1.0 % LAB HEMETOLOGY METHOD 07/23/2025 2:00 PM [facility] LAB NRBC Absolute 0.00 <0.10 K/mcL LAB HEMETOLOGY METHOD 07/23/2025 2:00 PM [facility] LAB Neutrophils Relative 93.2 % LAB HEMETOLOGY METHOD 07/23/2025 2:00 PM [facility] LAB Lymphocytes Relative 1.5 % LAB HEMETOLOGY METHOD 07/23/2025 2:00 PM [facility] LAB Monocytes Relative 3.5 % LAB HEMETOLOGY METHOD 07/23/2025 2:00 PM [facility] LAB Eosinophils Relative 0.1 % LAB HEMETOLOGY METHOD 07/23/2025 2:00 PM [facility] LAB Basophils Relative 0.2 % LAB HEMETOLOGY METHOD 07/23/2025 2:00 PM [facility] LAB Immature Granulocytes Relative 1.5 % LAB HEMETOLOGY METHOD 07/23/2025 2:00 PM [facility] LAB Neutrophils Absolute 17.30(H) 1.50 - 7.00 K/mcL LAB HEMETOLOGY METHOD 07/23/2025 2:00 PM [facility] LAB Lymphocytes Absolute 0.28(L) 1.00 - 5.00 K/mcL LAB HEMETOLOGY METHOD 07/23/2025 2:00 PM [facility] LAB Monocytes Absolute 0.64 0.20 - 1.00 K/mcL LAB HEMETOLOGY METHOD 07/23/2025 2:00 PM [facility] LAB Eosinophils Absolute 0.01 0.00 - 0.50 K/[facility] LAB HEMETOLOGY METHOD 07/23/2025 2:00 PM EST [facility] LAB Basophils Absolute 0.04 0.00 - 0.20 K/[facility] LAB HEMETOLOGY METHOD 07/23/2025 2:00 PM EST [facility] LAB Immature Granulocytes Absolute 0.28(H) 0.00 - 0.03 K/[facility] LAB HEMETOLOGY METHOD 07/23/2025 2:00 PM EST [facility] LAB Blood Venous blood specimen / Unknown 07/23/2025 12:00 PM EST 07/23/2025 1:51 PM EST Mary Jane Terry MD LAB BLOOD ORDERABLES Final R esult [facility] LAB [address] [place] [address], documented in this encounter Visit Diagnoses Diagnosis Nutritional anemia, unspecified documented in this encounter Additional Health Concerns Assessment Noted Time PHQ-9 Depression Total Score: 0 12/09/19 25 1:44 PM EDT A fall risk assessment has been complete d for the patient 12/15/2024 11:14 AM EDT documented as of this encounter Care Teams Airborne Operations Manager Relationship Specialty Start Date End Date Radha Cortés MD [address] [place] [address] PCP - General Internal Medicine 05/13/19 documented as of this encounter
--- OUTSIDE RECORDS SUMMARY | 2025-07-24 15:25 | XMS_ITS | Encounter Summary ---
Author Organization [facility] Address [address] [place] [address] Care Team Providers Care New Accounts Representative Name Role Phone Radha Cortés MD Primary Care Provider [phone] Encounter Details Date Type Department Care Team (Late st Contact Info) Description 07/16/2025 Lab Requisition [facility] - Main Lab 299 [facility] [place] [phone] Mary Jane Terry MD [address] [place] [address] Nutritional anemia, unspecified Social History Tobacco Use [...] your loved ones. For example, early childhood assistant or elderly care for an older [...] Description 07/28/2025 11:15 AM EST Office Visit [facility] Hematology Oncology [address] [place] [phone] Mary Jane Terry MD [address] [place] [address] 07/30/2025 10:00 AM EST Ancillary Procedure [facility] Cardiology [facility] [address] [facility] [address] [place] [phone] 08/06/2025 11:30 AM EST Office Visit Vascular Surgery [facility] 300 [facility] [address] [place] [address] Em Al MD [address] [place] [phone] 08/18/2025 3:45 PM EST Ancillary Procedure [facility] Cardiology [facility] [address] [facility] [address] [place] [phone] 09/14/2025 2:30 PM EST Office Visit Vascular Surgery [facility] [address] [place] [phone] Jennifer Carlson PA 300 [facility] [address] [place] [address] 11/19/2025 2:30 PM EST Office Visit Adult Medicine [facility] [address] [place] [phone] Radha Cortés MD [address] [place] [phone] 12/07/2025 2:40 PM EDT Office Visit [facility] Cardiology [address] [place] [phone] Gisel Arthur NP [address] [place] [address] [place] [address] documented as of this encounter Procedures Procedure Name Priority Date/Time Associated Diagnosis Comments CBC WITH AUTO DIFFERENTIAL Routine 07/16/2025 10:30 AM EDT Nutritional anemia, unspecified CBC AND DIFFERENTIAL Routine 07/16/2025 10:30 AM EDT Nutritional anemia, unspecified documented in this encounter Results * (ABNORMAL) CBC auto differential (07/16/2025 10:30 AM EDT) [facility] Signature WBC 15.5(H) 4.8 - 10.8 K/mcL LAB HEMETOLOGY METHOD 07/16/2025 11:38 AM [facility] LAB RBC 3.60(L) 3.80 - 4.80 M/mcL LAB HEMETOLOGY METHOD 07/16/2025 11:38 AM [facility] LAB Hemoglobin 10.3(L) 11.5 - 16.0 g/dL LAB HEMETOLOGY METHOD 07/16/2025 11:38 AM [facility] LAB Hematocrit 33.8(L) 35.0 - 47.0 % LAB HEMETOLOGY METHOD 07/16/2025 11:38 AM [facility] LAB MCV 92.9 79.0 - 98.0 FL LAB HEMETOLOGY METHOD 07/16/2025 11:38 AM [facility] LAB MCH 28.3 27.0 - 32.0 pcg LAB HEMETOLOGY METHOD 07/16/2025 11:38 AM [facility] LAB MCHC 30.5(L) 32.0 - 37.0 g/dL LAB HEMETOLOGY METHOD 07/16/2025 11:38 AM [facility] LAB RDW 16.1(H) 11.0 - 15.0 % LAB HEMETOLOGY METHOD 07/16/2025 11:38 AM [facility] LAB Platelets 243 130 - 400 K/mcL LAB HEMETOLOGY METHOD 07/16/2025 11:38 AM [facility] LAB MPV 9.1 7.0 - 11.0 FL LAB HEMETOLOGY METHOD 07/16/2025 11:38 AM [facility] LAB NRBC 0.0 <1.0 % LAB HEMETOLOGY METHOD 07/16/2025 11:38 AM [facility] LAB NRBC Absolute 0.00 <0.10 K/mcL LAB HEMETOLOGY METHOD 07/16/2025 11:38 AM [facility] LAB Neutrophils Relative 86.5 % LAB HEMETOLOGY METHOD 07/16/2025 11:38 AM [facility] LAB Lymphocytes Relative 6.2 % LAB HEMETOLOGY METHOD 07/16/2025 11:38 AM [facility] LAB Monocytes Relative 3.5 % LAB HEMETOLOGY METHOD 07/16/2025 11:38 AM [facility] LAB Eosinophils Relative 0.4 % LAB HEMETOLOGY METHOD 07/16/2025 11:38 AM [facility] LAB Basophils Relative 0.4 % LAB HEMETOLOGY METHOD 07/16/2025 11:38 AM [facility] LAB Immature Granulocytes Relative 3.0 % LAB HEMETOLOGY METHOD 07/16/2025 11:38 AM [facility] LAB Neutrophils Absolute 13.42(H) 1.50 - 7.00 K/mcL LAB HEMETOLOGY METHOD 07/16/2025 11:38 AM [facility] LAB Lymphocytes Absolute 0.96(L) 1.00 - 5.00 K/mcL LAB HEMETOLOGY METHOD 07/16/2025 11:38 AM [facility] LAB Monocytes Absolute 0.54 0.20 - 1.00 K/mcL LAB HEMETOLOGY METHOD 07/16/2025 11:38 AM EDT [facility] LAB Eosinophils Absolute 0.06 0.00 - 0.50 K/[facility] LAB HEMETOLOGY METHOD 07/16/2025 11:38 AM EDT [facility] LAB Basophils Absolute 0.06 0.00 - 0.20 K/mcL LAB HEMETOLOGY METHOD 07/16/2025 11:38 AM EDT [facility] LAB Immature Granulocytes Absolute 0.47(H) 0.00 - 0.03 K/mcL LAB HEMETOLOGY METHOD 07/16/2025 11:38 AM EDT [facility] LAB Blood Venous blood specimen / Unknown 07/16/2025 10:30 AM EDT 07/16/2025 11:25 AM EDT us Mary Jane Hood Terry MD LAB BLOOD ORDERABLES Final R esult [facility] LAB [address] [place] [address], documented in this encounter Visit Diagnoses Diagnosis Nutritional anemia, unspecified documented in this encounter Additional Health Concerns Assessment Noted Time PHQ-9 Depression Total Score: 0 12/09/19 25 1:44 PM EDT A fall risk assessment has been complete d for the patient 12/15/2024 11:14 AM EDT documented as of this encounter Care Teams New Accounts Representative Relationship Specialty Start Date End Date Radha Cortés MD [address] [place] [address] PCP - General Internal Medicine 05/13/19 documented as of this encounter
== END 2025-07-24 15:06 | disposition home or self-care (01) ==
LOC: HO.HPS 13:16
PROVIDERS: PCP Internal Medicine; Visit Provider Hospitalist
DX: J41.1 Mucopurulent chronic bronchitis (principal); J43.2 Centrilobular emphysema; J96.11 Chronic respiratory failure with hypoxia; J96.12 Chronic respiratory failure with hypercapnia; D50.9 Iron deficiency anemia, unspecified; J18.9 Pneumonia, unspecified organism
CPT/HCPCS: 99215; G2211

== ENCOUNTER 2025-07-24 13:15 | Outpatient (REF) | payer MEDICARE, SELFPAY | END 2025-07-24 13:16 | disposition home or self-care (01) | LOC: HO.LNP 13:15 | PROVIDERS: PCP Internal Medicine; Visit Provider Hospitalist | DX: J41.1 Mucopurulent chronic bronchitis (principal); J44.1 Chronic obstructive pulmonary disease with (acute) exacerbation; J43.2 Centrilobular emphysema; J96.11 Chronic respiratory failure with hypoxia; J96.12 Chronic respiratory failure with hypercapnia; D50.9 Iron deficiency anemia, unspecified; J18.9 Pneumonia, unspecified organism; R91.1 Solitary pulmonary nodule; Z79.899 Other long term (current) drug therapy; Z79.51 Long term (current) use of inhaled steroids; Z87.891 Personal history of nicotine dependence | CPT/HCPCS: 87070; 87077; 87205; 94640; 99212 ==